=== PATIENT | male | born 1960 | race Caucasian/White ===

== ENCOUNTER 2017-11-24 15:28 | Emergency (ER) | payer SELFPAY ==
[2017-11-24 15:30] VITALS: BP 120/72; PULSE 87; RESP 15; TEMP 36.8; O2SAT 99; BMI 17.9
[2017-11-24 15:36] VITALS: BP 144/70; PULSE 81; RESP 20; O2SAT 98
--- NOTE | 2017-11-24 15:46 | EKG12_ITS ---
Test Reason : CP Blood Pressure : / mmHG Vent. Rate : 085 BPM Atrial Rate : 085 BPM P-R Int : 128 ms QRS Dur : 086 ms QT Int : 350 ms P-R-T Axes : 073 072 055 degrees QTc Int : 416 ms Normal sinus rhythm Normal ECG Confirmed by JOSEF HUGHES, TRUONG ([id number]), purchase request editor KARIME HUTCHINSON ([id number]) on 11/29/2017 8:35:33 AM Referred By: TRINI Confirmed By:TRUONG BAEHNA MD
--- NOTE | 2017-11-24 15:49 | CT_ITS ---
STUDY: CTA CHEST REASON FOR EXAM: Male, 57 years old. Right-sided chest pain and shortness of breath. RADIATION DOSAGE (If Supplied By Facility): CTDIvol = ( 5.70 ) mGy, DLP = ( 196.11 ) mGycm TECHNIQUE: The examination was performed with the intravenous administration of 75 ml of Isovue 370 contrast material. Post-processing of the angiographic images was performed, with multiplanar reformation and 3D reconstruction. Individualized dose optimization techniques were used for this CT. COMPARISON: None. FINDINGS: Normal enhancement of the main pulmonary artery and right and left pulmonary arteries. Normal enhancement of the bilateral peripheral pulmonary arteries. There is no demonstrated pulmonary embolism. Moderate elongation and mild calcified plaque of the thoracic aorta. There is no demonstrated aortic dissection. Normal heart and pericardium. Coronary calcifications. Normal mediastinum. Normal hilar regions. Diffuse emphysematous changes and generalized bronchial thickening. Multifocal small infiltrates of the left upper lobe. Apical pleural thickening bilaterally with nodular surface features. The most prominent nodule on the right side is 5.9 x 4.4 mm with a pleural type extension. Numerous pleural-based nodules of the left lung apex. Negative for pleural effusion. Normal chest wall structures. There are degenerative changes of thoracic spine with increased kyphosis and a mild scoliosis. Normal visualized upper abdomen. CT/CTA Chest W/WO Contrast IMPRESSION: Negative for pulmonary embolus. Atherosclerotic changes of the thoracic aorta without aneurysm or dissection. Substantial coronary calcifications. Small nonspecific multifocal infiltrate of the anterior left upper lobe. Generalized hyperexpansion, emphysematous changes and bronchial thickening compatible with a component of COPD. Bronchial thickening is more notable in the lower lung zones with some peripheral bronchial occlusion in the right lower lobe. Negative for pleural effusion. Bilateral nodular-type apical pleural thickening bilaterally. The largest and most prominent nodule, pleural-based is 5.9 x 4.4 mm. 6-12 month follow-up recommended. Electronically Signed: Daniela Silverman MD at 17:04 EDT , Service support ,
[2017-11-24 15:55] VITALS: O2SAT 99
--- NOTE | 2017-11-24 15:56 | ED.DCSUM_ITS ---
- ER Visit Summary Date of Service: 11/24/17 Chief Complaint: Chest pain History of Present Illness: The patient is a 57 M who states that when he woke this morning he had a sharp stabbing pain on the right lower chest in the anterior axillary line. He states is worse with bending over, coughing, and touch. Denies any nausea vomiting. He denies any fevers or rashes. He is a smoker and has a chronic cough but states there is been no change in his cough and no sputum production. He denies any significant medical history. He currently takes no medications has no allergies. No prior PE. No recent travel or surgery. No recent immobilization. He has no known active cancer. No familial history of early heart disease. He denies feeling short of breath. He denies any indigestion-like symptoms. No difficulty with greasy or fatty foods. No urinary symptoms (hematuria frequency dysuria). No food intolerance. Physical Examination: Afebrile vital signs stable Gen: Well-nourished well-developed Head: Normocephalic atraumatic Eyes: Perrl EOMI ENT: TMs clear no rhinorrhea moist mucous membranes Neck: Supple no lymphadenopathy no JVD nontender CVS: Regular rate rhythm no murmurs normal S1-S2 Respiratory: No distress clear to auscultation bilaterally the right lower anterior mid axillary line chest wall is tender to palpation. I do not see any rashes. There is no pain with palpation over the posterior ribs. Abdomen: Soft nontender nondistended normal bowel sounds no masses Back: Nontender Extremity: Nontender no edema Skin: Normal color no rash Neuro: alert orientated ?3 CN II-XII intact normal strength sensation reflexes gait cerebellar Psych: Normal affect normal mood Test Results: EKG done upon arrival shows a sinus rhythm at a rate of 85. GC and BMP with a sodium of 132. Troponin negative. CT [place] of the chest did not demonstrate pulmonary embolism. There is some chronic findings that will need follow-up please see radiologist details Emergency Department Course and Treatment: I believe his pain to be chest wall related. It is reproducible. I will place him on ibuprofen he also has evidence of COPD we will place him on albuterol short burst of prednisone. Given his lung disease but is not yet formally diagnosed him to have him follow- up with pulmonology. Impression: 1. Chest wall pain 2. COPD This note was generated with [employer] dictation software. It may contain incorrect words, spelling, and punctuation that were not noted in review of the chart prior to signing ED Disposition - Plan for ED Patient: Disposition: Home or Assisted Living Chief Complaint: Chest Pain Instructions: ED Chest Pain Pleurisy Prescriptions: RX: Albuterol Inhaler [Ventolin Hfa] 1 - 2 puff INHALATION Q4H PRN PRN #1 inhaler PRN Reason: Wheezing Ibuprofen [Motrin] 800 mg PO TID PRN PRN #20 tab PRN Reason: Pain RX: Prednisone [Deltasone] 40 mg PO DAILY #10 tab Referrals: Fran Carney DO [STAFF PHYSICIAN] - (call to arrange follow up regarding your copd/lung findings)
[2017-11-24] MEDS: Ketorolac 30 MG/ML Syringe IV (16:00)
[2017-11-24 16:09] LABS: Absolute Lymphocyte Count 2.13 X10^3/ul (0.83-4.51); Absolute Neutrophil Count 3.9 X10^3/uL (2.0-7.7); Basophil# 0.04 X10^3/uL; Basophil% 0.6 % (0-1); Eosinophil# 0.18 X10^3/uL; Eosinophils% 2.7 % (0-5); Hematocrit 38.6 % (40-54); Hemoglobin 13.2 g/dl (13.0-16.5); Lymphocyte # 2.13 X10^3/ul (4.0); Lymphocyte % 31.8 % (19-41); Mean Corp Hgb Conc 34.2 g/gl (32-36); Mean Corpuscular Hgb 32.3 pg (27.0-32.0); Mean Corpuscular Volume 94.4 fL (80-94); Mean Platelet Vol. 8.5 fl (6.2-12.0); Monocyte# 0.45 X10^3/uL; Monocyte% 6.7 % (0-10); Neutrophil # 3.87 X10^3/uL (2.7-7.7); Neutrophil % 57.9 % (47-70); POSITIVE COUNT NO; POSITIVE DIFFERENTIAL NO; POSITIVE MORPHOLOGY NO; Platelet Count 277 K/mm3 (150-450); RBC Distribution Width CV 12.9 % (11.6-14.6); RBC Distribution Width SD 44.5 fl (35.1-43.9); Red Blood Count 4.09 M/mm3 (4.6-6.2); White Blood Count 6.7 K/mm3 (4.4-11.0)
[2017-11-24 16:25] LABS: Anion Gap 8 (5-15); BUN 9 mg/dL (7-18); BUN/Creat Ratio 7.8 RATIO (10-20); Calcium,Total 9.5 mg/dL (8.5-10.1); Chloride 94 mmol/L (98-107); Creatinine, Serum 1.15 mg/dL (0.70-1.30); EST Glomerular Filtration Rate 70 mL/min (>60); Est Glom Filt Rate - Afr Amer 84 mL/min (>60); Estimated Creatinine Clearance 58.34 ml/min; Glucose 105 mg/dL (74-106); Potassium 4.2 mmol/L (3.5-5.1); Sodium Level 132 mmol/L (136-145)
[2017-11-24 16:59] VITALS: BP 140/59; PULSE 69; RESP 16; O2SAT 99
[2017-11-24 17:55] VITALS: BP 123/69; PULSE 70; RESP 16; O2SAT 98
[2017-11-24 18:02] VITALS: BP 115/79; PULSE 70; RESP 16; O2SAT 98
== END 2017-11-24 18:03 | disposition home or self-care (01) ==
PROVIDERS: Emergency Provider Emergency Medicine
DX: R07.89 Other chest pain (principal); J44.9 Chronic obstructive pulmonary disease, unspecified; Z72.0 Tobacco use
CPT/HCPCS: 71275; 80048; 84484; 85025; 93005; 96374; 99284; Q9967; A4216

== ENCOUNTER 2018-03-14 23:37 | Emergency (ER) | payer SELFPAY ==
[2018-03-14 23:38] VITALS: BP 180/90; PULSE 76; RESP 18; TEMP 36.3; O2SAT 100; BMI 18.6
[2018-03-15] MEDS: Penicillin Vk 250 MG Tablet 500 MG PO (00:29)
[2018-03-15] MEDS: Acetaminophen 500 MG Tablet 1000 MG PO (00:29)
[2018-03-15] MEDS: Bupivacaine 0.5%/Epi 1.8 ML Syringe INFILT (00:31)
--- NOTE | 2018-03-15 00:55 | ED.VISSUMM ---
- ER Visit Summary Date of Service: 03/15/18 Chief Complaint: Dental pain and facial swelling History of Present Illness: The patient is a 57 M with no dentist or primary care physician who presents for left mandibular dental pain and swelling since yesterday morning. It is gradually worsened, with jaw swelling. Patient used Orajel, a whole tube, without relief. Patient denies any fever, sore throat, cough, or any other complaints. He denies any medical history. He is a smoker. Physical Examination: Patient is afebrile and hemodynamically stable, well-nourished well-developed sitting in bed in no distress. Obvious left mandibular facial swelling on direct visualization. Neck is supple, no lymphadenopathy, no tenderness. No sublingual edema. No submandibular fullness. Patient has diffuse dental decay with multiple missing teeth. Left mandibular first molar is loose. Gingival swelling along the buccal surface of the left mandibular premolars and first molar corresponding to the jaw swelling. Discrete large fluctuant mass palpable. No gingival ulcerations. No other significant findings on exam. Test Results: [] Emergency Department Course and Treatment: Patient was given a [place] for pain. An inferior alveolar block was performed with 1 cc of Marcaine. A small amount was also locally infiltrated at the site corresponding to the maximum fluctuance. Moderate anesthesia was achieved. An 18-gauge needle was inserted into the fluctuant cavity on the buccal surface and purulent drainage was aspirated. Purulent fluid then drained from the puncture site and was made slightly bigger with a 0.5 cm stab incision using a 15 blade. Large amount of drainage was suctioned from patient's mouth. The jaw swelling resolved with minimal swelling remaining. Patient was started on penicillin for dental infection. Patient was given a list of dental clinics. He was given a take-home pack of [place] to help with pain. He was given a prescription for naproxen for mild to moderate pain. Return precautions given. Patient discharged home. Treatment Plan: [] Disposition: [] Impression: Dental abscess, inferior alveolar block, incision and drainage This note was generated with [employer] dictation software. It may contain incorrect words, spelling, and punctuation that were not noted in review of the chart prior to signing ED Disposition - Plan for ED Patient: Chief Complaint: Dental Prescriptions: Naproxen [Naprosyn] 500 mg PO BID PRN #20 tab Penicillin V Potassium 500 mg PO 4X/DAY #40 tab Referrals: Care Physician,No Primary [Primary Care Provider] -
--- NOTE | 2018-03-15 00:59 | ED.DCSUM_ITS ---
- ER Visit Summary Date of Service: 03/15/18 Chief Complaint: Dental pain and facial swelling History of Present Illness: The patient is a 57 M with no dentist or primary care physician who presents for left mandibular dental pain and swelling since yesterday morning. It is gradually worsened, with jaw swelling. Patient used Orajel, a whole tube, without relief. Patient denies any fever, sore throat, cough, or any other complaints. He denies any medical history. He is a smoker. Physical Examination: Patient is afebrile and hemodynamically stable, well-nourished well-developed sitting in bed in no distress. Obvious left mandibular facial swelling on direct visualization. Neck is supple, no lymphadenopathy, no tenderness. No sublingual edema. No submandibular fullness. Patient has diffuse dental decay with multiple missing teeth. Left mandibular first molar is loose. Gingival swelling along the buccal surface of the left mandibular premolars and first molar corresponding to the jaw swelling. Discrete large fluctuant mass palpable. No gingival ulcerations. No other significant findings on exam. Test Results: [] Emergency Department Course and Treatment: Patient was given a [place] for pain. An inferior alveolar block was performed with 1 cc of Marcaine. A small amount was also locally infiltrated at the site corresponding to the maximum fluctuance. Moderate anesthesia was achieved. An 18-gauge needle was inserted into the fluctuant cavity on the buccal surface and purulent drainage was aspirated. Purulent fluid then drained from the puncture site and was made slightly bigger with a 0.5 cm stab incision using a 15 blade. Large amount of drainage was suctioned from patient's mouth. The jaw swelling resolved with minimal swelling remaining. Patient was started on penicillin for dental infection. Patient was given a list of dental clinics. He was given a take- home pack of [place] to help with pain. He was given a prescription for naproxen for mild to moderate pain. Return precautions given. Patient discharged home. Treatment Plan: [] Disposition: [] Impression: Dental abscess, inferior alveolar block, incision and drainage This note was generated with [employer] dictation software. It may contain incorrect words, spelling, and punctuation that were not noted in review of the chart prior to signing ED Disposition - Plan for ED Patient: Chief Complaint: Dental Prescriptions: Naproxen [Naprosyn] 500 mg PO BID PRN #20 tab Penicillin V Potassium 500 mg PO 4X/DAY #40 tab Referrals: Care Physician,No Primary [Primary Care Provider] -
--- NOTE | 2018-03-15 01:01 | DCINST.ED_ITS ---
ED Disposition - Plan for ED Patient: Chief Complaint: Dental Instructions: ED Abscess Dental Prescriptions: Naproxen [Naprosyn] 500 mg PO BID PRN #20 tab Penicillin V Potassium 500 mg PO 4X/DAY #40 tab Referrals: Care Physician,No Primary [Primary Care Provider] - Cathryn Hardy MD [STAFF PHYSICIAN] - 3-5 Days if not improving Additional Instructions: Take the penicillin 4 times daily for the entire 10 days, even if you feel better before it is done. Use the [place] for severe pain and use naproxen for mild to moderate pain. Please follow-up as soon as possible with a dentist. You were provided a list of dental clinics. The site where the abscess was drained may continue to ooze blood. If at any point you think it is bleeding too much, if the painful cheek swelling returns, you develop a high fever, difficulty breathing, trouble swallowing, or of any other concerns, please return immediately to the emergency department for another evaluation. If you have any worsening of your condition or any new concerning symptoms, please return immediately to the emergency department for another evaluation.
[2018-03-15] MEDS: HYDROcodone Bitartrate/Apap 5/325 Tablet PO (01:11)
== END 2018-03-15 01:16 | disposition home or self-care (01) ==
LOC: ED 03-15 00:11
PROVIDERS: Emergency Provider Emergency Medicine
DX: K04.7 Periapical abscess without sinus (principal); F17.200 Nicotine dependence, unspecified, uncomplicated
CPT/HCPCS: 41800; 64402; 99284

== ENCOUNTER 2020-01-17 21:21 | Emergency (ER) | payer SELFPAY ==
[2020-01-17 21:23] VITALS: BP 122/81; PULSE 77; RESP 16; TEMP 37.1; O2SAT 100; BMI 19.6
--- NOTE | 2020-01-17 21:57 | EKG12_ITS ---
Test Reason : DYSRHYTHMIA Blood Pressure : / mmHG Vent. Rate : 074 BPM Atrial Rate : 074 BPM P-R Int : 166 ms QRS Dur : 080 ms QT Int : 410 ms P-R-T Axes : 068 065 050 degrees QTc Int : 455 ms Normal sinus rhythm Nonspecific ST and T wave abnormality Abnormal ECG Confirmed by JOSEF HUGHES, TRUONG ([id number]), business editor TYRON LEGER () on 01/21/2020 8:46:01 AM Referred By: STEFFI Confirmed By:TRUONG BAHENA MD
--- NOTE | 2020-01-17 21:58 | CT_ITS ---
STUDY: CT CERVICAL SPINE WITHOUT CONTRAST REASON FOR EXAM: Male, 59 years old. Fell down 5 steps. Head laceration. RADIATION DOSAGE (If Supplied By Facility): CTDIvol = ( 14.57 ) mGy, DLP = ( 306.50 ) mGycm TECHNIQUE: High resolution transaxial imaging was performed without contrast material. Sagittal and coronal images were reconstructed. Individualized dose optimization techniques were used for this CT. COMPARISON: None FINDINGS: Normal craniovertebral junction. There are degenerative changes of the anterior atlantoaxial articulation. Normal odontoid process. Normal cervical lordosis. Normal vertebral bodies and posterior osseous elements. C2-3: Normal endplates. Normal disc height and morphology. Normal central canal and intervertebral neuroforamina. C3-4: Normal endplates. Minimal loss of disc height. Mild facet and uncovertebral joint degenerative change.. Normal central canal and intervertebral neuroforamina. C4-5: Normal endplates. Normal disc height and morphology. Facet joint degenerative change Normal central canal and intervertebral neuroforamina. C5-6: Mild endplate spondylosis with loss of disc height. Facet joint degenerative change.. Normal central canal and intervertebral neuroforamina. C6-7: Normal endplate spondylosis with loss of disc height. Facet joint degenerative change.. Normal central canal and intervertebral neuroforamina. C7-T1: Normal endplates. Normal disc height and morphology. Normal central canal and intervertebral neuroforamina. Bilateral carotid calcifications. CT/Spine Cervical without Contras IMPRESSION: Mild degenerative changes of the cervical spine. There is no acute fracture or subluxation. Electronically Signed: Rashaad Monique DO at 23:20 EST Tel [phone], Service support ,
--- NOTE | 2020-01-17 21:58 | CT_ITS ---
STUDY: CT ABDOMEN AND PELVIS WITH CONTRAST REASON FOR EXAM: Male, 59 years old. Fall down multiple steps. Abdominal pain. Rib pain. RADIATION DOSAGE (If Supplied By Facility): CTDIvol = ( 12.125 ) mGy, DLP = ( 352.75 ) mGycm TECHNIQUE: Transaxial images were obtained from the dome of the diaphragm to the symphysis pubis without oral contrast. IV- 100 ML ISOVUE 370 was administered. Sagittal and coronal images were reconstructed. Individualized dose optimization techniques were used for this CT. COMPARISON: None. FINDINGS: The visualized lung bases are unremarkable. The visualized portions of the heart are within normal limits. Normal liver. Normal gallbladder and extrahepatic biliary system. Normal spleen. Normal pancreas. Normal bilateral adrenal glands. Normal right kidney. Normal left kidney. Normal visualized stomach. Normal small intestine. Normal colon. There is non-visualization of the appendix. There is diffuse atherosclerotic calcification of the abdominal aorta, without a demonstrated aneurysm. Normal inferior vena cava. Normal retroperitoneum. Normal urinary bladder. The prostate is mildly enlarged. There is no pelvic lymphadenopathy. No free air or free fluid is seen within the peritoneal cavity. Normal abdominal wall. There are degenerative changes of the lumbar spine. No fracture or dislocation is noted. CT/Abdomen/Pelvis WITH Contrast IMPRESSION: Normal enhanced CT of the abdomen and pelvis. Electronically Signed: Rashaad Monique DO at 23:22 EST Tel [phone], Service support ,
--- NOTE | 2020-01-17 21:58 | CT_ITS ---
STUDY: CT BRAIN WITHOUT CONTRAST REASON FOR EXAM: Male, 59 years old. Fell down 5 steps following drinking. Laceration to the head. No loss of consciousness. RADIATION DOSAGE (If Supplied By Facility): CTDIvol = ( 44.99 ) mGy, DLP = ( 812.98 ) mGycm TECHNIQUE: Transaxial CT imaging of the brain was performed without administration of intravenous contrast material. Individualized dose optimization techniques were used for this CT. COMPARISON: No relevant priors. FINDINGS: Normal soft tissue structures. Normal calvarium. Normal size ventricles and extra-axial spaces for the patient''s age. There are areas of decreased attenuation within the white matter tracts of the supratentorial brain, consistent with microvascular disease changes. Normal basal ganglia and thalami. There is a remote lacunar infarct in the right kathryn. Normal cerebellum. There is no intracranial hemorrhage. There are no findings of an acute ischemic infarction. Normal visualized paranasal sinuses. CT/Brain/Head without Contrast IMPRESSION: Chronic involutional changes without evidence of acute intracranial or calvarial abnormality. Electronically Signed: Rashaad Monique DO at 23:18 EST Tel [phone], Service support ,
--- NOTE | 2020-01-17 22:29 | ED.DCSUM_ITS ---
History of Present Illness Chief Complaint: Fall Informant: Patient, Significant Other Onset: Today Mechanism/Context: Fall Quality of Pain: Dull, Aching Location: Left flank, left upper quadrant Current Severity: Mild Maximum Severity: Moderate Worsened by: Movement and breathing Relieved by: Nothing Associated Symptoms: - - He is uncertain. Suspect he did have loss conscious since he was unaware that he was incontinent of urine.. Negative for: Parasthesias, Weakness, Loss of function, Inability to ambulate Length of loss of consciousness: Unknown Narrative: Patient is a 59-year-old male who admits to drinking 5 beers this evening. He drinks 4-5 times a week. He states he drinks 4-6 beers per setting. He apparently fell down 5 steps. He did hit his head. He was unaware that he had a laceration. He denies headache. Eyes visual, ocular auditory symptoms. Eyes ringing his ears. He denies neck pain. He denies change in voice. Nuys difficulty swallowing or breathing. He does report left-sided chest/flank pain. He has not urinated to his knowledge prior to this. He denies nausea or vomiting. He denies paresthesia, anesthesia or motor weakness presently or time of fall per his recall. Tetanus is unknown. History is limited Tetanus Immunization: Unknown Prior similar symptoms: No Recent Illness/Hospitalization: No - Past Medical History (1) No significant medical problems Status: Acute Past Medical History - Allergies and Home Meds Allergies/Adverse Reactions: Allergies No Known Allergies Allergy (Verified 01/17/20 21:22) Primary Care Physician: Care Physician,No Primary [Primary Care Provider] - Prior records reviewed: No Past Medical History: None Surgical History: no surgical history Lives: Spouse/ Significant Other Smoking Status: Current every day smoker Alcohol: Heavy Drugs: None Review of Systems General: Denies: Chills, Fever, Malaise Eyes: Denies: Visual changes - bilaterally, Blurred Vision - bilaterally, Diplopia ENT: Reports: - - Denies ringing in his ears. Denies drainage from his ears.. Denies: Bilateral ear pain, Rhinorrhea, Sore throat Cardiovascular: Reports: Chest pain. Denies: Palpitations, Heart racing Respiratory: Denies: Dyspnea, Cough, Sputum, Dyspnea on exertion Gastrointestinal: Reports: Abdominal pain. Denies: Nausea, Vomiting, Diarrhea, Melena, Hematochezia Genitourinary: Denies: Dysuria, Frequency Musculoskeletal: Denies: Myalgias, Arthralgias, Neck pain, Back pain, Swelling, Extremity Pain Skin: Reports: Wounds. Denies: Rash Neurological: Denies: Headache, Weakness, Parasthesia Hematologic: Denies: Easy bruising, Easy bleeding Allergy: Denies: Uticaria Physical Exam Vital Signs/Narrative: Vital Signs Temp Pulse Resp BP Pulse Ox 01/17/20 21:23 98.7 F 77 16 122/81 H 100 Inital Vital Signs reviewed: Yes General: Well nourished, Well developed Head: Trauma - There is a laceration near the lateral left brow., - - There is no clinical finding of basilar skull fracture. Eyes: Perrl, EOMI, - - There is no subconjunctival hemorrhage.. Negative for: Pale conjunctiva, Scleral icterus ENT: TM's clear, No hemotympanum or drainage, - - There is no dental fractures, subluxation or or avulsions noted. There is no TMJ tenderness noted.. Negative for: No trauma, Hemotympanum, Otorrhea, Nasal trauma, Nasal septal hematoma Neck: Nontender - Patient remained in collar since he is intoxicated and cannot be cleared per Nexus criteria. Cardiovascular: Regular rate, Regular rhythm, No murmurs, Normal S1, Normal S2 Respiratory: No distress, CTA bilaterally, Chest tenderness. Negative for: Chest nontender Abdomen: Nondistended, Normal bowel sounds, No masses, Tender, Guarding. Negative for: Soft, Nontender Rectal: Deferred Back: CVA Tenderness - Left, Negative SLR - Right, Negative SLR - Left. Negative for: Spinal Tenderness Extremeties: There is no deformity. There is no neurovascular findings. There is no evidence of obvious trauma. Skin: Normal color, Trauma - Laceration previously described Neurological: Cranial nerves II-XII grossly intact, Normal Strength, Normal Sensation, Normal DTR. Negative for: Alert Psychological: Normal affect Diagnostic/Tx/Re-eval Impressions Abdomen/Pelvis CT 01/17/20 21:58 IMPRESSION: Normal enhanced CT of the abdomen and pelvis. Electronically Signed: Rashaad Monique DO at 23:22 EST Tel [phone], Service support , Brain CT 01/17/20 21:58 IMPRESSION: Chronic involutional changes without evidence of acute intracranial or calvarial abnormality. Electronically Signed: Rashaad Monique DO at 23:18 EST Tel [phone], Service support , Cervical Spine CT 01/17/20 21:58 IMPRESSION: Mild degenerative changes of the cervical spine. There is no acute fracture or subluxation. Electronically Signed: Rashaad Monique DO at 23:20 EST Tel [phone], Service support , 01/17/20 21:58 Abdomen/Pelvis WITH Contrast [CT] Stat Brain/Head without Contrast [CT] Stat Spine Cervical without Contras [CT] Stat Laboratory Results 01/17/20 01/17/20 01/17/20 22:25 22:25 22:25 WBC 5.5 RBC 3.17 L Hgb 10.8 L Hct 32.5 L MCV 102.5 H MCH 34.1 H MCHC 33.2 RDW Std Deviation 45.9 H RDW Coeff of Triny 12.1 Plt Count 201 MPV 8.4 Immature Gran % (Auto) 0.400 Neut % (Auto) 63.2 Lymph % (Auto) 29.8 [place] % (Auto) 4.4 Eos % (Auto) 1.8 Baso % (Auto) 0.4 Absolute Neuts (auto) 3.5 Absolute Lymphs (auto) 1.64 Nucleated RBC % 0 PT INR Sodium 135 L Potassium 3.9 Chloride 102 Carbon Dioxide 27.0 Anion Gap 6 BUN 12 Creatinine 0.88 Estim Creat Clear Calc 79.52 Est GFR (MDRD) Af Amer 114 Est GFR (MDRD) Non-Af 94 BUN/Creatinine Ratio 13.7 Glucose 92 Calcium 8.5 Total Bilirubin 0.30 Direct Bilirubin 0.09 AST 17 ALT 18 Alkaline Phosphatase 53 Total Protein 7.2 Albumin 3.7 Globulin 3.5 Urine Color Urine Clarity Urine pH Ur Specific [place] Urine Protein Urine Glucose (UA) Urine Ketones Urine Occult Blood Urine Nitrite Urine Bilirubin Urine Urobilinogen Ur Leukocyte Esterase Urine RBC Urine WBC Ur Squamous Epith Cells Urine Bacteria Urine Mucus Ethyl Alcohol 184.0 01/17/20 01/18/20 22:25 00:12 WBC RBC Hgb Hct MCV MCH MCHC RDW Std Deviation RDW Coeff of Triny Plt Count MPV Immature Gran % (Auto) Neut % (Auto) Lymph % (Auto) [place] % (Auto) Eos % (Auto) Baso % (Auto) Absolute Neuts (auto) Absolute Lymphs (auto) Nucleated RBC % PT 12.9 INR 1.0 Sodium Potassium Chloride Carbon Dioxide Anion Gap BUN Creatinine Estim Creat Clear Calc Est GFR (MDRD) Af Amer Est GFR (MDRD) Non-Af BUN/Creatinine Ratio Glucose Calcium Total Bilirubin Direct Bilirubin AST ALT Alkaline Phosphatase Total Protein Albumin Globulin Urine Color Yellow Urine Clarity Clear Urine pH 6.5 Ur Specific [place] 1.010 Urine Protein Negative Urine Glucose (UA) Normal Urine Ketones Negative Urine Occult Blood 10 H Urine Nitrite Negative Urine Bilirubin Negative Urine Urobilinogen Normal Ur Leukocyte Esterase Negative Urine RBC 0 SEEN Urine WBC 0 SEEN Ur Squamous Epith Cells 0 SEEN Urine Bacteria 0 SEEN Urine Mucus 0 SEEN Ethyl Alcohol Striae of coagulopathy due to alcohol/liver disease. Urine is unremarkable. Alcohol is elevated and much higher than one would expect for consuming only [address] of the head, neck and abdomen pelvis with IV contrast was reviewed by me interpreted radiologist as negative for any acute pathology. - Medical Decision Making With history of alcohol consumption altered mental status CT of the head was obtained to rule out subdural, epidural, traumatic subarachnoid hemorrhage versus contusion. Also the consideration is concussion. C-spine was evaluated CAT scan since he cannot be cleared per Nexus criteria. Because he has left flank pain and left upper quadrant pain a CT of the abdomen pelvis with IV contrast was obtained to rule out renal as well as splenic injury. Tetanus was updated. Laceration will be repaired. Procedures - Lacerations No standard instances Length: 1.02 in Depth: Sub Q Shape: T shaped Prep: María Laceration Repair: Lidocaine, Local Irrigated (ml): 200 Number of Sutures/Reagan: 8 Suture Information: Ethilon, Simple, 6-0 ED Disposition - Plan for ED Patient: Disposition: Home or Assisted Living Diagnosis: Closed head injury with loss of consciousness of unknown duration, Alcohol intoxication with blood level 0.08-0.29, Facial laceration, Sprain of cervical neck, Blunt abdominal trauma, Contusion of rib on left side Instructions: ED Abd Injury Blunt Benign, ED INTOXICATION Alcohol, ED Head Injury Adult, ED Laceration Facial Sutr Tape, ED Sprain Strain Neck, ED CONTUSION Rib Prescriptions: Hydrocodone Bitart/Apap 5-325 [[place] 5MG-325MG] 1 tab PO Q6H PRN PRN 3 Days #10 tab PRN Reason: Pain Transmission Status: Sent to [facility] Referrals: Care Physician,No Primary [Primary Care Provider] - Jose Lazar MD [STAFF PHYSICIAN] - 5 Days for suture removal Additional Instructions: Since you do not have a physician referred to Dr. Jose Lazar
[2020-01-17 22:37] LABS: Absolute Lymphocyte Count 1.64 X10^3/uL (0.83-4.51); Absolute Neutrophil Count 3.5 X10^3/uL (2.0-7.7); Basophil# 0.02 X10^3/uL; Basophil% 0.4 % (0-1); Eosinophils% 1.8 % (0-5); Hematocrit 32.5 % (40-54); Hemoglobin 10.8 g/dL (13.0-16.5); Lymphocyte # 1.64 X10^3/ul (4.0); Lymphocyte % 29.8 % (19-41); Mean Corp Hgb Conc 33.2 g/dL (32-36); Mean Corpuscular Hgb 34.1 pg (27.0-32.0); Mean Corpuscular Volume 102.5 fL (80-94); Mean Platelet Vol. 8.4 fl (6.2-12.0); Monocyte# 0.24 X10^3/uL; Monocyte% 4.4 % (0-10); NRBC Flagged by Analyzer 0 % (0-5); Neutrophil # 3.48 X10^3/uL (2.7-7.7); Neutrophil % 63.2 % (47-70); Platelet Count 201 K/mm3 (150-450); RBC Distribution Width CV 12.1 % (11.6-14.6); RBC Distribution Width SD 45.9 fl (35.1-43.9); Red Blood Count 3.17 M/mm3 (4.6-6.2); White Blood Count 5.5 K/mm3 (4.4-11.0)
[2020-01-17 22:43] LABS: Prothrombin Time (Protime)PT. 12.9 SECONDS (11.7-14.9)
[2020-01-17 22:52] LABS: AST(SGOT) 17 U/L (15-37); Alanine Aminotransfer ALT/SGPT 18 U/L (16-61); Albumin, Serum 3.7 g/dL (3.2-5.0); Alkaline Phosphatase 53 U/L (45-117); Anion Gap 6 (5-15); BUN 12 mg/dL (7-18); BUN/Creat Ratio 13.7 RATIO (10-20); Bilirubin, Direct 0.09 mg/dL (0.00-0.30); Calcium,Total 8.5 mg/dL (8.5-10.1); Chloride 102 mmol/L (98-107); Creatinine, Serum 0.88 mg/dL (0.70-1.30); EST Glomerular Filtration Rate 94 mL/min (>60); Est Glom Filt Rate - Afr Amer 114 mL/min (>60); Estimated Creatinine Clearance 79.52 ml/min; Globulin 3.5 g/dL (2.2-4.2); Glucose 92 mg/dL (74-106); Potassium 3.9 mmol/L (3.5-5.1); Protein, Total 7.2 g/dL (6.4-8.2); Sodium Level 135 mmol/L (136-145)
[2020-01-17] MEDS: Diphth,Pertuss(Acell),Tet Vac 0.5 ML Vial IM (22:56)
[2020-01-17 22:59] VITALS: BP 141/82; PULSE 71; RESP 17; O2SAT 98
[2020-01-18 00:03] VITALS: BP 131/93; PULSE 75; RESP 16; O2SAT 95
[2020-01-18 00:16] LABS: Bacteria 0 SEEN /hpf (None Seen); Glucose, Dipstick Normal (Normal); Ketone-Dipstick Negative (Negative); Leukocyte Esterase-Dipstick Negative /ul (Negative); Mucous, Urine 0 SEEN /hpf (<or=2+); Nitrite-Dipstick Negative (Negative); Occult Blood-Urine 10 /ul (Negative); Protein-Dipstick Negative (Negative); Red Blood Cells-Urine 0 SEEN /hpf (0-5); Squamous Epithelial Cells - UA 0 SEEN /hpf (0-5); Urine Bilirubin Dipstick Negative (Negative); Urine Urobilinogen Normal (Normal); Urine pH 6.5 (5.0 - 8.0); White Blood Cells 0 SEEN /hpf (0-5)
[2020-01-18 00:20] LABS: Color, Urine Yellow (Yellow); Urine Clarity Clear (Clear)
[2020-01-18 00:53] VITALS: BP 136/77; PULSE 68; RESP 16; O2SAT 98
== END 2020-01-18 02:19 | disposition home or self-care (01) ==
PROVIDERS: Emergency Provider Emergency Medicine
DX: S01.81XA Laceration without foreign body of other part of head, initial encounter (principal); S13.4XXA Sprain of ligaments of cervical spine, initial encounter; S39.91XA Unspecified injury of abdomen, initial encounter; S20.212A Contusion of left front wall of thorax, initial encounter; W10.9XXA Fall (on) (from) unspecified stairs and steps, initial encounter; Y93.9 Activity, unspecified; Y92.9 Unspecified place or not applicable; Y99.9 Unspecified external cause status; F10.129 Alcohol abuse with intoxication, unspecified; Y90.0 Blood alcohol level of less than 20 mg/100 ml; F17.200 Nicotine dependence, unspecified, uncomplicated
CPT/HCPCS: 12011; 70450; 72125; 74177; 80048; 80076; 80320; 81001; 85025; 85610; 90471; 90715; 93005; 99285; Q9967; A4216; G0480

== ENCOUNTER 2020-10-26 10:28 | Inpatient (IN) | payer SELFPAY ==
[2020-10-26] VITALS (8 sets, daily range): BP systolic 104–186; BP diastolic 66–89; PULSE 58–77; RESP 14–18; TEMP 36.6–37.2; O2SAT 99–100; BMI 18.8; BMI 17.9; BMI 17.6
--- NOTE | 2020-10-26 11:45 | ED.RN ---
PER PT STARTED WITH LEFT SIDED FACIAL DROOP, LEFT ARM ALL CURLED UP AND GARBLED SPEECH ON 10/16/20. PT REFUSED TO COME TO ED. TODAY WENT TO WORK AND EMPLOYER INSISTED PT COME IN TO BE EVALUATED. PT CONTINUES WITH SLIGHT LEFT SIDED DROOP WHEN SMILING AND GARBLED SPEECH. ALL OTHER SYMPTOMS RESOLVED,
[2020-10-26 11:49] LABS: Bacteria 0 SEEN /hpf (None Seen); Mucous, Urine 0 SEEN /hpf (<or=2+); Red Blood Cells-Urine 0 SEEN /hpf (0-5); Squamous Epithelial Cells - UA 0 SEEN /hpf (0-5); White Blood Cells 0 SEEN /hpf (0-5)
[2020-10-26 11:54] LABS: Absolute Lymphocyte Count 1.63 X10^3/uL (0.83-4.51); Absolute Neutrophil Count 1.4 X10^3/uL (2.0-7.7); Basophil# 0.01 X10^3/uL; Basophil% 0.3 % (0-1); Eosinophil# 0.04 X10^3/uL; Eosinophils% 1.2 % (0-5); Hematocrit 32.5 % (40-54); Hemoglobin 11.1 g/dL (13.0-16.5); Lymphocyte # 1.63 X10^3/ul (0.83-4.51); Lymphocyte % 49.5 % (19-41); Mean Corp Hgb Conc 34.2 g/dL (32-36); Mean Corpuscular Volume 102.5 fL (80-94); Mean Platelet Vol. 9.4 fl (6.2-12.0); Monocyte# 0.18 X10^3/uL; Monocyte% 5.5 % (0-10); NRBC Flagged by Analyzer 0 % (0-5); Neutrophil # 1.42 X10^3/uL (2.7-7.7); Neutrophil % 43.2 % (47-70); Platelet Count 148 K/mm3 (150-450); RBC Distribution Width CV 12.6 % (11.6-14.6); RBC Distribution Width SD 47.8 fl (35.1-43.9); Red Blood Count 3.17 M/mm3 (4.6-6.2); White Blood Count 3.3 K/mm3 (4.4-11.0)
[2020-10-26 11:57] LABS: Color, Urine Yellow (Yellow); Glucose, Dipstick Normal (Normal); Ketone-Dipstick Negative (Negative); Leukocyte Esterase-Dipstick Negative /ul (Negative); Nitrite-Dipstick Negative (Negative); Occult Blood-Urine Negative /ul (Negative); Protein-Dipstick Negative (Negative); Specific Gravity, Urine 1.015 (1.002-1.030); Urine Bilirubin Dipstick Negative (Negative); Urine Clarity Clear (Clear); Urine Urobilinogen Normal (Normal)
[2020-10-26 12:06] LABS: Anion Gap 3 (5-15); BUN 13 mg/dL (7-18); BUN/Creat Ratio 15.6 RATIO (10-20); Calcium,Total 9.1 mg/dL (8.5-10.1); Chloride 106 mmol/L (98-107); Creatinine, Serum 0.83 mg/dL (0.70-1.30); EST Glomerular Filtration Rate 100 mL/min (>60); Est Glom Filt Rate - Afr Amer 121 mL/min (>60); Estimated Creatinine Clearance 78.18 ml/min; Glucose 93 mg/dL (74-106); Sodium Level 137 mmol/L (136-145)
--- NOTE | 2020-10-26 12:19 | CT_ITS ---
STUDY: CT HEAD STROKE PROTOCOL W/O CONTRAST INJECTION REASON FOR EXAM: Male, 60 years old. Neuro deficit, acute, stroke suspected RADIATION DOSAGE (If Supplied By Facility): CTDIvol = ( 44.99 ) mGy, DLP = ( a 12.98 ) mGycm TECHNIQUE: Transaxial CT imaging of the brain was performed without administration of intravenous contrast material. Individualized dose optimization techniques were used for this CT. COMPARISON: Comparison is made with prior study dated 01/17/2020. FINDINGS: Normal soft tissue structures. Normal calvarium. There is mild cerebral atrophy with widening of the extra-axial spaces and ventricular dilatation. There are areas of decreased attenuation within the white matter tracts of the supratentorial brain, consistent with microvascular disease changes. Normal basal ganglia and thalami. Remote lacunar infarct in the right side of the kathryn. Tiny old lacunar infarct in the right basal ganglia. Normal cerebellum. There is no intracranial hemorrhage. There are no findings of an acute ischemic infarction. Atherosclerotic calcific plaques of the vertebral arteries and cavernous portions of the internal carotid arteries bilaterally. Normal visualized paranasal sinuses. CT/STROKE Brain/Head without Cont IMPRESSION: Chronic involutional changes of the brain. N.B. : The above Results were Read Back by Cain Zimmerman MD to dameon sawant and understanding confirmed on 10/26/2020 13:20:08 (ET). Electronically Signed: Cain Zimmerman MD at 13:21 EDT , Service support ,
--- NOTE | 2020-10-26 12:19 | EKG12_ITS ---
Test Reason : NEURO S/SX Blood Pressure : / mmHG Vent. Rate : 058 BPM Atrial Rate : 058 BPM P-R Int : 146 ms QRS Dur : 082 ms QT Int : 454 ms P-R-T Axes : 066 056 040 degrees QTc Int : 445 ms Sinus bradycardia Otherwise normal ECG Confirmed by JOSEF HUGHES, TRUONG ([id number]), primer expeditor and drier TYRON LEGER ([id number]) on 10/29/2020 10:24:43 AM Referred By: SHERIF/WALLY Confirmed By:TRUONG BAHENA MD
--- NOTE | 2020-10-26 12:22 | EDS_ITS ---
HPI History of Present Illness Chief Complaint: Neuro S/Sx Narrative Narrative: Patient presents with 10-day history of slurred speech, left arm and left leg weakness. His left arm and left leg weakness improved thus he wanted to go to work, they required him to come to the emergency department. His left arm and left weakness apparently are now resolved. He does not know if he has medical problems since he does not go to a physician, he smokes, he does not take any medications. PFSH PFS Medical History Alcohol abuse Home Medications NK 10/26/20 [History Last Taken Unknown] Allergy/AdvReac Type Severity Reaction Status Date / Time No Known Allergies Allergy Verified 10/26/20 10:29 Social History Smoking Status: Current every day smoker tobacco type: cigarettes ROS ROS ED ROS Narrative Past medical history: Reviewed, unknown if any Medications: None Social history: Smoker, lives with his Review of systems: All systems negative except as indicated General: No fever Eyes: No visual changes ENT: No upper airway congestion, normal voice Neck: No neck pain Cardiovascular: No chest pain Respiratory: No shortness of breath or cough Gastrointestinal: No abdominal pain, nausea vomiting or diarrhea Genitourinary: No dysuria Musculoskeletal: Denies myalgias no difficulty with ambulation Skin: No rash Neurological: Weakness which has resolved, slurred speech which has not resolved Psych: No recent behavioral changes Hematologic: No easy bleeding or easy bruising EXAM Physical Exam Narrative Exam Narrative: Physical exam General: Well nourished, Well developed, No Acute Distress Head: Normocephalic, Atraumatic Eyes: Conjunctiva not pale ENT: Moist mucous membranes Neck: Supple, Nontender, No lymphadenopathy Cardiovascular: Regular rate, Regular rhythm Respiratory: No distress, CTA bilaterally Abdomen: Soft, Nontender, Nondistended Back: Nontender, Normal Inspection. Negative for: CVA tenderness Extremities: Nontender, No edema Skin: Normal color, No rash Neurological: Alert, Normal Strength, Normal Sensation. He has slight dysarthria. Psychological: Normal affect Const Vital Signs: 10/26/20 10:29 10/26/20 12:31 Temperature 99.0 F Temperature Source Oral Pulse Rate 77 Respiratory Rate 16 Blood Pressure 104/89 H Blood Pressure Mean 94 Pulse Ox 100 Oxygen Delivery Method Room Air Room Air Neuro Sensorium / Orientation: other MDM MDM MDM Narrative Medical decision making narrative: Patient has chronic changes on his CT however he does not see a primary care physician he does not take any medications he likely will need a statin and antiplatelet therapy, his ABCD 2 score is 5 thus I will admit him to the hospital Lab Data Labs: Laboratory Results - last 24 hr 10/26/20 10/26/20 10/26/20 11:37 11:37 11:37 WBC 3.3 L RBC 3.17 L Hgb 11.1 L Hct 32.5 L MCV 102.5 H MCH 35.0 H MCHC 34.2 RDW Std Deviation 47.8 H RDW Coeff of Triny 12.6 Plt Count 148 L MPV 9.4 Immature Gran % (Auto) 0.300 Neut % (Auto) 43.2 L Lymph % (Auto) 49.5 H [place] % (Auto) 5.5 Eos % (Auto) 1.2 Baso % (Auto) 0.3 Absolute Neuts (auto) 1.4 L Absolute Lymphs (auto) 1.63 Nucleated RBC % 0 PT INR APTT Sodium 137 Potassium 4.0 Chloride 106 Carbon Dioxide 28.0 Anion Gap 3 L BUN 13 Creatinine 0.83 Estim Creat Clear Calc 78.18 Est GFR (MDRD) Af Amer 121 Est GFR (MDRD) Non-Af 100 BUN/Creatinine Ratio 15.6 Glucose 93 Calcium 9.1 Troponin I High Sens Urine Color Yellow Urine Clarity Clear Urine pH 6.0 Ur Specific [place] 1.015 Urine Protein Negative Urine Glucose (UA) Normal Urine Ketones Negative Urine Occult Blood Negative Urine Nitrite Negative Urine Bilirubin Negative Urine Urobilinogen Normal Ur Leukocyte Esterase Negative Urine RBC 0 SEEN Urine WBC 0 SEEN Ur Squamous Epith Cells 0 SEEN Urine Bacteria 0 SEEN Urine Mucus 0 SEEN 10/26/20 10/26/20 11:37 13:10 WBC RBC Hgb Hct MCV MCH MCHC RDW Std Deviation RDW Coeff of Triny Plt Count MPV Immature Gran % (Auto) Neut % (Auto) Lymph % (Auto) [place] % (Auto) Eos % (Auto) Baso % (Auto) Absolute Neuts (auto) Absolute Lymphs (auto) Nucleated RBC % PT 13.0 INR 1.0 APTT 28.7 Sodium Potassium Chloride Carbon Dioxide Anion Gap BUN Creatinine Estim Creat Clear Calc Est GFR (MDRD) Af Amer Est GFR (MDRD) Non-Af BUN/Creatinine Ratio Glucose Calcium Troponin I High Sens 10 Urine Color Urine Clarity Urine pH Ur Specific [place] Urine Protein Urine Glucose (UA) Urine Ketones Urine Occult Blood Urine Nitrite Urine Bilirubin Urine Urobilinogen Ur Leukocyte Esterase Urine RBC Urine WBC Ur Squamous Epith Cells Urine Bacteria Urine Mucus Radiography Diagnostic Testing: Radiology Impression Brain CT 10/26/20 12:19 IMPRESSION: Chronic involutional changes of the brain. N.B. : The above Results were Read Back by Cain Zimmerman MD to dameon sawant and understanding confirmed on 10/26/2020 13:20:08 (ET). Electronically Signed: Cain Zimmerman MD at 13:21 EDT , Service support , ADDENDUM: 10/26/20 1328 IMPRESSION: Chronic involutional changes of the brain. N.B. : The above Results were Read Back by Cain Zimmerman MD to dameon swaant and understanding confirmed on 10/26/2020 13:20:08 (ET). Electronically Signed: Cain Zimmerman MD at 13:21 EDT , Service support , Chest X-Ray 10/26/20 12:45 IMPRESSION: No acute abnormality is seen. Electronically Signed: Cain Zimmerman MD at 13:22 EDT , Service support , Discharge Plan Dx/Rx/DC Orders Clinical Impression: Dysarthria Disposition Disposition: Acute Care Hospital [facility]
--- NOTE | 2020-10-26 12:45 | RAD_ITS ---
STUDY: X-RAY CHEST REASON FOR EXAM: Male, 60 years old. Neuro deficit, acute, stroke suspected TECHNIQUE: Single AP portable view of the chest. COMPARISON: None. FINDINGS: EKG electrodes are seen. The lungs are clear and expanded. There is no demonstrated pleural abnormality. Normal size heart. Normal mediastinum and jonathan. Normal visualized pulmonary arteries. Normal visualized aortic arch and descending thoracic aorta. There are diffuse degenerative changes of the visualized thoracic spine. There is degenerative osteoarthritis of the bilateral shoulders. There is no demonstrated abnormality of the visualized soft tissue structures of the upper abdomen. RAD/Chest 1 View IMPRESSION: No acute abnormality is seen. Electronically Signed: Cain Zimmerman MD at 13:22 EDT , Service support ,
[2020-10-26 13:35] LABS: Partial Thromboplast Time 28.7 Seconds (24.1-36.2)
[2020-10-26 13:42] LABS: Troponin-I HS 10 pg/mL (3.0-78.0)
[2020-10-26] MEDS: Aspirin 325 MG Tablet PO (14:06)
--- NOTE | 2020-10-26 14:13 | HP.PCM.HOS_ITS ---
Documented by User: Alexi MORAN 10/26/20 14:45 HPI - General General Date of Admission: 10/26/20 Date of Service: 10/26/20 Chief Complaint: Dysarthria HPI Narrative JUNI MATHIAS is a 60-year-old male who presents to the ED at [facility] on 10/26/2020 with a chief complaint of slurred speech. Patient reports that 10 days ago he was on vacation with his family when he started to notice that his speech was slurred. Patient did not seek emergency department evaluation at that time and thought his slurred speech will get better. Patient reported to work this morning and his slurred speech was noted by his coworkers, at which point patient was advised to seek emergency department evaluation. Patient presents today with ongoing dysarthria, but complains of no focal neurological deficits, headache or vision changes. Patient has no known medical history, although does endorse smoking 1 pack of cigarettes per day for 35 years. Vital signs are stable and patient is afebrile. CBC and BMP are unremarkable. UA obtained and was unremarkable. EKG in the demonstrated sinus bradycardia with no acute ST or T wave abnormalities. Chest x-ray demonstrates no acute cardiopulmonary process, although does show some emphysematous changes with hyperinflated lungs. Brain CT was obtained and only showed chronic involutional changes of the brain, remote lacunar infarcts in the right side of the kathryn, there is a tiny old lacunar infarct in the right basal ganglia. Patient was given aspirin and labetalol for blood pressure in the ED. [facility] Medical History (Updated 10/26/20 @ 14:33 by Alexi MORAN) Alcohol abuse Tobacco abuse Home Medications NK 10/26/20 [History Last Taken Unknown] Allergy/AdvReac Type Severity Reaction Status Date / Time No Known Allergies Allergy Verified 10/26/20 10:29 Family History Father Heart disease Mother Heart disease no surgical history Social History (Updated 10/26/20 @ 14:27 by Alexi MORAN) Smoking Status: Current every day smoker tobacco type: cigarettes Smoking packs per day: 1 Smoking cigarettes per day: 20.0 Years smoked: 35 Smoking pack-years: 35.00 Tobacco: How many years used: 35 ROS Constitutional Constitutional: Denies anorexia, change in weight, chills, fatigue, fever(s), malaise, night sweats, weakness or other Eyes Eyes: Denies blurry vision, change in eye color, change in vision, discharge from eye(s), double vision, erythema, eye pain, loss of vision or other ENT HEENT: Denies abnormal hearing, dysphagia, ear pain, epistaxis, headache(s), hearing loss, nasal congestion, nasal discharge, post nasal drip, sinus pressure, sore throat or other Cardiovascular Cardiovascular: Denies chest pain, claudication, dyspnea on exertion, edema, lightheadedness, orthopnea, palpitations, paroxysmal nocturnal dyspnea, rapid heart rate, syncope or other Respiratory/Chest Respiratory/Chest: Denies cough, dyspnea, excessive phlegm production, hemoptysis, productive cough, shortness of breath at rest, shortness of breath with exertion, wheezing or other Gastrointestinal Gastrointestinal: Denies abdominal pain, coffee ground emesis, constipation, diarrhea, dyspepsia, hematemesis, hematochezia, loose stools, melena, nausea, vomiting or other Genitourinary Genitourinary: Denies burning urination, difficulty urinating, dysuria, hematuria, nocturia, urinary frequency, urinary hesitancy, urinary incontinence, urinary urgency or other Musculoskeletal Musculoskeletal: Denies arthralgias, back pain, joint pain, joint stiffness, joint swelling, myalgias, neck pain or other Neurologic Neurologic: Reports abnormal speech; Denies abnormal gait, confusion, disequilibrium, dizziness, focal weakness, headache(s), numbness, paresthesias, seizure-like activity, seizures, syncope, tingling, tremor(s) or other Psychiatric Psychiatric: Denies anxiety, depression, homicidal ideation, suicidal ideation or other Endocrine Endocrinology: Denies change in body appearance, cold intolerance, excessive sweating, heat intolerance, polydipsia, polyuria or other Hematologic/Lymphatic Hematologic/Lymphatic: Denies anemia, easy bleeding, easy bruising, lymphadenopathy or other Allergic/Immunologic Allergic/Immunologic: Denies rhinitis, hives, eczemia, asthma or other Vital Signs Vital Signs Vital Signs: 10/26/20 10:29 10/26/20 12:31 10/26/20 13:56 Temperature 99.0 F 97.8 F Temperature Source Oral Temporal Pulse Rate 77 69 Respiratory Rate 16 14 Blood Pressure 104/89 H 157/74 H Blood Pressure Mean 94 101 Pulse Ox 100 99 Oxygen Delivery Method Room Air Room Air Room Air Weight Weight: 128 lb 11.999 oz Body Mass Index (BMI) 17.9 Physical Exam Const alert and oriented x3 General Appearance: cooperative HEENT normocephalic, head/scalp atraumatic and hearing grossly normal bilaterally Eyes PERRL, EOMs intact bilaterally and conjunctivae normal Neck no lymphadenopathy, supple and no JVD Resp normal respiratory effort, no retractions, no use of accessory muscles and clear to auscultation bilaterally Cardio regular rate, regular rhythm, no murmurs and no JVD GI normal to inspection, nondistended, normoactive bowel sounds, soft to palpation and non-tender Extremity normal to inspection, full ROM and no clubbing, cyanosis or edema Skin no rashes or lesions noted, no wounds, skin turgor normal and no jaundice Neuro CN's II-XII intact bilaterally Psych affect normal Mood & Affect: depressed and anxious Results Lab / Micro Data Result Diagrams: 10/26/20 11:37 10/26/20 11:37 Labs: Laboratory Results - last 24 hr 10/26/20 11:37: WBC 3.3 L, RBC 3.17 L, Hgb 11.1 L, Hct 32.5 L, MCV 102.5 H, MCH 35.0 H, MCHC 34.2, RDW Std Deviation 47.8 H, RDW Coeff of Triny 12.6, Plt Count 148 L, MPV 9.4, Immature Gran % (Auto) 0.300, Neut % (Auto) 43.2 L, Lymph % (Auto) 49.5 H, [place] % (Auto) 5.5, Eos % (Auto) 1.2, Baso % (Auto) 0.3, Absolute Neuts (auto) 1.4 L, Absolute Lymphs (auto) 1.63, Nucleated RBC % 0 10/26/20 11:37: Sodium 137, Potassium 4.0, Chloride 106, Carbon Dioxide 28.0, Anion Gap 3 L, BUN 13, Creatinine 0.83, Estim Creat Clear Calc 78.18, Est GFR (MDRD) Af Amer 121, Est GFR (MDRD) Non-Af 100, BUN/Creatinine Ratio 15.6, Glucose 93, Calcium 9.1 10/26/20 11:37: Urine Color Yellow, Urine Clarity Clear, Urine pH 6.0, Ur Specific [place] 1.015, Urine Protein Negative, Urine Glucose (UA) Normal, Urine Ketones Negative, Urine Occult Blood Negative, Urine Nitrite Negative, Urine Bilirubin Negative, Urine Urobilinogen Normal, Ur Leukocyte Esterase Negative, Urine RBC 0 SEEN, Urine WBC 0 SEEN, Ur Squamous Epith Cells 0 SEEN, Urine Bacteria 0 SEEN, Urine Mucus 0 SEEN 10/26/20 11:37: Troponin I High Sens 10 10/26/20 13:10: PT 13.0, INR 1.0, APTT 28.[address] 10/26/20 12:19 IMPRESSION: Chronic involutional changes of the brain. N.B. : The above Results were Read Back by Cain Zimmerman MD to dameon saawnt and understanding confirmed on 10/26/2020 13:20:08 (ET). Electronically Signed: Cain Zimmerman MD at 13:21 EDT , Service support , ADDENDUM: 10/26/20 1328 IMPRESSION: Chronic involutional changes of the brain. N.B. : The above Results were Read Back by Cain Zimmerman MD to dameon swaant and understanding confirmed on 10/26/2020 13:20:08 (ET). Electronically Signed: Cain Zimmerman MD at 13:21 EDT , Service support , Chest X-Ray 10/26/20 12:45 IMPRESSION: No acute abnormality is seen. Electronically Signed: Cain Zimmerman MD at 13:22 EDT , Service support , Assessment & Plan Assessment/Plan (1) Dysarthria: PLAN: Patient is a 60-year-old male presents to the ED at [facility] on 10/26/2020 with a chief complaint of dysarthria x10 days. Patient will placed on PCU for observation and stroke rule out. 1) dysarthria Patient reports that about 10 days ago he developed dysarthria, however did not seek emergency department evaluation at that time. Seeks evaluation today after urging from his coworkers. Patient demonstrates dysarthria on evaluation, however does not demonstrate any focal neurological deficits and is alert and orient x3. Brain CT does not demonstrate any evidence of acute intracranial abnormality, however does show chronic involutional changes, remote lacunar infarcts in the right side of the kathryn and a tiny old lacunar infarct in the right basal ganglia. Plan; place on PCU for observation, obtain MRI of the br ain, obtain head and neck CT-A, hold echocardiogram until results of MRI, permissive hypertension to less than 220/110, labetalol as needed, Zofran as needed, Tylenol as needed. 2) tobacco abuse Patient endorses a [id number]-csea history of smoking. Cessation encouraged, nicotine patch ordered. CODE STATUS: DNRCC-A, no intubation DVT prophylaxis - low risk, not indicated Patient seen by Alexi Díaz PA-C, under the supervision of Dr. Dunaway. Documented by User: Dr. Owen Dunaway, 10/26/20 16:15 HPI - General General Date of Admission: 10/26/20 [facility] Medical History (Updated 10/26/20 @ 14:33 by Alexi MORAN) Alcohol abuse Tobacco abuse Home Medications NK 10/26/20 [History Last Taken Unknown] Allergy/AdvReac Type Severity Reaction Status Date / Time No Known Allergies Allergy Verified 10/26/20 10:29 Family History Father Heart disease Mother Heart disease Social History (Updated 10/26/20 @ 14:27 by Alexi MORAN) Smoking Status: Current every day smoker tobacco type: cigarettes Smoking packs per day: 1 Smoking cigarettes per day: 20.0 Years smoked: 35 Smoking pack-years: 35.00 Tobacco: How many years used: 35 Results Lab / Micro Data Result Diagrams: 10/26/20 11:37 10/26/20 11:37 Charges/Coding Addendum Addendum: Patient was seen and examined independently of Alexi Díaz, he came to the ER for evaluation of a change in his speech that has been going on since last Monday (approximately 5 days), patient denied any focal weakness in his arms or legs, he did not seek medical attention according to the ER physician due to the fact he was on vacation when the symptoms occurred. Patient does not have a PCP and takes no medications. He was sent to the emergency room for evaluation from work today due to his slurred speech. Work-up in the emergency room included a CT of the brain which showed evidence of old lacunar infarcts, no acute intracranial process was noted. Patient's labs were remarkable for a white blood cell count of 3.3, hemoglobin was 11.1 and platelet count was 148,000. Patient's CHEM profile was unremarkable. On examination he appeared in good health and spirits, he had slurred speech. Vital signs as documented. Skin warm and dry and without overt rashes. Neck without JVD, neck was supple, trachea midline, thyroid was normal. Lungs clear bilaterally, normal air movement was noted. Heart exam notable for regular rhythm, normal sounds and absence of murmurs, rubs or gallops. Abdomen unremarkable and without evidence of organomegaly, masses, or abdominal aortic enlargement. Bowel sounds are present, abdomen is not distended. Extremities nonedematous, no cyanosis was noted, no clubbing was noted. Neuro: Cranial nerves II through XII are grossly intact-patient has slurred speech, no focal motor deficits were noted, sensation to light touch and pinprick intact, motor exam 5/5 throughout. Psych: Patient is alert and oriented x3, he does not appear anxious or depressed, he does not appear agitated. Patient will be placed into observation status on PCU due to his dysarthria, he will undergo CT of the head neck today and an MRI of the brain tomorrow. Patient will be seen by PT, OT, and speech therapy. Patient was placed on an 81 mg aspirin daily and 80 mg of Lipitor at bedtime. Lipid profile was ordered on the patient tomorrow morning. I will not order an echocardiogram at this point until we have results of his brain MRI. I have reviewed Alexi Díaz's history and physical including his medical assessment and plan of care and endorse it. Visit Charges OBSV E&M: 35685 Initial observation care L3
--- NOTE | 2020-10-26 14:29 | MRI_ITS ---
We are attempting to reach an attending provider to discuss findings. An addendum with communication details will be sent when the communication is complete. STUDY: MRI BRAIN WITHOUT CONTRAST REASON FOR EXAM: Male, 60 years old. dysarthria, SLURRED SPEECH X 10 DAYS TECHNIQUE: Standardized multiplanar fat and water weighted pulse sequences were obtained. COMPARISON: CT of the brain 10/26/2020 FINDINGS: Mild atrophy and advanced periventricular white matter ischemic changes.. There is restricted diffusion within the white matter tracts in the right frontal parietal region consistent with acute ischemic changes Normal bilateral basal ganglia. Normal thalami. There is no extra-axial fluid accumulation. Normal flow voids within the major intracranial circulation suggesting patency by spin echo criteria. Normal sella turcica, pituitary gland, infundibular stalk, optic chiasm and hypothalamus. Normal tectal plate and pineal gland. Normal midbrain, kathryn and medulla. Normal cerebellum. Normal basal cisterns. Normal bilateral temporal bones. Normal bilateral internal auditory canals. No demonstrated orbital abnormality, within the constraints of a routine brain study. Mild mucosal thickening of the ethmoid air cells. Normal calvarium and skull base. Normal visualized soft tissue structures. Normal visualized upper cervical spine. MRI/Brain without Contrast IMPRESSION: Advanced periventricular white matter ischemic changes.. Acute deep white matter infarct in the right frontal parietal region Electronically Signed: Axel Castro MD at 19:35 EDT , Service support ,
--- NOTE | 2020-10-26 14:29 | CT_ITS ---
STUDY: CTA HEAD AND NECK WITH CONTRAST REASON FOR EXAM: Male, 60 years old. dysarthria RADIATION DOSAGE (If Supplied By Facility): CTDIvol = ( 18.15 ) mGy, DLP = ( 616.49 ) mGycm TECHNIQUE: CT angiography was performed with a multi-detector CT scanner. Data acquisition was obtained from the skull base through the vertex following intravenous administration of . MIP images were reconstructed from the axial data set. Post-processing of the angiographic images was performed, with multiplanar reformation and 3D reconstruction. Individualized dose optimization techniques were used for this CT. COMPARISON: No relevant priors. FINDINGS: Normal bilateral petrous carotid arteries. Calcific plaquing of the right cavernous carotid artery with a normal supraclinoid bifurcation. Calcific plaquing of the left cavernous carotid artery with a normal supraclinoid bifurcation. Normal right A1 segments of the anterior cerebral artery. Normal left A1 segments of the anterior cerebral artery. Normal intact anterior communicating artery (ACOM). Normal bilateral A2 segments of the anterior cerebral arteries. Normal right M1 and M2 segments of the middle cerebral arteries, with a normal M1 bifurcation. Normal left M1 and M2 segments of the middle cerebral arteries, with a normal M1 bifurcation. Normal right posterior communicating artery (PCOM). Normal left posterior communicating artery (PCOM). Normal bilateral vertebral arteries. Normal basilar artery with a normal basilar bifurcation. The visualized bilateral superior cerebellar (SCA) arteries are normal. Normal bilateral P1, P2 and visualized P3 segments of the posterior cerebral arteries. There is no demonstrated aneurysm of the [place]. There is no demonstrated abnormality of the visualized brain. AORTIC ARCH: Normal visualized aortic arch. Normal origins of the brachiocephalic, left common carotid, and left subclavian arteries. RIGHT CAROTID ARTERIES: Normal right common carotid artery (CCA). Normal right common carotid bulb. Mild calcific plaquing of the origin of the right internal carotid (ICA) artery without a hemodynamically significant stenosis. Normal visualized cervical portion of the right internal carotid artery. Normal origin of the right external carotid artery (ECA). LEFT CAROTID ARTERIES: Normal left common carotid artery (CCA). Moderate calcific plaquing of the left common carotid bulb. Moderate calcific plaquing of the origin of the left internal carotid (ICA) artery without a hemodynamically significant stenosis. Normal visualized cervical portion of the left internal carotid artery. Normal origin of the left external carotid artery (ECA). VERTEBRAL ARTERIES: Normal bilateral vertebral arteries. CT/CTA Head AND Neck W/ Contrast IMPRESSION: Mild atherosclerotic changes of the brain. Bilateral atherosclerotic changes in the neck more severe on the left without evidence for hemodynamically significant stenosis utilizing NASCET criteria Electronically Signed: Axel Castro MD at 18:37 EDT , Service support ,
--- NOTE | 2020-10-26 15:14 | PCS.PANDOC ---
PANDEMIC DOCUMENTATION INITIATED: Date: 10/19/2020 Time: 190
[2020-10-26] MEDS: Aspirin 81 MG TAB.CHEW PO (15:38)
--- NOTE | 2020-10-26 20:01 | ECHOD_ITS ---
Reason For Study: TIA/CVA Procedure This was a 2D Doppler, Color Flow transthoracic echocardiogram. Bubble Study Performed. Exam performed portable in patient room. Left Ventricle Normal LV size. Left ventricular systolic function is normal. The estimated ejection fraction is 60 %. No evidence for diastolic dysfunction. No regional wall motion abnormalities noted. Right Ventricle Normal size and thickness. Normal systolic function. Atria Normal left atrium. Normal right atrium. No doppler evidence for ASD. Bubble contrast study negative for right to left interatrial shunt. Mitral Valve There is mild mitral annular calcification. Extension of the mitral annular calcification onto the base of the posterior mitral valve leaflet. Trivial mitral valve insufficiency. Tricuspid Valve Normal tricuspid valve. Trivial tricuspid valve insufficiency. Right ventricular systolic pressure estimated to be 26 mmHg. Aortic Valve Trisinus/trileaflet aortic valve. Normal aortic valve. Pulmonic Valve The pulmonic valve is not well visualized. Great Vessels The aortic root is not well visualized. Pericardium/Pleural No pericardial effusion. Medication Performed a rapid injection of agitated mix of 9 cc saline and 1cc air to assess for atrial septal defect. MMode/2D Measurements & Calculations LVIDd: 4.6 cm IVSd: 0.86 cm LA dimension: 3.0 cm LVIDs: 2.8 cm LVPWd: 0.82 cm FS: 38.7 % LAV(MOD-bp): 40.0 ml LA A4 area: 15.0 cm2 RA A4 area: 15.6 cm2 LAV(MOD-bp) Indexed: 23.1 ml/m2 LAV(MOD-sp2): 39.2 ml LAV(MOD-sp4): 38.3 ml Time Measurements MV dec time: 0.27 sec Doppler Measurements & Calculations MV E max eduar: 74.6 cm/sec Lat Peak E' Eduar: 9.3 cm/sec Med Peak E' Eduar: 8.4 cm/sec MV A max eduar: 70.5 cm/sec E/E' lat: 8.0 E/E' med: 8.9 MV E/A: 1.1 MV V2 max: 74.6 cm/sec MV P1/2t max eduar: 75.1 cm/sec Ao V2 max: 102.7 cm/sec MV max P.2 mmHg MV P1/2t: 107.2 msec Ao max P.2 mmHg MV V2 mean: 38.4 cm/sec MV dec slope: 205.1 cm/sec2 MV mean P.73 mmHg MV V2 VTI: 29.5 cm MVA(P1/2t): 2.1 cm2 LV V1 max: 84.4 cm/sec PA V2 max: 79.0 cm/sec TR max eduar: 239.4 cm/sec LV V1 max P.9 mmHg TR max P.9 mmHg ECHO/Echo Complete Interpretation Summary Left ventricular systolic function is normal. The estimated ejection fraction is 60 %. There is mild mitral annular calcification. Extension of the mitral annular calcification onto the base of the posterior mi tral valve leaflet. Trivial mitral valve insufficiency. Trivial tricuspid valve insufficiency. Right ventricular systolic pressure estimated to be 26 mmHg. No evidence for diastolic dysfunction. Bubble contrast study negative for right to left interatrial shunt. Ordering Physician: Owen Dunaway Referring Physician: No PCP Noted Performed By: Ashwin Teran RCS
[2020-10-26] MEDS: Atorvastatin Calcium 80 MG Tablet PO (22:05)
[2020-10-26] MEDS: Clopidogrel Bisulfate 75 MG Tablet PO (22:05)
[2020-10-27 02:00] VITALS: BP 130/70; PULSE 72; RESP 18; TEMP 36.9; O2SAT 100
[2020-10-27 03:00] VITALS: PULSE 61
[2020-10-27 05:57] VITALS: BP 148/71; PULSE 72; RESP 18; TEMP 36.5; O2SAT 100
[2020-10-27 07:00] VITALS: PULSE 62
[2020-10-27 07:01] LABS: Absolute Lymphocyte Count 1.85 X10^3/uL (0.83-4.51); Basophil# 0.02 X10^3/uL; Basophil% 0.6 % (0-1); Eosinophil# 0.09 X10^3/uL; Eosinophils% 2.9 % (0-5); Hematocrit 31.3 % (40-54); Hemoglobin 10.8 g/dL (13.0-16.5); Lymphocyte # 1.85 X10^3/ul (0.83-4.51); Lymphocyte % 59.9 % (19-41); Mean Corp Hgb Conc 34.5 g/dL (32-36); Mean Corpuscular Hgb 34.8 pg (27.0-32.0); Mean Platelet Vol. 9.4 fl (6.2-12.0); Monocyte# 0.15 X10^3/uL; Monocyte% 4.9 % (0-10); NRBC Flagged by Analyzer 0 % (0-5); Neutrophil # 0.98 X10^3/uL (2.7-7.7); Neutrophil % 31.7 % (47-70); POSITIVE DIFFERENTIAL YES; POSITIVE MORPHOLOGY YES; Platelet Count 149 K/mm3 (150-450); RBC Distribution Width CV 12.7 % (11.6-14.6); RBC Distribution Width SD 46.9 fl (35.1-43.9); White Blood Count 3.1 K/mm3 (4.4-11.0)
[2020-10-27 07:18] LABS: Differential Indicated SCAN CRITERIA MET
[2020-10-27 07:40] LABS: Cholesterol 171 mg/dL (200); High Density Lipoprotein 73 mg/dL; Triglycerides 41 mg/dL; Very Low Density Lipoprotein 8 mg/dL (5-40)
--- NOTE | 2020-10-27 08:21 | TELEMED_ITS ---
[facility] Telemed has confirmed receipt of a request for visit. This document confirms receipt of the order initiating the consult. To find the results of the consultation, please view the patient's reports for the scanned Telemed Consult.
[2020-10-27 08:27] VITALS: BP 146/68; PULSE 65; RESP 18; TEMP 36.9; O2SAT 100
[2020-10-27] MEDS: Clopidogrel Bisulfate 75 MG Tablet PO (08:29)
[2020-10-27] MEDS: Aspirin 81 MG TAB.CHEW PO (08:32)
--- NOTE | 2020-10-27 10:22 | PCM.DC ---
Discharge Instructions Diet Discharge Diet: No restrictions Activity Discharge Activity: Return to Normal Activity Weight Bearing Status: Weight bearing as tolerated Dressing / Incision Call your doctor if you observe: Fever of 101 or Higher, Numbness or Tingling, Shortness of breath, Dizziness, Chest pain, Increased palpitations (irregular heartbeat) and Calf discomfort Follow Up Care Please Follow Up With: Primary care provider When: Within the next two weeks. Test Results: Test results from this visit will be discussed in further detail at your follow-up appointment, if applicable. Discharge Plan Admission Admit Date/Time: 10/26/20 19:53 Primary Reason for Your Visit: Slurred speech Attending Provider: Azalia Julian Primary Care Provider: Care Physician,No Primary Discharge Orders/Prescriptions Prescriptions: New aspirin 81 mg tablet,delayed release (DR/EC) 81 mg PO DAILY Qty: 30 RF: 0 clopidogrel [Plavix] 75 mg tablet 75 mg PO DAILY Qty: 21 RF: 0 atorvastatin 40 mg tablet 40 mg PO DAILY Qty: 30 RF: 0 nicotine [Nicoderm CQ] 21 mg/24 hr patch 24 hour 1 patch transdermal DAILY Qty: 7 RF: 0 nicotine [Nicoderm CQ] 14 mg/24 hr patch 24 hour 1 patch transdermal DAILY Qty: 7 RF: 0 nicotine [Nicoderm CQ] 7 mg/24 hr patch 24 hour 1 patch transdermal Q24H Qty: 7 RF: 0 lisinopril 10 mg tablet 10 mg PO DAILY Qty: 30 RF: 0 Referrals / Follow Up: Elva Packer MD [STAFF PHYSICIAN] - Within 2 Weeks (Establish care with a primary care physician ) Disposition Disposition (needs filled in before D/C Order can be placed): Home, Self Care
--- NOTE | 2020-10-27 10:28 | CASEMGMT ---
SW completed a PHQ 9 with patient as he had a Stroke. He scored a 1 which indicates minimal depression. He declined resources for counseling. He did accept information on [facility] Stroke Support group. Sofía BURGOS
--- NOTE | 2020-10-27 10:30 | CASEMGMT ---
DAVID HUNT assessment: Face to Face with patient for initial transition planning/care coordination assessment. DAVID HUNT introduced self and role at [facility], pt voices understanding and consents to assessment. Pt is sitting up in chair on room air in no distress. Pt is A/Ox4 and answers all questions appropriately but does have dysarthria with conversational speech. Care providers, pharmacy, and demographics verified. Presentation: L facial droop and slurred speech for days Admitting dx: Stroke PCP: Pt does not have PCP but list of local PCP's provided to pt. Specialists: None Preferred Pharmacy: [facility]-Rx assist to be used as pt is self pay. Insurance: None Prescription Benefit: None-resources provided Living Will/HPOA: Pt states does not have LW/HPOA and declines AD info. LNOK: Bambi Chambers, ; eNmo Villela, daughter Living Arrangements: Pt states lives with in 2 story home and states no concerns at home. Pt states is independent with ADL's. Transportation: Pt states drives self and states no transportation concerns. DME/HHC: Pt states no current DME or need for any further DME. Pt states no hx of HHC or SNF. Pt states no concerns with going home at time of discharge. Pt works [employer] worker. Pt states smokes a pack cigarettes daily and occasionally drinks ETOH. Pt states no further concerns/needs. CM to follow for therapy evals and any further discharge planning/needs. Advised pt to ask for CM if any further questions/concerns/needs arise, voices understanding. Pt Goal: Home Plan: Home, pending therapy evals. [place] DAVID HUNT
--- NOTE | 2020-10-27 10:52 | CASEMGMT ---
SW spoke with patient regarding his self pay status. SW gave him resources for medication assistance in the future. He wanted to know if he could just get billed later for his medications. SW told him that we cannot do that. SW did offer [facility] prescription assistance and he was appreciative of this. VIOLET told him that we can only help him once a year. Sofía Jones MSW AUBREY
[2020-10-27 10:55] VITALS: BMI 17.6
[2020-10-27 12:15] VITALS: BP 143/73; PULSE 61; RESP 18; TEMP 36.5; O2SAT 100
--- NOTE | 2020-10-27 12:55 | DS.PCM_ITS ---
Documented by User: Alexi MORAN 10/27/20 13:11 Providers Date of Admission: 10/26/20 Primary Care Physician: No Primary Care Phys Reason For Visit: STROKE Diagnosis Discharge Diagnosis (1) Dysarthria: Status: Acute Code(s): R47.1 - Dysarthria and anarthria Medications at Discharge Home Medications aspirin 81 mg PO DAILY #30 tab 10/27/20 atorvastatin 40 mg PO DAILY #30 tab 10/27/20 clopidogrel [Plavix] 75 mg PO DAILY #21 tab 10/27/20 lisinopril 10 mg PO DAILY #30 tab 10/27/20 nicotine [Nicoderm CQ] 1 patch TRANSDERMAL DAILY #7 ea 10/27/20 nicotine [Nicoderm CQ] 1 patch TRANSDERMAL DAILY #7 ea 10/27/20 nicotine [Nicoderm CQ] 1 patch TRANSDERMAL Q24H #7 ea 10/27/20 Hospital Course Procedures Transthoracic echo Summary of Care Provided Minutes Spent on Discharge: 35 Hospital Course: Disposition: Patient to discharge home, no home health care needs or additional therapies identified. 1) Acute CVA Brain MRI demonstrates acute deep white matter infarct in the frontoparietal region. Head/neck CTA demonstrated bilateral atherosclerotic changes that are more severe on the left, although without evidence of hemodynamic compromise or stenosis. SOC telemetry neurology consult obtained recommendations as follows: Initiate aspirin, atorvastatin, Plavix x21 days and lisinopril for blood pressure control. Echocardiogram obtained and demonstrated normal LV systolic function, an estimated EF of 60%, and RVSP of 26 mmHg and no evidence of diastolic dysfunction or right to left intra-arterial shunt. Plan; discharge home, referral for establishment of primary care put in for Dr. Packer, medication initiations as above. 2) tobacco abuse Cessation encouraged, tapered nicotine patch initiated on discharge. 3) HTN Blood pressure elevated throughout admission. Initiate lisinopril 10 mg p.o. daily on discharge. Patient seen by Alexi Díaz PA-C, under the supervision of Dr. Julian. Physical Exam Narrative Patient is a 60-year-old who is comfortably resting in a chair, alert and orient x3. Patient still reports ongoing dysarthria although he feel that this has improved, denies any other focal neurological deficits or weakness. Denies chest pain, shortness of breath, palpitations, hemoptysis, sputum production, fever, chills, N/V/D. Const alert, oriented x3 and no apparent distress HEENT normocephalic, head/scalp atraumatic and hearing grossly normal bilaterally Eyes EOMs intact bilaterally and conjunctivae normal Neck no lymphadenopathy, supple and no JVD Resp normal respiratory effort, no retractions, no use of accessory muscles and clear to auscultation bilaterally Cardio regular rate, regular rhythm, no murmurs and no JVD GI normal to inspection, nondistended, normoactive bowel sounds, soft to palpation and non-tender Extremity normal to inspection, full ROM and no clubbing, cyanosis or edema Skin no rashes or lesions noted, no wounds and skin turgor normal Neuro CN's II-XII intact bilaterally Neuro Narrative: Patient still displays ongoing dysarthria although appears improved. Does not display any other focal neurological deficits or weakness. Psych affect normal Weight / BMI Weight Weight: 126 lb 12.8 oz Body Mass Index (BMI) 17.6 ABG / Lab / Microbiology Data Result Diagrams: 10/27/20 06:14 10/26/20 11:37 Laboratory: Laboratory Results - last 24 hr 10/26/20 11:37: Troponin I High Sens 10 10/26/20 13:10: PT 13.0, INR 1.0, APTT 28.7 10/27/20 06:14: WBC 3.1 L, RBC 3.10 L, Hgb 10.8 L, Hct 31.3 L, MCV 101.0 H, MCH 34.8 H, MCHC 34.5, RDW Std Deviation 46.9 H, RDW Coeff of Triny 12.7, Plt Count 149 L, MPV 9.4, Immature Gran % (Auto) 0.000, Neut % (Auto) 31.7 L, Lymph % (Auto) 59.9 H, [place] % (Auto) 4.9, Eos % (Auto) 2.9, Baso % (Auto) 0.6, Absolute Neuts (auto) 1.0 L, Absolute Lymphs (auto) 1.85, Nucleated RBC % 0 10/27/20 06:14: Triglycerides 41, Cholesterol 171, LDL Cholesterol 90, VLDL Cholesterol 8, HDL Cholesterol 73 Radiography Diagnostic Testing: Radiology Impression Brain CT 10/26/20 12:19 IMPRESSION: Chronic involutional changes of the brain. N.B. : The above Results were Read Back by Cain Zimmerman MD to keith sawant and understanding confirmed on 10/26/2020 13:20:08 (ET). Electronically Signed: Cain Zimmerman MD at 13:21 EDT , Service support , ADDENDUM: 10/26/20 1328 IMPRESSION: Chronic involutional changes of the brain. N.B. : The above Results were Read Back by Cain Zimmerman MD to keith sawant and understanding confirmed on 10/26/2020 13:20:08 (ET). Electronically Signed: Cain Zimmerman MD at 13:21 EDT , Service support , Chest X-Ray 10/26/20 12:45 IMPRESSION: No acute abnormality is seen. Electronically Signed: Cain Zimmerman MD at 13:22 EDT , Service support , Brain MRI 10/26/20 14:29 IMPRESSION: Advanced periventricular white matter ischemic changes.. Acute deep white matter infarct in the right frontal parietal region Electronically Signed: Axel Castro MD at 19:35 EDT , Service support , ADDENDUM: 10/26/201999 IMPRESSION: Advanced periventricular white matter ischemic changes.. Acute deep white matter infarct in the right frontal parietal region N.B. : The above Results were Read Back by Axel Casrto MD to Anna Johnston RN, RN, and understanding confirmed on 10/26/2020 19:53:44 (ET). Electronically Signed: Axel Castro MD at 19:35 EDT , Service support , Head/Neck CTA 10/26/20 14:29 IMPRESSION: Mild atherosclerotic changes of the brain. Bilateral atherosclerotic changes in the neck more severe on the left without evidence for hemodynamically significant stenosis utilizing NASCET criteria Electronically Signed: Axel Castro MD at 18:37 EDT , Service support , Echocardiogram 10/26/20 20:01 Interpretation Summary Left ventricular systolic function is normal. The estimated ejection fraction is 60 %. There is mild mitral annular calcification. Extension of the mitral annular calcification onto the base of the posterior mitral valve leaflet. Trivial mitral valve insufficiency. Trivial tricuspid valve insufficiency. Right ventricular systolic pressure estimated to be 26 mmHg. No evidence for diastolic dysfunction. Bubble contrast study negative for right to left interatrial shunt. Ordering Physician: Owen Dunaway Referring Physician: No PCP Noted Performed By: Ashwin Teran RCS D/C Instructions Discharge Diet: No restrictions Weight Bearing Status: Weight bearing as tolerated Call your doctor if you observe: Fever of 101 or Higher, Numbness or Tingling, Shortness of breath, Dizziness, Chest pain, Increased palpitations (irregular heartbeat) and Calf discomfort Please Follow Up With: Primary care provider When: Within the next two weeks. Meaningful Use Info Meaningful Use Diagnoses (Choose all that apply): Ischemic CVA CVA Therapy Assessed for PT,OT and/or ST?: Yes Ischemic Stroke Antithrombotic order at d/c?: Yes Dx of Atrial fib/flutter?: No Statins at discharge?: Yes Primary Dx Acute Ischemic CVA?: Yes IV tPA ordered during stay?: No Reason IV t-PA not ordered: Treatment not Indicated Discharge Plan Admission Admit Date/Time: 10/26/20 19:53 Primary Reason for Your Visit: Slurred speech Attending Provider: Azalia Julian Primary Care Provider: Care Physician,Farnaz Primary Discharge Orders/Prescriptions Prescriptions: New aspirin 81 mg tablet,delayed release (DR/EC) 81 mg PO DAILY Qty: 30 RF: 0 clopidogrel [Plavix] 75 mg tablet 75 mg PO DAILY Qty: 21 RF: 0 atorvastatin 40 mg tablet 40 mg PO DAILY Qty: 30 RF: 0 nicotine [Nicoderm CQ] 21 mg/24 hr patch 24 hour 1 patch transdermal DAILY Qty: 7 RF: 0 nicotine [Nicoderm CQ] 14 mg/24 hr patch 24 hour 1 patch transdermal DAILY Qty: 7 RF: 0 nicotine [Nicoderm CQ] 7 mg/24 hr patch 24 hour 1 patch transdermal Q24H Qty: 7 RF: 0 lisinopril 10 mg tablet 10 mg PO DAILY Qty: 30 RF: 0 Referrals / Follow Up: Elva Packer MD [STAFF PHYSICIAN] - Within 2 Weeks (Establish care with a primary care physician ) Disposition Disposition (needs filled in before D/C Order can be placed): Home, Self Care Documented by User: Dr. Azalia Julian DO 10/27/20 15:15 Providers Date of Admission: 10/26/20 Reason For Visit: STROKE Medications at Discharge Home Medications aspirin 81 mg PO DAILY #30 tab 10/27/20 atorvastatin 40 mg PO DAILY #30 tab 10/27/20 clopidogrel [Plavix] 75 mg PO DAILY #21 tab 10/27/20 lisinopril 10 mg PO DAILY #30 tab 10/27/20 nicotine [Nicoderm CQ] 1 patch TRANSDERMAL DAILY #7 ea 10/27/20 nicotine [Nicoderm CQ] 1 patch TRANSDERMAL DAILY #7 ea 10/27/20 nicotine [Nicoderm CQ] 1 patch TRANSDERMAL Q24H #7 ea 10/27/20 Hospital Course Procedures 2-D Echocardiogram and - (MRI brain) Summary of Care Provided Minutes Spent on Discharge: 39 Hospital Course: Mr. Chambers is a 60-year-old white male who presented to the emergency department at [facility] on 10/26/2020 with a chief complaint of slurred speech. Upon presentation the patient reported that 10 days prior to admission, while he was on vacation with his family, he started to notice that his speech was somewhat slurred. He did not seek emergency evaluation at that time and felt that his speech would get better. Upon reporting to work on the morning of admission his coworkers noted his speech was slurred and advised him to seek emergency department evaluation. He had ongoing dysarthria on presentation but had no other neurological deficits. He does not follow with a primary care physician and had no other known medical issues other than tobacco abuse. A CT of the brain obtained in the emergency department showed chronic involutional changes, remote lacunar infarcts in the right side of the kathryn and a tiny old lacunar infarct in the right basal ganglia. He was given aspirin and labetalol for his blood pressure admitted to PCU for further work-up for his stroke. CTA of his head and neck showed no hemodynamic significant carotid or vertebrobasilar disease but stenosis was present. An MRI was obtained and showed advanced periventricular white matter ischemic changes and a deep white matter infarct on the right frontal parietal region. He was evaluated by neurology and they recommended continued aspirin and Plavix for 21 days then the discontinuation of Plavix, continue atorvastatin, and smoking cessation with improved risk factor control. His blood pressure was noted to be elevated during his stay and therefore 10 mg of lisinopril was added for the treatment of this. An echocardiogram was obtained and showed an EF of 60%, a right ventricular systolic pressure of 26 mmHg, no diastolic dysfunction and a negative bubble study. He was discharged on Plavix, aspirin, lisinopril, statin, and nicotine patches. 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 He is to follow-up with Dr. Packer in 2 weeks for hospital follow-up and establishing with a primary care physician. Discharge diagnoses: Right frontoparietal stroke Bilateral carotid artery stenosis Dysarthria Leukopenia Anemia Thrombocytopenia Hypertension Tobacco abuse Physical Exam Const alert, oriented x3 and no apparent distress Constitutional Narrative: Thin upper middle-aged white male walking around the room, appears much older than stated age, nontoxic appearing, somewhat anxious General Appearance: cooperative, comfortable, well developed and appears older than stated age Orientation / Consciousness: awake HEENT normocephalic, head/scalp atraumatic, hearing grossly normal bilaterally and moist oral mucous membranes HEENT Narrative: Poor dentition, Mallampati 2 Eyes PERRL, EOMs intact bilaterally and conjunctivae normal Neck no lymphadenopathy, supple and no JVD Resp normal respiratory effort, no retractions, no use of accessory muscles and clear to auscultation bilaterally Resp Narrative: Diffusely diminished but clear Auscultation: Negative for crackles, rales, rhonchi or wheezes Cardio regular rate, regular rhythm, S1 normal heart sound, S2 normal heart sound, no murmurs, no rub, no gallops, no clicks and no JVD GI normal to inspection, nondistended, normoactive bowel sounds, soft to palpation, non-tender and non-distended Extremity normal to inspection, full ROM and no clubbing, cyanosis or edema Skin no rashes or lesions noted, no wounds, skin turgor normal and no jaundice Neuro oriented x3, moves all extremities, no focal motor deficits and no sensory deficits noted Neuro Narrative: Slightly garbled speech but cranial nerves otherwise intact Sensorium / Orientation: awake and alert Motor Exam: strength 5/5 throughout Psych Psych Narrative: Affect is somewhat flat patient appears mildly anxious as he is pacing through the room in the hallways ABG / Lab / Microbiology Data Result Diagrams: 10/27/20 06:14 10/26/20 11:37 Discharge Plan Admission Admit Date/Time: 10/26/20 19:53 Primary Reason for Your Visit: Slurred speech Attending Provider: Azalia Julian Primary Care Provider: Care Physician,No Primary Discharge Orders/Prescriptions Prescriptions: New aspirin 81 mg tablet,delayed release (DR/EC) 81 mg PO DAILY Qty: 30 RF: 0 clopidogrel [Plavix] 75 mg tablet 75 mg PO DAILY Qty: 21 RF: 0 atorvastatin 40 mg tablet 40 mg PO DAILY Qty: 30 RF: 0 nicotine [Nicoderm CQ] 21 mg/24 hr patch 24 hour 1 patch transdermal DAILY Qty: 7 RF: 0 nicotine [Nicoderm CQ] 14 mg/24 hr patch 24 hour 1 patch transdermal DAILY Qty: 7 RF: 0 nicotine [Nicoderm CQ] 7 mg/24 hr patch 24 hour 1 patch transdermal Q24H Qty: 7 RF: 0 lisinopril 10 mg tablet 10 mg PO DAILY Qty: 30 RF: 0 Referrals / Follow Up: Elva Packer MD [STAFF PHYSICIAN] - Within 2 Weeks (Establish care with a primary care physician ) Disposition Disposition (needs filled in before D/C Order can be placed): Home, Self Care Charges/Coding Visit Charges Inpatient E&M: 39232 Disch Hosp
--- NOTE | 2020-10-27 13:04 | CASEMGMT ---
Per speech, pt would benefit from OP speech therapy. Pt provided a script for OP speech therapy at this time. Ryan HERNANDEZ CM
--- NOTE | 2020-10-27 14:18 | PHA.DC.MC ---
Pharmacy Service has performed discharge medication reconciliation and counseling for this patient. 1. ASPIRIN 81MG PO DAILY 2. ATORVASTATIN 40MG PO DAILY 3. CLOPIDOGREL 75MG PO DAILY X 21 DAYS 4. LISINOPRIL 10MG PO DAILY 5. NICOTINE PATCH TAPER The patient's discharge medication list was reviewed for discrepancies and discrepancies were resolved. Home Medications aspirin 81 mg PO DAILY #30 tab 10/27/20 atorvastatin 40 mg PO DAILY #30 tab 10/27/20 clopidogrel [Plavix] 75 mg PO DAILY #21 tab 10/27/20 lisinopril 10 mg PO DAILY #30 tab 10/27/20 nicotine [Nicoderm CQ] 1 patch TRANSDERMAL DAILY #7 ea 10/27/20 nicotine [Nicoderm CQ] 1 patch TRANSDERMAL DAILY #7 ea 10/27/20 nicotine [Nicoderm CQ] 1 patch TRANSDERMAL Q24H #7 ea 10/27/20 The patient was counseled on the following discharge medications and changes in medications for homegoing were reviewed. The Reason for Use, instructions for use, and potential side effects were reviewed for all new medications. The patient's questions regarding all of their medications were answered. The patient was able to verbally demonstrate an understanding of their discharge medications.
[2020-10-27 14:22] VITALS: BMI 17.6
== END 2020-10-27 14:31 | disposition home or self-care (01) | DRG 65 ==
LOC: ED 13:58 → PCU 15:57
PROVIDERS: Admitting Provider Internal Medicine; Emergency Provider Emergency Medicine; Visit Provider Internal Medicine
DX: I63.89 Other cerebral infarction (principal); D61.818 Other pancytopenia; R29.702 NIHSS score 2; R47.1 Dysarthria and anarthria; R47.81 Slurred speech; I65.23 Occlusion and stenosis of bilateral carotid arteries; I10 Essential (primary) hypertension; F17.210 Nicotine dependence, cigarettes, uncomplicated; Z66 Do not resuscitate; Z79.82 Long term (current) use of aspirin; Z86.73 Personal history of transient ischemic attack (TIA), and cerebral infarction without residual deficits
CPT/HCPCS: 36415; 70450; 70496; 70498; 70551; 71045; 80048; 80061; 81001; 84484; 85025; 85610; 85730; 92522; 92610; 93005; 93306; 97802; 99285; 99406; Q9957; Q9967; A4216; J3490

== ENCOUNTER → 2020-12-04 11:20 | Outpatient (CLI) | payer SELFPAY ==
[2020-12-04 12:25] LABS: Absolute Lymphocyte Count 1.57 X10^3/uL (0.83-4.51); Absolute Neutrophil Count 1.2 X10^3/uL (2.0-7.7); Basophil# 0.02 X10^3/uL; Basophil% 0.7 % (0-1); Eosinophil# 0.06 X10^3/uL; Hematocrit 31.5 % (40-54); Hemoglobin 10.9 g/dL (13.0-16.5); Lymphocyte # 1.57 X10^3/ul (0.83-4.51); Lymphocyte % 52.9 % (19-41); Mean Corp Hgb Conc 34.6 g/dL (32-36); Mean Corpuscular Hgb 35.4 pg (27.0-32.0); Mean Corpuscular Volume 102.3 fL (80-94); Mean Platelet Vol. 9.5 fl (6.2-12.0); Monocyte# 0.14 X10^3/uL; Monocyte% 4.7 % (0-10); NRBC Flagged by Analyzer 0 % (0-5); Neutrophil # 1.17 X10^3/uL (2.7-7.7); Neutrophil % 39.4 % (47-70); Platelet Count 137 K/mm3 (150-450); RBC Distribution Width CV 12.7 % (11.6-14.6); RBC Distribution Width SD 47.4 fl (35.1-43.9); Red Blood Count 3.08 M/mm3 (4.6-6.2)
[2020-12-04 13:00] LABS: AST(SGOT) 14 U/L (15-37); Alanine Aminotransfer ALT/SGPT 22 U/L (16-61); Albumin, Serum 3.7 g/dL (3.2-5.0); Alkaline Phosphatase 59 U/L (45-117); Anion Gap 4 (5-15); BUN 14 mg/dL (7-18); BUN/Creat Ratio 14.7 RATIO (10-20); Calcium,Total 9.1 mg/dL (8.5-10.1); Chloride 103 mmol/L (98-107); Creatinine, Serum 0.95 mg/dL (0.70-1.30); EST Glomerular Filtration Rate 86 mL/min (>60); Est Glom Filt Rate - Afr Amer 104 mL/min (>60); Globulin 3.7 g/dL (2.2-4.2); Glucose 100 mg/dL (74-106); Potassium 4.1 mmol/L (3.5-5.1); Protein, Total 7.4 g/dL (6.4-8.2); Sodium Level 135 mmol/L (136-145)
== END ==
LOC: BIMLAB 11:20
PROVIDERS: PCP Internal Medicine; Referring Provider Internal Medicine; Visit Provider Internal Medicine
DX: I10 Essential (primary) hypertension (principal); Z86.73 Personal history of transient ischemic attack (TIA), and cerebral infarction without residual deficits
CPT/HCPCS: 36415; 80053; 85025

== ENCOUNTER 2021-05-12 12:25 | Outpatient (CLI) | payer MEDICAID, SELFPAY | END 2021-05-12 23:59 | disposition home or self-care (01) | LOC: CVS 12:25 | PROVIDERS: PCP Internal Medicine; Visit Provider Psychiatry & Neurology Neurology | DX: Z00.00 Encounter for general adult medical examination without abnormal findings (principal) ==

== ENCOUNTER 2021-05-12 12:32 | Outpatient (CLI) | payer MEDICAID, SELFPAY ==
--- NOTE | 2021-05-12 12:32 | MRI_ITS ---
EXAM: MR HEAD WITHOUT AND WITH INTRAVENOUS CONTRAST CLINICAL INDICATION: CVA, MCI recheck stroke, still has speech change TECHNIQUE: Multiplanar and multisequence MR images of the brain were obtained without and with intravenous contrast. This report was created using [employer] report generation technology. CONTRAST: IV dotarem 11ml COMPARISON: Oct 26 2020 6:17pm FINDINGS: BRAIN AND EXTRA-AXIAL SPACES: Chronic involutional changes of the brain. Old deep white matter infarct in the right frontal parietal region. No intra- or extra-axial hemorrhage. No intracranial mass or mass effect. Posterior fossa structures are unremarkable. Ventricles are appropriate for age. No hydrocephalus. Basal cisterns are patent. SELLA: Unremarkable. Normal sella turcica, pituitary gland, infundibular stalk, optic chiasm and hypothalamus. AUDITORY SYSTEM: Unremarkable. The internal auditory canals are patent. BONES/JOINTS: Unremarkable. No discrete lytic or blastic abnormalities. SINUSES: Unremarkable as visualized. Clear. MASTOID AIR CELLS: Unremarkable as visualized. Clear. ORBITS: Unremarkable as visualized. Both globes, extraocular muscles, optic nerves and retrobulbar fat appear unremarkable. VASCULATURE: Unremarkable as visualized. Normal flow voids in the major intracranial circulation. MRI/Brain W/WO Contrast IMPRESSION: Chronic involutional changes of the brain. Electronically Signed: Timothy Quiñones MD at 14:44 EST Reading Location ID and State: [facility] / [place] , Service support ,
[2021-05-12 12:46] LABS: CREATININE FINGERSTICK 0.6 mg/dL (0.70-1.30); EGFR FINGERSTICK > 60.0000 mL/min (>60)
== END 2021-05-12 23:59 | disposition home or self-care (01) ==
LOC: MRI 12:34 → CVS 13:08
PROVIDERS: PCP Internal Medicine; Referring Provider Psychiatry & Neurology Neurology; Visit Provider Psychiatry & Neurology Neurology
DX: I69.319 Unspecified symptoms and signs involving cognitive functions following cerebral infarction (principal)
CPT/HCPCS: 70553

== ENCOUNTER 2021-06-01 08:34 | Outpatient (CLI) | payer MEDICAID, SELFPAY ==
[2021-06-01 10:08] LABS: Hematocrit 25.8 % (40-54); Hemoglobin 8.8 g/dL (13.0-16.5); Mean Corp Hgb Conc 34.1 g/dL (32-36); Mean Corpuscular Hgb 37.1 pg (27.0-32.0); Mean Corpuscular Volume 108.9 fL (80-94); Mean Platelet Vol. 10.1 fl (6.2-12.0); POSITIVE COUNT YES; Platelet Count 85 K/mm3 (150-450); RBC Distribution Width CV 15.2 % (11.6-14.6); RBC Distribution Width SD 58.8 fl (35.1-43.9); Red Blood Count 2.37 M/mm3 (4.6-6.2); White Blood Count 2.6 K/mm3 (4.4-11.0)
[2021-06-01 10:13] LABS: Scan Indicated on CBC? Y/N YES- FLAGS NOTED
[2021-06-01 10:18] LABS: Vitamin B12 295 pg/mL (211-911)
[2021-06-01 10:43] LABS: ALB/GLOB Ratio 0.9 RATIO (0.9-2.4); AST(SGOT) 11 U/L (15-37); Alanine Aminotransfer ALT/SGPT 18 U/L (16-61); Albumin, Serum 3.4 g/dL (3.2-5.0); Alkaline Phosphatase 56 U/L (45-117); Anion Gap 4 (5-15); BUN 15 mg/dL (7-18); Calcium,Total 8.3 mg/dL (8.5-10.1); Chloride 114 mmol/L (98-107); Creatinine, Serum 0.79 mg/dL (0.70-1.30); EST Glomerular Filtration Rate 106 mL/min (>60); Est Glom Filt Rate - Afr Amer 128 mL/min (>60); Ferritin 183 ng/mL (26-388); Globulin 3.8 g/dL (2.2-4.2); Glucose 93 mg/dL (74-106); Iron 145 ug/dL (65-175); Potassium 3.7 mmol/L (3.5-5.1); Protein, Total 7.2 g/dL (6.4-8.2); Sodium Level 144 mmol/L (136-145); Thyroid Stim Hormone (TSH) 2.63 uIU/mL (0.358-3.74)
[2021-06-15 15:34] LABS: Vitamin B1, Thiamine 48.5 nmol/L (66.5-200.0)
== END 2021-06-01 23:59 | disposition home or self-care (01) ==
LOC: MTLAB 08:35
PROVIDERS: PCP Internal Medicine; Referring Provider Psychiatry & Neurology Neurology; Visit Provider Psychiatry & Neurology Neurology
DX: I63.9 Cerebral infarction, unspecified (principal); I10 Essential (primary) hypertension; G31.84 Mild cognitive impairment of uncertain or unknown etiology; Z86.2 Personal history of diseases of the blood and blood-forming organs and certain disorders involving the immune mechanism
CPT/HCPCS: 36415; 80053; 82607; 82728; 82746; 83540; 84425; 84443; 85027

== ENCOUNTER → 2021-07-20 | Outpatient (CLI) | payer MEDICAID, SELFPAY ==
--- NOTE | 2021-07-20 12:56 | CDU_ITS ---
Reason For Study: CVA Rt. Velocities/BP Lt. Velocities/BP Prox CCA 91.7/22.6 cm/sec. Prox CCA 94.8/27.8 cm/sec. Mid CCA 83.8/22.6 cm/sec. Mid CCA 94.8/25.6 cm/sec. Dist CCA 78.6/21.3 cm/sec. Dist CCA 81.6/21.2 cm/sec. Prox ICA 78.6/17.3 cm/sec. Prox ICA 141.2/55.3 cm/sec. Mid ICA 96.9/31.7 cm/sec. Mid ICA 166.8/62.6 cm/sec. Dist ICA 124.3/38.2 cm/sec. Dist ICA 139.4/37.1 cm/sec. Rt. ICA/CCA = 1.5. Lt. ICA/CCA = 1.8. Prox ECA 107.3/14.7 cm/sec. Prox ECA 166.8/13.3 cm/sec. Rt. Vert. 50.9/16.8 cm/sec. Lt. Vert. 71.6/20.0 cm/sec. Right Extracranial There is intimal thickening but no significant atherosclerotic plaque noted in the right common carotid artery. There is heterogeneous, irregular atherosclerotic plaque noted in the right internal carotid artery. There is heterogeneous, irregular atherosclerotic plaque noted in the right external carotid artery. Antegrade flow is noted in the right vertebral artery. Left Extracranial There is homogeneous, smooth atherosclerotic plaque noted in the left common carotid artery. There is heterogeneous, irregular atherosclerotic plaque noted in the left internal carotid artery. The atherosclerotic plaque causes acoustic shadowing. There is heterogeneous, irregular atherosclerotic plaque noted in the left external carotid artery. Antegrade flow is noted in the left vertebral artery. Procedure Carotid Duplex 32660. This is a Carotid Duplex examination using B-mode, color flow and specral Doppler. The exam was diagnostic. Exam performed in department. VL/Carotid Duplex Ultrasound Interpretation Summary Minimal irregular plaque at the proximal right internal carotid with less than 50% stenosis Less than 50% stenosis right external carotid Irregular calcific plaque with shadowing at the proximal left internal carotid with 50 to 69% stenosis Less than 50% stenosis left external carotid Patent and antegrade vertebral arteries bilaterally Ordering Physician: Shahzad Roldan Performed By: Uriel Kendall RVT
== END | disposition home or self-care (01) ==
LOC: CVS 12:52
PROVIDERS: PCP Internal Medicine; Referring Provider Psychiatry & Neurology Neurology; Visit Provider Psychiatry & Neurology Neurology
DX: I63.9 Cerebral infarction, unspecified (principal)
CPT/HCPCS: 93880

== ENCOUNTER → 2021-09-24 | Outpatient (CLI) | payer MEDICAID, SELFPAY ==
[2021-09-24 14:32] LABS: Absolute Lymphocyte Count 2.26 X10^3/uL (0.83-4.51); Basophil# 0.01 X10^3/uL; Basophil% 0.3 % (0-1); Eosinophil# 0.09 X10^3/uL; Eosinophils% 2.6 % (0-5); Hematocrit 27.8 % (40-54); Hemoglobin 9.4 g/dL (13.0-16.5); Lymphocyte # 2.26 X10^3/ul (0.83-4.51); Lymphocyte % 65.5 % (19-41); Mean Corp Hgb Conc 33.8 g/dL (32-36); Mean Corpuscular Hgb 36.4 pg (27.0-32.0); Mean Corpuscular Volume 107.8 fL (80-94); Mean Platelet Vol. 9.9 fl (6.2-12.0); Monocyte# 0.12 X10^3/uL; Monocyte% 3.5 % (0-10); NRBC Flagged by Analyzer 0 % (0-5); Neutrophil # 0.96 X10^3/uL (2.7-7.7); Neutrophil % 27.8 % (47-70); POSITIVE COUNT YES; POSITIVE DIFFERENTIAL YES; Platelet Count 95 K/mm3 (150-450); RBC Distribution Width CV 12.4 % (11.6-14.6); RBC Distribution Width SD 48.9 fl (35.1-43.9); Red Blood Count 2.58 M/mm3 (4.6-6.2); White Blood Count 3.5 K/mm3 (4.4-11.0)
[2021-09-24 14:35] LABS: Differential Indicated SCAN CRITERIA MET
[2021-09-24 15:02] LABS: Anisocytosis 1+; Platelet Estimate MOD DEC (ADEQ); Red Cell Morphology N CHROM NORMAL (NORM C&C)
== END | disposition home or self-care (01) ==
LOC: LAB 13:56
PROVIDERS: PCP Internal Medicine; Visit Provider Psychiatry & Neurology Neurology
DX: D53.9 Nutritional anemia, unspecified (principal)
CPT/HCPCS: 36415; 85025

== ENCOUNTER → 2021-12-28 | Outpatient (CLI) | payer MEDICAID, SELFPAY ==
[2021-12-28 15:25] LABS: Absolute Lymphocyte Count 1.95 X10^3/uL (0.83-4.51); Absolute Neutrophil Count 0.7 X10^3/uL (2.0-7.7); Basophil# 0.01 X10^3/uL; Basophil% 0.4 % (0-1); Eosinophil# 0.07 X10^3/uL; Eosinophils% 2.5 % (0-5); Hematocrit 27.4 % (40-54); Hemoglobin 9.2 g/dL (13.0-16.5); Lymphocyte # 1.95 X10^3/ul (0.83-4.51); Lymphocyte % 69.6 % (19-41); Mean Corp Hgb Conc 33.6 g/dL (32-36); Mean Corpuscular Hgb 35.9 pg (27.0-32.0); Mean Platelet Vol. 9.8 fl (6.2-12.0); Monocyte# 0.06 X10^3/uL; Monocyte% 2.1 % (0-10); NRBC Flagged by Analyzer 0 % (0-5); POSITIVE COUNT YES; POSITIVE DIFFERENTIAL YES; POSITIVE MORPHOLOGY YES; Platelet Count 85 K/mm3 (150-450); RBC Distribution Width CV 13.4 % (11.6-14.6); RBC Distribution Width SD 53.4 fl (35.1-43.9); Red Blood Count 2.56 M/mm3 (4.6-6.2); White Blood Count 2.8 K/mm3 (4.4-11.0)
[2021-12-28 15:26] LABS: Differential Indicated SCAN CRITERIA MET
[2021-12-28 15:43] LABS: AST(SGOT) 17 U/L (15-37); Alanine Aminotransfer ALT/SGPT 24 U/L (16-61); Albumin, Serum 3.6 g/dL (3.2-5.0); Alkaline Phosphatase 73 U/L (45-117); Anion Gap 6 (5-15); BUN 17 mg/dL (7-18); BUN/Creat Ratio 18.2 RATIO (10-20); Calcium,Total 9.1 mg/dL (8.5-10.1); Chloride 104 mmol/L (98-107); Cholesterol 122 mg/dL (200); Creatinine, Serum 0.93 mg/dL (0.70-1.30); EST Glomerular Filtration Rate 87 mL/min (>60); Est Glom Filt Rate - Afr Amer 106 mL/min (>60); Globulin 3.6 g/dL (2.2-4.2); Glucose 99 mg/dL (74-106); High Density Lipoprotein 66 mg/dL; Potassium 4.4 mmol/L (3.5-5.1); Protein, Total 7.2 g/dL (6.4-8.2); Sodium Level 135 mmol/L (136-145); Triglycerides 36 mg/dL; Very Low Density Lipoprotein 7 mg/dL (5-40)
[2021-12-28 16:03] LABS: Differential Comment SCANNED
== END | disposition home or self-care (01) ==
LOC: BIMLAB 13:31
PROVIDERS: PCP Nurse Practitioner Family; Visit Provider Internal Medicine
DX: I10 Essential (primary) hypertension (principal)
CPT/HCPCS: 36415; 80053; 80061; 85025

== ENCOUNTER → 2022-01-13 | Outpatient (CLI) | payer MEDICAID, SELFPAY ==
[2022-01-13] VITALS (10 sets, daily range): BP systolic 112–135; BP diastolic 52–69; PULSE 66–74; RESP 14–169; TEMP 36.8; O2SAT 16–100; BMI 16.7
--- NOTE | 2022-01-13 | IMM_PTH ---
PATIENT: JUNI MATHIAS LOC: CT U#:[id number] AGE/SX: 61/M ROOM: RE01/13/[address]: GERSON Zaidi : 1960 BED: DIS: 01/13/2022 SPEC #: [id number] RECD: 01/17/22 07:33 STATUS: KACY REQ #: [id number] [place]: 01/13/22 00:[address]: Kathy Wood NP DEPT: IMMUNOHISTOCHEMISTRY RECD BY: Rossy Harmon ENTERED: 01/17/22 07:34 SP TYPE: IMMUNO OTHR DR: GERSON Gunderson Tissues: Bone marrow of iliac crest Procedures: CD56 (add) CD34 (initial) PHYSICIAN & INSTITUTION [place] [id number] SPECIMEN INFORMATION: Tissue Source: Bone marrow biopsy Clinical Info: Pancytopenia Specimen Number: [id number] A, B CPT code: 65761 x2, 34936 x2 METHODOLOGY: Deparaffinized sections of prefer/formalin-fixed tissue or PAP/DQ stained slides are incubated with monoclonal/polyclonal antibodies/oligonucleotide probes. Localization is made via biotin free immunoperoxidase method. Appropriate controls are performed and reacted as expected. Results on target cell population are indicated in the following table: RESULTS: ANTIBODY / CLONE RESULT Block A CD34 (QBEnd-10) positive CD56 (123C3.D5) negative Block B CD34 (QBEnd-10) positive CD56 (123C3.D5) negative These tests were developed and their performance characteristics determined by [facility]. They may not have been cleared or approved by the U.S. Food and Drug Administration. The FDA has determined that such clearance or approval is not necessary. The above immunohistochemical/dualISH markers are ordered and reviewed by the Pathologist. INTERPRETATION: A. Bone marrow core biopsy: Increased number of blasts noted. B. Bone marrow clot: Increased number of blasts noted. /SJ 01/17/22
--- NOTE | 2022-01-13 | BMB_PTH ---
PATIENT: JUNI MATHIAS LOC: CT U#:[id number] AGE/SX: 61/M ROOM: RE01/13/[address]: GERSON Zaidi : 1960 BED: DIS: 01/13/2022 SPEC #: [id number] RECD: 01/13/22 10:30 STATUS: KACY REChepe #: [id number] [place]: 01/13/22 00:[address]: Kathy Wood NP DEPT: BONE MARROW RECD BY: Ozzy Hooper ENTERED: 01/13/22 10:32 SP TYPE: BMB OTHR DR: MD Owen Bain NP-C Tissues: A - Bone marrow, NOS B - Bone marrow, NOS C - Bone marrow, NOS Procedures: Decalcification bone/plaque Bone Marrow Aspiration Bone Marrow Core Biopsy Iron Stain Bone Marrow HEADER OPERATION: Bone marrow biopsy and aspiration PRE-OP DIAGNOSIS: Pancytopenia TISSUE SUBMITTED: A - Core, B - Clot, C - Smears, and send outs (flow, cytogenetics and MDS) BONE MARROW DIAGNOSIS Bone marrow core, clot and aspirate smears: Markedly hypocellular marrow with increased number of blasts. Marked myeloid and megakaryocytic hypoplasia. See comment. 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 Cytogenetic and FISH studies are pending at this time. Correlation with clinical findings and appropriate follow up are necessary. This case is discussed with Ms. Wood on 01/15/[address] James on 01/17/22, BONE MARROW STUDY Slides are reviewed. CBC DATE: 01/13/2022 WBC 2.8; RBC 2.59; HGB 9.3; HCT 28.0; MCV 108.1; RDW 13.2; PLTS 80,000 SEGS 25.1%; LYMPHS 68.8%; MONOS 3.2%; EOS 2.5%; BASOS 0.4% PERIPHERAL SMEAR: Submitted. RBC: Macrocytic anemia. WBC: Leukopenia and neutropenia. The WBC count is compatible to as reported above. PLTS: Decreased. BONE MARROW ASPIRATE DIFFERENTIAL: Not performed ASPIRATE FINDINGS: Site: Not specified Aspicular, Almost Acellular Comment: All submitted smears are examined. The smears predominantly consist of peripheral blood. Rare myeloid and erythroid cells are noted. Megakaryocytes are not seen. CORE BIOPSY FINDINGS: Site: Not specified Adequacy: Adequate Cellularity: 5-10% M/E ratio: Myeloid hypoplasia is noted. Megakaryocytes: Present and marked decreased in number. Bony trabeculae: Unremarkable. Granulomas: Absent. Lymphoid aggregate: Absent. Atypical infiltrate: Present. Immature cells consistent with blasts are noted. Comment: Immunohistochemistry ([id number]) shows increased number of blasts, approximately 10%. ASPIRATE CLOT FINDINGS: Site: Not specified Marrow particles: A few Cellularity: 5-10% M/E ratio: Myeloid hypoplasia is noted. Megakaryocytes: Present and marked decreased in number. Granulomas: Absent. Lymphoid aggregates: Absent. Atypical infiltrates: Present. Immature cells consistent with blasts are noted. Comment: Immunohistochemistry ([id number]) shows increased number of blasts, approximately 10%. SPECIAL STAINS WITH MATCHED CONTROLS: Iron: Present, atypical or ring sideroblasts are not seen (core biopsy only). Reticulin: Significant increase of reticulin fibers are not seen. PAS: Highlights myeloid cells and megakaryocytes. BONE MARROW GROSS A - Received is a container labeled with the patient's name and designated bone marrow biopsy. The specimen consists of a piece of burch bone measuring 1.1 cm in length and 0.1 cm in diameter. The specimen is totally submitted in one cassette after decalcification. B - Received labeled with the patient's name and designated bone marrow is a specimen that consists of approximately 8 ml of bloody fluid that on filtration yields multiple minute fragments of blood clots measuring in aggregate 3 x 2.5 x 0.3 cm. The specimen is totally submitted in one cassette. C - Also received are 13 unstained and 1 peripheral stained slides. The unstained slides are submitted for appropriate staining. Also received are one green top tube which is sent to our reference lab for flow, cytogenetics and MDS. / SJ:melquiades 01/13/2022 TC:5 CPT: 86090, 80509, 15137 x2, 06718 x3, 38001 ADDENDUM ADDENDUM ADDENDUM ADDENDUM ADDENDUM ADDENDUM ADDENDUM ADDENDUM ADDENDUM ADDENDUM ADDENDUM ADDENDUM ADDENDUM ADDENDUM ADDENDUM ADDENDUM ADDENDUM ADDENDUM ADDENDUM ADDENDUM ADDENDUM ADDENDUM ADDENDUM ADDENDUM ADDENDUM ADDENDUM ADDENDUM ADDENDUM ADDENDUM 01/21/2022 10:47 ADDENDUM 01/31/2022 08:56 ADDENDUM 01/21/2022 10:47 ADDENDUM 01/21/2022 10:47 ADDENDUM 01/21/2022 10:47 ADDENDUM 01/21/2022 10:47 [facility] NGS REPORT FROM [facility] RESULT SUMMARY: Abnormal DETECTED GENOMIC ALERATIONS: Tier1: Variants of strong clinical significance DDX41 [id number] DDX41 [id number] TUMOR TYPE: Acute Myeloid Leukemia CLINICAL INFORMATION: Provided ICD-10 code: D61.818 (other pancytopenia). 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 Mutational hotspots and surrounding exonic regions were interrogated for DNA level point mutations and indels (fusions not assayed). ABL1, ANKRD26, ASXL1, ATRX, BCOR, BCORL1, BRAF, CALR, CBL, CCND2, CDKN2A, CEBPA, CSF3R, CUX1, DNMT3A, ETNK1, ETV6, EZH2, FBXW7, FLT3, GATA2, HRAS, IDH1, IDH2, JAK2, KDM6A, KIT, KMT2A, KRAS, MAP2K1, MPL, MYD88, NF1, NPM1, NRAS, PDGFRA, PHG6, PTEN, PTPN11, RUNX1, SETBP1, SF3B1, SRSF2, STAG2, TET2, TP53, U2AF1, WT1, ZRSR2 Please see complete report in e-chart or EMR CYTOGENETICS REPORT FROM [facility] INTERPRETATION: A normal male chromosome complement was observed in twenty metaphases analyzed. Karyotype: 46,XY[20] FLUORESCENCE IN-SITU HYBRIDIZATION (FISH) FROM [facility] MDS-RELATED DISEASE AND OTHER INTERPRETATION: 1. No evidence of deletion of 5q or monosomy 5. 2. No evidence of monosomy 7 or deletion of 7q. 3. No evidence of trisomy 8 (+8). 4. No evidence of deletion of 20q12. 5. No evidence of BCR/ABL rearrangement. 6. No evidence of PML/WINNIE gene rearrangement. 7. No evidence of RUNX1/RTAI5R1 [t(8;21)]. 8. No evidence of CBFB [inversion(16) or translocation t(16;16)] gene rearrangement. 9. No evidence of MLL gene locus 11q23 translocation. CEBPA MUTATIONAL ANALYSIS FROM [facility] CEBPA MUTATIONAL ANALYSIS: Not detected Please see complete report in e-chart or EMR
--- NOTE | 2022-01-13 08:20 | CT_ITS ---
PROCEDURE: CT GUIDED BONE marrow biopsy and aspirate of the right iliac bone. DATE: 01/13/2022 INDICATION: Male, 61 years old. JUAREZ cytopenia. PHYSICIAN: Cain Zimmerman M.D. RADIATION DOSAGE (If Supplied By Facility): CTDIvol = ( 14.5 ) mGy, DLP = ( 198.63 ) mGycm. Individualized dose optimization techniques were utilized. PROCEDURE: The risks, benefits, and alternatives to the procedure were explained to the patient. The specific risk of hemorrhage requiring further treatment or intervention was detailed and accepted. Follow-up instructions were discussed with the patient as well. Written informed consent was obtained. The patient was brought into the CT suite and placed in the prone position. . An appropriate entry site was identified. The overlying skin was prepped and draped in the usual sterile fashion. 1% lidocaine was administered subcutaneously for local anesthesia. Conscious sedation was performed. The patient received 1 mg of VERSED and 25 mcg of FENTANYL intravenously. The patient was independently monitored by the department nurse. Conscious sedation was started at 9:18 AM and terminated at 9:[address] guidance, a bone marrow biopsy and aspirate of the posterior aspect of the right iliac bone were performed utilizing an 11-gauge bone marrow biopsy kit. The specimens were then placed in the appropriate fluid and transported to the laboratory for analysis. Hemostasis was obtained. The patient tolerated the procedure well without immediate complications. CT/Biopsy/Inj or Needle Placement IMPRESSION: Successful CT guided bone marrow biopsy and bone marrow aspirate of the right iliac bone, as described above. Conscious sedation protocol was followed. Electronically Signed: Cain Zimmerman MD at 10:03 [facility] ,
[2022-01-13 08:28] LABS: Absolute Lymphocyte Count 1.94 X10^3/uL (0.83-4.51); Absolute Neutrophil Count 0.7 X10^3/uL (2.0-7.7); Basophil# 0.01 X10^3/uL; Basophil% 0.4 % (0-1); Eosinophil# 0.07 X10^3/uL; Eosinophils% 2.5 % (0-5); Hemoglobin 9.3 g/dL (13.0-16.5); Lymphocyte # 1.94 X10^3/ul (0.83-4.51); Lymphocyte % 68.8 % (19-41); Mean Corp Hgb Conc 33.2 g/dL (32-36); Mean Corpuscular Hgb 35.9 pg (27.0-32.0); Mean Corpuscular Volume 108.1 fL (80-94); Mean Platelet Vol. 9.5 fl (6.2-12.0); Monocyte# 0.09 X10^3/uL; Monocyte% 3.2 % (0-10); NRBC Flagged by Analyzer 1.1 % (0-5); Neutrophil # 0.71 X10^3/uL (2.7-7.7); Neutrophil % 25.1 % (47-70); POSITIVE COUNT YES; POSITIVE DIFFERENTIAL YES; POSITIVE MORPHOLOGY YES; Platelet Count 80 K/mm3 (150-450); RBC Distribution Width CV 13.2 % (11.6-14.6); RBC Distribution Width SD 52.4 fl (35.1-43.9); Red Blood Count 2.59 M/mm3 (4.6-6.2); White Blood Count 2.8 K/mm3 (4.4-11.0)
[2022-01-13 08:33] LABS: International Normalized Ratio 1.1; Prothrombin Time (Protime)PT. 13.5 SECONDS (11.7-14.9)
[2022-01-13 08:34] LABS: Partial Thromboplast Time 31.6 Seconds (24.1-36.2)
[2022-01-13 08:38] LABS: Differential Indicated SCAN CRITERIA MET
[2022-01-13] MEDS: Midazolam 2 MG/2 ML Syringe IV (09:18)
[2022-01-13] MEDS: Lidocaine 2% (20 ml mdv) 20 ML Vial (09:20)
[2022-01-13] MEDS: fentaNYL 100 MCG/2 ML Ampul IV (09:20)
[2022-01-13 15:44] LABS: Pathologist Review Reviewed
== END | disposition home or self-care (01) ==
LOC: CT 08:09
PROVIDERS: Internal Medicine Hematology & Oncology; PCP Nurse Practitioner Family; Referring Provider Nurse Practitioner Family; Visit Provider Nurse Practitioner Family
DX: D61.818 Other pancytopenia (principal); I10 Essential (primary) hypertension; Z79.82 Long term (current) use of aspirin; Z79.899 Other long term (current) drug therapy; F17.210 Nicotine dependence, cigarettes, uncomplicated; Z86.73 Personal history of transient ischemic attack (TIA), and cerebral infarction without residual deficits
CPT/HCPCS: 38222; 36415; 77012; 85025; 85610; 85730; 88305; 88311; 88313; 88341; 88342; 99156; J7050; A4216

== ENCOUNTER 2024-08-26 08:43 | Inpatient (IN) | payer MEDICARE, SELFPAY ==
[2024-08-26] VITALS (23 sets, daily range): BP systolic 97–144; BP diastolic 39–94; PULSE 66–132; RESP 12–35; TEMP 36.4–37; O2SAT 78–100; BMI 18.2; BMI 17.5
--- NOTE | 2024-08-26 09:03 | EKG12_ITS ---
Test Reason : CHEST PAIN Blood Pressure : */* mmHG Vent. Rate : 76 BPM Atrial Rate : 76 BPM P-R Int : 146 ms QRS Dur : 96 ms QT Int : 390 ms P-R-T Axes : -22 85 -62 degrees QTcB Int : 438 ms Normal sinus rhythm ST & T wave abnormality, consider inferior ischemia Abnormal ECG Confirmed by JOSEF HUGHES, TRUONG ([id number]), manuscript editor LEONILA FAJARDO ([id number]) on 08/27/2024 11:09:06 AM Referred By: Confirmed By: TRUONG BAHENA MD
--- NOTE | 2024-08-26 09:03 | RAD_ITS ---
PROCEDURE: CHEST PA AND LATERAL 08/26/2024 REASON FOR EXAM: CHEST PAIN TECHNIQUE: CHEST PA AND LATERAL COMPARISON: Chest x-ray of 10/26/2020. RAD/Chest PA and Lateral IMPRESSION: Lungs are moderately hyperinflated with increased interstitial markings, consis tent with significant chronic lung disease. No acute pneumonic process is seen. No pleural effusion or pneumothorax is evident. The cardiomediastinal silhouette is within the normal range for age. Moderate degenerative changes of the thoracic spine are noted. Progressive deg enerative changes of the left shoulder, with loss of acromiohumeral distance on the left noted this is indicative marked chronic rotator cuff disease. No acute osseous change is seen. Reading Location: [place] [id number]
[2024-08-26 09:24] LABS: Absolute Lymphocyte Count 3.03 X10^3/uL (0.83-4.51); Absolute Neutrophil Count 1.2 X10^3/uL (2.0-7.7); Eosinophil# 0.05 X10^3/uL; Eosinophils% 1.1 % (0-5); Hematocrit 17.2 % (40-54); Lymphocyte # 3.03 X10^3/ul (0.83-4.51); Lymphocyte % 68.7 % (19-41); Mean Corp Hgb Conc 30.8 g/dL (32-36); Mean Corpuscular Hgb 35.3 pg (27.0-32.0); Mean Corpuscular Volume 114.7 fL (80-94); Mean Platelet Vol. 11.6 fl (6.2-12.0); Monocyte# 0.13 X10^3/uL; Monocyte% 2.9 % (0-10); NRBC Flagged by Analyzer 0 % (0-5); Neutrophil # 1.18 X10^3/uL (2.7-7.7); Neutrophil % 26.8 % (47-70); POSITIVE COUNT YES; POSITIVE MORPHOLOGY YES; Platelet Count 87 K/mm3 (150-450); RBC Distribution Width CV 15.7 % (11.6-14.6); RBC Distribution Width SD 64.9 fl (35.1-43.9); White Blood Count 4.4 K/mm3 (4.4-11.0)
[2024-08-26 09:28] LABS: Differential Indicated SCAN CRITERIA MET; Hemoglobin 5.3 g/dL (13.0-16.5)
[2024-08-26 09:46] LABS: Anisocytosis 1+; Atypical Lymphocyte 1+ %; Differential Comment SCANNED; Platelet Estimate MKD DEC (ADEQ)
--- NOTE | 2024-08-26 09:55 | CT_ITS ---
PROCEDURE: ABDOMEN/PELVIS W IV CONT ONLY 08/26/2024 REASON FOR EXAM: ANEMIA, WEIGHT LOSS Sternal chest pain. Bilateral lower extremity swelling. TECHNIQUE: ABDOMEN/PELVIS W IV CONT ONLY. Coronal and Sagittal reconstruction series were provided. CONTRAST: Isovue 370 VOLUME: 100 mL One or more dose reduction techniques were used (e.g., Automated exposure control, adjustment of the mA and/or kV according to patient size, use of iterative reconstruction technique. RADIATION DOSE SUMMARY: CTDlvol: 9 mGy DLP: 647.17 mGycm COMPARISON: Prior study dated January 17, 2020. FINDINGS: Lung bases: Stable mild degree of bibasilar scarring. Coronary artery calcification. Liver: There is evidence of mild edema of the portal triads. This may represent either liver congestion or possible inflammatory change. Clinical correlation recommended. Gallbladder: Unremarkable Spleen: Normal size. Pancreas: Normal size without evidence of mass surrounding inflammation or ductal dilation. Adrenals: Unremarkable Kidneys: Normal renal sizes. No hydronephrosis. Bladder: Distended urinary bladder. Prostatic enlargement with indentation of the bladder base. The prostate measures 3.6 cm by 5.5 cm. There is evidence of small bilateral inguinal hernias containing fat. Bowel: Colonic diverticulosis without diverticulitis. Appendix: Unremarkable Lymph nodes: Unremarkable. Vasculature: Mild diffuse atherosclerotic calcifications are noted. Peritoneum / Retroperitoneum: Unremarkable Bones: Degenerative changes of the spine. CT/Abdomen/Pelvis W IV Cont ONLY IMPRESSION: Findings suggestive of scarring at the lung bases. Coronary artery calcificati on. Mild edematous changes of the portal triads suggestive of possible inflammatory process versus liver congestion. Sigmoid diverticulosis. Distended urinary bladder and prosthetic enlargement. Small bilateral inguinal hernias containing fat. Reading Location: [id number]
--- NOTE | 2024-08-26 09:55 | CT_ITS ---
PROCEDURE: CTA CHEST W/WO CONTRAST 08/26/2024 REASON FOR EXAM: SOB, WEIGHT LOSS, ANEMIA TECHNIQUE: CTA CHEST W/WO CONTRAST Multiplanar Sagittal and Coronal images were obtained. One or more dose reduction techniques were used (e.g., Automated exposure control, adjustment of the mA and/or kV according to patient size, use of iterative reconstruction technique). CONTRAST: Isovue 3 7 VOLUME: 100 mL RADIATION DOSE SUMMARY: CTDlvol: 8.75 mGy DLP: 647.17 mGycm COMPARISON: Prior study dated November 24, 2017. FINDINGS: Hardware: None Lymph nodes: Small benign-appearing mediastinal lymph nodes. No evidence of hilar lymph nodes. Heart: Coronary artery calcification. Thoracic Aorta: No thoracic aortic aneurysm or dissection. Atherosclerotic calcification of the aortic arch and descending thoracic aorta. Pulmonary Vessels: No evidence of pulmonary embolism. Mild degree of increased markings at the lung bases suggestive of mild scarring. Lungs and Airways: Pleura: No pleural effusion. Upper Abdomen: Fatty infiltration of the liver. Bones: Degenerative changes of the thoracic spine. CT/CTA Chest W/WO Contrast IMPRESSION: No evidence of pulmonary embolism. No acute abnormality is seen. Reading Location: [id number]
[2024-08-26 10:13] LABS: Anion Gap 14 (5-15); BUN 19 mg/dL (4-19); BUN/Creat Ratio 20.4 RATIO (10-20); Calcium,Total 8.9 mg/dL (7.6-11.0); Chloride 101 mmol/L (98-108); Creatinine, Serum 0.93 mg/dL (0.70-1.20); EST Glomerular Filtration Rate 93 (>60); Estimated Creatinine Clearance 68.19 ml/min (50-250); Glucose 125 mg/dL (70-99); Potassium 4.2 mmol/L (3.3-5.1); Sodium Level 134 mmol/L (133-145)
[2024-08-26 10:14] LABS: Pro- Brain NATRIURETIC PEPTIDE 3101 pg/mL (<=900); Troponin T High Sensitivity 17 ng/L (<=22)
[2024-08-26] MEDS: Acetaminophen 500 MG Tablet 1000 MG PO (10:53)
[2024-08-26] MEDS: Metoclopramide 10 MG/2 ML Vial IV (10:54)
--- NOTE | 2024-08-26 11:05 | EX.ED.DYSGE1 ---
HPI History of Present Illness Chief Complaint: Chest Pain Narrative Narrative: Patient is a 63-year-old male with past medical history of alcohol abuse, CVA, hypertension, anemia who presented to the emergency department the chief complaint of bilateral lower extremity swelling, chest pain and not feeling well. Patient states that currently has no chest pain here in the emergency department he states that earlier today he was in bed when his symptoms started. Patient also notes that he has had significant lower extremity swelling for quite some time as well. Patient also notes that he does not follow with a doctor on regular basis and he notes that he does smoke but denies any drug use. PFSH PFS Medical History Pancytopenia Flu vaccine need Anemia Colon cancer screening Macrocytic anemia Hypertension CVA (cerebral vascular accident) Tobacco abuse Dysarthria Alcohol abuse Home Medications ?Medication ?Instructions ?Recorded ?Last Taken ?Type aspirin 81 mg tablet,delayed 81 mg PO DAILY 09/27/21 08/25/24 History release (Adult Aspirin Regimen) multivitamin-ferrous 1 tab PO Q24H 08/26/24 08/25/24 History fumarate-folic acid 18 mg-400 mcg tablet (Centrum Complete) Allergy/AdvReac Type Severity Reaction Status Date / Time No Known Allergies Allergy Verified 03/30/22 14:55 Family History Father Heart disease Mother Heart disease Other CVA (cerebral vascular accident) Social History Smoking Status: Current every day smoker tobacco type: cigarettes Tobacco: How many years used: 45 Electronic Cigarette Use: not used alcohol intake: current alcohol intake frequency: 0-2 drinks per day Alcohol type: beer substance use type: does not use ROS ROS ED ROS Narrative Constitutional: Complains of headache denies fevers, chills, lightheadedness or dizziness Eyes: Denies change in vision double vision blurry vision Cardiovascular: Complain of chest pain as noted above but since resolved denies palpitation Respiratory: Complains of shortness of breath denies coughing wheezing Abdomen: Denies abdominal pain nausea vomit diarrhea does complain of weight loss unintentional, denies dark tarry stools or blood in his stool : Denies urinary symptoms Neurological: Denies numbness, weakness, tingling Musculoskeletal: Denies back pain Skin: Denies rashes or lesions EXAM Physical Exam Narrative Exam Narrative: General: Patient lying in bed resting comfortably did not appear to be in acute distress Head: Atraumatic, normocephalic Eyes: PERRL bilaterally, EOMI bilaterally, no conjunctival injection noted Neck: Soft, supple, trachea midline Cardiovascular: Regular rate and rhythm Respiratory: Clear to auscultation bilaterally Abdomen: Soft, nondistended, no tenderness palpation Extremities: Patient has 2+ pitting edema in the bilateral lower extremities, radial pulses +2/4 in the bilateral extremities Neurological: Patient following commands knew that he was at [facility] year is 2024 Skin: Warm, dry, tact no rashes or lesions noted Const Vital Signs: 08/26/24 08:47 08/26/24 08:47 08/26/24 09:03 Temperature 98.2 F Temperature Source Oral Pulse Rate 78 Respiratory Rate 16 Respiratory Effort Normal Non-Labored Blood Pressure 116/65 Blood Pressure Mean 82 Pulse Ox 100 Oxygen Delivery Method Room Air Room Air 08/26/24 09:44 08/26/24 11:00 08/26/24 12:00 Temperature Temperature Source Pulse Rate 77 80 86 Respiratory Rate 20 H 16 17 Respiratory Effort Blood Pressure 114/67 106/56 L Blood Pressure Mean 82 72 Pulse Ox 100 100 100 Oxygen Delivery Method Room Air Room Air Room Air MDM MDM MDM Narrative Medical decision making narrative: Patient is a 63-year-old male who presented to the emergency department the chief complaint of chest pain, bilateral lower extremity swelling and shortness of breath and not feeling well overall. On the differential diagnose includes but noted to lung cancer, pancreatic cancer, anemia, ACS, pneumothorax, pneumonia, GI bleed. Once workup is obtained reviewed he will be reevaluated. Patient's CBC reviewed showed no evidence leukocytosis white blood count normal at 4.4 however the patient was anemic with a hemoglobin of 5.3, plate count was noted to be 87 he has chronic thrombocytopenia, patient has a macrocytic anemia with a MCV of 114.7. Patient sodium was 134, potassium normal at 4.2, creatinine was 0.93. Patient's BUN was normal at 19. Patient's troponin was 17 delta troponin pending. Patient's EKG reviewed showed sinus rhythm with a rate of [address] depressions in the inferior and the lateral leads this was compared to previous EKG from October 26, 2020 and there is worsening ST changes noted however patient states that his chest pain has resolved and this is likely secondary to his anemia with likely underlying coronary artery disease causing stress on his heart. Patient proBNP was elevated at 3000 101. Patient's chest x-ray reviewed by myself by radiology which showed lungs moderately hyperinflated with increased interstitial markings consistent with significant chronic lung disease no acute cardiopulmonary processes seen. Moderate degenerative changes of thoracic spine were noted. Patient's CTA of the chest was reviewed showed no evidence of PE no other acute abnormalities identified. Patient CT ab pelvis with IV contrast reviewed showed findings suggestive scarring at the lung bases coronary artery calcifications noted. Mild edematous changes of the portal triad suggestive of possible inflammatory process versus liver congestion sigmoid diverticulosis. Distended urinary bladder and prostatic enlargement. Small bilateral inguinal hernias containing fat. Patient was typed and screened for 4 units of blood. At this point time will discuss case with hospitalist for admission for his acute anemia, chest pain likely secondary to his anemia with underlying coronary artery disease. Repeat hemoglobin pending. Patient was occult positive on rectal exam therefore will be given 40 mg of IV Protonix. Discussed case with hospitalist Dr. Montoya who accept patient for admission. Patient is notified is agreeable to plan all course concerns answered at bedside. Lab Data Labs: Laboratory Results - last 24 hr 08/26/24 08/26/24 08/26/24 08:18 10:50 11:15 WBC 4.4 RBC 1.50 L Hgb 5.3 L* Hct 17.2 L MCV 114.7 H MCH 35.3 H MCHC 30.8 L RDW Std Deviation 64.9 H RDW Coeff of Triny 15.7 H Plt Count 87 L MPV 11.6 Immature Gran % (Auto) 0.500 Neut % (Auto) 26.8 L Lymph % (Auto) 68.7 H [place] % (Auto) 2.9 Eos % (Auto) 1.1 Baso % (Auto) 0.0 Absolute Neuts (auto) 1.2 L Absolute Lymphs (auto) 3.03 Nucleated RBC % 0 Differential Comment SCANNED Atypical Lymphocytes 1+ Platelet Estimate MKD DEC Anisocytosis 1+ Sodium 134 Potassium 4.2 Chloride 101 Carbon Dioxide 19.0 L Anion Gap 14 BUN 19 Creatinine 0.93 Estim Creat Clear Calc 68.19 Est GFR (MDRD) Non-Af 93 BUN/Creatinine Ratio 20.4 H Glucose 125 H Calcium 8.9 Troponin T High Sens 17 Troponin T Hi Sens 2 Hr 17 NT pro BNP II 3101 H Blood Type A POSITIVE Antibody Screen NEGATIVE Crossmatch See Detail 08/26/24 12:00 WBC RBC Hgb 4.5 L* Hct 14.0 L MCV MCH MCHC RDW Std Deviation RDW Coeff of Triny Plt Count MPV Immature Gran % (Auto) Neut % (Auto) Lymph % (Auto) [place] % (Auto) Eos % (Auto) Baso % (Auto) Absolute Neuts (auto) Absolute Lymphs (auto) Nucleated RBC % Differential Comment Atypical Lymphocytes Platelet Estimate Anisocytosis Sodium Potassium Chloride Carbon Dioxide Anion Gap BUN Creatinine Estim Creat Clear Calc Est GFR (MDRD) Non-Af BUN/Creatinine Ratio Glucose Calcium Troponin T High Sens Troponin T Hi Sens 2 Hr NT pro BNP II Blood Type Antibody Screen Crossmatch Radiography Diagnostic Testing: Clinical Impression(s) from Imaging Studies Chest X-Ray 08/26/24 09:03 IMPRESSION: Lungs are moderately hyperinflated with increased interstitial markings, consistent with significant chronic lung disease. No acute pneumonic process is seen. No pleural effusion or pneumothorax is evident. The cardiomediastinal silhouette is within the normal range for age. Moderate degenerative changes of the thoracic spine are noted. Progressive degenerative changes of the left shoulder, with loss of acromiohumeral distance on the left noted this is indicative marked chronic rotator cuff disease. No acute osseous change is seen. Reading Location: [id number] Abdomen/Pelvis CT 08/26/24 09:55 IMPRESSION: Findings suggestive of scarring at the lung bases. Coronary artery calcification. Mild edematous changes of the portal triads suggestive of possible inflammatory process versus liver congestion. Sigmoid diverticulosis. Distended urinary bladder and prosthetic enlargement. Small bilateral inguinal hernias containing fat. Reading Location: [id number] Chest CTA 08/26/24 09:55 IMPRESSION: No evidence of pulmonary embolism. No acute abnormality is seen. Reading Location: [id number] Discharge Plan Triage Chief Complaint: Chest Pain ED Provider: Willy Anaya Dx/Rx/DC Orders Clinical Impression: Anemia, Anemia, macrocytic, GI bleed, Bilateral leg edema Prescriptions: No Action aspirin [Adult Aspirin Regimen] 81 mg tablet,delayed release (DR/EC) 81 mg PO DAILY Centrum Complete 18-400 mg-mcg tablet 1 tab PO Q24H Primary Care Provider: Care Physician,No Primary Referrals: Care Physician,No Primary [Primary Care Provider] - Print Language: [place] Disposition Disposition: Acute Care Hospital [facility]
[2024-08-26 11:54] LABS: Troponin T High Sens 2 HR 17 ng/L (<=22)
[2024-08-26 12:08] LABS: POSITIVE COUNT YES
[2024-08-26 12:13] LABS: Hemoglobin 4.5 g/dL (13.0-16.5)
--- NOTE | 2024-08-26 12:44 | PCM.HP.STD ---
HPI - General General Date of Admission: 08/26/24 Date of Service: 08/26/24 Chief Complaint: Chest pain HPI Narrative JUNI MATHIAS, is a 63 M who presents with chest pain over the past few days. Chest pain is with exertion. Left-sided and may occasionally go down his left arm. No shortness of breath. No diaphoresis. Patient seen and examined independently. Data and vitals reviewed. I agree with the above note by the nurse practitioner. Was diagnosed with acute myeloid leukemia back in 2022 and was recommended going to [facility] for treatment. Patient declined and decision was made for him to go with hospice which she was but he was given a life expectancy of 9 months. Since that time, he is no longer on hospice, he is no longer seeing oncology nor any other primary care provider. He presents to the emergency room because of this chest pain and was noted to have a hemoglobin of 4.5. Patient was typed and crossed and ordered transfusions in the serum. He was heme positive in the emergency room. Patient denies any hematochezia nor hematemesis. The hospital service was contacted for further valuation of the chest pain as well as anemia. PFSH Medical History Pancytopenia Flu vaccine need Anemia Colon cancer screening Macrocytic anemia Hypertension CVA (cerebral vascular accident) Tobacco abuse Dysarthria Alcohol abuse Home Medications ?Medication ?Instructions ?Recorded ?Last Taken ?Type aspirin 81 mg tablet,delayed 81 mg PO DAILY 09/27/21 08/25/24 History release (Adult Aspirin Regimen) multivitamin-ferrous 1 tab PO Q24H 08/26/24 08/25/24 History fumarate-folic acid 18 mg-400 mcg tablet (Centrum Complete) Allergy/AdvReac Type Severity Reaction Status Date / Time No Known Allergies Allergy Verified 03/30/22 14:55 Family History Father Heart disease Mother Heart disease Other CVA (cerebral vascular accident) Social History Smoking Status: Current every day smoker tobacco type: cigarettes Tobacco: How many years used: 45 Electronic Cigarette Use: not used alcohol intake: current alcohol intake frequency: 0-2 drinks per day Alcohol type: beer substance use type: does not use ROS ROS Narrative Patient has chronic dysarthria due to prior stroke. Lower extremity swelling. All review of systems were negative except as mentioned above in the history of present illness and the other review of systems. Vital Signs Vital Signs Vital Signs: 08/26/24 08:47 08/26/24 08:47 08/26/24 09:03 Temperature 36.8 C Temperature Source Oral Pulse Rate 78 Respiratory Rate 16 Respiratory Effort Normal Non-Labored Blood Pressure 116/65 Blood Pressure Mean 82 Blood Pressure Source Pulse Ox 100 Oxygen Delivery Method Room Air Room Air 08/26/24 09:44 08/26/24 11:00 08/26/24 12:00 Temperature Temperature Source Pulse Rate 77 80 86 Respiratory Rate 20 H 16 17 Respiratory Effort Blood Pressure 114/67 106/56 L Blood Pressure Mean 82 72 Blood Pressure Source Pulse Ox 100 100 100 Oxygen Delivery Method Room Air Room Air Room Air 08/26/24 12:40 Temperature 36.5 C L Temperature Source Oral Pulse Rate 74 Respiratory Rate 18 Respiratory Effort Blood Pressure 111/70 Blood Pressure Mean 83 Blood Pressure Source Monitor Pulse Ox 100 Oxygen Delivery Method Room Air Weight Weight: 59.3 kg Body Mass Index (BMI) 18.2 Physical Exam Const alert and no apparent distress General Appearance: cooperative HEENT normocephalic and head/scalp atraumatic Resp normal respiratory effort, no retractions, no use of accessory muscles and clear to auscultation bilaterally Cardio regular rate, regular rhythm, S1 normal heart sound and S2 normal heart sound GI normal to inspection, nondistended, normoactive bowel sounds, soft to palpation, non-tender and non-distended Extremity Extremity Narrative: 2+ lower extremity edema Skin Skin Narrative: No rashes or lesions. Neuro moves all extremities Neuro Narrative: Dysarthria. Alert. Cooperative. Follow commands. Psych affect normal Results Lab / Micro Data Attestation: I reviewed the patient's lab results. 08/26/24 12:00 08/26/24 08:18 Labs: Laboratory Results - last 24 hr 08/26/24 08:18: WBC 4.4, RBC 1.50 L, Hgb 5.3 L*, Hct 17.2 L, MCV 114.7 H, MCH 35.3 H, MCHC 30.8 L, RDW Std Deviation 64.9 H, RDW Coeff of Triny 15.7 H, Plt Count 87 L, MPV 11.6, Immature Gran % (Auto) 0.500, Neut % (Auto) 26.8 L, Lymph % (Auto) 68.7 H, [place] % (Auto) 2.9, Eos % (Auto) 1.1, Baso % (Auto) 0.0, Absolute Neuts (auto) 1.2 L, Absolute Lymphs (auto) 3.03, Nucleated RBC % 0, Differential Comment SCANNED, Atypical Lymphocytes 1+, Platelet Estimate MKD DEC, Anisocytosis 1+, Sodium 134, Potassium 4.2, Chloride 101, Carbon Dioxide 19.0 L, Anion Gap 14, BUN 19, Creatinine 0.93, Estim Creat Clear Calc 68.19, Est GFR (MDRD) Non-Af 93, BUN/Creatinine Ratio 20.4 H, Glucose 125 H, Calcium 8.9, Troponin T High Sens 17, NT pro BNP II 3101 H 08/26/24 10:50: Blood Type A POSITIVE, Antibody Screen NEGATIVE, Crossmatch See Detail 08/26/24 11:15: Troponin T Hi Sens 2 Hr 17 08/26/24 12:00: Hgb 4.5 L*, Hct 14.0 L Micro: Microbiology 08/26/24 11:43 Stool Stool Occult Blood (JOVANNY) - Final Occult Blood Positive EKG Initial EKG: Attestation: I personally reviewed and interpreted this EKG as follows: EKG Rhythm Intrepretation: Sinus Rhythm Imaging Radiology Impression Chest X-Ray 08/26/24 09:03 IMPRESSION: Lungs are moderately hyperinflated with increased interstitial markings, consistent with significant chronic lung disease. No acute pneumonic process is seen. No pleural effusion or pneumothorax is evident. The cardiomediastinal silhouette is within the normal range for age. Moderate degenerative changes of the thoracic spine are noted. Progressive degenerative changes of the left shoulder, with loss of acromiohumeral distance on the left noted this is indicative marked chronic rotator cuff disease. No acute osseous change is seen. Reading Location: [facility] Abdomen/Pelvis CT 08/26/24 09:55 IMPRESSION: Findings suggestive of scarring at the lung bases. Coronary artery calcification. Mild edematous changes of the portal triads suggestive of possible inflammatory process versus liver congestion. Sigmoid diverticulosis. Distended urinary bladder and prosthetic enlargement. Small bilateral inguinal hernias containing fat. Reading Location: [id number] Chest CTA 08/26/24 09:55 IMPRESSION: No evidence of pulmonary embolism. No acute abnormality is seen. Reading Location: [facility] Assessment & Plan Assessment/Plan (1) Anemia: PLAN: Patient has not been to the physician in over 2 years. Patient has been pretty active walking his dog multiple times per day but is been just been having the symptoms. I suspect he has been chronically losing blood over this period of time due to his pancytopenia. Though he was heme positive I do not feel that the primary source is GI related. With his history of acute myeloid leukemia I asked him about goals of care and his plan is not to proceed with any further chemotherapy as was the case in 2022. Explained that if that is the case then I would not recommend additional workup such as colonoscopy at this time as it may ultimately not change his overall management. I did agree with transfusions as it would provide him palliation regards to symptom improvement and improved quality of life. And I also recommended that he follow-up with a primary care doctor so that he may have his counts checked periodically and if he would need transfusions that can be arranged as outpatient at the infusion center. He and his family were in agreement to that. Patient has been lost to follow-up in regards to primary care doctor so he will need to reestablish with a new primary care doctor. So plan is to transfuse him he has 3 units ordered. And monitor him overnight. Additionally, we will check B12, folate, TSH, Iron and iron binding capacity and ferritin. (2) Severe protein-calorie malnutrition: PLAN: Patient cachectic with a BMI of 18.2 kg/m?. Will start Ensure plus with meals Consult nutrition for further recommendations. Patient is lower extremity edema I feel is more due to low oncotic pressure due to his malnutrition rather than overt heart failure PLAN: Plan Acute myeloid leukemia/mild dysplastic syndrome: Previously patient had declined further therapy. Patient is not interested in any therapy at this time. CAD: History of CABG. Currently stable but will have to hold off on aspirin given the anemia. CVA: Patient has chronic dysarthria from that. Will hold off on aspirin. VTE prophylaxis with SCDs CODE STATUS: Addressed with the patient. Patient wishes to be DNR Comfort Care arrest no intubation. Did discuss with he and his family about reestablishing palliative care to help with symptom control at home. They would be interested in becoming reestablished. Will consult case management to assist. Disposition: Patient being brought in under observation status as the goal is to transfuse him and to discharge him on the . It is important that the patient be monitored overnight to make sure he does not have any effects from the transfusions and to monitor for volume overload. Charges/Coding Visit Charges Inpatient E&M: 24206 Init Hosp L3
[2024-08-26] MEDS: Pantoprazole Sodium 40 MG in 0.9% Normal Saline (100mL MB+) 100 ML 300 MG IV (13:00)
[2024-08-26 13:49] LABS: Troponin T High Sens 4 HR 17 ng/L (<=22)
[2024-08-26 14:55] LABS: Ferritin 239 ng/mL (37-417); Iron 42 ug/dL (65-175); Iron Binding Capacity,Total 241 ug/dL (250-450); Iron Binding Capacity,Unsat 199 ug/dL (228-428); Vitamin B12 304 pg/mL (180-914)
--- NOTE | 2024-08-26 15:40 | CASEMGMT ---
Care Management Face to Face with patient for initial transition planning/care coordination assessment in the ED.? This promotion writer introduced self and role at [facility]. Patient alert and oriented. Patient willing to participate in assessment and is able to answer all questions appropriately.? Care providers, pharmacy, and demographics verified. Admitting Diagnosis: Chest pain Other diagnosis history: ?pancytopenia, anemia, hypertension, CVA, PCP: ?None, [facility] provider list provided Specialists: None Preferred Pharmacy: [facility] [place] Insurance: ?Medicare Prescription Benefit: ?yes Living Will/HPOA: ?none LNOK: ? Living Arrangements: ?patient lives with in a 2 story home, patient reports to being independent with ADLs and IADLs. Transportation: ?daughter drives patient as needed DME: ?none HHC: none SNF/Rehab: none Community Resources: none Behavioral Health History: denies Patient goals: Patient wishes to discharge home, denies need for home health care at this time. Patient denies any further needs or concerns at this time. Disposition Plan: admission to acute; RN CM/SW to follow for discharge planning needs that may arise. Vicki Gaviria, AUTOMOTIVE SERVICE DIRECTOR, [employer]
[2024-08-26] MEDS: Ensure Plus High Protein 120 ML LIQUID PO (17:01)
[2024-08-26] MEDS: Acetaminophen 325 MG Tablet 650 MG PO (18:09)
[2024-08-26] MEDS: 0.9% Saline Lock 10 ML Syringe IV (20:26)
[2024-08-26] MEDS: Furosemide 40 MG/4 ML Vial IV (21:31)
--- NOTE | 2024-08-26 21:50 | RAD_ITS ---
PROCEDURE: CHEST 1 VIEW (PORTABLE) 08/26/2024 REASON FOR EXAM: SOB TECHNIQUE: Frontal view of the chest. COMPARISON: Chest radiographs and CT on 08/26/2024 FINDINGS: Interval increase in predominantly central airspace opacities and increased interstitial markings compared to earlier same-day radiographs. Cardiomediastinal silhouette is mildly enlarged. No definite pleural effusion. Osseous structures are unchanged. RAD/Chest 1 View (Portable) IMPRESSION: Increase in airspace and interstitial opacities compared to earlier same-day ra diographs, which may represent some combination of infection, edema, and/or lung injury. Reading Location: [facility]
[2024-08-26 21:57] LABS: Allen Test Positive; Base Excess -18 mmol/L (-2 to +2); Bicarbonate 11.6 mmol/L (22-26); Blood Gas Specimen Type ART; Mode Not entered; O2 Delivery Device BiPAP; PEEP 10; PIP 16; PO2 124 mmHG (75-100); RR 12; SITE R Radial; SO2 97 % (95-99); Total Carbon Dioxide 13 mmol/L; pCO2 38.1 mmHg (35-45); pH 7.09 (7.35-7.45)
[2024-08-26 21:58] LABS: Pro- Brain NATRIURETIC PEPTIDE 3008 pg/mL (<=900)
[2024-08-26] MEDS: Lorazepam 2 MG/ML WCH Syringe 0.5 MG IV (22:19)
--- OUTSIDE RECORDS SUMMARY | 2024-08-26 22:33 | XMS RPT_ITS | CCD ---
Author Organization [facility] Care Team Providers Care Meat Counter Clerk Name Role Phone Unavailable Primary Care Provider Dr. Elva Leblanc Primary Care Provider [phone] Dr. Elva Packer Referring Provider [phone] Dr. Shahzad Roldan Attending Provider Migdalia CANNON, DIRECTOR DATABASE-C Owen Attending Provider [phone] Dr. Min Amaral Attending Provider Dr. Elva Packer Primary Care Provider [phone] Dr. Elva Packer Referring Provider [phone] Dr. Shahzad Roldan Referring Provider Dr. Stone Hollis Attending Provider Dr. Shahzad Roldan Attending Provider Dr. Elva Packer Primary Care Provider [phone] Dr. Shahzad Roldan Referring Provider Dr. Elva Packer Attending Provider [phone] Dr. Elva Packer Referring Provider [phone] Dr. Elva Packer Primary Care Provider [phone]) Dr. Shahzad Roldan Attending Provider [phone] Dr. Shahzad Roldan Referring Provider Dr. Elva Packer Attending Provider [phone] Dr. Elva Packer Referring Provider [phone] [place]gr[place] DIRECTOR DATABASE, DIRECTOR DATABASE-C Owen Primary Care Provider Migdalia DIRECTOR DATABASE, DIRECTOR DATABASE-C Owen Referring Provider Dr. Abdirizak James Attending Provider [phone] Oleghe, Efewongbe Referring Unavailable Oleghe, Efewongbe Primary Care Unavailable Negron, Owen Attending Unavailable Negron, Owen Referring Unavailable Negron, Owen Primary Care Unavailable Abdirizak James Attending Unavailable Negron, Owen Referring Unavailable Negron, Owen Primary Care Unavailable Abdirizak James Attending Unavailable Oleghe, Efewongbe Primary Care Unavailable Bunny, [place] Attending Unavailable Baddour, Shahzad Referring Unavailable Oleghe, Efewongbe Primary Care Unavailable Oleghe, Efewongbe Referring Unavailable BaddourShahzad Attending Unavailable Oleghe, Efewongbe Primary Care Unavailable Shahzad Roldan Attending Unavailable Baddour, Shahzad Referring Unavailable Oleghe, Efewongbe Primary Care Unavailable Oleghe, Efewongbe Referring Unavailable Oleghe, Efewongbe Attending Unavailable Negron, Owen Primary Care Unavailable Negron, Owen Referring Unavailable Abdirizak James Attending Unavailable Oleghe, Efewongbe Primary Care Unavailable Min Amaral Attending Unavailable Carroldour, Shahzad Referring Unavailable Oleghe, Efewongbe Primary Care Unavailable Shahzad Roldan Attending Unavailable Carroldopj, Shahzad Attending Unavailable Carroldour, Shahzad Referring Unavailable Oleghe, Efewongbe Primary Care Unavailable Oleghe, Efewongbe Primary Care Unavailable Shahzad Roldan Attending Unavailable Negron, Owen Primary Care Unavailable Nina, Kathy Referring Unavailable Nina, Kathy Attending Unavailable Oleghe, Efewongbe Attending Unavailable Negron, Owen Primary Care Unavailable Oleghe, Efewongbe Primary Care Unavailable Carroldour, Shahzad Attending Unavailable Carroldour, Shahzad Referring Unavailable Baddour, Shahzad Referring Unavailable Oleghe, Efewongbe Primary Care Unavailable Baddour Shahzad Attending Unavailable Oleghe, Efewongbe Primary Care Unavailable Baddour, Shahzad Attending Unavailable Bunny, [place] Referring Unavailable Oleghe, Efewongbe Primary Care Unavailable Baddour, Shahzad Attending Unavailable Baddour, Shahzad Referring Unavailable TANO, NANCY L Attending Unavailable NANCY FREEDMAN Primary Care Unavailable NANCY FREEDMAN Admitting Unavailable Care Physician, No Primary Primary Care Provider Unavailable Dr. Willy Anaya DO Emergency Provider Lindsay MCFARLANE, Dr. Garcia Admit Provider Dr. Jose Montoya DO Attending Provider Dr. Jose Montoya DO Other Provider Medications Current Medications Medication Drug Class(es) Dates Sig (Normalized) Sig (Original) aspirin 81 mg delayed release oral tablet (10 sources) Platelet Aggregation Inhibitor, Nonsteroidal Anti-inflammatory Drug Start: 09-27-2021 take 1 tablet by mouth once daily Aspirin (Adult Aspirin Regimen) 81 mg tablet,delayed release (DR/EC) Active 81 mg PO DAILY September 27, 2021 12:00am Start: 10-27-2020 End: 01-07-2021 take 1 tablet by mouth once daily Aspirin 81 mg tablet,delayed release (DR/EC) Discontinued 81 mg PO DAILY October 27, 2020 12:00am January 07, 2021 11:33am Cvkjfsoenoiz-Dhxv-Kaedg Acid (Centrum Complete) 18-400 mg-mcg tablet (1 source) Start: 08-26-2024 Multivitamin-I last-Folic Acid (Centrum Complete) 18-400 mg-mcg tablet Active 1 {tbl} PO Q24H August 26, 2024 12:00am Completed/Discontinued Medications Medication Drug Class(es) Dates Sig (Normalized) Sig (Original) acetaminophen 325 mg / HYDROcodone bitartrate 5 mg oral tablet (6 sources) Opioid Agonist Start: 01-18-2020 End: 01-21-2020 Hydrocodone-Acetami nophen 1 TABLET tablet Discontinued 1 {tbl} PO EVERY 6 HOURS NEEDED as needed for Pain 12 06January 18, 2020 January 20, 2020 1:00am January 21, 2020 1:03am Start: 01-18-2020 End: 01-21-2020 take 1 tablet by mouth every six hours as needed Hydrocodone-Acetaminophen Discontinued 1 TABLET PO EVERY 6 HOURS NEEDED 12 06January 18, 2020 January 21, 2020 12:03am atorvastatin 40 mg oral tablet (20 sources) HMG-CoA Reductase Inhibitor Start: 12-28-2021 End: 08-26-2024 take 1 tablet by mouth once daily Atorvastatin 40 mg tablet Discontinued 40 mg PO DAILY March 08, 2022 9:41am August 26, 2024 9:55am Start: 10-27-2020 End: 09-27-2021 take 1 tablet by mouth once daily Atorvastatin 40 mg tablet Discontinued 40 mg PO DAILY May 27, 2021 4:22pm September 27, 2021 8:56pm clopidogrel 75 mg oral tablet (6 sources) P2Y12 Platelet Inhibitor Start: 10-27-2020 End: 01-07-2021 Clopidogrel (Plavix) 75 mg tablet Discontinued 75 mg PO DAILY October 27, 2020 12:00am January 07, 2021 11:33am Take for 21 days, then discontinue. ferrous sulfate 325 mg delayed release oral tablet (5 sources) Start: 07-20-2021 End: 08-26-2024 take 1 tablet by mouth once daily Ferrous Sulfate 325 mg (65 mg iron) tablet,delayed release (DR/EC) Discontinued 325 mg PO DAILY July 20, 2021 12:00am August 26, 2024 9:55am lisinopril 10 mg oral tablet (20 sources) Angiotensin Converting Enzyme Inhibitor Start: 12-28-2021 End: 08-26-2024 take 1 tablet by mouth once daily Lisinopril 10 mg tablet Discontinued 10 mg PO DAILY March 30, 2022 2:16pm August 26, 2024 9:55am Start: 10-27-2020 End: 09-27-2021 take 1 tablet by mouth once daily Lisinopril 10 mg tablet Discontinued 10 mg PO DAILY May 27, 2021 4:23pm September 27, 2021 8:56pm mecobalamin 1 mg chewable tablet (4 sources) Start: 09-29-2021 End: 09-30-2021 Mecobalamin (Vitamin B12) (B12 Active) 1,000 mcg tablet,chewable Discontinued 1000 ug PO DAILY September 29, 2021 12:00am September 30, 2021 2:12pm 24 hr nicotine 0.875 mg/hr transdermal system (18 sources) Cholinergic Nicotinic Agonist Start: 10-27-2020 End: 12-15-2020 apply 1 dose transdermal route every twenty-four hours Nicotine (Nicoderm Cq) 14 mg/24 hr patch 24 hour Discontinued 1 NMA TD DAILY October 27, 2020 12:00am December 15, 2020 4:09pm Start: 10-27-2020 End: 12-15-2020 apply 1 dose transdermal route every twenty-four hours Nicotine (Nicoderm Cq) 21 mg/24 hr patch 24 hour Discontinued 1 NMA TD DAILY October 27, 2020 12:00am December 15, 2020 4:09pm Start: 10-27-2020 End: 12-15-2020 apply 1 dose transdermal route every twenty-four hours Nicotine (Nicoderm Cq) 7 mg/24 hr patch 24 hour Discontinued 1 NMA TD Q24H October 27, 2020 12:00am December 15, 2020 4:09pm Start: 10-27-2020 End: 12-15-2020 apply 1 dose transdermal route once daily, then apply 1 dose transdermal route every twenty-four hours Nicotine (Nicoderm Cq) 14 mg/24 hr patch 24 hour Discontinued 1 PATCH TD DAILY October 26, 2020 11:00pm December 15, 2020 3:09pm Start: 10-27-2020 End: 12-15-2020 apply 1 dose transdermal route once daily, then apply 1 dose transdermal route every twenty-four hours Nicotine (Nicoderm Cq) 21 mg/24 hr patch 24 hour Discontinued 1 PATCH TD DAILY October 26, 2020 11:00pm December 15, 2020 3:09pm Start: 10-27-2020 End: 12-15-2020 Nicotine (Nicoderm Cq) 7 mg/ 24 hr patch 24 hour Discontinued 1 PATCH TD Q24H October 26, 2020 11:00pm December 15, 2020 3:09pm thiamine 100 mg oral tablet (8 sources) Start: 09-23-2021 End: 08-26-2024 take 1 tablet by mouth once daily Thiamine Hcl (Vitamin B1) 100 mg tablet Discontinued 100 mg PO DAILY September 29, 2021 3:43pm August 26, 2024 9:56am vitamin b12 1 mg oral tablet (3 sources) Vitamin B12 Start: 09-30-2021 End: 08-26-2024 take 1 tablet by mouth once daily Cyanocobalamin (Vitamin B-12) 1,000 mcg tablet Discontinued 1000 ug PO DAILY September 30, 2021 12:00am August 26, 2024 9:55am Problems Active Problems Problem Classification Problem Date Documented Da te Episodic/Chronic Acute cerebrovascular disease (12 sources) Cerebrovascular accident; Translations: [Cerebral infarction, unspecified] Onset: 2 Chronic Alcohol-related disorders (6 sources) Alcohol intoxication; Translations: [Alcohol use, unspecified with intoxication, unspecified] 01-19-2020 Episodic Deficiency and other anemia (3 sources) Pancytopenia; Translations: [Other pancytopenia] 01-11-2022 Chronic Deficiency and other anemia (3 sources) Other pancytopenia; Translations: [Other pancytopenia] Onset: 2 Chronic Deficiency and other anemia (8 sources) Macrocytic anemia; Translations: [Nutritional anemia, unspecified] 08-26-2024 Episodic Deficiency and other anemia (5 sources) Anemia; Translations: [Anemia, unspecified] 08-26-2024 Episodic Deficiency and other anemia (2 sources) Anemia, unspecified; Translations: [Anemia, unspecified] Episodic Essential hypertension (16 sources) Hypertensive disorder; Translations: [Essential (primary) hypertension] Onset: 2 Chronic Gastrointestinal hemorrhage (2 sources) Gastrointestinal hemorrhage; Translations: [Gastrointestinal hemorrhage, unspecified] 08-26-2024 Episodic Immunizations and screening for infectious disease (5 sources) Needs influenza immunization; Translations: [Encounter for immunization] Episodic Intracranial injury (6 sources) Closed injury of head; Translations: [Unspecified intracranial injury with loss of consciousness of unspecified duration, initial encounter] 01-19-2020 Episodic Late effects of cerebrovascular disease (1 source) Unspecified symptoms and signs involving cognitive functions following cerebral infarction; Translations: [I69.319 - Unspecified symptoms and signs involving cognitive functions following cerebral infarction] Onset: 2 Chronic Nutritional deficiencies (2 sources) Deficiency of macronutrients; Translations: [Unspecified severe protein-calorie malnutrition] 08-26-2024 Chronic Nutritional deficiencies (9 sources) Thiamine deficiency; Translations: [Thiamine deficiency, unspecified] Onset: 2 Episodic Occlusion or stenosis of precerebral arteries (9 sources) Carotid artery stenosis; Translations: [Occlusion and stenosis of unspecified carotid artery] Onset: 2 Chronic Open wounds of head; neck; and trunk (6 sources) Facial laceration ; Translations: [Laceration without foreign body of other part of head, initial encounter] 01-19-2020 Episodic Other circulatory disease (4 sources) History of cerebrovascular accident; Translations: [Personal history of transient ischemic attack (TIA), and cerebral infarction without residual deficits] 09-27-2021 Episodic Other hereditary and degenerative nervous system conditions (6 sources) Impaired cognition; Translations: [Mild cognitive impairment, so stated] 09-27-2021 Chronic Other hereditary and degenerative nervous system conditions (9 sources) Mild cognitive impairment, so stated; Translations: [Mild cognitive impairment, so stated] Onset: 2 Chronic Other injuries and conditions due to external causes (6 sources) Blunt injury of abdomen; Translations: [Unspecified injury of abdomen, initial encounter] 01-19-2020 Episodic Other non-traumatic joint disorders (5 sources) Shoulder pain; Translations: [Pain in left shoulder] Episodic Other non-traumatic joint disorders (1 source) Pain in left shoulder; Translations: [Left shoulder pain] 01-07-2021 Episodic Other screening for suspected conditions (not mental disorders or infectious disease) (6 sources) Patient encounter status; Translations: [Encounter for screening for malignant neoplasm of colon] Onset: 2 Episodic Residual codes; unclassified (6 sources) Tobacco user; Translations: [Tobacco use] 10-26-2020 Episodic Residual codes; unclassified (2 sources) Bilateral lower limb edema; Translations: [Localized edema] 08-26-2024 Episodic Sprains and strains (6 sources) Neck sprain; Translations: [Sprain of joints and ligaments of unspecified parts of neck, initial encounter] 01-19-2020 Episodic Superficial injury; contusion (6 sources) Contusion of rib; Translations: [Contusion of left front wall of thorax, initial encounter] 01-19-2020 Episodic Syncope (1 source) Syncope and collapse; Translations: [Syncope and collapse] Episodic Unclassified (4 sources) Patient condition finding; Translations: [No active medical problems] Past or Other Problems Problem Classification Problem Date Documented Da te Episodic/Chronic Deficiency and other anemia (4 sources) Nutritional anemia, unspecified; Translations: [Unspecified deficiency anemia] Onset: 09-30-2021 Episodic Other circulatory disease (7 sources) Personal history of transient ischemic attack (TIA), and cerebral infarction without residual deficits; Translations: [Personal history of transient ischemic attack (TIA), and cerebral infarction without residual deficits] Onset: 09-30-2021 Episodic Residual codes; unclassified (3 sources) Tobacco use; Translations: [Tobacco use disorder] Onset: 12-13-2021 Episodic Results Test Name Value Interpretation Reference Range Facility Absolute lymphocyte countOrd ered By: Willy Anaya on 08-26-2024 Lymphocytes Auto (Unsp spec) [#/Vol] 3.03 10*3/uL 0.83-4.51 [facility] Absolute neutrophil countOrd ered By: Willy Anaya on 08-26-2024 Neutrophils (Bld) [#/Vol] 1.2 10*3/uL Low 2.0-7.7 [facility] Anion gap in Serum or Plasma Ordered By: Willy Anaya on 08-26-2024 Anion gap [Moles/Vol] 14 mmol/L 5-15 [facility] Automated lymphocyte count a s percentage of total leukocytesOrdered By: Willy Anaya on 08-26-2024 Lymphocytes/100 WBC Auto (Unsp spec) 68.7 % High 19-41 [facility] BUN/creatinine ratioOrdered By: Willy Anaya on 08-26-2024 Urea nitrogen/Creatinine [Mass ratio] 20.4 mg/mg High 10-20 [facility] Basophil percentageOrdered B y: Willy Anaya on 08-26-2024 Basophils/100 WBC (Bld) 0.0 % 0-1 [facility] Blood manual differential co mment interpretation (narrative result)Ordered By: Willy Anaya on 08-26-2024 Manual differential comment Hari (Bld) [Interp] SCANNED [facility] Carbon dioxide, total [Moles /volume] in Central venous bloodOrdered By: Willy Anaya on 08-26-2024 CO2 [Moles/Vol] 19.0 mmol/L Low 21.0-32.0 [facility] Chloride assayOrdered By: Jose L Anaya on 08-26-2024 Chloride [Moles/Vol] 101 mmol/L 98-108 [facility] Eosinophil percentageOrdered By: Willy Anaya on 08-26-2024 Eosinophils/100 WBC (Bld) 1.1 % 0-5 [facility] Erythrocyte distribution wid th ratioOrdered By: Willy Anaya on 08-26-2024 Erythrocyte distribution width (RBC) [Ratio] 15.7 % High 11.6-14.6 [facility] Erythrocyte distribution wid th standard deviationOrdered By: Willy Anaya on 08-26-2024 Erythrocyte distribution width (RBC) [Ratio] 64.9 fl High 35.1-43.9 [facility] Glomerular filtration rate ( GFR) estimation/1.73 sq m using serum, plasma, or whole bOrdered By: Willy Anaya on 08-26-2024 GFR/1.73 sq M.predicted among non-blacks MDRD (S/P/Bld) [Vol rate/Area] 93 mL/min/{1.73_m2} >60 [facility] Comment on above: mL/min/1.73m2 CKD-EP I Creatinine Equation (2020) Hematocrit Auto (Bld) [Volum e fraction]Ordered By: Willy Anaya on 08-26-2024 Hematocrit (Bld) [Volume fraction] 14.0 % Low 40-54 [facility] Hemoglobin measurementOrdere d By: Willy Anaya on 08-26-2024 Hemoglobin (Bld) [Mass/Vol] 4.5 g/dL Low 13.0-16.5 [facility] Comment on above: CRITICAL VALUE MARTIN D TO CESAR HERNANDEZ (ER)08/26/24 1213 Mario Valera.RESULTS READ BACK BY SAME. Immature granulocytes/100 WB C Auto (Bld)Ordered By: Willy Anaya on 08-26-2024 Immature granulocytes/100 WBC (Bld) 0.500 % 0.0-0.9 [facility] Comment on above: IG% - Immature Granu locytes (promyelocytes, myelocytes and metamyelocytes) > 1% indicates that a LEFT SHIFT is Present. Laboratory - Hematology and Cell countsOrdered By: Willy Anaya on 08-26-2024 Anisocytosis Ql (Bld) 1+ [facility] MCV (mean corpuscular volume ) determinationOrdered By: Willy Anaya on 08-26-2024 MCV (RBC) [Entitic vol] 114.7 fL High 80-94 [facility] Mean corpuscular hemoglobin (MCH) determinationOrdered By: Willy Anaya on 08-26-2024 MCH (RBC) [Entitic mass] 35.3 pg High 27.0-32.0 [facility] Mean corpuscular hemoglobin concentration (MCHC) determinationOrdered By: Willy Anaya on 08-26-2024 MCHC (RBC) [Mass/Vol] 30.8 g/dL Low 32-36 [facility] Mean platelet volume determi nationOrdered By: Willy Anaya on 08-26-2024 Platelet mean volume (Bld) [Entitic vol] 11.6 fL 6.2-12.0 [facility] Monocyte percentageOrdered B y: Willy Anaya on 08-26-2024 Monocytes/100 WBC (Bld) 2.9 % 0-10 [facility] Natriuretic peptide.B prohor claudia N-Terminal [Mass/volume] in Serum or PlasmaOrdered By: Willy Anaya on 08-26-2024 Natriuretic peptide.B prohormone N-Terminal [Mass/Vol] 3101 pg/mL High <900 [facility] Comment on above: Heart Failure Unlike ly: < 300 pg/mLHeart Failure Likely< 50 Years: > 450 pg/mL50-75 Years: > 900 pg/mL>75 Years: > 1800 pg/mL Neutrophil percentageOrdered By: Willy Anaya on 08-26-2024 Neutrophils/100 WBC (Bld) 26.8 % Low 47-70 [facility] Nucleated red blood cell per centageOrdered By: Willy Anaya on 08-26-2024 Nucleated RBC/100 WBC (Bld) [Ratio] 0 % 0-5 [facility] Platelet countOrdered By: Jose L Anaya on 08-26-2024 Platelets (Bld) [#/Vol] 87 10*3/uL Low 150-450 [facility] Platelet estimateOrdered By: Willy Anaya on 08-26-2024 Platelets LM Ql (Bld) MKD DEC ADEQ [facility] Potassium measurement (mass/ volume)Ordered By: Willy Anaya on 08-26-2024 Potassium (Unsp spec) [Mass/Vol] 4.2 mmol/L 3.3-5.1 [facility] RBC Auto (Bld) [#/Vol]Ordere d By: Willy Anaya on 08-26-2024 RBC (Bld) [#/Vol] 1.50 10*6/uL Low 4.6-6.2 [facility] Serum creatinine measurement (mass/volume)Ordered By: Willy Anaya on 08-26-2024 Creatinine [Mass/Vol] 0.93 mg/dL 0.70-1.20 [facility] Serum glucose measurement (m ass/volume)Ordered By: Willy Anaya on 08-26-2024 Glucose [Mass/Vol] 125 mg/dL High 70-99 [facility] Serum or plasma calcium ronni urement (mass/volume)Ordered By: Willy Anaya on 08-26-2024 Calcium [Mass/Vol] 8.9 mg/dL 7.6-11.0 [facility] Serum or plasma urea nitroge n measurement (mass/volume)Ordered By: Willy Anaya on 08-26-2024 Urea nitrogen [Mass/Vol] 19 mg/dL 4-19 [facility] Sodium levelOrdered By: Ti Anaya on 08-26-2024 Sodium [Moles/Vol] 134 mmol/L 133-145 [facility] Stool gastrointestinal hemog lobin detection by immunologic methodOrdered By: Willy Anaya on 08-26-2024 Lower GI hemoglobin IA Ql (Stl) Positive Abnormal [facility] Troponin T.cardiac [Mass/vol ume] in Serum or Plasma by High sensitivity methodOrdered By: Willy Anaya on 08-26-2024 Troponin T.cardiac High sensitivity method [Mass/Vol] 17 ng/L <22 [facility] Troponin T.cardiac High sensitivity method [Mass/Vol] 17 ng/L <22 [facility] White blood cell (WBC) count Ordered By: Willy Anaya on 08-26-2024 WBC (Bld) [#/Vol] 4.4 10*3/uL 4.4-11.0 [facility] CBC + DIFFon 11-21-2022 ANISO 2+ Normal [facility] Comment on above: Performed By: #### 2 [id number] #### [facility],[address] [place] [address] ATY LYMP 0 % Normal [facility] Comment on above: Performed By: #### 2 [id number] #### [facility],[address] [place] [address] Baso # 0.00 x10EE3/UL Normal 0.00 - 0.10 [facility] Comment on above: Performed By: #### 2 [id number] #### [facility],[address] [place] [address] Basophils/100 WBC (Bld) 0.3 % Normal 0.0 - 2.0 [facility] Comment on above: Performed By: #### 2 [id number] #### [facility],[address] [place] [address] CBC + DIFF Normal [facility] Comment on above: Result Comment: CBC- COMPLETE BLOOD COUNT Performed By: #### 2 [id number] #### [facility],[address] [place] [address] CELL COUNT 100 Normal [facility] Comment on above: Performed By: #### 2 [id number] #### [facility],[address] [place] [address] EO 4.0 % Normal 0.0 - 4.0 [facility] Comment on above: Performed By: #### 2 [id number] #### [facility],[address] [place] [address] EO # 0.10 x10EE3/UL Normal 0.00 - 0.50 [facility] Comment on above: Performed By: #### 2 [id number] #### [facility],[address] [place], [place] [id number] Eosinophils/100 WBC (Bld) 4.1 % Normal 0.0 - 7.0 [facility] Comment on above: Performed By: #### 2 [id number] #### [facility],[address],[place] [address] Erythrocyte distribution width (RBC) [Ratio] 15.2 % Normal 12.0 - 15.6 [facility] Comment on above: Performed By: #### 2 [id number] #### [facility],[address] [place], [place] [id number] Hematocrit (Bld) [Volume fraction] 23.9 % Low 40.0 - 52.0 [facility] Comment on above: Performed By: #### 2 [id number] #### [facility],[address] [place] [address] Hemoglobin (Bld) [Mass/Vol] 8.0 g/dL Low 13.0 - 17.5 [facility] Comment on above: Performed By: #### 2 [id number] #### [facility],[address] [place], [place] [id number] Lymph # 1.80 x10EE3/UL Normal 0.80 - 2.80 [facility] Comment on above: Performed By: #### 2 [id number] #### [facility],[address] [place] [id number] Lymphocytes/100 WBC (Bld) 81.9 % High 20.0 - 45.0 [facility] Comment on above: Performed By: #### 2 [id number] #### [facility],[address] [place] [id number] Lymphocytes/100 WBC (Bld) 83 % High 20 - 40 [facility] Comment on above: Performed By: #### 2 [id number] #### [facility],[address] [place], [place] [id number] Macrocytes Ql (Bld) 2+ Normal [facility] Comment on above: Performed By: #### 2 [id number] #### [facility],[address] [place] [id number] MANUAL DIFF SEE BELOW Normal [facility] Comment on above: Performed By: #### 2 [id number] #### [facility],[address] [place], [place] [id number] MCH (RBC) [Entitic mass] 37 pg High 27 - 33 [facility] Comment on above: Performed By: #### 2 [id number] #### [place] [address] MCHC 33 X10 3 Normal 32 - 36 [facility] Comment on above: Performed By: #### 2 [id number] #### [facility],[address] [place] [address] MCV (RBC) [Entitic vol] 110 fL High 81 - 98 [facility] Comment on above: Performed By: #### 2 [id number] #### [facility],[address] [place] [address] [place] # 0.00 x10EE3/UL Low 0.20 - 1.00 [facility] Comment on above: Performed By: #### 2 [id number] #### [place] [address] MONOS % 1.3 % Normal 0.0 - 10.0 [facility] Comment on above: Performed By: #### 2 [id number] #### [place] [address] Morphology Hari (Bld) [Interp] SEE BELOW Normal [facility] Comment on above: Performed By: #### 2 [id number] #### [facility],[address] [place] [address] Neut # 0.30 x10EE3/UL Low 1.50 - 7.10 [facility] [facility] Comment on above: Performed By: #### 2 29947 #### [place] [address] Neutrophils/100 WBC (Bld) 12.4 % Low 46.0 - 76.0 [facility] Comment on above: Performed By: #### 2 34393 #### [place] [address] PLATELET 64 x10EE3/UL Low 150 - 450 [facility] Comment on above: Performed By: #### 2 93079 #### [facility],[address] [place] [address]239 Platelet mean volume (Bld) [Entitic vol] 8.8 fL Normal 6.4 - 10.5 [facility] Comment on above: Result Comment: AUTO MATED DIFFERENTIAL Performed By: #### 2 [id number] #### [facility],[address] [place] [address] 00551 PLT EST DECREASED Normal [facility] Comment on above: Performed By: #### 2 16433 #### [facility],[address] [place] [address] 31745 POIKILO 2+ Normal [facility] Comment on above: Performed By: #### 2 92740 #### [facility],[address] [place] [address] RBC 2.18 x 10EE6/UL Low 4.50 - 6.00 [facility] Comment on above: Performed By: #### 2 83661 #### [facility],[address] [place] [address]753 SEGS 12 % Low 50 - 70 [facility] Comment on above: Performed By: #### 2 03324 #### [facility],[address] [place] [address]1854 WBC 2.3 x 10EE3/UL Low 4.5 - 10.8 [facility] Comment on above: Performed By: #### 2 60902 #### [facility],[address] [place] [address] OTHER 1+ ELLIPTOCYTES Normal [facility] Comment on above: Result Comment: 1+ S PHEROCYTES & RBC FRAGMENTS {CD] Performed By: #### 2 75125 #### [facility],[address] [place] [address] Oncology Visit Reporton 03-07 Oncology Visit Report [facility] [address] [place] [address] OFFICE VISIT Date of Service: 03/30/22 1454 MR#: [id number] Acct: [id number] Name: JUNI MATHIAS Rep #: [id number] : 1960 From: Abdirizak James MD Age/Sex: 61/M [place] [facility] [place] Status: Signed HPI Subjective Date of Service 03/30/22 Chief Complaint Low blood counts, acute leukemia History of Present Illness 61-year-old male with over 59-jasv-znxb cigarette smoke and history of excessive alcohol consumption (in 2021 cutting down to 1-2 beers 4 times per week) referred to hematology for progressively worsening pancytopenia. Medical history notable for hypertension, history of minor cerebrovascular strokes. Patient is a poor historian. In his first visit patient reported that in 2020 he was told he had lung cancer but he never followed up. We found no records of such diagnosis and with further clarification of history with the patient's daughter it became apparent that he was told that he is a candidate for lung cancer screening but never followed up. Bone marrow aspirate and biopsy January 13, 2022: Bone marrow core, clot and aspirate smears: Markedly hypocellular marrow with increased number of blasts. Marked myeloid and megakaryocytic hypoplasia. See comment. 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 Patient was referred to [facility] acute leukemia clinic in January 2022, he called and canceled the appointment and elected for palliative care to be transitioned into hospice. Interval History Has been on palliative care, recently advised that he should be upgraded to home hospice. Patient and family requested this appointment to help them with decision making. [facility] Medical History Alcohol abuse Anemia Colon cancer screening CVA (cerebral vascular accident) Dysarthria Flu vaccine need Hypertension Macrocytic anemia Pancytopenia Tobacco abuse Family History Father Heart disease Mother Heart disease Other CVA (cerebral vascular accident) Social History Smoking Status: Current every day smoker tobacco type: cigarettes Tobacco: How many years used: 45 Electronic Cigarette Use: not used alcohol intake: current alcohol intake frequency: 0-2 drinks per day Alcohol type: beer substance use type: does not use ROS ROS Narrative Continues to drink on average 4-6 beers per day Constitutional Constitutional: Reports systems reviewed and no addt'l complaints, except as documented and fatigue; Denies fever(s), night sweats or weight loss Eyes Eyes: Reports systems reviewed and no addt'l complaints, except as documented; Denies change in vision ENT HEENT: Reports systems reviewed and no addt'l complaints, except as documented; Denies bleeding gums, epistaxis or mouth lesions Cardiovascular Cardiovascular: Reports systems reviewed and no addt'l complaints, except as documented; Denies chest pain or edema Respiratory/Chest Respiratory/Chest: Reports systems reviewed and no addt'l complaints, except as documented; Denies cough, dyspnea or hemoptysis Gastrointestinal Gastrointestinal: Reports systems reviewed and no addt'l complaints, except as documented; Denies change in bowel habits, hematochezia or melena Genitourinary Genitourinary: Reports systems reviewed and no addt'l complaints, except as documented; Denies hematuria Musculoskeletal Musculoskeletal: Reports systems reviewed and no addt'l complaints, except as documented; Denies back pain Integumentary Integumentary: Reports systems reviewed and no addt'l complaints, except as documented; Denies lesions or rash Neurologic Neurologic: Reports systems reviewed and no addt'l complaints, except as documented and other Details: Patient's reports full recovery from his previous strokes. His memory is not as sharp as it used to be. He no longer drives ; Denies focal weakness or paresthesias Psychiatric Psychiatric: Reports systems reviewed and no addt'l complaints, except as documented Endocrine Endocrinology: Reports systems reviewed and no addt'l complaints, except as documented Hematologic/Lymphatic Hematologic/Lymphatic: Reports systems reviewed and no addt'l complaints, except as documented; Denies easy bleeding, easy bruising or lymphadenopathy Allergic/Immunologic Allergic/Immunologic: Reports systems reviewed and no addt'l complaints, except as documented Intake Vital Signs 03/30/22 14:55 03/30/22 14:58 Height 5 ft 11 in 5 ft 11 in W (more content not included)... Normal [facility] Oncology Visit Reporton 01-04 Oncology Visit Report [facility] [address] [place] [address] OFFICE VISIT Date of Service: 01/17/22 1500 MR#: [id number] Acct: [id number] Name: JUNI MATHIAS Rep #: [id number] : 1960 From: Abdirizak James MD Age/Sex: 61/M [place] [facility] [place] Status: Signed HPI Subjective Date of Service 01/17/22 Chief Complaint Low blood counts History of Present Illness 61-year-old male with over 57-wgov-xaoj cigarette smoke and history of excessive alcohol consumption (in 2021 cutting down to 1-2 beers 4 times per week) referred to hematology for progressively worsening pancytopenia. Medical history notable for hypertension, history of minor cerebrovascular strokes. Patient is a poor historian. In his first visit patient reported that in 2020 he was told he had lung cancer but he never followed up. We found no records of such diagnosis and with further clarification of history with the patient's daughter it became apparent that he was told that he is a candidate for lung cancer screening but never followed up. Bone marrow aspirate and biopsy January 13, 2022: Bone marrow core, clot and aspirate smears: Markedly hypocellular marrow with increased number of blasts. Marked myeloid and megakaryocytic hypoplasia. See comment. 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 Cytogenetic and FISH studies are pending at this time. [facility] Medical History Alcohol abuse Anemia Colon cancer screening CVA (cerebral vascular accident) Dysarthria Flu vaccine need Hypertension Macrocytic anemia Pancytopenia Tobacco abuse Family History Father Heart disease Mother Heart disease Other CVA (cerebral vascular accident) Social History Smoking Status: Current every day smoker tobacco type: cigarettes Tobacco: How many years used: 45 Electronic Cigarette Use: not used alcohol intake: current alcohol intake frequency: 0-2 drinks per day Alcohol type: beer substance use type: does not use ROS ROS Narrative No change, see note of December 11, 2021 Intake Vital Signs 01/13/22 08:34 01/17/22 15:01 01/17/22 15:02 Height 5 ft 11 in 5 ft 11 in 5 ft 11 in Weight: 53.977 kg BMI 16.6 BP 125/70 H Blood Pressure Location Lt brachial Position Sitting Respiration 18 Pulse 80 Pulse Source Monitor Temp 97.6 F L Temperature Source Temporal Artery Pulse Oximetry (%) 96 Oxygen Delivery Method room air Intake Accompanied by: Daughter Is patient in pain?: No Allergies No Known Allergies Allergy (Verified 01/17/22 15:01) Medications ferrous sulfate 325 mg (65 mg iron) tablet,delayed release 325 mg PO DAILY #90 tabs 07/20/21 [Rx Confirmed 01/17/22] aspirin 81 mg tablet,delayed release (Adult Aspirin Regimen) 81 mg PO DAILY 09/27/21 [History Confirmed 01/17/22] thiamine HCl (vitamin B1) 100 mg tablet 100 mg PO DAILY #30 tabs 09/29/21 [Rx Confirmed 01/17/22] cyanocobalamin (vitamin B-12) 1,000 mcg tablet 1,000 mcg PO DAILY #30 tabs 09/30/21 [Rx Confirmed 01/17/22] atorvastatin 40 mg tablet 40 mg PO DAILY #30 tabs 01/06/22 [Rx Confirmed 01/17/22] lisinopril 10 mg tablet 10 mg PO DAILY #30 tabs 01/06/22 [Rx Confirmed 01/17/22] Central Venous Access Central Venous Access: No Laboratory Tests 11/24/17 01/17/20 12/04/20 15:40 22:25 11:20 WBC 6.7 5.5 3.0 L Hgb 13.2 10.8 L 10.9 L MCV 94.4 H 102.5 H 102.3 H Plt Count 277 201 137 L Absolute Neuts (auto) 3.9 3.5 1.2 L 12/28/21 01/13/22 13:31 08:11 WBC 2.8 L 2.8 L Hgb 9.2 L 9.3 L MCV 107.0 H 108.1 H Plt Count 85 L 80 L Absolute Neuts (auto) 0.7 L 0.7 L Exam Physical Exam Narrative No change see note of January 11, 2022 Coding Level of Care Code Off vis,est,level 4 Exam Problem Focused Diagnoses Pancytopenia D61.818 Assessment and Plan Assessment and Plan (1) Pancytopenia: Status: Chronic Plan 61-year-old male with a chronic (years) slowly progressive pancytopenia with macrocytic anemia. He is a smoker and has a history of excessive alcohol consumption cutting down in 2021. Deficiencies of iron, B12, folate, thyroid have been ruled out. His chemistry panel does not suggest chronic liver disease. 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 Chronic comorbid conditions: Hypertension, cerebrovascular disease, high risk for lung cancer chronic sm (more content not included)... Normal [facility] Absolute lymphocyte counton 01-13-2022 Lymphocytes Auto (Unsp spec) [#/Vol] 1.94 10*3/uL 0.83-4.51 [facility] Work Phone: Basophil percentageon 2021 Basophils/100 WBC (Bld) 0.4 % 0-1 [facility] Work Phone: Eosinophils/100 WBC (Bld) 2.5 % 0-5 [facility] Work Phone: Neutrophils (Bld) [#/Vol] 0.7 10*3/uL 2.0-7.7 [facility] Work Phone: Neutrophils/100 WBC (Bld) 25.1 % 47-70 [facility] Work Phone: WBC (Bld) [#/Vol] 2.8 10*3/uL 4.4-11.0 [facility] Work Phone: Biopsy/Inj or Needle Placeme nton 01-13-2022 Biopsy/Inj or Needle Placement [facility] Imaging Services [address] [place] [address] Biopsy/Inj or Needle Placement MR#: [id number] Acct: [id number] Name: JUNI MATHIAS Rep #: [id number] : 1960 M 61 From: Cain valentine MD PCP: GERSON Gunderson Status: REG CLI Study: Biopsy/Inj or Needle Placement Date of Exam: 03/15/21 Exam# [id number] Ordering Dr: Abdirizak James MD PROCEDURE: CT GUIDED BONE marrow biopsy and aspirate of the right iliac bone. DATE: 01/13/2022 INDICATION: Male, 61 years old. JUAREZ cytopenia. PHYSICIAN: Cain Zimmerman M.D. RADIATION DOSAGE (If Supplied By Facility): CTDIvol = ( 14.5 ) mGy, DLP = ( 198.63 ) mGycm. Individualized dose optimization techniques were utilized. PROCEDURE: The risks, benefits, and alternatives to the procedure were explained to the patient. The specific risk of hemorrhage requiring further treatment or intervention was detailed and accepted. Follow-up instructions were discussed with the patient as well. Written informed consent was obtained. The patient was brought into the CT suite and placed in the prone position. . An appropriate entry site was identified. The overlying skin was prepped and draped in the usual sterile fashion. 1% lidocaine was administered subcutaneously for local anesthesia. Conscious sedation was performed. The patient received 1 mg of VERSED and 25 mcg of FENTANYL intravenously. The patient was independently monitored by the department nurse. Conscious sedation was started at 9:18 AM and terminated at 9:[address] guidance, a bone marrow biopsy and aspirate of the posterior aspect of the right iliac bone were performed utilizing an 11-gauge bone marrow biopsy kit. The specimens were then placed in the appropriate fluid and transported to the laboratory for analysis. Hemostasis was obtained. The patient tolerated the procedure well without immediate complications. CT/Biopsy/Inj or Needle Placement IMPRESSION: Successful CT guided bone marrow biopsy and bone marrow aspirate of the right iliac bone, as described above. Conscious sedation protocol was followed. Electronically Signed: Cain Zimmerman MD at 10:03 EST , CC: GERSON Negron; Dr. Abdirizak James MD Emery Wheel Molder: Signed Normal [facility] Blood erythrocytes count (nu mber/volume)on 01-13-2022 RBC (Bld) [#/Vol] 2.59 10*6/uL 4.6-6.2 [facility] Work Phone: Blood hemoglobin measurement (mass/volume)on 01-13-2022 Hemoglobin (Bld) [Mass/Vol] 9.3 g/dL 13.0-16.5 [facility] Work Phone: Blood lymphocytes/100 leukoc yteson 01-13-2022 Lymphocytes/100 WBC (Bld) 68.8 % 19-41 [facility] Work Phone: Blood manual differential co mment interpretation (narrative result)on 01-13-2022 Manual differential comment Hari (Bld) [Interp] See comment [facility] Work Phone: Comment on above: PANCYTOPENIA Blood monocytes/100 leukocyt eson 01-13-2022 Monocytes/100 WBC (Bld) 3.2 % 0-10 [facility] Work Phone: Blood platelet mean volumeon 01-13-2022 Platelet mean volume (Bld) [Entitic vol] 9.5 fL 6.2-12.0 [facility] Work Phone: CBC W/Diff, Automatedon 01-04 PATH REV Reviewed Normal [facility] Comment on above: Result Comment: Panc ytopenia. Leukopenia and Neutropenia. Macrocytic anemia. Thrombocytopenia Clinical correlation necessary. Jalen Wheat M.D. 01/13/22 AMENDED REPORT 01/13/22 1543 PATH REV previously reported as: May Performed By: #### L 300.3900, L300.4310, L100.0100 #### [facility] [address] [place] [address], [address] CD34 (initial)on 01-13-2022 CD34 (initial) ------- Patient Age/Sex Location Account Attending Physician JUNI MATHIAS /M [place] [id number] GERSON Zaidi Specimen: [id number] Received: 01/17/22 Status: KACY Guillermo Num: [id number] Spec Type: IMMUNO Subm Dr: GERSON Zaidi PHYSICIAN INSTITUTION [place] [id number] SPECIMEN INFORMATION: Tissue Source: Bone marrow biopsy Clinical Info: Pancytopenia Specimen Number: [id number] A, B CPT code: 53575, 49970 x3 METHODOLOGY: Deparaffinized sections of prefer/formalin-fixed tissue or PAP/DQ stained slides are incubated with monoclonal/polyclonal antibodies/oligonucleotide probes. Localization is made via biotin free immunoperoxidase method. Appropriate controls are performed and reacted as expected. Results on target cell population are indicated in the following table: RESULTS: ANTIBODY / CLONE RESULT Block A CD34 (QBEnd-10) positive CD56 (123C3.D5) negative Block B CD34 (QBEnd-10) positive CD56 (123C3.D5) negative These tests were developed and their performance characteristics determined by [facility]. They may not have been cleared or approved by the U.S. Food and Drug Administration. The FDA has determined that such clearance or approval is not necessary. The above immunohistochemical/dualISH markers are ordered and reviewed by the Pathologist. INTERPRETATION: A. Bone marrow core biopsy: Increased number of blasts noted. B. Bone marrow clot: Increased number of blasts noted. /SJ 01/17/22 Signed (signature on file) Dr. Jalen Wheat MD 01/17/22 1252 Normal [facility] Comment on above: Performed By: #### P CD34 #### [facility] [address] [place], [place], [id number] Decalcification bone/plaqueo n 01-13-2022 Decalcification bone/plaque Patient Age/Sex Location Account Attending Physician JUNI MATHIAS 61/M MT [id number] GERSON Zaidi Specimen: [id number] Received: 01/13/22 Status: KACY Li Num: [id number] Spec Type: BMB Subm Dr: GERSON Zaidi HEADER OPERATION: Bone marrow biopsy and aspiration PRE-OP DIAGNOSIS: Pancytopenia TISSUE SUBMITTED: A - Core, B - Clot, C - Smears, and send outs (flow, cytogenetics and MDS) BONE MARROW DIAGNOSIS Bone marrow core, clot and aspirate smears: Markedly hypocellular marrow with increased number of blasts. Marked myeloid and megakaryocytic hypoplasia. See comment. 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 Cytogenetic and FISH studies are pending at this time. Correlation with clinical findings and appropriate follow up are necessary. This case is discussed with Ms. Wood on 01/15/[address] James on 01/17/22, BONE MARROW STUDY Slides are reviewed. CBC DATE: 01/13/2022 WBC 2.8; RBC 2.59; HGB 9.3; HCT 28.0; MCV 108.1; RDW 13.2; PLTS 80,000 SEGS 25.1%; LYMPHS 68.8%; MONOS 3.2%; EOS 2.5%; BASOS 0.4% PERIPHERAL SMEAR: Submitted. RBC: Macrocytic anemia. WBC: Leukopenia and neutropenia. The WBC count is compatible to as reported above. PLTS: Decreased. BONE MARROW ASPIRATE DIFFERENTIAL: Not performed ASPIRATE FINDINGS: Site: Not specified Aspicular, Almost Acellular Comment: All submitted smears are examined. The smears predominantly consist of peripheral blood. Rare myeloid and erythroid cells are noted. Megakaryocytes are not seen. Patient Age/Sex Location Account Attending Physician JUNI MATHIAS 61/M CT [id number] GERSON Zaidi CORE BIOPSY FINDINGS: Site: Not specified Adequacy: Adequate Cellularity: 5-10% M/E ratio: Myeloid hypoplasia is noted. Megakaryocytes: Present and marked decreased in number. Bony trabeculae: Unremarkable. Granulomas: Absent. Lymphoid aggregate: Absent. Atypical infiltrate: Present. Immature cells consistent with blasts are noted. Comment: Immunohistochemistry ([id number]) shows increased number of blasts, approximately 10%. ASPIRATE CLOT FINDINGS: Site: Not specified Marrow particles: A few Cellularity: 5-10% M/E ratio: Myeloid hypoplasia is noted. Megakaryocytes: Present and marked decreased in number. Granulomas: Absent. Lymphoid aggregates: Absent. Atypical infiltrates: Present. Immature cells consistent with blasts are noted. Comment: Immunohistochemistry ([id number]) shows increased number of blasts, approximately 10%. SPECIAL STAINS WITH MATCHED CONTROLS: Iron: Present, atypical or ring sideroblasts are not seen (core biopsy only). Reticulin: Significant increase of reticulin fibers are not seen. PAS: Highlights myeloid cells and megakaryocytes. BONE MARROW GROSS A - Received is a container labeled with the patient's name and designated bone marrow biopsy. The specimen consists of a piece of burch bone measuring 1.1 cm in length and 0.1 cm in diameter. The specimen is totally submitted in one cassette after decalcification. B - Received labeled with the patient's name and designated bone marrow is a specimen that consists of approximately 8 ml of bloody fluid that on filtration yields multiple minute fragments of blood clots measuring in aggregate 3 x 2.5 x 0.3 cm. The specimen is totally submitted in one cassette. C - Also received are 13 unstained and 1 peripheral stained slides. The unstained slides are submitted for appropriate staining. Also received are one green top tube which is sent to our reference lab for flow, cytogenetics and MDS. / SJ:rg 01/13/2022 TC:5 CPT: 17366, 42081, 22108 x2, 30862 x3, 89518 Patient Age/Sex Location Account Attending Physician JUNI MATHIAS 61/M CT [id number] GERSON Zaidi (more content not included)... Normal [facility] Comment on above: Performed By: #### P DEC ####[facility] [address] [place], [address] Determination of erythrocyte mean corpuscular volume (MCV)on 01-13-2022 MCV (RBC) [Entitic vol] 108.1 fL 80-94 [facility] Work Phone: Hematocrit Auto (Bld) [Volum e fraction]on 01-13-2022 Hematocrit (Bld) [Volume fraction] 28.0 % 40-54 [facility] Work Phone: INR in Blood by Coagulation assayon 01-13-2022 INR Coag (Bld) [Relative time] 1.1 {INR} [facility] Work Phone: Laboratory - Coagulationon 1 03-15-2021 aPTT Coag (Bld) [Time] 31.6 s 24.1-36.2 [facility] Work Phone: PT Coag (PPP) [Time] 13.5 s 11.7-14.9 [facility] Work Phone: Laboratory - Hematology and Cell countson 01-13-2022 Erythrocyte distribution width (RBC) [Entitic vol] 52.4 fL 35.1-43.9 [facility] Work Phone: Erythrocyte distribution width (RBC) [Ratio] 13.2 % 11.6-14.6 [facility] Work Phone: Immature granulocytes/100 WBC (Bld) 0.000 % 0.0-0.9 [facility] Work Phone: Comment on above: IG% - Immature Granu locytes (promyelocytes, myelocytes and metamyelocytes) > 1% indicates that a LEFT SHIFT is Present. MCH (RBC) [Entitic mass] 35.9 pg 27.0-32.0 [facility] Work Phone: Nucleated RBC/100 WBC (Bld) [Ratio] 1.1 % 0-5 [facility] Work Phone: MCHC Auto (RBC) [Mass/Vol]on 01-13-2022 MCHC (RBC) [Mass/Vol] 33.2 g/dL 32-36 [facility] Work Phone: Partial Thromboplast Timeon 01-13-2022 aPTT Coag (Bld) [Time] 31.6 s Normal 24.1-36.2 [facility] Comment on above: Performed By: #### L 300.3900, L300.4310, L100.0100 #### [facility] [address] [place], [address] Platelets bldon 01-13-2022 Platelets (Bld) [#/Vol] 80 10*3/uL 150-450 [facility] Work Phone: Prothrombin Time w/INRon INR Coag (PPP) [Relative time] 1.1 {INR} Normal [facility] Comment on above: Performed By: #### L 300.3900, L300.4310, L100.0100 #### [facility] [address] [place], [address] PT Coag (PPP) [Time] 13.5 s Normal 11.7-14.9 [facility] Comment on above: Performed By: #### L 300.3900, L300.4310, L100.0100 #### [facility] [address] [place], [address] Review by pathologiston 01-04 Pathologist review Hari (Unsp spec) [Interp] Reviewed [facility] Work Phone: Comment on above: Previous reported re sult: Brittany antonia Edited by: RGOOD on 01/13/22:1543Pancytopenia.Leukopenia and Neutropenia.Macrocytic anemia.ThrombocytopeniaClinical correlation necessary.Jalen Wheat M.D. 01/13/22 AMENDED REPORT 01/13/22 1543 PATH REV previously reported as: Brittany knight Oncology Visit Reporton Oncology Visit Report [facility] [address] [place] [address] OFFICE VISIT Date of Service: 01/11/22 1004 MR#: [id number] Acct: [id number] Name: STEWJUNI Rep #: [id number] : 1960 From: Abdirizak James MD Age/Sex: 61/M Location: [facility] Status: Signed HPI Subjective Date of Service 01/11/22 Chief Complaint Low blood counts History of Present Illness 61-year-old male with over [id number] cigarette smoke and excessive alcohol consumption (reports he is cutting down for the past 6 months to 1-2 beers 4 times per week) referred to hematology for progressively worsening pancytopenia. Patient is a poor historian. Medical history notable for hypertension, history of minor cerebrovascular strokes. Patient reports that in January 2021 he received a letter from a hospital/clinic in [facility] (which he has lost) stating that he has lung cancer but he never followed up. [facility] Medical History (Updated 01/11/22 @ 10:[address] Abdirizak James MD) Alcohol abuse Anemia Colon cancer screening CVA (cerebral vascular accident) Dysarthria Flu vaccine need Hypertension Macrocytic anemia Pancytopenia Tobacco abuse Family History Father Heart disease Mother Heart disease Other CVA (cerebral vascular accident) Social History Smoking Status: Current every day smoker tobacco type: cigarettes Tobacco: How many years used: 45 Electronic Cigarette Use: not used alcohol intake: current alcohol intake frequency: 0-2 drinks per day Alcohol type: beer substance use type: does not use ROS Constitutional Constitutional: Reports systems reviewed and no addt'l complaints, except as documented; Denies fatigue, fever(s), night sweats or weight loss Eyes Eyes: Reports systems reviewed and no addt'l complaints, except as documented; Denies change in vision ENT HEENT: Reports systems reviewed and no addt'l complaints, except as documented; Denies bleeding gums, epistaxis or mouth lesions Cardiovascular Cardiovascular: Reports systems reviewed and no addt'l complaints, except as documented; Denies chest pain or edema Respiratory/Chest Respiratory/Chest: Reports systems reviewed and no addt'l complaints, except as documented; Denies cough, dyspnea or hemoptysis Gastrointestinal Gastrointestinal: Reports systems reviewed and no addt'l complaints, except as documented; Denies change in bowel habits, hematochezia or melena Genitourinary Genitourinary: Reports systems reviewed and no addt'l complaints, except as documented; Denies hematuria Musculoskeletal Musculoskeletal: Reports systems reviewed and no addt'l complaints, except as documented; Denies back pain Integumentary Integumentary: Reports systems reviewed and no addt'l complaints, except as documented; Denies lesions or rash Neurologic Neurologic: Reports systems reviewed and no addt'l complaints, except as documented, memory loss and other Details: Patient's reports full recovery from his previous strokes. His memory is not as sharp as it used to be. He no longer drives ; Denies focal weakness or paresthesias Psychiatric Psychiatric: Reports systems reviewed and no addt'l complaints, except as documented Endocrine Endocrinology: Reports systems reviewed and no addt'l complaints, except as documented Hematologic/Lymphatic Hematologic/Lymphatic: Reports systems reviewed and no addt'l complaints, except as documented; Denies easy bleeding, easy bruising or lymphadenopathy Allergic/Immunologic Allergic/Immunologic: Reports systems reviewed and no addt'l complaints, except as documented Intake Vital Signs 01/11/22 10:09 01/11/22 10:10 Height 5 ft 8 in 5 ft 8 in Weight: 54.544 kg BMI 18.3 BP 117/63 Blood Pressure Location Lt brachial Position Sitting Respiration 16 Pulse 60 Pulse Source Monitor Temp 97.6 F L Temperature Source Temporal Artery Pulse Oximetry (%) 100 Oxygen Delivery Method room air Intake Accompanied by: Self Is patient in pain?: No Allergies No Known Allergies Allergy (Verified 01/11/22 10:06) Medications ferrous sulfate 325 mg (65 mg iron) tablet,delayed release 325 mg PO DAILY #90 tabs 07/20/21 [Rx Confirmed 01/11/22] aspirin 81 mg tablet,delayed release (Adult Aspirin Regimen) 81 mg PO DAILY 09/27/21 [History Confirmed 01/11/22] thiamine HCl (vitamin B1) 100 mg tablet 100 mg PO DAILY #30 tabs 09/29/21 [Rx Confirmed 01/11/22] cyanocobalamin (vitamin B-12) 1,000 mcg tablet 1,000 mcg PO DAILY #30 tabs 09/30/21 [Rx Confirmed 01/11/22] atorvastatin 40 mg tablet 40 mg PO DAILY #30 tabs 01/06/22 [Rx Confirmed 01/11/22] lisinopril 10 mg tablet 10 mg PO DAILY #30 tabs 01/06/22 [Rx Con (more content not included)... Normal [facility] Absolute lymphocyte counton 12-28-2021 Lymphocytes Auto (Unsp spec) [#/Vol] 1.95 10*3/uL 0.83-4.51 [facility] Work Phone: Basophil percentageon 2021 Basophils/100 WBC (Bld) 0.4 % 0-1 [facility] Work Phone: Bilirubin [Mass/Vol] 0.40 mg/dL 0.20-1.00 [facility] Work Phone: Comment on above: For patients on eltr ombopag therapy, use of Dimension [place] TBIL is not recommended. Chloride [Moles/Vol] 104 mmol/L 98-107 [facility] Work Phone: [phone] Cholesterol [Mass/Vol] 122 mg/dL <200 [facility] Work Phone: [phone] Comment on above: <200 mg/dL Desirable 200-240 mg/dL Borderline >240 mg/dL High Risk Eosinophils/100 WBC (Bld) 2.5 % 0-5 [facility] Work Phone: Glucose [Mass/Vol] 99 mg/dL 74-106 [facility] Work Phone: Neutrophils (Bld) [#/Vol] 0.7 10*3/uL 2.0-7.7 [facility] Work Phone: [phone] Neutrophils/100 WBC (Bld) 25.0 % 47-70 [facility] Work Phone: [phone] Potassium [Moles/Vol] 4.4 mmol/L 3.5-5.1 [facility] Work Phone: [phone] Protein [Mass/Vol] 7.2 g/dL 6.4-8.2 [facility] Work Phone: [phone] Sodium [Moles/Vol] 135 mmol/L 136-145 [facility] Work Phone: [phone] Triglyceride [Mass/Vol] 36 mg/dL <199 [facility] Work Phone: [phone] Comment on above: The drugs N-Acetylcy steine and Metamizole may falsely depress this assay.Serum Triglycerides Reference Interval Normal <150 mg/dL Borderline high 150 - 199 mg/dL High 200 - 499 mg/dL Very High > or = 500 mg/dL WBC (Bld) [#/Vol] 2.8 10*3/uL 4.4-11.0 [facility] Work Phone: [phone] Blood erythrocytes count (nu mber/volume)on 12-28-2021 RBC (Bld) [#/Vol] 2.56 10*6/uL 4.6-6.2 [facility] Work Phone: [phone] Blood hemoglobin measurement (mass/volume)on 12-28-2021 Hemoglobin (Bld) [Mass/Vol] 9.2 g/dL 13.0-16.5 [facility] Work Phone: [phone] Blood lymphocytes/100 leukoc yteson 12-28-2021 Lymphocytes/100 WBC (Bld) 69.6 % 19-41 [facility] Work Phone: Blood manual differential co mment interpretation (narrative result)on 12-28-2021 Manual differential comment Hari (Bld) [Interp] SCANNED [facility] Work Phone: Comment on above: NEUTROPENIA NOTEDTHR OMBOCYTOPENIA NOTED Blood monocytes/100 leukocyt eson 12-28-2021 Monocytes/100 WBC (Bld) 2.1 % 0-10 [facility] Work Phone: Blood platelet mean volumeon 12-28-2021 Platelet mean volume (Bld) [Entitic vol] 9.8 fL 6.2-12.0 [facility] Work Phone: CBC W/Diff, Automatedon 12-05 SMEAR COMMENT SCANNED Normal [facility] Comment on above: Result Comment: NEUT ROPENIA NOTED THROMBOCYTOPENIA NOTED Performed By: #### L 500.4100, L100.0100, L500.4050 ####[facility] [address] [place], [address] Comprehensive Metabolic Prof ilon 12-28-2021 Albumin [Mass/Vol] 3.6 g/dL Normal 3.2-5.0 [facility] Comment on above: Performed By: #### L 500.4100, L100.0100, L500.4050 ####[facility] [address] [place], [address] Albumin/Globulin [Mass ratio] 1.0 {ratio} Normal 0.9-2.4 [facility] Comment on above: Performed By: #### L 500.4100, L100.0100, L500.4050 ####[facility] [address] [place], [address] ALK P 73 U/L Normal 45-117 [facility] Comment on above: Performed By: #### L 500.4100, L100.0100, L500.4050 ####[facility] [address] [place], [address] ALT [Catalytic activity/Vol] 24 U/L Normal 16-61 [facility] Comment on above: Performed By: #### L 500.4100, L100.0100, L500.4050 ####[facility] [address] [place], [address] AST [Catalytic activity/Vol] 17 U/L Normal 15-37 [facility] Comment on above: Performed By: #### L 500.4100, L100.0100, L500.4050 ####[facility] [address] [place], [address] Bilirubin [Mass/Vol] 0.40 mg/dL Normal 0.20-1.00 [facility] Comment on above: Result Comment: For patients on eltrombopag therapy, use of Dimension [place] TBIL is not recommended. Performed By: #### L 500.4100, L100.0100, L500.4050 ####[facility] [address] [place], [address] BUN/CRE 18.2 RATIO Normal 10-20 [facility] Comment on above: Performed By: #### L 500.4100, L100.0100, L500.4050 ####[facility] [address] [place], [address] CA,Total 9.1 mg/dL Normal 8.5-10.1 [facility] Comment on above: Performed By: #### L 500.4100, L100.0100, L500.4050 ####[facility] [address] [place], [address] Chloride [Moles/Vol] 104 mmol/L Normal 98-107 [facility] Comment on above: Performed By: #### L 500.4100, L100.0100, L500.4050 ####[facility] [address] [place], [address] CO2 [Moles/Vol] 25.0 mmol/L Normal 21.0-32.0 [facility] Comment on above: Performed By: #### L 500.4100, L100.0100, L500.4050 ####[facility] [address] [place], [address] Creatinine [Mass/Vol] 0.93 mg/dL Normal 0.70-1.30 [facility] Comment on above: Result Comment: The validity of the calculated GFR GFRAA in patients over 70 years has not been determined. Clinical correlation is essential. Performed By: #### L 500.4100, L100.0100, L500.4050 ####[facility] [address] [place], [address] EST GFR - AA 106 mL/min Normal >60 [facility] Comment on above: Result Comment: Afri can Bahraini GFR Calc Performed By: #### L 500.4100, L100.0100, L500.4050 ####[facility] [address] [place], [address] GAP 6 Normal 5-15 [facility] Comment on above: Performed By: #### L 500.4100, L100.0100, L500.4050 ####[facility] [address] [place], [address] GFR/1.73 sq M.predicted among non-blacks MDRD (S/P/Bld) [Vol rate/Area] 87 mL/min/{1.73_m2} Normal >60 [facility] Comment on above: Result Comment: Non- GFR Calc Performed By: #### L 500.4100, L100.0100, L500.4050 ####[facility] [address] [place], [address] Globulin (S) [Mass/Vol] 3.6 g/dL Normal 2.2-4.2 [facility] Comment on above: Performed By: #### L 500.4100, L100.0100, L500.4050 ####[facility] [address] [place], [address] Glucose [Mass/Vol] 99 mg/dL Normal 74-106 [facility] Comment on above: Performed By: #### L 500.4100, L100.0100, L500.4050 ####[facility] [address] [place], [address] Potassium [Moles/Vol] 4.4 mmol/L Normal 3.5-5.1 [facility] Comment on above: Performed By: #### L 500.4100, L100.0100, L500.4050 ####[facility] [address] [place], [address] Sodium [Moles/Vol] 135 mmol/L Low 136-145 [facility] Comment on above: Performed By: #### L 500.4100, L100.0100, L500.4050 ####[facility] [address] [place], [address] T PROT 7.2 g/dL Normal 6.4-8.2 [facility] Comment on above: Performed By: #### L 500.4100, L100.0100, L500.4050 ####[facility] [address] [place], [address] Urea nitrogen [Mass/Vol] 17 mg/dL Normal 7-18 [facility] Comment on above: Performed By: #### L 500.4100, L100.0100, L500.4050 ####[facility] [address] [place], [address] Determination of erythrocyte mean corpuscular volume (MCV)on 12-28-2021 MCV (RBC) [Entitic vol] 107.0 fL 80-94 [facility] Work Phone: Hematocrit Auto (Bld) [Volum e fraction]on 12-28-2021 Hematocrit (Bld) [Volume fraction] 27.4 % 40-54 [facility] Work Phone: Internal Medicine Office Vis iton 12-28-2021 Internal Medicine Office Visit [facility] [address] [place], [place] [address] OFFICE VISIT Date of Service: 12/28/21 MR#: [id number] Acct: [id number] Name: JUNI MATHIAS Rep #: [id number] : 1960 Provider: Dr. Elva berry MD Age/Sex: 61/M Location: [facility] Status: Signed with Addenda ADDENDUM by Adina Correia on 12/28/21 at 1825 Office Procedure Documentation entered by Adina Correia 12/28/21 18:25: Immunizations Flucelvax Quad [id number] (PF) Performing Provider: Elva Packer MD Administered by: Adina Correia on 12/28/21 18:25 Dose Route Admin Location Lot Number Expiration Date NDC Manufactu rer 0.5 mL IM Left Deltoid [id number] 08/11/22 88455-227-21 [employer] VIS Given Date VIS Provided VIS Publication Date 12/28/21 Single Vaccine 20 Eligibility Eligibility Date Funding Source Not Applicable 12/28/21 1826 Date Adina Correia cc: * Signed Intake Vital Signs 06/15/21 16:05 12/28/21 13:02 Height 5 ft 8 in 5 ft 8 in Weight: 119 lb BMI 18.1 BP 102/60 Blood Pressure Location Lt brachial Position Sitting Respiration 14 Pulse 65 Pulse Source Monitor Temp 98.2 F Temp Source Temporal Pulse Oximetry (%) 98 Oxygen Delivery Method room air Intake Visit Reasons: 6 M FU Chief Complaint: 6 m f/u Is patient in pain?: No Allergies No Known Allergies Allergy (Verified 12/28/21 13:01) Medications ferrous sulfate 325 mg (65 mg iron) tablet,delayed release 325 mg PO DAILY #90 tabs 07/20/21 [Rx Confirmed 12/28/21] aspirin 81 mg tablet,delayed release (Adult Aspirin Regimen) 81 mg PO DAILY 09/27/21 [History Confirmed 12/28/21] thiamine HCl (vitamin B1) 100 mg tablet 100 mg PO DAILY #30 tabs 09/29/21 [Rx Confirmed 12/28/21] cyanocobalamin (vitamin B-12) 1,000 mcg tablet 1,000 mcg PO DAILY #30 tabs 09/30/21 [Rx Confirmed 12/28/21] atorvastatin 40 mg tablet 40 mg PO 12/28/21 [History Confirmed 12/28/21] lisinopril 10 mg tablet 10 mg PO 12/28/21 [History Confirmed 12/28/21] [facility] Medical History (Updated 12/28/21 @ 13:[address] Elva Packer MD) Alcohol abuse Anemia Colon cancer screening CVA (cerebral vascular accident) Dysarthria Flu vaccine need Hypertension Macrocytic anemia Tobacco abuse Family History Father Heart disease Mother Heart disease Other CVA (cerebral vascular accident) Social History Smoking Status: Current every day smoker tobacco type: cigarettes Tobacco: How many years used: 45 Electronic Cigarette Use: not used alcohol intake: current alcohol intake frequency: 0-2 drinks per day Alcohol type: beer substance use type: does not use HPI HPI Chief Complaint: 6 m f/u Details: JUNI MATHIAS, is a 61 M who presents to the office today for follow-up of his chronic medical conditions. No acute concerns at this time. History of hypertension, blood pressure today at 102/60 mmHg. He states that he stays active and reports compliance with his medications. No chest pain, palpitation or shortness of breath. History of CVA x3. Follows up with neurology. Currently on aspirin. Continues to smoke. He states that he drinks 2 beers every day. Also history of anemia. Low B12 at last check, normal iron and ferritin stores. ROS Const Constitutional: No body ache, chills, excessive sweating, fatigue, fever(s), frequent falls, headache(s), snoring, weakness, weight change, sleep problems or change in appetite Eyes Eyes: No blurry vision, change in vision, eye pain or Light sensitivity ENT ENT: No abnormal hearing, ear or mastoid pain, tinnitus, nasal congestion, headache(s), neck pain or sore throat Resp Respiratory: No cough, shortness of breath, snoring or wheezing Cardio Cardiology: No chest pain at rest, chest pain with exertion, excessive sweating, shortness of breath, dyspnea on exertion, lightheadedness, orthopnea or palpitations Gastro GI: No abdominal pain, change in bowel habits, constipation, cramping, diarrhea, nausea/dyspepsia or vomiting Genitourinary Male: No burning urination, painful urination, urinary incontinence, urinary frequency or testicle pain Musc Musculoskeletal: No abnormal gait, joint pain, back pain, limited range of motion, neck pain, numbness or tingling Skin Skin: No dry skin, redness, lesions, itchy eyes, rash or wounds Neuro Neurology: No abnormal gait, abnormal hearing, abnormal speech, dizziness, weakness, frequent falls, headache(s), memory loss, numbness or tingling Psych Psychiatric: No anxiety, No change in appetite, No depression, No memory loss and No Thoughts of harming yourself/Others Endo Endocrine: No cold intolera (more content not included)... Normal [facility] Laboratory - Chemistry and C hemistry - challengeon 12-28-2021 ALP [Catalytic activity/Vol] 73 U/L 45-117 [facility] Work Phone: ALT [Catalytic activity/Vol] 24 U/L 16-61 [facility] Work Phone: CO2 [Moles/Vol] 25.0 mmol/L 21.0-32.0 [facility] Work Phone: [phone] Globulin (S) [Mass/Vol] 3.6 g/dL 2.2-4.2 [facility] Work Phone: Urea nitrogen/Creatinine [Mass ratio] 18.2 mg/mg 10-20 [facility] Work Phone: Laboratory - Hematology and Cell countson 12-28-2021 Erythrocyte distribution width (RBC) [Entitic vol] 53.4 fL 35.1-43.9 [facility] Work Phone: Erythrocyte distribution width (RBC) [Ratio] 13.4 % 11.6-14.6 [facility] Work Phone: [phone] Immature granulocytes/100 WBC (Bld) 0.400 % 0.0-0.9 [facility] Work Phone: Comment on above: IG% - Immature Granu locytes (promyelocytes, myelocytes and metamyelocytes) > 1% indicates that a LEFT SHIFT is Present. MCH (RBC) [Entitic mass] 35.9 pg 27.0-32.0 [facility] Work Phone: Nucleated RBC/100 WBC (Bld) [Ratio] 0 % 0-5 [facility] Work Phone: Lipid Profileon 12-28-2021 Cholesterol [Mass/Vol] 122 mg/dL Normal 200 [facility] Comment on above: Result Comment: <200 mg/dL Desirable 200-240 mg/dL Borderline >240 mg/dL High Risk Performed By: #### L 500.4100, L100.0100, L500.4050 ####[facility] [address] [place], [address] Cholesterol in HDL [Mass/Vol] 66 mg/dL Normal [facility] Comment on above: Result Comment: The drugs N-Acetylcysteine and Metamizole may falsely depress this assay. Reference Range HDL <40 mg/dL Low HDL Cholesterol HDL >or= 60 mg/dL High HDL Cholesterol Performed By: #### L 500.4100, L100.0100, L500.4050 ####[facility] [address] [place], [address] Cholesterol in LDL [Mass/Vol] 49 mg/dL Normal 0-130 [facility] Comment on above: Performed By: #### L 500.4100, L100.0100, L500.4050 ####[facility] [address] [place], [address] Cholesterol in VLDL [Mass/Vol] 7 mg/dL Normal 5-40 [facility] Comment on above: Performed By: #### L 500.4100, L100.0100, L500.4050 ####[facility] [address] [place], [address] Triglyceride [Mass/Vol] 36 mg/dL Normal [facility] Comment on above: Result Comment: The drugs N-Acetylcysteine and Metamizole may falsely depress this assay. Serum Triglycerides Reference Interval Normal <150 mg/dL Borderline high 150 - 199 mg/dL High 200 - 499 mg/dL Very High > or = 500 mg/dL Performed By: #### L 500.4100, L100.0100, L500.4050 ####[facility] [address] [place], [address] MCHC Auto (RBC) [Mass/Vol]on 12-28-2021 MCHC (RBC) [Mass/Vol] 33.6 g/dL 32-36 [facility] Work Phone: No Panel Informationon 12-28 Estimated GFR (MDRD) Amer 106 mL/min >60 [facility] Work Phone: Comment on above: GFR Calc Estimated GFR (MDRD) Non-Af Amer 87 mL/min >60 [facility] Work Phone: Comment on above: Non- GFR Calc Platelets bldon 12-28-2021 Platelets (Bld) [#/Vol] 85 10*3/uL 150-450 [facility] Work Phone: Serum or plasma albumin ronni urement (mass/volume)on 12-28-2021 Albumin [Mass/Vol] 3.6 g/dL 3.2-5.0 [facility] Work Phone: Serum or plasma albumin/glob ulin mass ratioon 12-28-2021 Albumin/Globulin [Mass ratio] 1.0 {ratio} 0.9-2.4 [facility] Work Phone: Serum or plasma calcium ronni urement (mass/volume)on 12-28-2021 Calcium [Mass/Vol] 9.1 mg/dL 8.5-10.1 [facility] Work Phone: Serum or plasma cholesterol in HDL measurement (mass/volume)on 12-28-2021 Cholesterol in HDL [Mass/Vol] 66 mg/dL >40 [facility] Work Phone: Comment on above: The drugs N-Acetylcy steine and Metamizole may falsely depress this assay. Reference Range HDL <40 mg/dL Low HDL Cholesterol HDL >or= 60 mg/dL High HDL Cholesterol Serum or plasma cholesterol in VLDL measurement (mass/volume)on 12-28-2021 Cholesterol in VLDL [Mass/Vol] 7 mg/dL 5-40 [facility] Work Phone: Serum or plasma creatinine m easurement (mass/volume)on 12-28-2021 Creatinine [Mass/Vol] 0.93 mg/dL 0.70-1.30 [facility] Work Phone: Comment on above: The validity of the calculated GFR & GFRAA in patients over 70 years has not been determined. Clinical correlation is essential. Serum or plasma low density lipoprotein (LDL) cholesterol measurement (mass/volume)on 12-28-2021 Cholesterol in LDL [Mass/Vol] 49 mg/dL 0-130 [facility] Work Phone: Serum or plasma urea nitroge n measurement (mass/volume)on 12-28-2021 Urea nitrogen [Mass/Vol] 17 mg/dL 7-18 [facility] Work Phone: Thin prep Papanicolaou smear with manual screeningon 12-28-2021 Thin prep Papanicolaou smear with manual screening 17 U/L 15-37 [facility] Work Phone: Thin prep Papanicolaou smear with manual screening 6 5-15 [facility] Work Phone: Neurology Visit Reporton Neurology Visit Report [facility] [address] [place] [address] OFFICE VISIT Date of Service: 09/27/21 MR#: [id number] Acct: [id number] Name: JUNI MATHIAS Rep #: [id number] : 1960 Provider: Dr. Shahzad simons MD Age/Sex: 60/M Location: [facility] Status: Signed Intake Vital Signs 01/07/21 11:31 06/15/21 16:05 09/27/21 14:14 Height 5 ft 8 in 5 ft 8 in BP 112/64 Blood Pressure Location Lt brachial Position Sitting Respiration 12 Pulse 50 L Pulse Source Monitor Temp 98.6 F Temp Source Temporal Pulse Oximetry (%) 99 Oxygen Delivery Method room air Intake Visit Reasons: 4 M FU Chief Complaint: f/u Allergies No Known Allergies Allergy (Verified 09/27/21 14:13) Medications ferrous sulfate 325 mg (65 mg iron) tablet,delayed release 325 mg PO DAILY #90 tabs 07/20/21 [Rx Confirmed 09/27/21] thiamine HCl (vitamin B1) 100 mg tablet 100 mg PO DAILY #30 tabs 09/23/21 [Rx Confirmed 09/27/21] aspirin 81 mg tablet,delayed release (Adult Aspirin Regimen) 81 mg PO DAILY 09/27/21 [History Confirmed 09/27/21] [facility] Medical History (Updated 09/27/21 @ 21:[address] Shahzad Roldan MD) Alcohol abuse CVA (cerebral vascular accident) Dysarthria Hypertension Macrocytic anemia Tobacco abuse Family History Father Heart disease Mother Heart disease Other CVA (cerebral vascular accident) Social History Smoking Status: Current every day smoker tobacco type: cigarettes Tobacco: How many years used: 45 Electronic Cigarette Use: not used alcohol intake: current alcohol intake frequency: 0-2 drinks per day Alcohol type: beer substance use type: does not use HPI HPI Chief Complaint: f/u Details: Interim History: The patient returns for follow-up visit. He has a history of hypertension. In October 2020, he developed left upper extremity incoordination, left upper extremity numbness and left upper extremity and left lower extremity weakness and dysarthria. He presented to the hospital several days later and was found to have an acute right frontal parietal subcortical infarct. 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 His left-sided motor and sensory deficits improved over time and he now denies having any residual motor or sensory deficits. His dysarthria resolved over a period of time however since December 2020 he developed recurrence of his dysarthria and this worsened further in later April 2021 and early May 2021. He had a head MRI performed in May 2021 (he stated that his dysarthria worsened days prior to the study) which revealed chronic moderately advanced bilateral periventricular and subcortical white matter chronic small vessel ischemic disease as well as an old pontine infarct; no acute infarct was noted. Per prior report of the patient's daughter, the patient's cognitive function has appeared slow since his stroke in October 2020. He did not have memory difficulty prior to his stroke. He is living at home and remains independent most of his daily activities. He has not resumed driving since his stroke. 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 He has not returned to work since his stroke. He denied having any balance problems. During his hospitalization he was started on lisinopril for hypertension. He was also prescribed aspirin 81 mg daily, atorvastatin and 3-week course of clopidogrel. He drinks 1 to 2 cans of beer about 4 days/week. He smokes tobacco. He has longstanding weakness and pain in the left shoulder. He left school in the 10th grade and subsequently obtained a GED in the . He has had no new stroke symptoms since May 2021. His laboratory studies reveal macrocytic anemia, a B12 level near the low end of the normal range and thiamine deficiency. Mini-Mental status exam score was 26/30 in January 2021. Physical Exam: Neuro: The patient is awake; he is slightly bradyphrenic; his speech is dysarthric and mildly slow; EOMI; no nystagmus; gait is normal; no drift; no dysmetria Neck: No bruits Heart: Regular rate and rhythm Office Meds cyanocobalamin (vitamin B-12) Performing Provider: Shahzad Roldan MD Administered by: Rashida Howard on 09/27/21 15:02 Dose Route Admin Location Lot Number Expiration Date NDC Manufactu rer 1,000 mcg IM Left Deltoid [id number] 11/04/22 [id number] [employer] Supplemental Info Cervical spine CT (01/17/2020): FINDINGS: Normal craniovertebral junction. There are degenerative changes of the anterior atlantoaxial articulation. Normal odontoid process. Normal cervical lordosis. Normal vertebral bodies and posterior osseous elements. C2-3: Normal endplates. Normal disc height an (more content not included)... Normal [facility] Absolute lymphocyte counton 09-24-2021 Lymphocytes Auto (Unsp spec) [#/Vol] 2.26 10*3/uL 0.83-4.51 [facility] Work Phone: Basophil percentageon 2021 Basophils/100 WBC (Bld) 0.3 % 0-1 [facility] Work Phone: Eosinophils/100 WBC (Bld) 2.6 % 0-5 [facility] Work Phone: Neutrophils (Bld) [#/Vol] 1.0 10*3/uL 2.0-7.7 [facility] Work Phone: Neutrophils/100 WBC (Bld) 27.8 % 47-70 [facility] Work Phone: WBC (Bld) [#/Vol] 3.5 10*3/uL 4.4-11.0 [facility] Work Phone: Blood erythrocytes count (nu mber/volume)on 09-24-2021 RBC (Bld) [#/Vol] 2.58 10*6/uL 4.6-6.2 [facility] Work Phone: Blood hemoglobin measurement (mass/volume)on 09-24-2021 Hemoglobin (Bld) [Mass/Vol] 9.4 g/dL 13.0-16.5 [facility] Work Phone: Blood lymphocytes/100 leukoc yteson 09-24-2021 Lymphocytes/100 WBC (Bld) 65.5 % 19-41 [facility] Work Phone: Blood manual differential co mment interpretation (narrative result)on 09-24-2021 Manual differential comment Hari (Bld) [Interp] See comment [facility] Work Phone: Comment on above: NEUTROPENIA NOTED Blood monocytes/100 leukocyt eson 09-24-2021 Monocytes/100 WBC (Bld) 3.5 % 0-10 [facility] Work Phone: [phone] Blood platelet adequacy dete ction by light microscopyon 09-24-2021 Platelets LM Ql (Bld) MOD DEC ADEQ [facility] Work Phone: Blood platelet mean volumeon 09-24-2021 Platelet mean volume (Bld) [Entitic vol] 9.9 fL 6.2-12.0 [facility] Work Phone: CBC W/Diff, Automatedon 09-04 Anisocytosis Ql (Bld) 1+ Normal [facility] Comment on above: Performed By: #### L 100.0100 ####[facility] [address] [place], [address] PLT EST MOD DEC Normal [facility] Comment on above: Performed By: #### L 100.0100 ####[facility] [address] [place], [address] RED CELL MORPH N CHROM Normal NORM C C [facility] Comment on above: Performed By: #### L 100.0100 ####[facility] [address] [place], [address] SMEAR COMMENT Normal [facility] Comment on above: Result Comment: NEUT ROPENIA NOTED Performed By: #### L 100.0100 ####[facility] [address] [place], [address] Determination of erythrocyte mean corpuscular volume (MCV)on 09-24-2021 MCV (RBC) [Entitic vol] 107.8 fL 80-94 [facility] Work Phone: Hematocrit Auto (Bld) [Volum e fraction]on 09-24-2021 Hematocrit (Bld) [Volume fraction] 27.8 % 40-54 [facility] Work Phone: [phone] Laboratory - Hematology and Cell countson 09-24-2021 Anisocytosis Ql (Bld) 1+ [facility] Work Phone: [phone] Erythrocyte distribution width (RBC) [Entitic vol] 48.9 fL 35.1-43.9 [facility] Work Phone: [phone] Erythrocyte distribution width (RBC) [Ratio] 12.4 % 11.6-14.6 [facility] Work Phone: [phone] Immature granulocytes/100 WBC (Bld) 0.300 % 0.0-0.9 [facility] Work Phone: [phone] Comment on above: IG% - Immature Granu locytes (promyelocytes, myelocytes and metamyelocytes) > 1% indicates that a LEFT SHIFT is Present. MCH (RBC) [Entitic mass] 36.4 pg 27.0-32.0 [facility] Work Phone: [phone] Nucleated RBC/100 WBC (Bld) [Ratio] 0 % 0-5 [facility] Work Phone: [phone] MCHC Auto (RBC) [Mass/Vol]on 09-24-2021 MCHC (RBC) [Mass/Vol] 33.8 g/dL 32-36 [facility] Work Phone: Platelets bldon 09-24-2021 Platelets (Bld) [#/Vol] 95 10*3/uL 150-450 [facility] Work Phone: [phone] RBC morphologyon 09-24-2021 RBC morphology finding Nom (Bld) N CHROM NORMAL NORM C&C [facility] Work Phone: [phone] Carotid Duplex Ultrasoundon 07-20-2021 Carotid Duplex Ultrasound [facility] [address] [place] [address] Carotid Duplex Ultrasound 07/20/21 1303 MR#: [id number] Acct: [id number] Name: JUNI MATHIAS Rep #: [id number] : 1960 60 From: Min Amaral MD Attending Dr: Dr. Shahzad Roldan MD Status: R EG CLI Ordering Dr: Shahzad Roldan MD Date: 07/20/21 Location: [facility] Sex: M C Admitted: Reason For Study: CVA Rt. Velocities/BP Lt. Velocities/BP Prox CCA 91.7/22.6 cm/sec. Prox CCA 94.8/27.8 cm/sec. Mid CCA 83.8/22.6 cm/sec. Mid CCA 94.8/25.6 cm/sec. Dist CCA 78.6/21.3 cm/sec. Dist CCA 81.6/21.2 cm/sec. Prox ICA 78.6/17.3 cm/sec. Prox ICA 141.2/55.3 cm/sec. Mid ICA 96.9/31.7 cm/sec. Mid ICA 166.8/62.6 cm/sec. Dist ICA 124.3/38.2 cm/sec. Dist ICA 139.4/37.1 cm/sec. Rt. ICA/CCA = 1.5. Lt. ICA/CCA = 1.8. Prox ECA 107.3/14.7 cm/sec. Prox ECA 166.8/13.3 cm/sec. Rt. Vert. 50.9/16.8 cm/sec. Lt. Vert. 71.6/20.0 cm/sec. Right Extracranial There is intimal thickening but no significant atherosclerotic plaque noted in the right common carotid artery. There is heterogeneous, irregular atherosclerotic plaque noted in the right internal carotid artery. There is heterogeneous, irregular atherosclerotic plaque noted in the right external carotid artery. Antegrade flow is noted in the right vertebral artery. Left Extracranial There is homogeneous, smooth atherosclerotic plaque noted in the left common carotid artery. There is heterogeneous, irregular atherosclerotic plaque noted in the left internal carotid artery. The atherosclerotic plaque causes acoustic shadowing. There is heterogeneous, irregular atherosclerotic plaque noted in the left external carotid artery. Antegrade flow is noted in the left vertebral artery. Procedure Carotid Duplex 25670. This is a Carotid Duplex examination using B-mode, color flow and specral Doppler. The exam was diagnostic. Exam performed in department. VL/Carotid Duplex Ultrasound Interpretation Summary Minimal irregular plaque at the proximal right internal carotid with less than 50% stenosis Less than 50% stenosis right external carotid Irregular calcific plaque with shadowing at the proximal left internal carotid with 50 to 69% stenosis Less than 50% stenosis left external carotid Patent and antegrade vertebral arteries bilaterally _ Ordering Physician: Shahzad Roldan Performed By: Uriel Kendall RVT 07/20/21 1407 Date Min Amaral MD CC: Dr. Elva Packer MD; Dr. Shahzad Roldan MD Date Dictated: 07/20/21 1303 Date Transcribed: 07/20/211406 Emery Wheel Molder: Signed Normal [facility] Internal Medicine Office Vis itoraegan 06-15-2021 Internal Medicine Office Visit [facility] [address] [place] [address] [place] [address] OFFICE VISIT Date of Service: 06/15/21 MR#: [id number] Acct: [id number] Name: JUNI MATHIAS Rep #: [id number] : 1960 Provider: GERSON Negron Age/Sex: 60/M Location: [facility] Status: Signed Intake Vital Signs 06/15/21 16:05 Height 5 ft 8 in Weight: 122 lb 8 oz BMI 18.6 BP 130/78 H Blood Pressure Location Lt brachial Position Sitting Respiration 12 Pulse 76 Pulse Source Monitor Temp 99.9 F H Temp Source Temporal Pulse Oximetry (%) 98 Oxygen Delivery Method room air Intake Visit Reasons: 6 M FU Chief Complaint: f/u Allergies No Known Allergies Allergy (Verified 06/15/21 16:07) Medications atorvastatin 40 mg tablet 40 mg PO DAILY #30 tab 05/27/21 [Rx Confirmed 06/15/21] lisinopril 10 mg tablet 10 mg PO DAILY #30 tab 05/27/21 [Rx Confirmed 06/15/21] [facility] Medical History (Updated 06/15/21 @ 16:09 by Rashida Howard) Alcohol abuse CVA (cerebral vascular accident) Dysarthria Hypertension Macrocytic anemia Tobacco abuse Family History Father Heart disease Mother Heart disease Other CVA (cerebral vascular accident) Social History Smoking Status: Current every day smoker tobacco type: cigarettes Tobacco: How many years used: 45 Electronic Cigarette Use: not used alcohol intake: current alcohol intake frequency: 0-2 drinks per day Alcohol type: beer substance use type: does not use HPI HPI Chief Complaint: f/u Details: JUNI MATHIAS, is a 60 M who presents to the office today for follow-up of his chronic conditions. He has a past medical history as listed above. The patient previously had an acute frontotemporal infarct and was placed on aspirin and atorvastatin which patient reports continued compliance with. He states that he is doing well overall and the only issue from his CVA is continued slurred speech. He has followed up with neurology and is attempting to get social security disability as he can not drive or work. He now reports only smoking half pack of cigarettes daily. His recent blood work was reviewed and suggested of macrocytic anemia. He states that he only drinks 6 beers per week. He declines further work-up including colonoscopy, blood work, and also declines lung cancer screening due to lack of insurance coverage. He states that he will consider these at a later time after he gets insurance. He denies any acute concerns at this time. Past medical, family, and social history reviewed and not pertinent to the current visit and all other systems reviewed and negative with exception of those listed above. ROS Const Constitutional: No body ache, chills, excessive sweating, fatigue, fever(s), frequent falls, headache(s), snoring, weakness, weight change, sleep problems or change in appetite Eyes Eyes: No blurry vision, change in vision, eye pain or Light sensitivity ENT ENT: No abnormal hearing, ear or mastoid pain, tinnitus, nasal congestion, headache(s), neck pain or sore throat Resp Respiratory: No cough, shortness of breath, snoring or wheezing Cardio Cardiology: No chest pain at rest, chest pain with exertion, excessive sweating, shortness of breath, dyspnea on exertion, lightheadedness, orthopnea or palpitations Gastro GI: No abdominal pain, change in bowel habits, constipation, cramping, diarrhea, nausea/dyspepsia or vomiting Genitourinary Male: No burning urination, painful urination, urinary incontinence or urinary frequency Musc Musculoskeletal: No abnormal gait, joint pain, back pain, limited range of motion, neck pain, numbness or tingling Skin Skin: No dry skin, redness, lesions, itchy eyes, rash or wounds Neuro Neurology: No abnormal gait, abnormal hearing, abnormal speech, dizziness, weakness, frequent falls, headache(s), memory loss, numbness or tingling Psych Psychiatric: No anxiety, No change in appetite, No depression, No memory loss and No Thoughts of harming yourself/Others Endo Endocrine: No cold intolerance, excessive sweating, fatigue, flushing, heat intolerance, increased thirst/drinking, increased hunger or weight change Aller/Imm Allergy/Immunologic: No itchy eyes, seasonal allergy symptoms, hives or wheezing Iglesia/Lymp Hematologic/Lymphatic: No easy bleeding, easy bruising or enlarged lymph nodes Exam Const General: cooperative, comfortable and no acute distress Orientation: alert, awake and oriented x3 HENMT Head: normal to inspection, normocephalic and atraumatic Ears: hearing grossly normal bilaterally Neck Neck: normal visual inspection, full ROM and supple Resp Effort Inspection: normal respiratory effort and able to speak in complete sentence (more content not included)... Normal [facility] Vitamin B1, Thiamineon 06-15 VIT B1 THIAMINE 48.5 nmol/L Low 66.5-200.0 [facility] Comment on above: Order Comment: Test( s) 717738-Wce. B1, Whole Bloodwas developed and its performance characteristicsdetermined by [facility]. It has not been cleared or approvedby the Food and Drug Administration. Result Comment: Ve rified by repeat analysis Performed at: [address] [id number] Gear Repairer: Ac Kate MD, Phone: [phone] Performed By: #### L 100.4500, L503.0105, L100.0500, L506.0250, L501.9520, L3300.8000, L503.6150, L500.4050, L503.6550 ####[facility] [address] [place], [place], [address] Basophil percentageon 2021 Bilirubin [Mass/Vol] 0.40 mg/dL 0.20-1.00 [facility] Work Phone: Comment on above: For patients on eltr ombopag therapy, use of Dimension [place] TBIL is not recommended. Chloride [Moles/Vol] 114 mmol/L 98-107 [facility] Work Phone: Glucose [Mass/Vol] 93 mg/dL 74-106 [facility] Work Phone: [phone] Potassium [Moles/Vol] 3.7 mmol/L 3.5-5.1 [facility] Work Phone: [phone] Protein [Mass/Vol] 7.2 g/dL 6.4-8.2 [facility] Work Phone: Sodium [Moles/Vol] 144 mmol/L 136-145 [facility] Work Phone: [phone] WBC (Bld) [#/Vol] 2.6 10*3/uL 4.4-11.0 [facility] Work Phone: [phone] Blood erythrocytes count (nu mber/volume)on 06-01-2021 RBC (Bld) [#/Vol] 2.37 10*6/uL 4.6-6.2 [facility] Work Phone: Blood hemoglobin measurement (mass/volume)on 06-01-2021 Hemoglobin (Bld) [Mass/Vol] 8.8 g/dL 13.0-16.5 [facility] Work Phone: Blood manual differential co mment interpretation (narrative result)on 06-01-2021 Manual differential comment Hari (Bld) [Interp] See comment [facility] Work Phone: Comment on above: THROMBOCYTOPENIA Blood platelet mean volumeon 06-01-2021 Platelet mean volume (Bld) [Entitic vol] 10.1 fL 6.2-12.0 [facility] Work Phone: CBC-Complete Blood Cnt No Di ffon 06-01-2021 Erythrocyte distribution width (RBC) [Ratio] 15.2 % High 11.6-14.6 [facility] Comment on above: Performed By: #### L 100.4500, L503.0105, L100.0500, L506.0250, L501.9520, L3300.8000, L503.6150, L500.4050, L503.6550 ####[facility] [address] [place], [address] Hematocrit (Bld) [Volume fraction] 25.8 % Low 40-54 [facility] Comment on above: Performed By: #### L 100.4500, L503.0105, L100.0500, L506.0250, L501.9520, L3300.8000, L503.6150, L500.4050, L503.6550 ####[facility] [address] [place], [address] Hemoglobin (Bld) [Mass/Vol] 8.8 g/dL Low 13.0-16.5 [facility] Comment on above: Performed By: #### L 100.4500, L503.0105, L100.0500, L506.0250, L501.9520, L3300.8000, L503.6150, L500.4050, L503.6550 ####[facility] [address] [place], [address] MCH (RBC) [Entitic mass] 37.1 pg High 27.0-32.0 [facility] Comment on above: Performed By: #### L 100.4500, L503.0105, L100.0500, L506.0250, L501.9520, L3300.8000, L503.6150, L500.4050, L503.6550 ####[facility] [address] [place], [address] MCHC (RBC) [Mass/Vol] 34.1 g/dL Normal 32-36 [facility] Comment on above: Performed By: #### L 100.4500, L503.0105, L100.0500, L506.0250, L501.9520, L3300.8000, L503.6150, L500.4050, L503.6550 ####[facility] [address] [place], [address] MCV (RBC) [Entitic vol] 108.9 fL High 80-94 [facility] Comment on above: Performed By: #### L 100.4500, L503.0105, L100.0500, L506.0250, L501.9520, L3300.8000, L503.6150, L500.4050, L503.6550 ####[facility] [address] [place], [address] Platelet mean volume (Bld) [Entitic vol] 10.1 fL Normal 6.2-12.0 [facility] Comment on above: Performed By: #### L 100.4500, L503.0105, L100.0500, L506.0250, L501.9520, L3300.8000, L503.6150, L500.4050, L503.6550 ####[facility] [address] [place], [address] Platelets (Bld) [#/Vol] 85 10*3/uL Low 150-450 [facility] Comment on above: Performed By: #### L 100.4500, L503.0105, L100.0500, L506.0250, L501.9520, L3300.8000, L503.6150, L500.4050, L503.6550 ####[facility] [address] [place], [address] RBC (Bld) [#/Vol] 2.37 10*6/uL Low 4.6-6.2 [facility] Comment on above: Performed By: #### L 100.4500, L503.0105, L100.0500, L506.0250, L501.9520, L3300.8000, L503.6150, L500.4050, L503.6550 ####[facility] [address] [place], [place], [phone] RDW SD 58.8 fl High 35.1-43.9 [facility] Comment on above: Performed By: #### L 100.4500, L503.0105, L100.0500, L506.0250, L501.9520, L3300.8000, L503.6150, L500.4050, L503.6550 ####[facility] [address] [place], [address] WBC (Bld) [#/Vol] 2.6 10*3/uL Low 4.4-11.0 [facility] Comment on above: Performed By: #### L 100.4500, L503.0105, L100.0500, L506.0250, L501.9520, L3300.8000, L503.6150, L500.4050, L503.6550 ####[facility] [address] [place], [place], [phone] Comprehensive Metabolic Prof ilrena 06-01-2021 Albumin [Mass/Vol] 3.4 g/dL Normal 3.2-5.0 [facility] Comment on above: Order Comment: N Performed By: #### L 100.4500, L503.0105, L100.0500, L506.0250, L501.9520, L3300.8000, L503.6150, L500.4050, L503.6550 ####[facility] [address] [place], [address] Albumin/Globulin [Mass ratio] 0.9 {ratio} Normal 0.9-2.4 [facility] Comment on above: Order Comment: N Performed By: #### L 100.4500, L503.0105, L100.0500, L506.0250, L501.9520, L3300.8000, L503.6150, L500.4050, L503.6550 ####[facility] [address] [place], [address] ALK P 56 U/L Normal 45-117 [facility] Comment on above: Order Comment: N Performed By: #### L 100.4500, L503.0105, L100.0500, L506.0250, L501.9520, L3300.8000, L503.6150, L500.4050, L503.6550 ####[facility] [address] [place], [address] ALT [Catalytic activity/Vol] 18 U/L Normal 16-61 [facility] Comment on above: Order Comment: N Performed By: #### L 100.4500, L503.0105, L100.0500, L506.0250, L501.9520, L3300.8000, L503.6150, L500.4050, L503.6550 ####[facility] [address] [place], [address] AST [Catalytic activity/Vol] 11 U/L Low 15-37 [facility] Comment on above: Order Comment: N Performed By: #### L 100.4500, L503.0105, L100.0500, L506.0250, L501.9520, L3300.8000, L503.6150, L500.4050, L503.6550 ####[facility] [address] [place], [address] Bilirubin [Mass/Vol] 0.40 mg/dL Normal 0.20-1.00 [facility] Comment on above: Order Comment: N Result Comment: For patients on eltrombopag therapy, use of Dimension [place] TBIL is not recommended. Performed By: #### L 100.4500, L503.0105, L100.0500, L506.0250, L501.9520, L3300.8000, L503.6150, L500.4050, L503.6550 ####[facility] [address] [place], [address] BUN/CRE 19.0 RATIO Normal 10-20 [facility] Comment on above: Order Comment: N Performed By: #### L 100.4500, L503.0105, L100.0500, L506.0250, L501.9520, L3300.8000, L503.6150, L500.4050, L503.6550 ####[facility] [address] [place], [address] CA,Total 8.3 mg/dL Low 8.5-10.1 [facility] Comment on above: Order Comment: N Performed By: #### L 100.4500, L503.0105, L100.0500, L506.0250, L501.9520, L3300.8000, L503.6150, L500.4050, L503.6550 ####[facility] [address] [place], [address] Chloride [Moles/Vol] 114 mmol/L High 98-107 [facility] Comment on above: Order Comment: N Performed By: #### L 100.4500, L503.0105, L100.0500, L506.0250, L501.9520, L3300.8000, L503.6150, L500.4050, L503.6550 ####[facility] [address] [place], [address] CO2 [Moles/Vol] 26.0 mmol/L Normal 21.0-32.0 [facility] Comment on above: Order Comment: N Performed By: #### L 100.4500, L503.0105, L100.0500, L506.0250, L501.9520, L3300.8000, L503.6150, L500.4050, L503.6550 ####[facility] [address] [place], [place], [phone]) Creatinine [Mass/Vol] 0.79 mg/dL Normal 0.70-1.30 [facility] Comment on above: Order Comment: N Result Comment: The validity of the calculated GFR GFRAA in patients over 70 years has not been determined. Clinical correlation is essential. Performed By: #### L 100.4500, L503.0105, L100.0500, L506.0250, L501.9520, L3300.8000, L503.6150, L500.4050, L503.6550 ####[facility] [address] [place], [address] EST GFR - AA 128 mL/min Normal >60 [facility] Comment on above: Order Comment: N Result Comment: Afri can Bahraini GFR Calc Performed By: #### L 100.4500, L503.0105, L100.0500, L506.0250, L501.9520, L3300.8000, L503.6150, L500.4050, L503.6550 ####[facility] [address] [place], [address] GAP 4 Low 5-15 [facility] Comment on above: Order Comment: N Performed By: #### L 100.4500, L503.0105, L100.0500, L506.0250, L501.9520, L3300.8000, L503.6150, L500.4050, L503.6550 ####[facility] [address] [place], [address] GFR/1.73 sq M.predicted among non-blacks MDRD (S/P/Bld) [Vol rate/Area] 106 mL/min/{1.73_m2} Normal >60 [facility] Comment on above: Order Comment: N Result Comment: Non- GFR Calc Performed By: #### L 100.4500, L503.0105, L100.0500, L506.0250, L501.9520, L3300.8000, L503.6150, L500.4050, L503.6550 ####[facility] [address] [place], [place], [phone](808) Globulin (S) [Mass/Vol] 3.8 g/dL Normal 2.2-4.2 [facility] Comment on above: Order Comment: N Performed By: #### L 100.4500, L503.0105, L100.0500, L506.0250, L501.9520, L3300.8000, L503.6150, L500.4050, L503.6550 ####[facility] [address] [place], [address] Glucose [Mass/Vol] 93 mg/dL Normal 74-106 [facility] Comment on above: Order Comment: N Performed By: #### L 100.4500, L503.0105, L100.0500, L506.0250, L501.9520, L3300.8000, L503.6150, L500.4050, L503.6550 ####[facility] [address] [place], [place], [phone](831) Potassium [Moles/Vol] 3.7 mmol/L Normal 3.5-5.1 [facility] Comment on above: Order Comment: N Performed By: #### L 100.4500, L503.0105, L100.0500, L506.0250, L501.9520, L3300.8000, L503.6150, L500.4050, L503.6550 ####[facility] [address] [place], [place], [phone] Sodium [Moles/Vol] 144 mmol/L Normal 136-145 [facility] Comment on above: Order Comment: N Performed By: #### L 100.4500, L503.0105, L100.0500, L506.0250, L501.9520, L3300.8000, L503.6150, L500.4050, L503.6550 ####[facility] [address] [place], [place], [id number] T PROT 7.2 g/dL Normal 6.4-8.2 [facility] Comment on above: Order Comment: N Performed By: #### L 100.4500, L503.0105, L100.0500, L506.0250, L501.9520, L3300.8000, L503.6150, L500.4050, L503.6550 ####[facility] [address] [place], [place], [phone] Urea nitrogen [Mass/Vol] 15 mg/dL Normal 7-18 [facility] Comment on above: Order Comment: N Performed By: #### L 100.4500, L503.0105, L100.0500, L506.0250, L501.9520, L3300.8000, L503.6150, L500.4050, L503.6550 ####[facility] [address] [place], [place], [phone] Determination of erythrocyte mean corpuscular volume (MCV)on 06-01-2021 MCV (RBC) [Entitic vol] 108.9 fL 80-94 [facility] Work Phone: Differential Commenton 06-01 SMEAR COMMENT Normal [facility] Comment on above: Result Comment: THRO MBOCYTOPENIA Performed By: #### L 100.4500, L503.0105, L100.0500, L506.0250, L501.9520, L3300.8000, L503.6150, L500.4050, L503.6550 ####[facility] [address] [place], [place], [phone] Ferritinon 06-01-2021 Ferritin [Mass/Vol] 183 ng/mL Normal 26-388 [facility] Comment on above: Order Comment: N Performed By: #### L 100.4500, L503.0105, L100.0500, L506.0250, L501.9520, L3300.8000, L503.6150, L500.4050, L503.6550 ####[facility] [address] [place], [place], [phone] Folates, (Folic Acid)on 05-05 FOLATES 14.00 ng/mL Normal 3.1-55.4 [facility] Comment on above: Order Comment: N Performed By: #### L 100.4500, L503.0105, L100.0500, L506.0250, L501.9520, L3300.8000, L503.6150, L500.4050, L503.6550 ####[facility] [address] [place], [place], [phone] Hematocrit Auto (Bld) [Volum e fraction]on 06-01-2021 Hematocrit (Bld) [Volume fraction] 25.8 % 40-54 [facility] Work Phone: Ironon 06-01-2021 Iron [Mass/Vol] 145 ug/dL Normal 65-175 [facility] Comment on above: Order Comment: N Performed By: #### L 100.4500, L503.0105, L100.0500, L506.0250, L501.9520, L3300.8000, L503.6150, L500.4050, L503.6550 ####[facility] [address] [place], [address] Iron measurement (mass/mass) on 06-01-2021 Iron (Unsp spec) [Mass/Mass] 145 ug/dL 65-175 [facility] Work Phone: [phone] Laboratory - Chemistry and C hemistry - challengeon 06-01-2021 ALP [Catalytic activity/Vol] 56 U/L 45-117 [facility] Work Phone: ALT [Catalytic activity/Vol] 18 U/L 16-61 [facility] Work Phone: CO2 [Moles/Vol] 26.0 mmol/L 21.0-32.0 [facility] Work Phone: [phone] Cobalamin (Vitamin B12) [Mass/Vol] 295 pg/mL 211-911 [facility] Work Phone: Globulin (S) [Mass/Vol] 3.8 g/dL 2.2-4.2 [facility] Work Phone: [phone] Urea nitrogen/Creatinine [Mass ratio] 19.0 mg/mg 10-20 [facility] Work Phone: [phone] Laboratory - Hematology and Cell countson 06-01-2021 Erythrocyte distribution width (RBC) [Entitic vol] 58.8 fL 35.1-43.9 [facility] Work Phone: [phone] Erythrocyte distribution width (RBC) [Ratio] 15.2 % 11.6-14.6 [facility] Work Phone: MCH (RBC) [Entitic mass] 37.1 pg 27.0-32.0 [facility] Work Phone: [phone] MCHC Auto (RBC) [Mass/Vol]on 06-01-2021 MCHC (RBC) [Mass/Vol] 34.1 g/dL 32-36 [facility] Work Phone: No Panel Informationon 06-01 Estimated GFR (MDRD) Amer 128 mL/min >60 [facility] Work Phone: Comment on above: GFR Calc Estimated GFR (MDRD) Non-Af Amer 106 mL/min >60 [facility] Work Phone: Comment on above: Non- GFR Calc Thyroid Stimulating Hormone (TSH) 2.63 uIU/mL 0.358-3.74 [facility] Work Phone: Whole Blood Vitamin B1 Level 48.5 nmol/L 66.5-200.0 [facility] Work Phone: Comment on above: Verified by repeat analysisPerformed at: [facility] [address] [id number] Director: Ac Kate MD, Phone: [phone] Platelets bldon 06-01-2021 Platelets (Bld) [#/Vol] 85 10*3/uL 150-450 [facility] Work Phone: Serum or plasma albumin ronni urement (mass/volume)on 06-01-2021 Albumin [Mass/Vol] 3.4 g/dL 3.2-5.0 [facility] Work Phone: Serum or plasma albumin/glob ulin mass ratioon 06-01-2021 Albumin/Globulin [Mass ratio] 0.9 {ratio} 0.9-2.4 [facility] Work Phone: Serum or plasma calcium ronni urement (mass/volume)on 06-01-2021 Calcium [Mass/Vol] 8.3 mg/dL 8.5-10.1 [facility] Work Phone: Serum or plasma creatinine m easurement (mass/volume)on 06-01-2021 Creatinine [Mass/Vol] 0.79 mg/dL 0.70-1.30 [facility] Work Phone: Comment on above: The validity of the calculated GFR & GFRAA in patients over 70 years has not been determined. Clinical correlation is essential. Serum or plasma ferritin nagi surement (mass/volume)on 06-01-2021 Ferritin [Mass/Vol] 183 ng/mL 26-388 [facility] Work Phone: Serum or plasma folate measu rement (mass/volume)on 06-01-2021 Folate [Mass/Vol] 14.00 ng/mL 3.1-55.4 [facility] Work Phone: Serum or plasma urea nitroge n measurement (mass/volume)on 06-01-2021 Urea nitrogen [Mass/Vol] 15 mg/dL 7-18 [facility] Work Phone: Thin prep Papanicolaou smear with manual screeningon 06-01-2021 Thin prep Papanicolaou smear with manual screening 11 U/L 15-37 [facility] Work Phone: Thin prep Papanicolaou smear with manual screening 4 5-15 [facility] Work Phone: Thyroid Stim Hormone (TSH)on 06-01-2021 TSH 2.63 uIU/mL Normal 0.358-3.74 [facility] Comment on above: Order Comment: N Performed By: #### L 100.4500, L503.0105, L100.0500, L506.0250, L501.9520, L3300.8000, L503.6150, L500.4050, L503.6550 ####[facility] [address] [place], [place], [id number] Vitamin B12on 06-01-2021 Cobalamin (Vitamin B12) [Mass/Vol] 295 pg/mL Normal 211-911 [facility] Comment on above: Performed By: #### L 100.4500, L503.0105, L100.0500, L506.0250, L501.9520, L3300.8000, L503.6150, L500.4050, L503.6550 ####[facility] [address] [place], [address] Neurology Visit Reporton 03- 24-2022 Neurology Visit Report [facility] [address] [place] [address] OFFICE VISIT Date of Service: 05/27/21 MR#: [id number] Acct: [id number] Name: JUNI MATHIAS Rep #: [id number] : 1960 Provider: Dr. Shahzad simons MD Age/Sex: 60/M Location: [facility] Status: Signed with Addenda ADDENDUM by Dr. Shahzad Roldan MD on 09/23/21 at 1834 HPI Details: JUNI MATHIAS, is a 60 M who presents to the office today for Assessment and Plan Assessment and Plan (1) CVA (cerebral vascular accident): Status: Acute (2) Hypertension: Status: Chronic (3) Mild cognitive impairment: Status: Acute Plan Details Other Medications: Refilled atorvastatin 40 mg PO DAILY 30 tabs 4RF lisinopril 10 mg PO DAILY 30 tabs 4RF Addendum Addendum (09/23/2021): I attempted to reach the patient by phone today but received no answer. I spoke to the patient's daughter, Nemo, today by phone regarding the patient's macrocytic anemia and thiamine deficiency. A CBC with differential will be ordered to be done tomorrow. I will have him begin thiamine 100 mg p.o. daily. A recommendation to establish care with a primary care physician was given as well as recommendation that the patient curtail his alcohol consumption. CBC, CMP, thiamine, B12, folate, TSH (06/01/2021): WBC 2.6, hemoglobin 8.8, hematocrit 25.8, MCV 108.9, platelets 85, calcium 8.3, thiamine 48.5 (low), B12 295 (near low end of normal range) 09/23/21 1834 Date Shahzad Roldan MD cc: * Signed Intake Vital Signs 05/27/21 15:56 BP 150/70 H Blood Pressure Location Lt brachial Position Sitting Respiration 18 Pulse 72 Pulse Source Monitor Temp 98.4 F Temp Source Temporal Pulse Oximetry (%) 99 Oxygen Delivery Method room air Intake Visit Reasons: Brain MRI f/u Accompanied by: daughter Is patient in pain?: No Allergies No Known Allergies Allergy (Verified 05/27/21 15:54) Medications atorvastatin 40 mg tablet 40 mg PO DAILY #30 tab 05/27/21 [Rx Confirmed 05/27/21] lisinopril 10 mg tablet 10 mg PO DAILY #30 tab 05/27/21 [Rx Confirmed 05/27/21] PFS Medical History Alcohol abuse Dysarthria Hypertension Macrocytic anemia Tobacco abuse Family History (Updated 01/07/21 @ 11:33 by Meghan Kendall) Father Heart disease Mother Heart disease Other CVA (cerebral vascular accident) Social History (Updated 01/07/21 @ 11:34 by Meghan Kendall) Smoking Status: Current every day smoker tobacco type: cigarettes Tobacco: How many years used: 45 Electronic Cigarette Use: not used alcohol intake: current alcohol intake frequency: 0-2 drinks per day Alcohol type: beer substance use type: does not use HPI HPI Details: Interim History: The patient returns for follow-up visit. He has a history of hypertension. In October 2020, he developed left upper extremity incoordination, left upper extremity numbness and left upper extremity and left lower extremity weakness and dysarthria. He presented to the hospital several days later and was found to have an acute right frontal parietal subcortical infarct. 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 He denied having vision change or headaches. His left-sided motor and sensory deficits improved over time but have not returned fully to his baseline. His dysarthria resolved over a period of time however since December 2020 he has developed recurrence of his dysarthria and this worsened further 2 weeks ago. He had a head MRI performed earlier in May 2021 (he stated that his dysarthria worsened days prior to the study) which revealed chronic moderately advanced bilateral periventricular and subcortical white matter chronic small vessel ischemic disease as well as an old pontine infarct; no acute infarct was noted. He is accompanied by his daughter today and she reports that the patient's mental processing has appeared slower since his stroke in October 2020. He did not have memory difficulty prior to his stroke. He is living at home and remains independent most of his daily activities. He has not resumed driving since his stroke. 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 He has not returned to work since his stroke. He denies having any balance problems. During his hospitalization he was started on lisinopril for hypertension. He was also prescribed aspirin 81 mg daily, atorvastatin and 3-week course of clopidogrel. Within recent weeks he ran out of lisinopril and atorvastatin. He drinks 1 to 2 cans of beer about 4 days/week. He smokes tobacco. He has longstanding weakness and pain in the left shoulder. He left school in the 10th grade and subsequently obtaine (more content not included)... Normal [facility] Basophil percentageon 2021 Creatinine [Mass/Vol] 0.6 mg/dL 0.70-1.30 [facility] Work Phone: Brain W/WO Contraston 2021 Brain W/WO Contrast [facility] [address] [place] [address] Brain W/WO Contrast MR#: [id number] Acct: [id number] Name: JUNI MATHIAS Rep #: [id number] : 1960 M 60 From: Timothy Shore PCP: Dr. Elva Packer MD Status: REG CLI Study: Brain W/WO Contrast Date of Exam: 05/12/21 Exam# [id number] Ordering Dr: Shahzad Roldan MD EXAM: MR HEAD WITHOUT AND WITH INTRAVENOUS CONTRAST CLINICAL INDICATION: CVA, MCI recheck stroke, still has speech change TECHNIQUE: Multiplanar and multisequence MR images of the brain were obtained without and with intravenous contrast. This report was created using [employer] report generation technology. CONTRAST: IV dotarem 11ml COMPARISON: Oct 26 2020 6:17pm FINDINGS: BRAIN AND EXTRA-AXIAL SPACES: Chronic involutional changes of the brain. Old deep white matter infarct in the right frontal parietal region. No intra- or extra-axial hemorrhage. No intracranial mass or mass effect. Posterior fossa structures are unremarkable. Ventricles are appropriate for age. No hydrocephalus. Basal cisterns are patent. SELLA: Unremarkable. Normal sella turcica, pituitary gland, infundibular stalk, optic chiasm and hypothalamus. AUDITORY SYSTEM: Unremarkable. The internal auditory canals are patent. BONES/JOINTS: Unremarkable. No discrete lytic or blastic abnormalities. SINUSES: Unremarkable as visualized. Clear. MASTOID AIR CELLS: Unremarkable as visualized. Clear. ORBITS: Unremarkable as visualized. Both globes, extraocular muscles, optic nerves and retrobulbar fat appear unremarkable. VASCULATURE: Unremarkable as visualized. Normal flow voids in the major intracranial circulation. MRI/Brain W/WO Contrast IMPRESSION: Chronic involutional changes of the brain. Electronically Signed: Timothy Quiñones MD at 14:44 EST , CC: Dr. Elva Packer MD; Dr. 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 [place], [place], [id number] EGFR WB > 60.0000 Normal >60 [facility] Comment on above: Performed By: #### L 9100.0200 #### [facility] [address] [place], [address] No Panel Informationon 05-12 Bedside Estimated GFR (eGFR) > 60.0000 mL/min >60 [facility] Work Phone: Basic Metabolic Panelon 11-0 Anion gap [Moles/Vol] 6 mmol/L Normal 3-13 [facility] Comment on above: Performed By: #### B NP3, TROPN, BMP3, HEMOG #### [address] [id number] Calcium [Mass/Vol] 8.9 mg/dL Normal 8.4-10.4 [facility] Comment on above: Performed By: #### B NP3, TROPN, BMP3, HEMOG #### [facility] [address] [place], [place] CO2 [Moles/Vol] 23 mmol/L Normal 22-30 [facility] Comment on above: Performed By: #### B NP3, TROPN, BMP3, HEMOG #### [facility] [address] [place], [place] Glucose [Mass/Vol] 95 mg/dL Normal 70-100 [facility] Comment on above: Performed By: #### B NP3, TROPN, BMP3, HEMOG #### [facility] [address] [place], [place] Urea nitrogen [Mass/Vol] 20 mg/dL High 7-17 [facility] Comment on above: Performed By: #### B NP3, TROPN, BMP3, HEMOG #### [facility] [address] [place], [place] Creatinine [Mass/Vol] 0.76 mg/dL Normal 0.52-1.25 [facility] Comment on above: Performed By: #### B NP3, TROPN, BMP3, HEMOG #### [facility] [address], [place] eGFR OTHER > 90.0 Normal >60 [facility] Comment on above: Result Comment: KDIG O guidelines provide the following GFR categories: Stage GFR(ml/min/1.73 m2) Terms G1 >=90 Normal or high G2 60-89 Mildly decreased* G3a 45-59 Mildly to moderately decreased G3b 30-44 Moderately to severely decreased G4 15-29 Severely decreased G5 <15 Kidney failure *Relative to young adult level. In the absence of evidence of kidney damage, neither GFR category G1 nor G2 fulfill the criteria for CKD. The CKD-EPI equation is validated in individuals 18 years of age and older. Currently the best equation for estimating glomerular filtration rate (GFR) from serum creatinine in children is the Bedside [place] equation. It is less accurate in patients with extremes of muscle mass, restriction of dietary protein, ingestion of creatine, extra-renal metabolism of creatinine, or treatment with medications that affect renal tubular creatinine secretion. Performed By: #### B NP3, TROPN, BMP3, HEMOG #### [place] [address] [place], [place] GFR/1.73 sq M.predicted among blacks MDRD (S/P/Bld) [Vol rate/Area] mL/min/{1.73_m2} Normal >60 [facility] Comment on above: Performed By: #### B NP3, TROPN, BMP3, HEMOG #### [place] [address] [place], [place] Potassium [Moles/Vol] 4.1 mmol/L Normal 3.5-5.1 [facility] Comment on above: Performed By: #### B NP3, TROPN, BMP3, HEMOG #### [place] [address] [place], [place] Sodium [Moles/Vol] 137 mmol/L Normal 135-145 [facility] Comment on above: Performed By: #### B NP3, TROPN, BMP3, HEMOG #### [place] [address] [place], [place] Chloride [Moles/Vol] 107 mmol/L Normal 98-107 [facility] Comment on above: Performed By: #### B NP3, TROPN, BMP3, HEMOG #### [place] [address] [place], [place] Basic Metabolic PanelOrdered By: Sylvia Laughlin on 01-07-2021 Anion gap [Moles/Vol] 6 mmol/L 3 - 13 mmol/L [facility] Work Phone: Calcium [Mass/Vol] 8.9 mg/dL 8.4 - 10. 4 mg/dL [facility] Work Phone: Chloride [Moles/Vol] 107 mmol/L 98 - 10 7 mmol/L [facility] Work Phone: CO2 [Moles/Vol] 23 mmol/L 22 - 30 mmol/L [facility] Work Phone: Creatinine [Mass/Vol] 0.76 mg/dL 0.52 - 1.25 mg/dL [facility] Work Phone: EGFR IF NonAfrican Bahraini >90.0 >60 mL/min [facility] Work Phone: Comment on above: KDIGO guidelines pro vide the following GFR categories: Stage GFR(ml/min/1.73 m2) Terms G1 >=90 Normal or high G2 60-89 Mildly decreased* G3a 45-59 Mildly to moderately decreased G3b 30-44 Moderately to severely decreased G4 15-29 Severely decreased G5 <15 Kidney failure *Relative to young adult level. In the absence of evidence of kidney damage, neither GFR category G1 nor G2 fulfill the criteria for CKD. The CKD-EPI equation is validated in individuals 18 years of age and older. Currently the best equation for estimating glomerular filtration rate (GFR) from serum creatinine in children is the Bedside [place] equation. It is less accurate in patients with extremes of muscle mass, restriction of dietary protein, ingestion of creatine, extra-renal metabolism of creatinine, or treatment with medications that affect renal tubular creatinine secretion. GFR/1.73 sq M.predicted among blacks MDRD (S/P/Bld) [Vol rate/Area] mL/min/{1.73_m2} >60 mL/min [facility] Work Phone: Glucose [Mass/Vol] 95 mg/dL 70 - 100 mg/dL [facility] Work Phone: Interpretation and review of laboratory results Abnormal [facility] Work Phone: Potassium [Moles/Vol] 4.1 mmol/L 3.5 - 5.1 mmol/L [facility] Work Phone: Sodium [Moles/Vol] 137 mmol/L 135 - 145 mmol/L [facility] Work Phone: Urea nitrogen (BldV) [Mass/Vol] 20 mg/dL High 7 - 17 mg/dL [facility] Work Phone: Test Performed by [address] [address] [facility] Work Phone: [facility] Work Phone: Brain Natriuretic PeptideOrd ered By: Sylvia Laughlin on 01-07-2021 Interpretation and review of laboratory results Abnormal [facility] Work Phone: Natriuretic peptide B (Bld) [Mass/Vol] 132 pg/mL High 0 - 125 pg/mL [facility] Work Phone: CT Cervical Spine WO Contras tOrdered By: Sylvia Laughlin on 01-07-2021 [id number] Computed Tomography ACCESSION EXAM DATE/TIME PROCEDURE ORDERING PROVIDER [phone] 01/07/2021 20:[address] Spine Cervical w/o [id number] -SYLVIA LAUGHLIN CPT code 38383 Reason For Exam (CT Spine Cervical w/o Contrast) syncope Report Examination: CT cervical spine Clinical Indication: syncope Comparison: None Findings: Serial axial [address] images were obtained from the skull base through the cervical spine without intravenous contrast. Sagittal, axial, and coronal images were then reconstructed. Normal bone mineralization. No evidence of fracture. The cervical spine is in grossly normal anatomic alignment. There is gross preservation of vertebral heights. Prevertebral soft tissues are normal in appearance. There is ltll-ot-logvnmpe loss of disc height C3-C4, C5-C6 and C6-C7 with mang-qr-bbtpticy endplate degenerative sclerosis and small endplate osteophytes. There is mild uncovertebral hypertrophy. Mild facet degenerative sclerosis and hypertrophy. No spinal canal stenosis. There is bilateral neuroforaminal narrowing moderate in severity on the right C5-C6 and C6-C7. Other mild bilateral foraminal stenosis. Atherosclerotic calcification within the carotid arteries moderately extensive on the left. Screening examination of the lung apices demonstrates no apical pneumothorax. There is apical pleural thickening with panlobular cystic changes, emphysema. 3 mm pulmonary nodule series 3 image 170. Impression: 1. Flqy-sg-nvefzivk cervical spondylosis. Moderate neuroforaminal narrowing on the right C5-C6 and C6-C7. 2. No CT evidence of fracture or subluxation of the cervical spine. 3. At least moderate emphysematous changes in the lung apices. Small 3 mm pulmonary nodule left lung apex statistically likely to be benign. Lungs incompletely evaluated. Computed Tomography Report Report Dictated on --- Final --- Dictated: 01/07/2021 8:35 pm Dictating Physician: MD TAYLOR ANTHONY J Signed Date and Time: 01/07/2021 8:39 pm Signed by: MD TAYLOR ANTHONY J Transcribed Date and Time: 01/07/2021 8:35 [facility] Work Phone: [facility], [facility] Incoming Radiology Results From [facility] - 01/07/2021 8:40 PM EDT [id number]ography ACCESSION EXAM DATE/TIME PROCEDURE ORDERING PROVIDER [id number] 01/07/2021 20:[address] Spine Cervical w/o [id number] -SYLVIA LAUGHLIN Contrast CPT code 80461 Reason For Exam (CT Spine Cervical w/o Contrast) syncope Report Examination: CT cervical spine Clinical Indication: syncope Comparison: None Findings: Serial axial [address] images were obtained from the skull base through the cervical spine without intravenous contrast. Sagittal, axial, and coronal images were then reconstructed. Normal bone mineralization. No evidence of fracture. The cervical spine is in grossly normal anatomic alignment. There is gross preservation of vertebral heights. Prevertebral soft tissues are normal in appearance. There is htld-yx-duizpdgf loss of disc height C3-C4, C5-C6 and C6-C7 with uygk-qk-jblxmpfm endplate degenerative sclerosis and small endplate osteophytes. There is mild uncovertebral hypertrophy. Mild facet degenerative sclerosis and hypertrophy. No spinal canal stenosis. There is bilateral neuroforaminal narrowing moderate in severity on the right C5-C6 and C6-C7. Other mild bilateral foraminal stenosis. Atherosclerotic calcification within the carotid arteries moderately extensive on the left. Screening examination of the lung apices demonstrates no apical pneumothorax. There is apical pleural thickening with panlobular cystic changes, emphysema. 3 mm pulmonary nodule series 3 image 170. Impression: 1. Fkru-tm-hdvjkdla cervical spondylosis. Moderate neuroforaminal narrowing on the right C5-C6 and C6-C7. 2. No CT evidence of fracture or subluxation of the cervical spine. 3. At least moderate emphysematous changes in the lung apices. Small 3 mm pulmonary nodule left lung apex statistically likely to be benign. Lungs incompletely evaluated. Computed Tomography Report Report Dictated on Workstation: [id number] --- Final --- Dictated: 01/07/2021 8:35 pm Dictating Physician: MD TAYLOR ANTHONY J Signed Date and Time: 01/07/2021 8:39 pm Signed by: MD TAYLOR ANTHONY J Transcribed Date and Time: 01/07/2021 8:35 [facility] Work Phone: [facility] Work Phone: CT Head WO ContrastOrdered B y: Sylvia Truman on 01-07-2021 [id number] Computed Tomography ACCESSION EXAM DATE/TIME PROCEDURE ORDERING PROVIDER [id number] 01/07/2021 20:[address] Head or Brain w/o [id number] -TRUMAN, SYLVIA Contrast CPT code 22537 Reason For Exam (CT Head or Brain w/o Contrast) mechanical fall Report Examination: CT Head Clinical Information: mechanical fall Comparison: None Findings: Serial axial [address] images were obtained through the skull without intravenous contrast. Coronal, sagittal, and axial images were reconstructed. The ventricular system and cortical sulci are somewhat prominent in size consistent with mild diffuse cerebral volume loss. There is moderate subcortical and periventricular white matter hypodensity which is nonspecific and may represent chronic small vessel ischemic disease in a patient of this age. Remote appearing lacunar infarct right basal ganglia and garcía radiata measuring 1.5 x 0.5 cm. Burroughs white differentiation is well preserved. Atherosclerotic calcification carotid siphons and vertebral arteries. There is no evidence of gross mass, hemorrhage or edema. No areas of mass-effect or infarct are seen. Sinuses demonstrate mucoperiosteal thickening ethmoid and maxillary sinuses. Impression: 1. Mild diffuse cerebral volume loss and moderate nonspecific white matter changes likely representing chronic small vessel ischemic disease in a patient of this age. Remote appearing right periventricular and basal ganglia lacunar infarct. No evidence of acute intracranial hemorrhage or other acute intracranial process. 2. Mild ethmoid and maxillary mucoperiosteal thickening, sinusitis. Computed Tomography Report Report Dictated on Workstation: [id number] --- Final --- Dictated: 01/07/2021 8:32 pm Dictating Physician: MD TAYLOR ANTHONY J Signed Date and Time: 01/07/2021 8:35 pm Signed by: MD TAYLOR ANTHONY J Transcribed Date and Time: 01/07/2021 8:32 [facility] Work Phone: [facility], [facility] Incoming Radiology Results From [facility] - 01/07/2021 8:36 PM EDT Patient Name: [id number] Computed Tomography ACCESSION EXAM DATE/TIME PROCEDURE ORDERING PROVIDER [id number] 01/07/2021 20:[address] Head or Brain w/o [id number] -SYLVIA LAUGHLIN Contrast CPT code 20225 Reason For Exam (CT Head or Brain w/o Contrast) mechanical fall Report Examination: CT Head Clinical Information: mechanical fall Comparison: None Findings: Serial axial [address] images were obtained through the skull without intravenous contrast. Coronal, sagittal, and axial images were reconstructed. The ventricular system and cortical sulci are somewhat prominent in size consistent with mild diffuse cerebral volume loss. There is moderate subcortical and periventricular white matter hypodensity which is nonspecific and may represent chronic small vessel ischemic disease in a patient of this age. Remote appearing lacunar infarct right basal ganglia and garcía radiata measuring 1.5 x 0.5 cm. Burroughs white differentiation is well preserved. Atherosclerotic calcification carotid siphons and vertebral arteries. There is no evidence of gross mass, hemorrhage or edema. No areas of mass-effect or infarct are seen. Sinuses demonstrate mucoperiosteal thickening ethmoid and maxillary sinuses. Impression: 1. Mild diffuse cerebral volume loss and moderate nonspecific white matter changes likely representing chronic small vessel ischemic disease in a patient of this age. Remote appearing right periventricular and basal ganglia lacunar infarct. No evidence of acute intracranial hemorrhage or other acute intracranial process. 2. Mild ethmoid and maxillary mucoperiosteal thickening, sinusitis. Computed Tomography Report Report Dictated on --- Final --- Dictated: 01/07/2021 8:32 pm Dictating Physician: MD TAYLOR ANTHONY J Signed Date and Time: 01/07/2021 8:35 pm Signed by: MD TAYLOR ANTHONY J Transcribed Date and Time: 01/07/2021 8:32 [facility] Work Phone: [facility] Work Phone: CT Head or Brain w/o Contrsixto ton 01-07-2021 CT Head or Brain w/o Contrast Patient [facility]: [id number] Computed Tomography ACCESSION EXAM DATE/TIME PROCEDURE ORDERING PROVIDER [id number] 01/07/2021 20:[address] Head or Brain w/o [id number] -TRUMAN, SYLVIA Contrast CPT code 36225 Reason For Exam (CT Head or Brain w/o Contrast) mechanical fall Report Examination: CT Head Clinical Information: mechanical fall Comparison: None Findings: Serial axial [address] images were obtained through the skull without intravenous contrast. Coronal, sagittal, and axial images were reconstructed. The ventricular system and cortical sulci are somewhat prominent in size consistent with mild diffuse cerebral volume loss. There is moderate subcortical and periventricular white matter hypodensity which is nonspecific and may represent chronic small vessel ischemic disease in a patient of this age. Remote appearing lacunar infarct right basal ganglia and garcía radiata measuring 1.5 x 0.5 cm. Burroughs white differentiation is well preserved. Atherosclerotic calcification carotid siphons and vertebral arteries. There is no evidence of gross mass, hemorrhage or edema. No areas of mass-effect or infarct are seen. Sinuses demonstrate mucoperiosteal thickening ethmoid and maxillary sinuses. Impression: 1. Mild diffuse cerebral volume loss and moderate nonspecific white matter changes likely representing chronic small vessel ischemic disease in a patient of this age. Remote appearing right periventricular and basal ganglia lacunar infarct. No evidence of acute intracranial hemorrhage or other acute intracranial process. 2. Mild ethmoid and maxillary mucoperiosteal thickening, sinusitis. Computed Tomography Report Report Dictated on Final Dictated: 01/07/2021 8:32 pm Dictating Physician: MD TAYLOR ANTHONY J Signed Date and Time: 01/07/2021 8:35 pm Signed by: MD TAYLOR ANTHONY J Transcribed Date and Time: 01/07/2021 8:32 Normal [facility] CT Spine Cervical w/o Contra bebon 01-07-2021 CT Spine Cervical w/o Contrast Patient Name: JUNI MATHIAS [facility]#: [id number] Computed Tomography ACCESSION EXAM DATE/TIME PROCEDURE ORDERING PROVIDER [id number] 01/07/2021 20:[address] Spine Cervical w/o [id number] -TRUMAN, SYLVIA Contrast CPT code 63334 Reason For Exam (CT Spine Cervical w/o Contrast) syncope Report Examination: CT cervical spine Clinical Indication: syncope Comparison: None Findings: Serial axial [address] images were obtained from the skull base through the cervical spine without intravenous contrast. Sagittal, axial, and coronal images were then reconstructed. Normal bone mineralization. No evidence of fracture. The cervical spine is in grossly normal anatomic alignment. There is gross preservation of vertebral heights. Prevertebral soft tissues are normal in appearance. There is psqd-it-ittikuid loss of disc height C3-C4, C5-C6 and C6-C7 with jefs-ub-matalmmx endplate degenerative sclerosis and small endplate osteophytes. There is mild uncovertebral hypertrophy. Mild facet degenerative sclerosis and hypertrophy. No spinal canal stenosis. There is bilateral neuroforaminal narrowing moderate in severity on the right C5-C6 and C6-C7. Other mild bilateral foraminal stenosis. Atherosclerotic calcification within the carotid arteries moderately extensive on the left. Screening examination of the lung apices demonstrates no apical pneumothorax. There is apical pleural thickening with panlobular cystic changes, emphysema. 3 mm pulmonary nodule series 3 image 170. Impression: 1. Ypby-mg-bqnpgmuf cervical spondylosis. Moderate neuroforaminal narrowing on the right C5-C6 and C6-C7. 2. No CT evidence of fracture or subluxation of the cervical spine. 3. At least moderate emphysematous changes in the lung apices. Small 3 mm pulmonary nodule left lung apex statistically likely to be benign. Lungs incompletely evaluated. Computed Tomography Report Report Dictated on Final Dictated: 01/07/2021 8:35 pm Dictating Physician: MD TAYLOR ANTHONY J Signed Date and Time: 01/07/2021 8:39 pm Signed by: MD TAYLOR ANTHONY J Transcribed Date and Time: 01/07/2021 8:35 Normal [facility] ED [facility] Patient: Juni Mathias : 1960 Date of Evaluation: 01/07/2021 ED [facility] Provider: ABELARDO Skinner CNP EDcare was supervised by Dr. Laughlin who independently examined and evaluated the patient. Please see their attestation note for further details. Chief Complaint Chief Complaint Patient presents with ? Loss of Consciousness Pt presents to the ER from the 3rd floor. Pt was visiting his and LOC. Pt states he was standing and the next thing he knew he was in the ER. Pt states the back of his head hurts and his left arm. Pt is A&O3 YUROK I was wearing appropriate PPE during entire encounter. Juni Mathias is a 60 y.o. male whopresents to the emergency department from third floor of [facility]. Patient was visiting his and reportedly went down. He reports not recalling the entire incident. He reports waking up and being in emergency department. Patient complains of head pain, left arm pain at this time. Patient reports no chest pain, shortness of breath, nausea, vomiting, abdominal pain. Patient denies any previous cardiac history, endorses previous stroke in October. Patient reports no fever, chills or symptoms of illness and reports he was here in hospital visiting his . ROS: Review of Systems At least 10+ systems reviewed and otherwise acutely negative except as in the YUROK. Past History No past medical history on file. No past surgical history on file. Social History Socioeconomic History ? Marital status: Spouse name: Not on file ? Number of children: Not on file ? Years of education: Not on file ? Highest education level: Not on file Occupational History ? Not on file Tobacco Use ? Smoking status: Not on file Substance and Sexual Activity ? Alcohol use: Not on file ? Drug use: Not on file ? Sexual activity: Not on file Other Topics Concern ? Not on file Social History Narrative ? Not on file Social Determinants of Health Financial Resource Strain: ? Difficulty of Paying Living Expenses: Food Insecurity: ? Worried About Running Out of Food in the Last Year: ? Ran Out of Food in the Last Year: Transportation Needs: ? Lack of Transportation (Medical): ? Lack of Transportation (Non-Medical): Physical Activity: ? Days of Exercise per Week: ? Minutes of Exercise per Session: Stress: ? Feeling of Stress : Social Connections: ? Frequency of Communication with Friends and Family: ? Frequency of Social Gatherings with Friends and Family: ? Attends Holiness Services: ? Active Member of Clubs or Organizations: ? Attends Club or Organization Meetings: ? Marital Status: Intimate Partner Violence: ? Fear of Current or Ex-Partner: ? Emotionally Abused: ? Physically Abused: ? Sexually Abused: Medications/Allergies There are no discharge medications for this patient. No Known Allergies Physical Exam ED Triage Vitals BP Temp Temp Source Pulse Resp SpO2 Height Weight 01/07/21193001/07/21193001/07/21193001/07/21193201/07/21193001/07/21193001/07/21193201/07/211932 (!) 147/85 97.7 ?F (36.5 ?C) Oral 77 18 96 % 5' 11 (1.803 m) 120 lb (54.4 kg) Physical Exam Vitals and nursing note reviewed. Constitutional: General: He is not in acute distress. Comments: HENT: Mouth/Throat: Mouth: Mucous membranes are moist. Cardiovascular: Rate and Rhythm: Normal rate and regular rhythm. Pulses: Normal pulses. Radial pulses are 2+ on the right side and 2+ on the left side. Popliteal pulses are 2+ on the right side and 2+ on the left side. Heart sounds: Normal heart sounds. Pulmonary: Effort: Pulmonary effort is normal. Breath sounds: Normal breath sounds. Abdominal: General: Bowel sounds are normal. There is no distension. Palpations: Abdomen is soft. Tenderness: There is no abdominal tenderness. Musculoskeletal: General: Normal range of motion. Right lower leg: No edema. Left lower leg: No edema. Skin: General: Skin is warm and dry. Neurological: General: No focal deficit present. Mental Status: He is alert. Sensory: No sensory deficit. Motor: No weakness. Coordination: Coordination normal. Psychiatric: Mood and Affect: Mood normal. Behavior: Behavior normal. Behavior is cooperative. SCREENINGS D Labs: Results for orders placed or performed during the hospital encounter of 01/07/21 Basic Metabolic Panel Result Value Ref Range Sodium 137 135 - 145 mmol/L Potassium 4.1 3.5 - 5.1 mmol/L Chloride 107 98 - 107 mmol/L CO2 23 22 - 30 mmol/L Anion Gap 6 3 - 13 mmol/L Glucose 95 70 - 100 mg/dL BUN 20 (H) 7 - 17 mg/dL CREATININE 0.76 0.52 - 1.25 mg/dL eGFR >90.0 >60 mL/min EGFR IF NonAfrican Bahraini >90.0 >60 mL/min Calcium 8.9 8.4 - 10.4 mg/dL Brain Natriuretic Peptide Result Value Ref Range NT Pro-BNP 132 (H) 0 - 125 pg/mL Hemogram (CBC) Resul (more content not included)... Normal [facility] ED Provider Note Emergency Department Encounter [facility] EMERGENCY DEPT Patient: Juni Mathias : 1960 Date of Evaluation: 01/07/2021 ED Supervising Physician: Sylvia Laughlin MD I independently examined and evaluated Juni Mathias. In brief, Juni Mathias is a 60 y.o. male that presents to the emergency department drop syncope. No CP, SOB. Pt did hit head, now having neck pain. No MAGDALENO prior, abd pain, blood instool. No hisotyr of HI/CHF Focused exam: Patient's awake alert no signs of head trauma he is in a c-collar no focal neurologic deficits lungs clear to auscultation no increased work of breathing Brief ED course/MDM: Patient presented with drop syncope. No history of cardiac disease. EKG shows normal sinus rhythm no ST elevations or depressions. No signs of QT abnormality Brugada Ibvnz-Vleqojmqf-Bcimr ischemia or arrhythmia. Head and neck CT within normal limits. Does have a low white count could be from chronic alcoholism as he admits to drinking frequently. We recommend admission because he is 60 with drop syncope he declined he has capacity make this decision and understands risks and is will be discharged. All diagnostic, treatment, and disposition decisions were made by myself in conjunction with the ROSETTE. For all further details of the patient's emergency department visit, please see their documentation. (Please note that portions of this note may have been completed with a voice recognition program. Efforts were made to edit the dictations but occasionally words are mis-transcribed.) Sylvia Laughlin MD [employer] Sylvia Laughlin MD 01/07/21 2235 Normal [facility] Hemogramon 01-07-2021 Erythrocyte distribution width (RBC) [Ratio] 13.5 % Normal 11.5-14.5 [facility] Comment on above: Performed By: #### B NP3, TROPN, BMP3, HEMOG #### [place] [address] [place], [place] Hematocrit (Bld) [Volume fraction] 30.9 % Low 40.0-52.0 [facility] Comment on above: Performed By: #### B NP3, TROPN, BMP3, HEMOG #### [place] [address] [place], [place] Hemoglobin (Bld) [Mass/Vol] 10.6 g/dL Low 13.0-18.0 [facility] Comment on above: Performed By: #### B NP3, TROPN, BMP3, HEMOG #### [place] [address] [place], [place] MCH (RBC) [Entitic mass] 34.6 pg High 26.0-34.0 [facility] Comment on above: Performed By: #### B NP3, TROPN, BMP3, HEMOG #### [place] [address] [place], [place] MCHC 34.2 % Normal 32.0-36.0 [facility] Comment on above: Performed By: #### B NP3, TROPN, BMP3, HEMOG #### [place] [address] [place], [place] MCV (RBC) [Entitic vol] 101.0 fL High 80.0-98.0 [facility] Comment on above: Performed By: #### B NP3, TROPN, BMP3, HEMOG #### [place] [address] [place], [place] Platelet mean volume (Bld) [Entitic vol] 6.7 fL Low 7.4-10.4 [facility] Comment on above: Performed By: #### B NP3, TROPN, BMP3, HEMOG #### [facility] [address] [place], [place] Platelets (Bld) [#/Vol] 114 10*3/uL Low 140-440 [facility] Comment on above: Performed By: #### B NP3, TROPN, BMP3, HEMOG #### [facility] [address] [place], [place] RBC (Bld) [#/Vol] 3.06 10*6/uL Low 4.40-5.90 [facility] Comment on above: Performed By: #### B NP3, TROPN, BMP3, HEMOG #### [facility] [address] [place], [place] WBC (Bld) [#/Vol] 1.7 10*3/uL Critically low 3.6-10.7 [facility] Comment on above: Result Comment: REPE ATED Performed By: #### B NP3, TROPN, BMP3, HEMOG #### [facility] [address] [place], [place] Hemogram (CBC)Ordered By: Gosia Laughlin on 01-07-2021 Hematocrit (Bld) [Volume fraction] 30.9 % Low 40.0 - 52.0 % [facility] Work Phone: Hemoglobin.gastrointes tinal spec 1 Ql (Stl) 10.6 g/dL Low 13.0 - 18.0 g/dL [facility] Work Phone: Interpretation and review of laboratory results Abnormal [facility] Work Phone: MCH (RBC) [Entitic mass] 34.6 pg High 26.0 - 34.0 pg [employer] Work Phone: MCHC (RBC) [Mass/Vol] 34.2 % 32.0 - 36.0 % [employer] Work Phone: MCV (RBC) [Entitic vol] 101.0 fL High 80.0 - 98.0 fL [employer] Work Phone: Platelet distribution width (Bld) [Ratio] 13.5 % 11.5 - 14.5 % [facility] Work Phone: Platelet mean volume (Bld) [Entitic vol] 6.7 fL Low 7.4 - 10.4 fL [employer] Work Phone: Platelets (Bld) [#/Vol] 114 10*3/uL Low 140 - 440 10*3/uL [employer] Work Phone: RBC (Bld) [#/Vol] 3.06 10*6/uL Low 4.40 - 5.9 0 10*6/uL [employer] Work Phone: WBC (Bld) [#/Vol] 1.7 10*3/uL Critically low 3.6 - 10 .7 10*3/uL [employer] Work Phone: Comment on above: REPEATED Test Performed by [employer], [facility] [place] [address] [employer] Work Phone: [phone] [employer] Work Phone: NT pro BNPon 01-07-2021 Natriuretic peptide B (Bld) [Mass/Vol] 132 pg/mL High 0-125 [employer] Comment on above: Performed By: #### B NP3, TROPN, BMP3, HEMOG #### [employer] [address] [place] [address] No Panel InformationOrdered By: Sylvia Laughlin on 01-07-2021 Test Performed by [employer], [facility] [place] [address] [employer] Work Phone: [employer] Work Phone: Troponin IOrdered By: Lily Laughlin on 01-07-2021 Troponin I.cardiac [Mass/Vol] ng/mL Normal 0.000-0.034 [employer] Work Phone: Comment on above: . Result Comment: . Performed By: #### B NP3, TROPN, BMP3, HEMOG #### [employer] [address] [place] [address] Vital Signs Date Time Vital Sign Value Performing Clinician Emily wall 08-26-2024 13:06-0400 Body temperature 97.7 [degF] No Primary Care Physician [facility] 08-26-2024 13:06-0400 Diastolic blood pressure 57 mm[Hg] No Primary Care Physician [facility] 08-26-2024 13:06-0400 Heart rate 76 /min No Primary Care Physician [facility] 08-26-2024 13:06-0400 Respiratory rate 19 /min No Primary Care Physician [facility] 08-26-2024 13:06-0400 SaO2% (BldA) [Mass fraction] 100 % No Primary Care Physician [facility] 08-26-2024 13:06-0400 Systolic blood pressure 99 mm[Hg] No Primary Care Physician [facility] 08-26-2024 08:47-0400 Body height 180.34 cm No Primary Care Physician [facility] 08-26-2024 08:47-0400 Body mass index (BMI) [Ratio] 18.2 kg/m2 No Primary Care Physician [facility] 08-26-2024 08:47-0400 Body weight 59.3 kg No Primary Care Physician [facility] 01-17-2022 15:02-0500 Body height 180.[address] Elva Packer Work Phone: [facility] Work Phone: 01-17-2022 15:02-0500 Body mass index (BMI) [Ratio] 16.6 kg/m2 Dr. Elva Packer Work Phone: [facility] Work Phone: 01-17-2022 15:02-0500 Body temperature 97.6 [degF] Dr. Elva Packer Work Phone: [facility] Work Phone: 01-17-2022 15:02-0500 Body weight 53.[address] Elva Packer Work Phone: [facility] [facility] Work Phone: 01-17-2022 15:02-0500 Diastolic blood pressure 70 mm[Hg] Dr. Elva Packer Work Phone: [facility] Work Phone: 01-17-2022 15:02-0500 Heart rate 80 /min Dr. Elva Packer Work Phone: [facility] Work Phone: 01-17-2022 15:02-0500 Respiratory rate 18 /min Dr. Elva Packer Work Phone: [facility] Work Phone: 01-17-2022 15:02-0500 SaO2% (BldA) [Mass fraction] 96 % Dr. Elva Packer Work Phone: [facility] Work Phone: 01-17-2022 15:02-0500 Systolic blood pressure 125 mm[Hg] Dr. Elva Packer Work Phone: [facility] Work Phone: 01-13-2022 10:50-0500 Diastolic blood pressure 66 mm[Hg] Dr. Elva Packer Work Phone: [facility] Work Phone: 01-13-2022 10:50-0500 Heart rate 74 /min Dr. Elva Packer Work Phone: [facility] Work Phone: 01-13-2022 10:50-0500 Respiratory rate 18 /min Dr. Elav Packer Work Phone: [facility] Work Phone: 01-13-2022 10:50-0500 SaO2% (BldA) [Mass fraction] 100 % Dr. Elva Packer Work Phone: [facility] Work Phone: 01-13-2022 10:50-0500 Systolic blood pressure 128 mm[Hg] Dr. Elva Packer Work Phone: [facility] Work Phone: 01-13-2022 08:34-0500 Body mass index (BMI) [Ratio] 16.7 kg/m2 Dr. Elva Packer Work Phone: [facility] Work Phone: 01-13-2022 08:34-0500 Body temperature 98.2 [degF] Dr. Elva Packer Work Phone: [facility] Work Phone: 01-13-2022 08:34-0500 Body weight 54.[address] Elva Packer Work Phone: [facility] Work Phone: 01-11-2022 10:10-0500 Body mass index (BMI) [Ratio] 18.3 kg/m2 Dr. Elva Packer Work Phone: [facility] Work Phone: 01-11-2022 10:10-0500 Body temperature 97.6 [degF] Dr. Elva Packer Work Phone: [facility] Work Phone: 01-11-2022 10:10-0500 Body weight 54.[address] Elva Packer Work Phone: [facility] Work Phone: 01-11-2022 10:10-0500 Diastolic blood pressure 63 mm[Hg] Dr. Elva Packer Work Phone: [facility] Work Phone: 01-11-2022 10:10-0500 Heart rate 60 /min Dr. Elva Packer Work Phone: [facility] Work Phone: 01-11-2022 10:10-0500 Respiratory rate 16 /min Dr. Elva Packer Work Phone: [facility] Work Phone: 01-11-2022 10:10-0500 SaO2% (BldA) [Mass fraction] 100 % Dr. Elva Packer Work Phone: [facility] Work Phone: 01-11-2022 10:10-0500 Systolic blood pressure 117 mm[Hg] Dr. Elva Packer Work Phone: [facility] Work Phone: 12-28-2021 13:02-0400 Body height 172.[address] Elva Packer Work Phone: [facility] Work Phone: 12-28-2021 13:02-0400 Body mass index (BMI) [Ratio] 18.1 kg/m2 Dr. Elva Packer Work Phone: [facility] Work Phone: 12-28-2021 13:02-0400 Body temperature 98.2 [degF] Dr. Elva Packer Work Phone: [facility] Work Phone: 12-28-2021 13:02-0400 Body weight 53.[address] Elva Packer Work Phone: [facility] Work Phone: 12-28-2021 13:02-0400 Diastolic blood pressure 60 mm[Hg] Dr. Elva Packer Work Phone: [facility] Work Phone: 12-28-2021 13:02-0400 Heart rate 65 /min Dr. Elva Packer Work Phone: [facility] Work Phone: 12-28-2021 13:02-0400 Respiratory rate 14 /min Dr. Elva Packer Work Phone: [facility] Work Phone: 12-28-2021 13:02-0400 SaO2% (BldA) [Mass fraction] 98 % Dr. Elva Packer Work Phone: [facility] Work Phone: 12-28-2021 13:02-0400 Systolic blood pressure 102 mm[Hg] Dr. Elva Packer Work Phone: [facility] Work Phone: 09-27-2021 14:14-0400 Body temperature 98.6 [degF] Dr. Elva Packer Work Phone: [facility] Work Phone: 09-27-2021 14:14-0400 Diastolic blood pressure 64 mm[Hg] Dr. Elva Packer Work Phone: [facility] Work Phone: 09-27-2021 14:14-0400 Heart rate 50 /min Dr. Elva Packer Work Phone: [facility] Work Phone: 09-27-2021 14:14-0400 Respiratory rate 12 /min Dr. Elva Packer Work Phone: [facility] Work Phone: 09-27-2021 14:14-0400 SaO2% (BldA) [Mass fraction] 99 % Dr. Elva Packer Work Phone: [facility] Work Phone: 09-27-2021 14:14-0400 Systolic blood pressure 112 mm[Hg] Dr. Elva Packer Work Phone: [facility] Work Phone: 06-15-2021 16:05-0400 Body height 172.[address] Elva Packer Work Phone: [facility] Work Phone: 06-15-2021 16:05-0400 Body mass index (BMI) [Ratio] 18.6 kg/m2 Dr. Elva Packer Work Phone: [facility] Work Phone: 06-15-2021 16:05-0400 Body temperature 99.9 [degF] Dr. Elva Packer Work Phone: [facility] Work Phone: 06-15-2021 16:05-0400 Body weight 55.[address] Elva Packer Work Phone: [facility] Work Phone: 06-15-2021 16:05-0400 Diastolic blood pressure 78 mm[Hg] Dr. Elva Packer Work Phone: [facility] Work Phone: 06-15-2021 16:05-0400 Heart rate 76 /min Dr. Elva Packer Work Phone: [facility] Work Phone: 06-15-2021 16:05-0400 Respiratory rate 12 /min Dr. Elva Packer Work Phone: [facility] Work Phone: 06-15-2021 16:05-0400 SaO2% (BldA) [Mass fraction] 98 % Dr. Elva Packer Work Phone: [facility] Work Phone: 06-15-2021 16:05-0400 Systolic blood pressure 130 mm[Hg] Dr. Elva Packer Work Phone: [facility] Work Phone: 06-15-2021 16:05-0400 Body height 172.[address] Elva Packer Work Phone: [facility] Work Phone: 06-15-2021 16:05-0400 Body mass index (BMI) [Ratio] 18.6 kg/m2 Dr. Elva Packer Work Phone: [facility] Work Phone: 06-15-2021 16:05-0400 Body temperature 99.9 [degF] Dr. Elva Packer Work Phone: [facility] Work Phone: 06-15-2021 16:05-0400 Body weight 55.[address] Elva Packer Work Phone: [facility] Work Phone: 06-15-2021 16:05-0400 Diastolic blood pressure 78 mm[Hg] Dr. Elva Packer Work Phone: [facility] Work Phone: 06-15-2021 16:05-0400 Heart rate 76 /min Dr. Elva Packer Work Phone: [facility] Work Phone: 06-15-2021 16:05-0400 Respiratory rate 12 /min Dr. Elva Packer Work Phone: [facility] Work Phone: 06-15-2021 16:05-0400 SaO2% (BldA) [Mass fraction] 98 % Dr. Elva Packer Work Phone: [facility] Work Phone: 06-15-2021 16:05-0400 Systolic blood pressure 130 mm[Hg] Dr. Elva Packer Work Phone: [facility] Work Phone: 05-27-2021 15:56-0400 Body temperature 98.4 [degF] Dr. Elva Packer Work Phone: [facility] Work Phone: 05-27-2021 15:56-0400 Diastolic blood pressure 70 mm[Hg] Dr. Elva Packer Work Phone: [facility] Work Phone: 05-27-2021 15:56-0400 Heart rate 72 /min Dr. Elva Packer Work Phone: [facility] Work Phone: 05-27-2021 15:56-0400 Respiratory rate 18 /min Dr. Elva Packer Work Phone: [facility] Work Phone: 05-27-2021 15:56-0400 SaO2% (BldA) [Mass fraction] 99 % Dr. Elva Packer Work Phone: [facility] Work Phone: 05-27-2021 15:56-0400 Systolic blood pressure 150 mm[Hg] Dr. Elva Packer Work Phone: [facility] Work Phone: 01-07-2021 21:48-0400 Diastolic blood pressure 78 mm[Hg] Sylvia Laughlin MD Work Phone: [facility] Work Phone: 01-07-2021 21:48-0400 Heart rate 72 /min Sylvia Laughlin MD Work Phone: [facility] Work Phone: 01-07-2021 21:48-0400 Respiratory rate 20 /min Sylvia Laughlin MD Work Phone: [facility] Work Phone: 01-07-2021 21:48-0400 SaO2% (BldA) [Mass fraction] 100 % Sylvia Laughlin MD Work Phone: [facility] Work Phone: 01-07-2021 21:48-0400 Systolic blood pressure 134 mm[Hg] Sylvia Laughlin MD Work Phone: [facility] Work Phone: 01-07-2021 19:33-0400 Body height 180.3 cm Sylvia Laughlin MD Work Phone: [facility] Work Phone: 01-07-2021 19:33-0400 Body mass index (BMI) [Ratio] 16.74 kg/m2 Sylvia Laughlin MD Work Phone: [facility] Work Phone: 01-07-2021 19:33-0400 Body weight 54.43 kg Sylvia Laughlin MD Work Phone: [facility] Work Phone: 01-07-2021 19:31-0400 Body temperature 97.7 [degF] Sylvia Laughlin MD Work Phone: [facility] Work Phone: Encounters Encounter Date Encounter Type Care Provider Facility Start: 08-26-2024 Non-patient / Non-visit Dr. Jose art [facility] Work Phone: Start: 08-26-2024 Evaluation and management of inpatient Dr. Jose Montoya [facility] Work Phone: Start: 11-21-2022 End: 11-21-2022 ambulatory NANCY Jones formerly [facility] Start: 03-30-2022 End: 03-30-2022 ambulatory Owen Negron Facility:[facility] Start: 01-17-2022 End: 01-17-2022 ambulatory Owen Negron Facility:[facility] Start: 01-17-2022 End: 01-17-[address] Elva Packer Work Phone: [facility] Start: 01-13-2022 End: 01-13-[address] Elva Packer Work Phone: [facility] Work Phone: Start: 01-13-2022 End: 01-13-[address] Elva Packer Work Phone: [facility] Start: 01-11-2022 End: 01-11-2022 ambulatory Owen Negron Facility:[facility] Start: 01-11-2022 End: 01-11-[address] Elva Packer Work Phone: [facility] Start: 12-28-2021 End: 12-28-2021 ambulatory Elva Packer Facility:[facility] Start: 12-28-2021 End: 12-28-[address] Elva Packer Work Phone: [facility] Work Phone: Start: 12-28-2021 End: 12-28-[address] Elva Packer Work Phone: [facility] Start: 12-27-2021 ambulatory Shahzad Roldan Facilit y:[facility] Start: 09-27-2021 End: 09-27-2021 ambulatory Elva Packer Facility:[facility] Start: 09-27-2021 End: 09-27-[address] Elva Packer Work Phone: [facility] Start: 09-24-2021 End: 09-24-2021 ambulatory Elva Packer Facility:[facility] Start: 09-24-2021 End: 09-24-[address] Elva Packer Work Phone: [facility]-Laboratory Start: 07-21-2021 ambulatory Elva Packer Facili ty:[facility] Start: 07-21-[address] Virginia Packer Work Phone: [facility]-Cardiovascula r Services Start: 07-20-2021 End: 07-20-2021 ambulatory Elva Packer Facility:[facility] Start: 07-20-2021 Non-patient / Non-visit Dr. Malena Packer Work Phone: [facility] Start: 07-20-2021 End: 07-20-[address] Elva Packer Work Phone: [facility] Start: 06-15-2021 End: 06-15-[facility] Start: 06-15-2021 End: 06-15-[address] Elva Packer Work Phone: [facility] Start: 06-01-2021 End: 06-02-2021 [facility] Start: 06-01-2021 End: 06-01-[address] Elva Packer Work Phone: [facility] Start: 05-27-2021 End: 05-27-2021 ambulatory [facility] Facility:[facility] Start: 05-27-2021 End: 05-27-[address] Elva Packer Work Phone: [facility] Start: 05-18-2021 Encounter for genera l adult medical examination without abnormal findings [facility] Start: 05-12-2021 End: 05-13-2021 ambulatory [facility] Facility:[facility] Start: 05-12-2021 End: 05-12-[address] Elva Packer Work Phone: [facility] Start: 01-07-2021 End: 01-07-2021 Emergency department patient visit Sylvia Laughlin MD Work Phone: [facility] Emergency Dept Comment on above: Syncope and collapse (Primary Dx) Procedures Date Procedure Procedure Detail Performing Clinician Start: 08-26-2024 Measurement of occul t blood in stool specimen using immunoassay No Primary Care Physician Start: 08-26-2024 Computed tomography of abdomen and pelvis with intravenous contrast No Primary Care Physician Start: 08-26-2024 CT angiography of ch est with contrast No Primary Care Physician Start: 08-26-2024 X-ray of chest, PA a nd lateral views No Primary Care Physician Start: 08-26-2024 Estimated creatinine clearance No Primary Care Physician Start: 08-26-2024 Lymphocyte percent differential count No Primary Care Physician Start: 01-13-2022 Biopsy/Inj or Needle Placement Dr. Elva Packer Work Phone: Start: 05-12-2021 MRI of brain with contrast Dr. Elva Packer Work Phone: Start: 01-07-2021 Ct cervical spine w/ o contrast material Sylvia Laughlin MD Work Phone: Start: 01-07-2021 Ct head/brain w/o co ntrast material Sylvia Laughlin MD Work Phone: Start: 01-07-2021 Ecg routine ecg w/le ast 12 lds w/i&r Sylvia Laughlin MD Work Phone: Start: 01-07-2021 Basic metabolic pane l calcium total Sylvia Laughlin MD Work Phone: Plan of Treatment Date Care Activity Detail Author Start: 08-26-2024 Folic acid measurement, RBC [facility] Start: 08-26-2024 Thyroid stimulating hormone measurement [facility] Start: 08-26-2024 Admission procedure [facility] Start: 08-26-2024 Verification routine [facility] Start: 08-26-2024 Hospital admission, emergency, from emergency room, medical nature [facility] Start: 08-26-2024 Leukocyte reduced red blood cells [facility] Start: 08-26-2024 [facility] Start: 08-26-2024 Administration of blood product [facility] Start: 08-26-2024 [facility] Start: 01-13-2022 Diagnostic bone marrow biopsies & aspirations DX BONE MARROW BX & ASPIR [facility] Work Phone: Start: 01-13-2022 Catheterization of vein [facility] Work Phone: Start: 01-13-2022 Oxygen therapy [facility] Work Phone: Start: 01-13-2022 Patient discharge [facility] Work Phone: Start: 01-13-2022 Vital signs measurements [facility] Work Phone: Start: 01-13-2022 Following clinical pathway protocol [facility] Work Phone: Start: 12-28-2021 Patient referral [facility] Work Phone: Start: 11-04-2020 Influenza vaccination Flu vaccine (#1) [facility] Work Phone: Start: 1972 COVID-19 Vaccine (1) COVID-19 Vaccine (1) [facility] Work Phone: Bone marrow biopsy, needle or trocar [facility] Work Phone: Cobalamin (Vitamin B 12) [Mass/volume] in Serum or Plasma [facility] EKG 12 Lead - Chest Pain [facility] Work Phone: Ferritin [Mass/volum e] in Serum or Plasma [facility] Hematocrit [Volume Fraction] of Blood [facility] Iron [Mass/mass] in Unspecified specimen [facility] Iron saturation [Mas s Fraction] in Serum or Plasma [facility] Lipid 1996 panel - S sotero or Plasma [facility] Work Phone: Patient Education RAD RN Bone Ma rrow Aspiration and Biopsy RAD RN Procedural Sedation [facility] Work Phone: Patient referral [facility] Work Phone: Total iron binding c apacity measurement [facility] Troponin T.cardiac [Mass/volume] in Serum or Plasma by High sensitivity method [facility] US Carotid arteries [facility] Work Phone: [facility] Immunizations Immunization Date Immunization Notes Care Provider Fa cility 12-28-2021 influenza, injectabl e, quadrivalent, preservative free No Primary Care Physician [facility] 12-28-2021 influenza, seasonal, injectable Dr. Elva Packer Work Phone: [facility] Work Phone: 11-19-2021 Covid (Pfizer) Dr. Elva Packer Work Phone: [facility] 01-17-2020 tetanus toxoid, redu rudy diphtheria toxoid, and acellular pertussis vaccine, adsorbed Dr. Elva Packer Work Phone: [facility] Payers Date Payer Category Payer Self-pay [id number] 2020 Medicaid [id number] 1960 Unknown [id number] 2.16.8 [id number] Unknown [id number] 2.16.8 [id number] Unknown [id number] 2.16.8 [id number] Unknown [id number] 2.16.8 [id number] Unknown [id number] 2.16.8 [id number] Unknown [id number] 2.16.8 [id number] Unknown [id number] 2.16.8 [id number] Unknown [id number] 2.16.8 [id number] Unknown [id number] 2.16.8 [id number] Unknown [id number] 2.16.8 [id number] Unknown [id number] 2.16.8 [id number] Unknown [id number] 2.16.8 [id number] Unknown [id number] 2.16.8 [id number] Unknown [id number] 2.16.8 [id number] Unknown [id number] 2.16.8 [id number] Unknown [id number] 2.16.8 [id number] Unknown [id number] 2.16.8 [id number] Unknown [id number] 2.16.8 [id number] Unknown [id number] 2.16.8 [id number] Social History Date Type Detail Facility Tobacco smoking status NHIS Unknown if ever smoked [facility] Work Phone: Start: 1960 Sex Assigned At Not on file S [facility] Work Phone: Exposure to SARS-CoV-2 (event) Not sure [facility] Start: 05-27-2021 End: 01-13-2022 Tobacco smoking status NHIS Unknown if ever smoked [facility] Work Phone: Start: 01-17-2020 Heavy [facility] Start: 01-17-2020 None [facility] Start: 01-17-2020 Spouse/ Signif icant Other [facility] Start: 10-27-2020 Cigarettes [facility] Start: 1960 Sex Assigned At Male [facility] Start: 08-26-2024 Tobacco smoking status NHIS Smokes tobacco daily (finding) [facility] Mental Status Date Assessment Result Facility 08-26-2024 Cognitive function Voice/Name [facility] Work Phone: 01-13-2022 Cognitive function Voice/Name [facility] Work Phone: Clinical Notes 08-26-2024 Note Date & Type Note Facility 08-26-2024 History and physi ashish note [facility] 08-26-2024 Discharge summary [facility] 08-26-2024 Radiology Diagnostic study note [facility] Imaging Services [address] [place] [address] Abdomen/Pelvis W IV Cont ONLY MR#: [id number] Acct: [id number] Name: JUNI MATHIAS Rep #: [id number] : 1960 M 63 From: Crow Zimmerman MD PCP: Care Physician,No Primary Status: REG ER Study:Abdomen/Pelvis W IV Cont ONLY Date of E xam: 08/26/24 Exam# [id number] Ordering Dr: Ketty Anaya DO PROCEDURE: ABDOMEN/PELVIS W IV CONT ONLY 08/26/2024 REASON FOR EXAM: ANEMIA, WEIGHT LOSS Sternal chest pain. Bilateral lower extremity swelling. TECHNIQUE: ABDOMEN/PELVIS W IV CONT ONLY. Coronal and Sagittal reconstruction series were provided. CONTRAST: Isovue 370 VOLUME: 100 mL One or more dose reduction techniques were used (e.g., Automated exposure control, adjustment of the mA and/or kV according to patient size, use of iterative reconstruction technique. RADIATION DOSE SUMMARY: CTDlvol: 9 mGy DLP: 647.17 mGycm COMPARISON: Prior study dated January 17, 2020. FINDINGS: Lung bases: Stable mild degree of bibasilar scarring. Coronary artery calcification. Liver: There is evidence of mild edema of the portal triads. This may representeither liver congestion or possible inflammatory change. Clinical correlation recommended. Gallbladder: Unremarkable Spleen: Normal size. Pancreas: Normal size without evidence of mass surrounding inflammation or ductal dilation. Adrenals: Unremarkable Kidneys: Normal renal sizes. No hydronephrosis. Bladder: Distended urinary bladder. Prostatic enlargement with indentation of the bladder base. The prostate measures 3.6 cm by 5.5 cm. There is evidence of small bilateral inguinal hernias containing fat. Bowel: Colonic diverticulosis without diverticulitis. Appendix: Unremarkable Lymph nodes: Unremarkable. Vasculature: Mild diffuse atherosclerotic calcifications are noted. Peritoneum / Retroperitoneum: Unremarkable Bones: Degenerative changes of the spine. CT/Abdomen/Pelvis W IV Cont ONLY IMPRESSION: Findings suggestive of scarring at the lung bases. Coronary artery calcification. Mild edematous changes of the portal triads suggestive of possible inflammatory process versus liver congestion. Sigmoid diverticulosis. Distended urinary bladder and prosthetic enlargement. Small bilateral inguinal hernias containing fat. Reading Location: [id number] CC: Dr. Willy Anaya, ; No Primary Care Physician ~ Emery Wheel Molder: Signed [facility] 08-26-2024 Radiology Diagnostic study note [facility] Imaging Services [address] [place] [address] CTA Chest W/WO Contrast MR#: [id number] Acct: [id number] Name: JUNI MATHIAS Rep #: [id number] : 1960 M 63 From: Crow Zimmerman MD PCP: Care Physician,No Primary Status: REG ER Study:CTA Chest W/WO Contrast Date of Exam: 08/26/24 Exam# [id number] Ordering Dr: Ketty Anaya DO PROCEDURE: CTA CHEST W/WO CONTRAST 08/26/2024 REASON FOR EXAM: SOB, WEIGHT LOSS, ANEMIA TECHNIQUE: CTA CHEST W/WO CONTRAST Multiplanar Sagittal and Coronal images were obtained. One or more dose reduction techniques were used (e.g., Automated exposure control, adjustment of the mA and/or kV according to patient size, use of iterative reconstruction technique). CONTRAST: Isovue 3 7 VOLUME: 100 mL RADIATION DOSE SUMMARY: CTDlvol: 8.75 mGy DLP: 647.17 mGycm COMPARISON: Prior study dated November 24, 2017. FINDINGS: Hardware: None Lymph nodes: Small benign-appearing mediastinal lymph nodes. No evidence of hilar lymph nodes. Heart: Coronary artery calcification. Thoracic Aorta: No thoracic aortic aneurysm or dissection. Atherosclerotic calcification of the aortic arch and descending thoracic aorta. Pulmonary Vessels: No evidence of pulmonary embolism. Mild degree of increased markings at the lung bases suggestive of mild scarring. Lungs and Airways: Pleura: No pleural effusion. Upper Abdomen: Fatty infiltration of the liver. Bones: Degenerative changes of the thoracic spine. CT/CTA Chest W/WO Contrast IMPRESSION: No evidence of pulmonary embolism. No acute abnormality is seen. Reading Location: [id number] CC: Dr. Willy Anaya DO; No Primary Care Physician ~ Emery Wheel Molder: Signed [facility] 08-26-2024 Radiology Diagnostic study note [facility] Imaging Services [address], [place] [address] Chest PA and Lateral MR#: [id number] Acct: [id number] Name: JUNI MATHIAS Rep #: [id number] : 1960 M 63 From: Kel Almaguer MD PCP: Care Physician,No Primary Status: REG ER Study:Chest PA and Lateral Date of Exam: 08/26/24 Exam# [id number] Ordering Dr: Ketty Anaya DO PROCEDURE: CHEST PA AND LATERAL 08/26/2024 REASON FOR EXAM: CHEST PAIN TECHNIQUE: CHEST PA AND LATERAL COMPARISON: Chest x-ray of 10/26/2020. RAD/Chest PA and Lateral IMPRESSION: Lungs are moderately hyperinflated with increased interstitial markings, consistent with significant chronic lung disease. No acute pneumonic process is seen. No pleural effusion or pneumothorax is evident. The cardiomediastinal silhouette is within the normal range for age. Moderate degenerative changes of the thoracic spine are noted. Progressive degenerative changes of the left shoulder, with loss of acromiohumeral distance on the left noted this is indicative marked chronic rotator cuff disease. No acute osseous change is seen. Reading Location: [facility] CC: Dr. Willy Anaya DO; No Primary Care Physician ~ Emery Wheel Molder: Signed [facility] Discharge summary Note Date/Time August 26, 2024 12:28pm [facility] Medical Records Department [address] [place] [address] Emergency Department Summary 08/26/24 MR#: [id number] Acct: [id number] Name: JUNI MATHIAS Rep #:[id number] : 1960 63 From: Willy Anaya DO PCP: Care Physician,No Primary Status :REG ER Location: ED HPI History of Present Illness Chief Complaint: Chest Pain Narrative Narrative: Patient is a 63-year-old male with past medical history of alcohol abuse, CVA, hypertension, anemia who presented to the emergency department the chief complaint of bilateral lower extremity swelling, chest pain and not feeling well. Patient states that currently has no chest pain here in the emergency department he states that earlier today he was in bed when his symptoms started. Patient also notes that he has had significant lower extremity swelling for quite some time as well. Patient also notes that he does not follow with a doctor on regular basis and he notes that he does smoke but denies any drug use. PFSH PFSH Medical History Pancytopenia Flu vaccine need Anemia Colon cancer screening Macrocytic anemia Hypertension CVA (cerebral vascular accident) Tobacco abuse Dysarthria Alcohol abuse Home Medications ?Medication ?Instructions ?Recorded ?Last Taken ?Type aspirin 81 mg tablet,delayed 81 mg PO DAILY 09/27/21 0 08/25/24 History release (Adult Aspirin Regimen) multivitamin-ferrous 1 tab PO Q24H 08/26/2408/25 History fumarate-folic acid 18 mg-400 mcg tablet (Centrum Complete) Allergy/AdvReac Type Severity Reaction Status Date / Time No Known Allergies Allergy Verified 03/30/22 14:55 Family History Father Heart disease Mother Heart disease Other CVA (cerebral vascular accident) Social History Smoking Status: Current every day smoker tobacco type: cigarettes Tobacco: How many years used: 45 Electronic Cigarette Use: not used alcohol intake: current alcohol intake frequency: 0-2 drinks per day Alcohol type: beer substance use type: does not use ROS ROS ED ROS Narrative Constitutional: Complains of headache denies fevers, chills, lightheadedness or dizziness Eyes: Denies change in vision double vision blurry vision Cardiovascular: Complain of chest pain as noted above but since resolved denies palpitation Respiratory: Complains of shortness of breath denies coughing wheezing Abdomen: Denies abdominal pain nausea vomit diarrhea does complain of weight loss unintentional, denies dark tarry stools or blood in his stool : Denies urinary symptoms Neurological: Denies numbness, weakness, tingling Musculoskeletal: Denies back pain Skin: Denies rashes or lesions EXAM Physical Exam Narrative Exam Narrative: General: Patient lying in bed resting comfortably did not appear to be in acute distress Head: Atraumatic, normocephalic Eyes: PERRL bilaterally, EOMI bilaterally, no conjunctival injection noted Neck: Soft, supple, trachea midline Cardiovascular: Regular rate and rhythm Respiratory: Clear to auscultation bilaterally Abdomen: Soft, nondistended, no tenderness palpation Extremities: Patient has 2+ pitting edema in the bilateral lower extremities, radial pulses +2/4 in the bilateral extremities Neurological: Patient following commands knew that he was at [facility] year is 2024 Skin: Warm, dry, tact no rashes or lesions noted Const Vital Signs: 08/26/24 08:47 08/26/24 08:47 08/26/24 09:03 Temperature 98.2 F Temperature Source Oral Pulse Rate 78 Respiratory Rate 16 Respiratory Effort Normal Non-Labored Blood Pressure 116/65 Blood Pressure Mean 82 Pulse Ox 100 Oxygen Delivery Method Room Air Room Air 08/26/24 09:44 08/26/24 11:00 08/26/24 12:00 Temperature Temperature Source Pulse Rate 77 80 86 Respiratory Rate 20 H 16 17 Respiratory Effort Blood Pressure 114/67 106/56 L Blood Pressure Mean 82 72 Pulse Ox 100 100 100 Oxygen Delivery Method Room Air Room Air Room Air MDM MDM MDM Narrative Medical decision making narrative: Patient is a 63-year-old male who presented to the emergency department the chief complaint of chest pain, bilateral lower extremity swelling and shortness of breath and not feeling well overall. On the differential diagnose includes but noted to lung cancer, pancreatic cancer, anemia, ACS, pneumothorax, pneumonia, GI bleed. Once workup is obtained reviewed he will be reevaluated. Patient's CBC reviewed showed no evidence leukocytosis white blood count normal at 4.4 however the patient was anemic with a hemoglobin of 5.3, plate count was noted to be 87 he has chronic thrombocytopenia, patient has a macrocytic anemia with a MCV of 114.7. Patient sodium was 134, potassium normal at 4.2, creatinine was 0.93. Patient's BUN was normal at 19. Patient's troponin was 17delta troponin pending. Patient's EKG reviewed showed sinus rhythm with a rate of [address] depressions in the inferior and the lateral leads this was compared to previous EKG from October 26, 2020 and there is worsening ST changes noted however patient states that his chest pain has resolved and this is likelysecondary to his anemia with likely underlying coronary artery disease causing stress on his heart. Patient proBNP was elevated at 3000 101. Patient's chest x-ray reviewed by myself by radiology which showed lungs moderately hyperinflated with increased interstitial markings consistent with significant chronic lung disease no acute cardiopulmonary processes seen. Moderate degenerative changes of thoracic spine were noted. Patient's CTA of the chest was reviewed showed no evidence of PE no other acute abnormalities identified. Patient CT ab pelvis with IV contrast reviewed showed findings suggestive scarring at the lung bases coronary artery calcifications noted. Mild edematouschanges of the portal triad suggestive of possible inflammatory process versus liver congestion sigmoid diverticulosis. Distended urinary bladder and prostatic enlargement. Small bilateral inguinal hernias containing fat. Patient was typed and screened for 4 units of blood. At this point time will discuss case with hospitalist for admission for his acute anemia, chest pain likely secondary to his anemia with underlying coronaryartery disease. Repeat hemoglobin pending. Patient was occult positive on rectal exam thereforewill be given 40 mg of IV Protonix. Discussed case with hospitalist Dr. Montoya who accept patient for admission. Patient is notified is agreeable to plan all course concerns answered at bedside. Lab Data Labs: Laboratory Results - last 24 hr 08/26/24 08/26/24 08/26/24 08:18 10:50 11:15 WBC 4.4 RBC 1.50 L Hgb 5.3 L* Hct 17.2 L MCV 114.7 H MCH 35.3 H MCHC 30.8 L RDW Std Deviation 64.9 H RDW Coeff of Triny 15.7 H Plt Count 87 L MPV 11.6 Immature Gran % (Auto) 0.500 Neut % (Auto) 26.8 L Lymph % (Auto) 68.7 H [place] % (Auto) 2.9 Eos % (Auto) 1.1 Baso % (Auto) 0.0 Absolute Neuts (auto) 1.2 L Absolute Lymphs (auto) 3.03 Nucleated RBC % 0 Differential Comment SCANNED Atypical Lymphocytes 1+ Platelet Estimate MKD DEC Anisocytosis 1+ Sodium 134 Potassium 4.2 Chloride 101 Carbon Dioxide 19.0 L Anion Gap 14 BUN 19 Creatinine 0.93 Estim Creat Clear Calc 68.19 Est GFR (MDRD) Non-Af 93 BUN/Creatinine Ratio 20.4 H Glucose 125 H Calcium 8.9 Troponin T High Sens 17 Troponin T Hi Sens 2 Hr 17 NT pro BNP II 3101 H Blood Type A POSITIVE Antibody Screen NEGATIVE Crossmatch See Detail 08/26/24 12:00 WBC RBC Hgb 4.5 L* Hct 14.0 L MCV MCH MCHC RDW Std Deviation RDW Coeff of Triny Plt Count MPV Immature Gran % (Auto) Neut % (Auto) Lymph % (Auto) Po[place]ett % (Auto) Eos % (Auto) Baso % (Auto) Absolute Neuts (auto) Absolute Lymphs (auto) Nucleated RBC % Differential Comment Atypical Lymphocytes Platelet Estimate Anisocytosis Sodium Potassium Chloride Carbon Dioxide Anion Gap BUN Creatinine Estim Creat Clear Calc Est GFR (MDRD) Non-Af BUN/Creatinine Ratio Glucose Calcium Troponin T High Sens Troponin T Hi Sens 2 Hr NT pro BNP II Blood Type Antibody Screen Crossmatch Radiography Diagnostic Testing: Clinical Impression(s) from Imaging Studies Chest X-Ray 08/26/24 09:03 IMPRESSION: Lungs are moderately hyperinflated with increased interstitial markings, consistent with significant chronic lung disease. No acute pneumonic process is seen. No pleural effusion or pneumothorax is evident. The cardiomediastinal silhouette is within the normal range for age. Moderate degenerative changes of the thoracic spine are noted. Progressive degenerative changes of the left shoulder, with loss of acromiohumeral distance on the left noted this is indicative marked chronic rotator cuff disease. No acute osseous change is seen. Reading Location: [facility] Abdomen/Pelvis CT 08/26/24 09:55 IMPRESSION: Findings suggestive of scarring at the lung bases. Coronary artery calcification. Mild edematous changes of the portal triads suggestive of possible inflammatory process versus liver congestion. Sigmoid diverticulosis. Distended urinary bladder and prosthetic enlargement. Small bilateral inguinal hernias containing fat. Reading Location: [id number] Chest CTA 08/26/24 09:55 IMPRESSION: No evidence of pulmonary embolism. No acute abnormality is seen. Reading Location: [id number] Discharge Plan Triage Chief Complaint: Chest Pain ED Provider: Willy Anaya Dx/Rx/DC Orders Clinical Impression: Anemia, Anemia, macrocytic, GI bleed, Bilateral leg edema Prescriptions: No Action aspirin [Adult Aspirin Regimen] 81 mg tablet,delayed release (DR/EC) 81 mg PO DAILY Centrum Complete 18-400 mg-mcg tablet 1 tab PO Q24H Primary Care Provider: Care Physician,No Primary Referrals: Care Physician,No Primary [Primary Care Provider] - Print Language: [place] Islander Disposition Disposition: formerly [facility] What to do if you have Problems For any increased pain, shortness of breath, bleeding, nausea or vomiting, chestpain, or any unexpected problems, contact your Primary Care Provider. Call [facility] ([phone]) or report to the closest Emergency Room. Call 911 if necessary. 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 Work Phone: Evaluation note* Diagnosis Onset Date Resolution Status Tobacco abuse acute CVA (cerebral vascular accident) chronic Hypertension chronic Mild cognitive impairment [facility] Thiamine deficiency acute Carotid stenosis chronic History of CVA (cerebrovascular accident) chronic Hypertension chronic Macrocytic anemia chronic Mild cognitive impairment [facility] Work Phone: Evaluation note* Diagnosis Onset Date Resolution Status Thiamine deficiency acute Carotid stenosis chronic History of CVA (cerebrovascular accident) chronic Hypertension chronic Macrocytic anemia chronic Mild cognitive impairment ch ronic Colon cancer screening acute Flu vaccine need acute Anemia chronic History of CVA (cerebrovascular accident) chronic Hypertension [facility] Work Phone: Evaluation note* Diagnosis Onset Date Resolution Status Thiamine deficiency acute Carotid stenosis chronic History of CVA (cerebrovascular accident) chronic Hypertension chronic Macrocytic anemia chronic Mild cognitive impairment ch ronic Colon cancer screening acute Flu vaccine need acute Anemia chronic History of CVA (cerebrovascular accident) chronic Hypertension chronic Pancytopenia chronic Pancytopenia [facility] Work Phone: Evaluation note* Diagnosis Onset Date Resolution Status Admit Date Anemia acute August 26 12:41pm Anemia, macrocytic acute August 052024 12:41pm Bilateral leg edema acute August 26, 2024 12:41pm GI bleed acute August 26 12:41pm Severe protein-calorie malnutrition acute August 26, 2024 12:41pm [facility] Work Phone: History and physical note Author Jose Montoya [facility] Note Date/Time August 26, 2024 12:5 6pm [facility] Medical Records Department [address] [place] [id number] H&P Exam - Hospitalist 08/26/24 1244 MR#: [id number] Acct: [id number] Name: JUNI MATHIAS Rep #:[id number] : 1960 63 From: Jose Montoya DO PCP: Care Physician,No Primary Status :ADM IN Location: [facility]221- 1 HPI - General General Date of Admission: 08/26/24 Date of Service: 08/26/24 Chief Complaint: Chest pain HPI Narrative JUNI MATHIAS, is a 63 M who presents with chest pain over the past few days. Chest pain is with exertion. Left-sided and may occasionally go down his left arm. No shortness of breath. No diaphoresis. Patient seen and examined independently. Data and vitals reviewed. I agree with the above note by the nurse practitioner. Was diagnosed with acute myeloid leukemia back in 2022 [facility]. Patient declined and decision was made for him to go with hospice which she was but he was given a life expectancy of 9 months. Since that time, he is no longer on hospice, he is no longer seeing oncology norany other primary care provider. He presents to the emergency room because of this chest pain and was noted to have a hemoglobin of 4.5. Patient was typed and crossed and ordered transfusions in the serum. He was heme positive in the emergency room. Patient denies any hematochezia nor hematemesis. The hospital service was contacted for further valuation of the chest pain as well as anemia. PFSH Medical History Pancytopenia Flu vaccine need Anemia Colon cancer screening Macrocytic anemia Hypertension CVA (cerebral vascular accident) Tobacco abuse Dysarthria Alcohol abuse Home Medications ?Medication ?Instructions ?Recorded ?Last Taken ?Type aspirin 81 mg tablet,delayed 81 mg PO DAILY 09/27/21 0 08/25/24 History release (Adult Aspirin Regimen) multivitamin-ferrous 1 tab PO Q24H 08/26/2408/25 History fumarate-folic acid 18 mg-400 mcg tablet (Centrum Complete) Allergy/AdvReac Type Severity Reaction Status Date / Time No Known Allergies Allergy Verified 03/30/22 14:55 Family History Father Heart disease Mother Heart disease Other CVA (cerebral vascular accident) Social History Smoking Status: Current every day smoker tobacco type: cigarettes Tobacco: How many years used: 45 Electronic Cigarette Use: not used alcohol intake: current alcohol intake frequency: 0-2 drinks per day Alcohol type: beer substance use type: does not use ROS ROS Narrative Patient has chronic dysarthria due to prior stroke. Lower extremity swelling. All review of systems were negative except as mentioned above in the history of present illness and the other review of systems. Vital Signs Vital Signs Vital Signs: 08/26/24 08:47 08/26/24 08:47 08/26/24 09:03 Temperature 36.8 C Temperature Source Oral Pulse Rate 78 Respiratory Rate 16 Respiratory Effort Normal Non-Labored Blood Pressure 116/65 Blood Pressure Mean 82 Blood Pressure Source Pulse Ox 100 Oxygen Delivery Method Room Air Room Air 08/26/24 09:44 08/26/24 11:00 08/26/24 12:00 Temperature Temperature Source Pulse Rate 77 80 86 Respiratory Rate 20 H 16 17 Respiratory Effort Blood Pressure 114/67 106/56 L Blood Pressure Mean 82 72 Blood Pressure Source Pulse Ox 100 100 100 Oxygen Delivery Method Room Air Room Air Room Air 08/26/24 12:40 Temperature 36.5 C L Temperature Source Oral Pulse Rate 74 Respiratory Rate 18 Respiratory Effort Blood Pressure 111/70 Blood Pressure Mean 83 Blood Pressure Source Monitor Pulse Ox 100 Oxygen Delivery Method Room Air Weight Weight: 59.3 kg Body Mass Index (BMI) 18.2 Physical Exam Const alert and no apparent distress General Appearance: cooperative HEENT normocephalic and head/scalp atraumatic Resp normal respiratory effort, no retractions, no use of accessory muscles and clearto auscultation bilaterally Cardio regular rate, regular rhythm, S1 normal heart sound and S2 normal heart sound GI normal to inspection, nondistended, normoactive bowel sounds, soft to palpation,non-tender and non-distended Extremity Extremity Narrative: 2+ lower extremity edema Skin Skin Narrative: No rashes or lesions. Neuro moves all extremities Neuro Narrative: Dysarthria. Alert. Cooperative. Follow commands. Psych affect normal Results Lab / Micro Data Attestation: I reviewed the patient's lab results. 08/26/24 12:00 08/26/24 08:18 Labs: Laboratory Results - last 24 hr 08/26/24 08:18: WBC 4.4, RBC 1.50 L, Hgb 5.3 L*, Hct 17.2 L, MCV 114.7 H, MCH 35.3 H, MCHC 30.8 L, RDW Std Deviation 64.9 H, RDW Coeff of Triny 15.7 H, Plt Count 87 L, MPV 11.6, Immature Gran % (Auto) 0.500, Neut % (Auto) 26.8 L, Lymph % (Auto) 68.7 H, [place] % (Auto) 2.9, Eos % (Auto) 1.1, Baso % (Auto) 0.0, Absolute Neuts (auto) 1.2 L, Absolute Lymphs (auto) 3.03, Nucleated RBC % 0, Differential Comment SCANNED, Atypical Lymphocytes 1+, Platelet Estimate MKD DEC, Anisocytosis 1+, Sodium 134, Potassium 4.2, Chloride 101, Carbon Dioxide 19.0 L, Anion Gap 14, BUN 19, Creatinine 0.93, Estim Creat Clear Calc 68.19, EstGFR (MDRD) Non-Af 93, BUN/Creatinine Ratio 20.4 H, Glucose 125 H, Calcium 8.9, Troponin T High Sens 17, NT pro BNP II 3101 H 08/26/24 10:50: Blood Type A POSITIVE, Antibody Screen NEGATIVE, Crossmatch See Detail 08/26/24 11:15: Troponin T Hi Sens 2 Hr 17 08/26/24 12:00: Hgb 4.5 L*, Hct 14.0 L Micro: Microbiology 08/26/24 11:43 Stool Stool Occult Blood (JOVANNY) - Final Occult Blood Positive EKG Initial EKG: Attestation: I personally reviewed and interpreted this EKG as follows: EKG Rhythm Intrepretation: Sinus Rhythm Imaging Radiology Impression Chest X-Ray 08/26/24 09:03 IMPRESSION: Lungs are moderately hyperinflated with increased interstitial markings, consistent with significant chronic lung disease. No acute pneumonic process is seen. No pleural effusion or pneumothorax is evident. The cardiomediastinal silhouette is within the normal range for age. Moderate degenerative changes of the thoracic spine are noted. Progressive degenerative changes of the left shoulder, with loss of acromiohumeral distance on the left noted this is indicative marked chronic rotator cuff disease. No acute osseous change is seen. Reading Location: [facility] Abdomen/Pelvis CT 08/26/24 09:55 IMPRESSION: Findings suggestive of scarring at the lung bases. Coronary artery calcification. Mild edematous changes of the portal triads suggestive of possible inflammatory process versus liver congestion. Sigmoid diverticulosis. Distended urinary bladder and prosthetic enlargement. Small bilateral inguinal hernias containing fat. Reading Location: [facility] Chest CTA 08/26/24 09:55 IMPRESSION: No evidence of pulmonary embolism. No acute abnormality is seen. Reading Location: [id number] Assessment & Plan Assessment/Plan (1) Anemia: PLAN: Patient has not been to the physician in over 2 years. Patient has been pretty active walking his dog multiple times per day but is been just been having the symptoms. I suspect he has been chronically losing blood over this period of time due to his pancytopenia. Though he was heme positive I do not feel that the primary source is GI related. With his history of acute myeloid leukemia I asked him about goals of care and his plan is not to proceed with anyfurther chemotherapy as was the case in 2022. Explained that if that is the case then I would not recommend additional workup such as colonoscopy at this time as it may ultimately not change his overall management. I did agree with transfusions as it would provide him palliation regards to symptom improvement and improved quality of life. And I also recommended that he follow-up with a primary care doctor so that he may have his counts checked periodically and if he would need transfusions that can be arranged as outpatient at the infusion center. He and his family were in agreement to that. Patient has been lost to follow-up in regards to primary care doctor so he will need to reestablish with a new primary care doctor. So plan is to transfuse him he has 3 units ordered. And monitor him overnight. Additionally, we will check B12, folate, TSH, Iron and iron binding capacity and ferritin. (2) Severe protein-calorie malnutrition: PLAN: Patient cachectic with a BMI of 18.2 kg/m?. Will start Ensure plus with meals Consult nutrition for further recommendations. Patient is lower extremity edema I feel is more due to low oncotic pressure due to his malnutrition rather than overt heart failure PLAN: Plan Acute myeloid leukemia/mild dysplastic syndrome: Previously patient had declinedfurther therapy. Patient is not interested in any therapy at this time. CAD: History of CABG. Currently stable but will have to hold off on aspirin given the anemia. CVA: Patient has chronic dysarthria from that. Will hold off on aspirin. VTE prophylaxis with SCDs CODE STATUS: Addressed with the patient. Patient wishes to be DNR Comfort Care arrest no intubation. Did discuss with he and his family about reestablishing palliative care to help with symptom control at home. They would be interested in becoming reestablished. Will consult case management to assist. Disposition: Patient being brought in under observation status as the goal is totransfuse him and to discharge him on the . It is important that the patient be monitored overnight to make sure he does not have any effects from the transfusions and to monitor for volume overload. Charges/Coding Visit Charges Inpatient E&M: 86270 Init Hosp L3 08/26/24 1256 <Electronically signed by Jose Montoya DO> Cosigner Signature (if applicable): CC: Dr. Jose Montoya, DO; No Primary Care Physician~ Signed [facility] Work Phone: Hospital Discharge instructions* Attachments The following attachments cannot be sent through Care Everywhere. * Fainting ([place] Islander) [facility]: Reason for referral (narrative)No reason for referral information availableWBarney Children's [facility] Work Phone: Summary Purpose Family History Relationship Condition Age at Onset Recorded Date/T ally Not Specified Cerebrovascular accident (CVA) Unknown father Cardiac disease Unknown mother Cardiac disease Unknown Advance Directives Advance Directive Response Recorded Date/ Time Living Will No October 26 1 2:47pm Power of [employer] Machine Operator No October 26 021 2:47pm Advance Directive Response Recorded Date/ Time Living Will No October 26 1 1:47pm Power of [employer] Machine Operator No October 26 021 1:47pm Advance Directive Response Recorded Date/ Time Do you have a Healthcare Power of [employer] Machine Operator? No August 26, 2024 8:47am Chief Complaint and Reason for Visit Chief Complaint CVA CVA, MCI Brain MRI f/u EORDER Reason for Visit CVA (cerebral vascul ar accident) Mild cognitive impairment Hypertension Chief Complaint CVA CVA, MCI Brain MRI f/u EORDER 6 M FU Cerebral infarction, unspecified Reason for Visit CVA (cerebral vascul ar accident) Mild cognitive impairment Hypertension CVA (cerebral vascular accident) Mild cognitive impairment Tobacco abuse Hypertension Chief Complaint EORDER 6 M FU Cerebral infarction, unspecified MAY HOLTER CEREBRAL INFARCTION/ ESSENTIAL HTN E ORDER 4 M FU Reason for Visit Tobacco abuse CVA (cerebral vascular accident) Hypertension Mild cognitive impairment Thiamine deficiency Carotid stenosis History of CVA (cerebrovascular accident) Hypertension Macrocytic anemia Mild cognitive impairment Chief Complaint E ORDER 4 M FU 6 M FU Reason for Visit Thiamine deficiency Carotid stenosis History of CVA (cerebrovascular accident) Hypertension Macrocytic anemia Mild cognitive impairment Colon cancer screening Flu vaccine need Anemia History of CVA (cerebrovascular accident) Hypertension Chief Complaint 4 M FU 6 M FU NEW-PANCYTOPENIA PANCYTOPENIA, STAT LABS ON ARRIVAL REVIEW BM BX Reason for Visit Thiamine deficiency Carotid stenosis History of CVA (cerebrovascular accident) Hypertension Macrocytic anemia Mild cognitive impairment Colon cancer screening Flu vaccine need Anemia History of CVA (cerebrovascular accident) Hypertension Pancytopenia Pancytopenia Chief Complaint Admit Date CHEST PAIN, ANEMIA August 26, 2024 12:4 1pm CHEST PAIN, ANEMIA August 26, 2024 12:4 4pm Reason for Visit Admit Date Anemia August 26, 2024 12:4 1pm Anemia, macrocytic August 26, 2024 12:4 1pm Bilateral leg edema August 26, 2024 12:4 1pm GI bleed August 26, 2024 12:4 1pm Severe protein-calorie malnutrition August 26, 2024 12:41pm Additional Source Comments Reason for Visit (unrecogniz ed section and content) Reason Comments Loss of Consciousness Pt presents to the ER from the 3rd floor. Pt was visiting his and LOC. Pt states he was standing and the next thing he knew he was in the ER. Pt states the back of his head hurts and his left arm. Pt is A&O3 (unrecognized sect ion and content) No Status Records FoundNo Status Records FoundNo Status Records Found INFORMATION SOURCE (unrecogn ized section and content) DATE CREATED AUTHOR 02/12/2021 [facility] DATE CREATED AUTHOR AUTHOR'S ORGANIZ ATION 03/30/2022 [facility] DATE CREATED AUTHOR AUTHOR'S ORGANIZ ATION [facility]2022 [facility] Goals (unrecognized section and content) Goals may be documented in a n alternate sectionGoals may be documented in an alternate sectionGoals may be documented in an alternate sectionGoals may be documented in an alternate sectionGoals may be documented in an alternate sectionGoals may be documented in an alternate section Care Teams (unrecognized sec tion and content) Team Status: Active Member Role Status Dates No Primary Care Physician Primary Care Provider Active Team Status: Active Member Role Status Dates No Primary Care Physician Primary Care Provider Active Start: August 26, 2024 Dr. Willy Anaya , DO Emergency Provider Active Start: August 26, 2024 Dr. Jose Montoya , DO Admit Provider Active Star t: August 26, 2024 Dr. Jose Montoya , DO Attending Provider Active Start: August 26, 2024 Team Status: Active Member Role Status Dates No Primary Care Physician Primary Care Provider Active Start: August 26, 2024 Dr. Willy Anaya , DO Emergency Provider Active Start: August 26, 2024 Dr. Jose Montoya , DO Admit Provider Active Star t: August 26, 2024 Dr. Jose Montoya , DO Attending Provider Active Start: August 26, 2024 Dr. Jose Montoya , DO Other Provider Active Star t: August 26, 2024 FOR RECORDS PERTAINING TO PATIENTS WHO ARE OR HAVE BEEN ENROLLED IN A CHEMICAL DEPENDENCY/SUBSTANCEABUSE PROGRAM, SOME INFORMATION MAY BE OMITTED. This clinical summary was aggregated from multiple sources. Caution should be exercised in using it in the provision of clinical care. This summary normalizes information from multiple sources, and as a consequence, information in this document may materially change the coding, format and clinical context of patient data. In addition, data may be omitted in some cases. CLINICAL DECISIONS SHOULD BE BASED ON THE PRIMARY CLINICAL RECORDS. [employer] provides no warranty or guarantee of the accuracy or completeness of information in this document.
[2024-08-26 22:55] LABS: Troponin T High Sensitivity 26 ng/L (<=22)
[2024-08-26 22:58] LABS: ALB/GLOB Ratio 0.8 RATIO (0.9-2.4); AST(SGOT) 52 U/L (<=37); Alanine Aminotransfer ALT/SGPT 40 U/L (<=46); Albumin, Serum 3.4 g/dL (3.4-4.8); Alkaline Phosphatase 128 U/L (40-129); Anion Gap 19 (5-15); BUN 19 mg/dL (4-19); BUN/Creat Ratio 16.9 RATIO (10-20); Calcium,Total 8.9 mg/dL (7.6-11.0); Chloride 102 mmol/L (98-108); Creatinine, Serum 1.13 mg/dL (0.70-1.20); EST Glomerular Filtration Rate 73 (>60); Estimated Creatinine Clearance 54.09 ml/min (50-250); Globulin 4.4 g/dL (2.2-4.2); Glucose 212 mg/dL (70-99); Magnesium 2.7 mg/dL (1.5-2.2); Phosphorus 5.7 mg/dL (2.7-4.5); Potassium 4.3 mmol/L (3.3-5.1); Protein, Total 7.8 g/dL (5.9-8.4); Sodium Level 136 mmol/L (133-145); Total Bilirubin 1.53 mg/dL (0.00-1.30)
[2024-08-26 23:38] LABS: Pro- Brain NATRIURETIC PEPTIDE 4871 pg/mL (<=900)
[2024-08-27] VITALS (26 sets, daily range): BP systolic 94–112; BP diastolic 61–76; PULSE 74–121; RESP 12–30; TEMP 3.1–37.6; O2SAT 88–100
--- NOTE | 2024-08-27 00:06 | CPS ---
Critical ABG values, Dr. mchugh aware.
[2024-08-27] MEDS: Lorazepam 2 MG/ML WCH Syringe 0.5 MG IV (00:13)
[2024-08-27] MEDS: 0.9% Saline Lock 10 ML Syringe IV ×5 (00:17→17:38)
[2024-08-27 01:14] LABS: Troponin T High Sens 2 HR 138 ng/L (<=22)
[2024-08-27] MEDS: Ondansetron 4 MG/2 ML Vial IV (01:17)
--- OUTSIDE RECORDS SUMMARY | 2024-08-27 01:39 | XMS RPT_ITS | CCD ---
Author Organization [facility] Care Team Providers Care Cost Manager Name Role Phone Unavailable Primary Care Provider Dr. Elva Leblanc Primary Care Provider [phone] Dr. Elva Packer Referring Provider [phone] Dr. Shahzad Roldan Attending Provider Migdalia CANNON, VARIETY PERFORMER-C Owen Attending Provider [phone] Dr. Min Amaral [...] [phone] Dr. Shahzad Roldan Attending Provider Dr. Shahzad Roldan Referring Provider Dr. Elva Packer Attending Provider [phone] Dr. Elva Packer Referring Provider [phone] Negron VARIETY PERFORMER, VARIETY PERFORMER-C Owen Primary Care Provider Migdalia VARIETY PERFORMER, VARIETY PERFORMER-C Owen Referring Provider Dr. Abdirizak James Attending Provider [phone] Oleghe, Efewongbe Referring Unavailable Oleghe, Efewongbe Primary Care Unavailable Negron, Owen Attending Unavailable Negron, Owen Referring Unavailable Negron, Owen Primary Care Unavailable Abdirizak James Attending Unavailable Negron, Owen Referring Unavailable Negron, Owen Primary Care Unavailable Abdirizak James Attending Unavailable Oleghe, Efewongbe Primary Care Unavailable Bunny, Jefferson Attending Unavailable Baddour, Shahzad Referring Unavailable Oleghe, [...] Care Unavailable Baddour, Shahzad Attending Unavailable Bunny, Jefferson Referring Unavailable Oleghe, Efewongbe Primary Care Unavailable Baddour, Shahzad Attending Unavailable Baddour, Shahzad Referring Unavailable TANO, NANCY L Attending Unavailable NANCY FREEDMAN Primary Care Unavailable NANCY FREEDMAN Admitting Unavailable Care Physician, No Primary Primary Care Provider Unavailable Dr. Willy Anaya DO Emergency Provider [phone] Lindsay MCFARLANE, Dr. Garcia Admit Provider [phone] Jose Montoya DO Attending Provider Dr. [...] 27, 2020 12:00am January 07, 2021 11:33am Bdgimqlzxxqo-Mdxb-Rknkt Acid (Centrum Complete) 18-400 mg-mcg tablet (1 [...] Auto (Unsp spec) [#/Vol] 3.03 10*3/uL 0.83-4.51 [facility] Absolute neutrophil countOrd ered By: Willy Anaya on 08-26-2024 Neutrophils (Bld) [#/Vol] 1.2 10*3/uL Low 2.0-7.7 [facility] Anion gap in Serum or Plasma Ordered By: Willy Anaya on 08-26-2024 Anion gap [Moles/Vol] 14 mmol/L 5-15 [facility] Automated lymphocyte count a s percentage of total leukocytesOrdered By: Willy Anaya on 08-26-2024 Lymphocytes/100 WBC Auto (Unsp spec) 68.7 % High 19-41 [facility] BUN/creatinine ratioOrdered By: Willy Anaya on 08-26-2024 Urea nitrogen/Creatinine [Mass ratio] 20.4 mg/mg High 10-20 [facility] Basophil percentageOrdered B y: Willy Anaya on 08-26-2024 Basophils/100 WBC (Bld) 0.0 % 0-1 [facility] Blood manual differential co mment interpretation (narrative result)Ordered By: Willy Anaya on 08-26-2024 Manual differential comment Hari (Bld) [Interp] SCANNED [facility] Carbon dioxide, total [Moles /volume] in Central venous bloodOrdered By: Willy Anaya on 08-26-2024 CO2 [Moles/Vol] 19.0 mmol/L Low 21.0-32.0 [facility] Chloride assayOrdered By: Jose L Anaya on 08-26-2024 Chloride [Moles/Vol] 101 mmol/L 98-108 [facility] Eosinophil percentageOrdered By: Willy Anaya on 08-26-2024 Eosinophils/100 WBC (Bld) 1.1 % 0-5 [facility] Erythrocyte distribution wid th ratioOrdered By: Willy Anaya on 08-26-2024 Erythrocyte distribution width (RBC) [Ratio] 15.7 % High 11.6-14.6 [facility] Erythrocyte distribution wid th standard deviationOrdered By: Willy Anaya on 08-26-2024 Erythrocyte distribution width (RBC) [Ratio] 64.9 fl High 35.1-43.9 [facility] Glomerular filtration rate ( GFR) estimation/1.73 sq m using serum, plasma, or whole bOrdered By: Willy Anaya on 08-26-2024 GFR/1.73 sq M.predicted among non-blacks MDRD (S/P/Bld) [Vol rate/Area] 93 mL/min/{1.73_m2} >60 [facility] Comment on above: mL/min/1.73m2 CKD-EP I Creatinine Equation (2020) Hematocrit Auto (Bld) [Volum e fraction]Ordered By: Willy Anaya on 08-26-2024 Hematocrit (Bld) [Volume fraction] 14.0 % Low 40-54 [facility] Hemoglobin measurementOrdere d By: Willy Anaya on 08-26-2024 Hemoglobin (Bld) [Mass/Vol] 4.5 g/dL Low 13.0-16.5 [facility] Comment on above: CRITICAL VALUE MARTIN D TO CESAR HERNANDEZ (ER)08/26/24 1213 Mario Valera.RESULTS READ BACK BY SAME. Immature granulocytes/100 WB C Auto (Bld)Ordered By: Willy Anaya on 08-26-2024 Immature granulocytes/100 WBC (Bld) 0.500 % 0.0-0.9 [facility] Comment on above: IG% - Immature Granu locytes (promyelocytes, myelocytes and metamyelocytes) > 1% indicates that a LEFT SHIFT is Present. Laboratory - Hematology and Cell countsOrdered By: Willy Anaya on 08-26-2024 Anisocytosis Ql (Bld) 1+ [facility] MCV (mean corpuscular volume ) determinationOrdered By: Willy Anaya on 08-26-2024 MCV (RBC) [Entitic vol] 114.7 fL High 80-94 [facility] Mean corpuscular hemoglobin (MCH) determinationOrdered By: Willy Anaya on 08-26-2024 MCH (RBC) [Entitic mass] 35.3 pg High 27.0-32.0 [facility] Mean corpuscular hemoglobin concentration (MCHC) determinationOrdered By: Willy Anaya on 08-26-2024 MCHC (RBC) [Mass/Vol] 30.8 g/dL Low 32-36 [facility] Mean platelet volume determi nationOrdered By: Willy Anaya on 08-26-2024 Platelet mean volume (Bld) [Entitic vol] 11.6 fL 6.2-12.0 [facility] Monocyte percentageOrdered B y: Willy Anaya on 08-26-2024 Monocytes/100 WBC (Bld) 2.9 % 0-10 [facility] Natriuretic peptide.B prohor claudia N-Terminal [Mass/volume] in Serum or PlasmaOrdered By: Willy Anaya on 08-26-2024 Natriuretic peptide.B prohormone N-Terminal [Mass/Vol] 3101 pg/mL High <900 [facility] Comment on above: Heart Failure Unlike ly: < 300 pg/mLHeart Failure Likely< 50 Years: > 450 pg/mL50-75 Years: > 900 pg/mL>75 Years: > 1800 pg/mL Neutrophil percentageOrdered By: Willy Anaya on 08-26-2024 Neutrophils/100 WBC (Bld) 26.8 % Low 47-70 [facility] Nucleated red blood cell per centageOrdered By: Willy Anaya on 08-26-2024 Nucleated RBC/100 WBC (Bld) [Ratio] 0 % 0-5 [facility] Platelet countOrdered By: Jose L Anaya on 08-26-2024 Platelets (Bld) [#/Vol] 87 10*3/uL Low 150-450 [facility] Platelet estimateOrdered By: Willy Anaya on 08-26-2024 Platelets LM Ql (Bld) MKD DEC ADEQ [facility] Potassium measurement (mass/ volume)Ordered By: Willy Anaya on 08-26-2024 Potassium (Unsp spec) [Mass/Vol] 4.2 mmol/L 3.3-5.1 [facility] RBC Auto (Bld) [#/Vol]Ordere d By: Willy Anaya on 08-26-2024 RBC (Bld) [#/Vol] 1.50 10*6/uL Low 4.6-6.2 [facility] Serum creatinine measurement (mass/volume)Ordered By: Willy Anaya on 08-26-2024 Creatinine [Mass/Vol] 0.93 mg/dL 0.70-1.20 [facility] Serum glucose measurement (m ass/volume)Ordered By: Willy Anaya on 08-26-2024 Glucose [Mass/Vol] 125 mg/dL High 70-99 [facility] Serum or plasma calcium ronni urement (mass/volume)Ordered By: Willy Anaya on 08-26-2024 Calcium [Mass/Vol] 8.9 mg/dL 7.6-11.0 [facility] Serum or plasma urea nitroge n measurement (mass/volume)Ordered By: Willy Anaya on 08-26-2024 Urea nitrogen [Mass/Vol] 19 mg/dL 4-19 [facility] Sodium levelOrdered By: Ti Anaya on 08-26-2024 Sodium [Moles/Vol] 134 mmol/L 133-145 [facility] Stool gastrointestinal hemog lobin detection by immunologic methodOrdered By: Willy Anaya on 08-26-2024 Lower GI hemoglobin IA Ql (Stl) Positive Abnormal [facility] Troponin T.cardiac [Mass/vol ume] in Serum or Plasma by High sensitivity methodOrdered By: Willy Anaya on 08-26-2024 Troponin T.cardiac High sensitivity method [Mass/Vol] 17 ng/L <22 [facility] Troponin T.cardiac High sensitivity method [Mass/Vol] 17 ng/L <22 [facility] White blood cell (WBC) count Ordered By: Willy Anaya on 08-26-2024 WBC (Bld) [#/Vol] 4.4 10*3/uL 4.4-11.0 [facility] CBC + DIFFon 11-21-2022 ANISO 2+ Normal [facility] Comment on above: Performed By: #### 2 10348 #### [facility],[address] [place] [address] ATY LYMP 0 % Normal [facility] Comment on above: Performed By: #### 2 77071 #### [facility],[address] [place] [address] Baso # 0.00 x10EE3/UL Normal 0.00 - 0.10 [facility] Comment on above: Performed By: #### 2 98126 #### [facility],[address] [place] [address] Basophils/100 WBC (Bld) 0.3 % Normal 0.0 - 2.0 [facility] Comment on above: Performed By: #### 2 53710 #### [facility],[address] [place] [address] CBC + DIFF Normal [facility] Comment on above: Result Comment: CBC- COMPLETE BLOOD COUNT Performed By: #### 2 47169 #### [facility],[address] [place] [address] CELL COUNT 100 Normal [facility] Comment on above: Performed By: #### 2 17198 #### [facility],[address] [place] [address] EO 4.0 % Normal 0.0 - 4.0 [facility] Comment on above: Performed By: #### 2 10432 #### [facility],[address] [place] [address] EO # 0.10 x10EE3/UL Normal 0.00 - 0.50 [facility] Comment on above: Performed By: #### 2 52978 #### [facility],[address] [place], [place] [id number] Eosinophils/100 WBC (Bld) 4.1 % Normal 0.0 - 7.0 [facility] Comment on above: Performed By: #### 2 79195 #### [facility],[address],[place] [address] Erythrocyte distribution width (RBC) [Ratio] 15.2 % Normal 12.0 - 15.6 [facility] Comment on above: Performed By: #### 2 39842 #### [facility],[address] [place], [place] [id number] Hematocrit (Bld) [Volume fraction] 23.9 % Low 40.0 - 52.0 [facility] Comment on above: Performed By: #### 2 92825 #### [facility],[address] [place] [address] Hemoglobin (Bld) [Mass/Vol] 8.0 g/dL Low 13.0 - 17.5 [facility] Comment on above: Performed By: #### 2 38375 #### [facility],[address] [place], [place] [id number] Lymph # 1.80 x10EE3/UL Normal 0.80 - 2.80 [facility] Comment on above: Performed By: #### 2 36754 #### [facility],[address] [place] [address] Lymphocytes/100 WBC (Bld) 81.9 % High 20.0 - 45.0 [facility] Comment on above: Performed By: #### 2 25308 #### [facility],[address] [place] [address] Lymphocytes/100 WBC (Bld) 83 % High 20 - 40 [facility] Comment on above: Performed By: #### 2 94126 #### [facility],[address] [place], [place] [id number] Macrocytes Ql (Bld) 2+ Normal [facility] Comment on above: Performed By: #### 2 98648 #### [facility],[address] [place] [address] MANUAL DIFF SEE BELOW Normal [facility] Comment on above: Performed By: #### 2 73038 #### [facility],[address] [place], [place] [phone] MCH (RBC) [Entitic mass] 37 pg High 27 - 33 [facility] Comment on above: Performed By: #### 2 82884 #### [place] [address] MCHC 33 X10 3 Normal 32 - 36 [facility] Comment on above: Performed By: #### 2 72990 #### [facility],[address] [place] [address] MCV (RBC) [Entitic vol] 110 fL High 81 - 98 [facility] Comment on above: Performed By: #### 2 90512 #### [facility],[address] [place] [address] Lea # 0.00 x10EE3/UL Low 0.20 - 1.00 [facility] Comment on above: Performed By: #### 2 34091 #### [place] [address] MONOS % 1.3 % Normal 0.0 - 10.0 [facility] Comment on above: Performed By: #### 2 71312 #### [place] [address] Morphology Hari (Bld) [Interp] SEE BELOW Normal [facility] Comment on above: Performed By: #### 2 45709 #### [facility],[address] [place] [address] Neut # 0.30 x10EE3/UL Low 1.50 - 7.10 [facility] Comment on above: Performed By: #### 2 02360 #### [place] [address] Neutrophils/100 WBC (Bld) 12.4 % Low 46.0 - 76.0 [facility] Comment on above: Performed By: #### 2 61472 #### [place] [address] PLATELET 64 x10EE3/UL Low 150 - 450 [facility] Comment on above: Performed By: #### 2 10485 #### [facility],[address] [place] [address] Platelet mean volume (Bld) [Entitic vol] 8.8 fL Normal 6.4 - 10.5 [facility] Comment on above: Result Comment: AUTO MATED DIFFERENTIAL Performed By: #### 2 54940 #### [facility],[address] [place] [address] PLT EST DECREASED Normal [facility] Comment on above: Performed By: #### 2 30426 #### [facility],[address] [place] [address] POIKILO 2+ Normal [facility] Comment on above: Performed By: #### 2 04653 #### [facility],[address] [place] [address] RBC 2.18 x 10EE6/UL Low 4.50 - 6.00 [facility] Comment on above: Performed By: #### 2 52883 #### [facility],[address] [place] [address] SEGS 12 % Low 50 - 70 [facility] Comment on above: Performed By: #### 2 13639 #### [facility],[address] [place] [address] WBC 2.3 x 10EE3/UL Low 4.5 - 10.8 [facility] Comment on above: Performed By: #### 2 45673 #### [facility],[address] [place] [address] OTHER 1+ ELLIPTOCYTES Normal [facility] Comment on above: Result Comment: 1+ S PHEROCYTES & RBC FRAGMENTS {CD] Performed By: #### 2 11024 #### [facility],[address] [place] [address] Oncology Visit Reporton 03-07 Oncology Visit Report [facility] [address] [place] [address] OFFICE VISIT Date of Service: 03/30/22 1454 MR#: [id number] Acct: [id number] Name: JUNI MATHIAS Rep #: [id number] : 1960 From: Abdirizak James MD Age/Sex: 61/M [place] [facility] [place]: Signed HPI Subjective Date of Service 03/30/22 Chief Complaint Low blood counts, acute leukemia History of Present Illness 61-year-old male with over 66-pecz-wmgj cigarette smoke and history of excessive alcohol [...] myeloid leukemia (AML). Patient was referred to [facility] acute leukemia clinic in January 2022, he called and canceled the appointment and elected for palliative care to be transitioned into hospice. Interval History Has been on palliative care, recently advised that he should be upgraded to home hospice. Patient and family requested this appointment to help them with decision making. [facility] Medical History Alcohol abuse Anemia Colon cancer [...] in W (more content not included)... Normal [facility] Oncology Visit Reporton 01-[address] [facility] [address] [address] OFFICE VISIT Date of Service: 01/17/22 1500 MR#: [id number] Acct: [id number] Name: JUNI MATHIAS Rep #: [id number] : 1960 From: Abdirizak James MD Age/Sex: 61/M Location[place] [facility] [place] Status: Signed HPI Subjective Date of Service 01/17/22 Chief Complaint Low blood counts History of Present Illness 61-year-old male with over 02-axpr-zghj cigarette smoke and history of excessive alcohol [...] FISH studies are pending at this time. [facility] Medical History Alcohol abuse Anemia Colon cancer [...] chronic sm (more content not included)... Normal [facility] Absolute lymphocyte counton 01-13-2022 Lymphocytes Auto (Unsp spec) [#/Vol] 1.94 10*3/uL 0.83-4.51 [facility] Work Phone: Basophil percentageon 2021 Basophils/100 WBC (Bld) 0.4 % 0-1 [facility] Work Phone: Eosinophils/100 WBC (Bld) 2.5 % 0-5 [facility] Work Phone: Neutrophils (Bld) [#/Vol] 0.7 10*3/uL 2.0-7.7 [facility] Work Phone: Neutrophils/100 WBC (Bld) 25.1 % 47-70 [facility] Work Phone: WBC (Bld) [#/Vol] 2.8 10*3/uL 4.4-11.0 [facility] Work Phone: Biopsy/Inj or Needle Placeme nton 01-13-2022 Biopsy/Inj or Needle Placement [facility] [address] [place] [address] Biopsy/Inj or Needle Placement MR#: [id number] Acct: [id number] Name: JUNI MATHIAS Rep #: [id number] : 1960 M 61 From: Cain valentine MD PCP: GERSON Gunderson Status: REG CLI Study: Biopsy/Inj or Needle Placement Date of Exam: 03/15/21 Exam# [id number] Ordering Dr: Abdirizak James MD PROCEDURE: CT [...] CC: GERSON Negron; Dr. Abdirizak James MD Surgical Assist: Signed Normal [facility] Blood erythrocytes count (nu mber/volume)on 01-13-2022 RBC (Bld) [#/Vol] 2.59 10*6/uL 4.6-6.2 [facility] Work Phone: Blood hemoglobin measurement (mass/volume)on 01-13-2022 Hemoglobin (Bld) [Mass/Vol] 9.3 g/dL 13.0-16.5 [facility] Work Phone: Blood lymphocytes/100 leukoc yteson 01-13-2022 Lymphocytes/100 WBC (Bld) 68.8 % 19-41 [facility] Work Phone: Blood manual differential co mment interpretation (narrative result)on 01-13-2022 Manual differential comment Hari (Bld) [Interp] See comment [facility] Work Phone: Comment on above: PANCYTOPENIA Blood monocytes/100 leukocyt eson 01-13-2022 Monocytes/100 WBC (Bld) 3.2 % 0-10 [facility] Work Phone: Blood platelet mean volumeon 01-13-2022 Platelet mean volume (Bld) [Entitic vol] 9.5 fL 6.2-12.0 [facility] Work Phone: CBC W/Diff, Automatedon 01-04 PATH REV Reviewed Normal [facility] Comment on above: Result Comment: Panc ytopenia. Leukopenia and Neutropenia. Macrocytic anemia. Thrombocytopenia Clinical correlation necessary. Jalen Wheat M.D. 01/13/22 AMENDED REPORT 01/13/22 1543 PATH REV previously reported as: May Performed By: #### L 300.3900, L300.4310, L100.0100 #### [facility] [address] [place] [address], [address] CD34 (initial)on 01-13-2022 CD34 (initial) ------- Patient Age/Sex Location Account Attending Physician JUNI MATHIAS /M MS [id number] GERSON Zaidi Specimen: [id number] Received: 01/17/22 Status: KACY Guillermo Num: [id number] Spec Type: IMMUNO Subm Dr: GERSON Zaidi PHYSICIAN INSTITUTION [place] [id number] SPECIMEN INFORMATION: Tissue Source: Bone marrow biopsy Clinical Info: Pancytopenia Specimen Number: [id number] A, B CPT code: 72000, 85815 x3 METHODOLOGY: Deparaffinized sections of prefer/formalin-fixed tissue [...] developed and their performance characteristics determined by [facility]. They may not have been cleared [...] Dr. Jalen Wheat MD 01/17/22 1252 Normal [facility] Comment on above: Performed By: #### P CD34 #### [facility] [address] [place], [place], [id number] Decalcification bone/plaqueo n 01-13-2022 Decalcification bone/plaque Patient Age/Sex Location Account Attending Physician JUNI MATHIAS 61/M MS [id number] GERSON Zaidi Specimen: [id number] Received: 01/13/22 Status: KACY Li Num: [id number] Spec Type: BMB Subm Dr: GERSON Zaidi [...] SJ:rg 01/14/2022 COMMENT [facility]+ myeloblasts, 18-20%, consistent [...] Account Attending Physician JUNI MATHIAS 61/M CT [id number] GERSON Zaidi CORE BIOPSY FINDINGS: Site: Not specified Adequacy: Adequate Cellularity: 5-10% M/E ratio: Myeloid hypoplasia is noted. Megakaryocytes: Present and marked decreased in number. Bony trabeculae: Unremarkable. Granulomas: Absent. Lymphoid aggregate: Absent. Atypical infiltrate: Present. Immature cells consistent with blasts are noted. Comment: Immunohistochemistry ([id number]) shows increased number of blasts, approximately 10%. ASPIRATE CLOT FINDINGS: Site: Not specified Marrow particles: A few Cellularity: 5-10% M/E ratio: Myeloid hypoplasia is noted. Megakaryocytes: Present and marked decreased in number. Granulomas: Absent. Lymphoid aggregates: Absent. Atypical infiltrates: Present. Immature cells consistent with blasts are noted. Comment: Immunohistochemistry ([id number]) shows increased number of blasts, approximately 10%. [...] and MDS. / SJ:rg 01/13/2022 TC:5 CPT: 48955, 32885, 29515 x2, 96748 x3, 54989 Patient Age/Sex Location Account Attending Physician JUNI MATHIAS 61/M CT [id number] GERSON Zaidi (more content not included)... Normal [facility] Comment on above: Performed By: #### P DEC ####[facility] [address] [place], [address] Determination of erythrocyte mean corpuscular volume (MCV)on 01-13-2022 MCV (RBC) [Entitic vol] 108.1 fL 80-94 [facility] Work Phone: Hematocrit Auto (Bld) [Volum e fraction]on 01-13-2022 Hematocrit (Bld) [Volume fraction] 28.0 % 40-54 [facility] Work Phone: INR in Blood by Coagulation assayon 01-13-2022 INR Coag (Bld) [Relative time] 1.1 {INR} [facility] Work Phone: Laboratory - Coagulationon 1 03-15-2021 aPTT Coag (Bld) [Time] 31.6 s 24.1-36.2 [facility] Work Phone: PT Coag (PPP) [Time] 13.5 s 11.7-14.9 [facility] Work Phone: Laboratory - Hematology and Cell countson 01-13-2022 Erythrocyte distribution width (RBC) [Entitic vol] 52.4 fL 35.1-43.9 [facility] Work Phone: Erythrocyte distribution width (RBC) [Ratio] 13.2 % 11.6-14.6 [facility] Work Phone: Immature granulocytes/100 WBC (Bld) 0.000 % 0.0-0.9 [facility] Work Phone: Comment on above: IG% - Immature Granu locytes (promyelocytes, myelocytes and metamyelocytes) > 1% indicates that a LEFT SHIFT is Present. MCH (RBC) [Entitic mass] 35.9 pg 27.0-32.0 [facility] Work Phone: Nucleated RBC/100 WBC (Bld) [Ratio] 1.1 % 0-5 [facility] Work Phone: MCHC Auto (RBC) [Mass/Vol]on 01-13-2022 MCHC (RBC) [Mass/Vol] 33.2 g/dL 32-36 [facility] Work Phone: Partial Thromboplast Timeon 01-13-2022 aPTT Coag (Bld) [Time] 31.6 s Normal 24.1-36.2 [facility] Comment on above: Performed By: #### L 300.3900, L300.4310, L100.0100 #### [facility] [address] [place], [address] Platelets bldon 01-13-2022 Platelets (Bld) [#/Vol] 80 10*3/uL 150-450 [facility] Work Phone: Prothrombin Time w/INRon INR Coag (PPP) [Relative time] 1.1 {INR} Normal [facility] Comment on above: Performed By: #### L 300.3900, L300.4310, L100.0100 #### [facility] [address] [place], [address] PT Coag (PPP) [Time] 13.5 s Normal 11.7-14.9 [facility] Comment on above: Performed By: #### L 300.3900, L300.4310, L100.0100 #### [facility] [address] [place], [address] Review by pathologiston 01-04 Pathologist review Hari (Unsp spec) [Interp] Reviewed [facility] Work Phone: Comment on above: Previous reported re sult: Brittany antonia Edited by: RGOOD on 01/13/22:1543Pancytopenia.Leukopenia and Neutropenia.Macrocytic anemia.ThrombocytopeniaClinical correlation necessary.Jalen Wheat M.D. 01/13/22 AMENDED REPORT 01/13/22 1543 PATH REV previously reported as: Brittany knight Oncology Visit Reporton Oncology Visit Report [facility] [address] [place] [address] OFFICE VISIT Date of Service: 01/11/22 1004 MR#: [id number] Acct: [id number] Name: STEWJUNI Rep #: [id number] : 1960 From: Abdirizak James MD Age/Sex: 61/M Location[place] [facility] [place] Status: Signed HPI Subjective Date of Service 01/11/22 Chief Complaint Low blood counts History of Present Illness 61-year-old male with over 59-tnki-mnsb cigarette smoke and excessive alcohol consumption (reports he is cutting down for the past 6 months to 1-2 beers 4 times per week) referred to hematology for progressively worsening pancytopenia. Patient is a poor historian. Medical history notable for hypertension, history of minor cerebrovascular strokes. Patient reports that in January 2021 he received a letter from a hospital/clinic in [facility] (which he has lost) stating that he has lung cancer but he never followed up. [facility] Medical History (Updated 01/11/22 @ 10:53 by [...] [Rx Con (more content not included)... Normal [facility] Absolute lymphocyte counton 12-28-2021 Lymphocytes Auto (Unsp spec) [#/Vol] 1.95 10*3/uL 0.83-4.51 [facility] Work Phone: Basophil percentageon 2021 Basophils/100 WBC (Bld) 0.4 % 0-1 [facility] Work Phone: Bilirubin [Mass/Vol] 0.40 mg/dL 0.20-1.00 [facility] Work Phone: Comment on above: For patients on eltr ombopag therapy, use of Dimension Decker TBIL is not recommended. Chloride [Moles/Vol] 104 mmol/L 98-107 [facility] Work Phone: [phone] Cholesterol [Mass/Vol] 122 mg/dL <200 Wo [facility] Work Phone: [phone] Comment on above: <200 mg/dL Desirable 200-240 mg/dL Borderline >240 mg/dL High Risk Eosinophils/100 WBC (Bld) 2.5 % 0-5 [facility] Work Phone: Glucose [Mass/Vol] 99 mg/dL 74-106 [facility] Work Phone: Neutrophils (Bld) [#/Vol] 0.7 10*3/uL 2.0-7.7 [facility] Work Phone: [phone] Neutrophils/100 WBC (Bld) 25.0 % 47-70 [facility] Work Phone: [phone] Potassium [Moles/Vol] 4.4 mmol/L 3.5-5.1 [facility] Work Phone: [phone] Protein [Mass/Vol] 7.2 g/dL 6.4-8.2 [facility] Work Phone: [phone] Sodium [Moles/Vol] 135 mmol/L 136-145 [facility] Work Phone: [phone] Triglyceride [Mass/Vol] 36 mg/dL <199 [facility] Work Phone: [phone] Comment on above: The drugs N-Acetylcy steine and Metamizole may falsely depress this assay.Serum Triglycerides Reference Interval Normal <150 mg/dL Borderline high 150 - 199 mg/dL High 200 - 499 mg/dL Very High > or = 500 mg/dL WBC (Bld) [#/Vol] 2.8 10*3/uL 4.4-11.0 [facility] Work Phone: [phone] Blood erythrocytes count (nu mber/volume)on 12-28-2021 RBC (Bld) [#/Vol] 2.56 10*6/uL 4.6-6.2 [facility] Work Phone: [phone] Blood hemoglobin measurement (mass/volume)on 12-28-2021 Hemoglobin (Bld) [Mass/Vol] 9.2 g/dL 13.0-16.5 [facility] Work Phone: [phone] Blood lymphocytes/100 leukoc yteson 12-28-2021 Lymphocytes/100 WBC (Bld) 69.6 % 19-41 [facility] Work Phone: Blood manual differential co mment interpretation (narrative result)on 12-28-2021 Manual differential comment Hari (Bld) [Interp] SCANNED [facility] Work Phone: Comment on above: NEUTROPENIA NOTEDTHR OMBOCYTOPENIA NOTED Blood monocytes/100 leukocyt eson 12-28-2021 Monocytes/100 WBC (Bld) 2.1 % 0-10 [facility] Work Phone: Blood platelet mean volumeon 12-28-2021 Platelet mean volume (Bld) [Entitic vol] 9.8 fL 6.2-12.0 [facility] Work Phone: CBC W/Diff, Automatedon 12-05 SMEAR COMMENT SCANNED Normal [facility] Comment on above: Result Comment: NEUT ROPENIA NOTED THROMBOCYTOPENIA NOTED Performed By: #### L 500.4100, L100.0100, L500.4050 ####[facility] [address] [place], [address] Comprehensive Metabolic Prof ilon 12-28-2021 Albumin [Mass/Vol] 3.6 g/dL Normal 3.2-5.0 [facility] Comment on above: Performed By: #### L 500.4100, L100.0100, L500.4050 ####[facility] [address] [place], [address] Albumin/Globulin [Mass ratio] 1.0 {ratio} Normal 0.9-2.4 [facility] Comment on above: Performed By: #### L 500.4100, L100.0100, L500.4050 ####[facility] [address] [place], [address] ALK P 73 U/L Normal 45-117 [facility] Comment on above: Performed By: #### L 500.4100, L100.0100, L500.4050 ####[facility] [address] [place], [address] ALT [Catalytic activity/Vol] 24 U/L Normal 16-61 [facility] Comment on above: Performed By: #### L 500.4100, L100.0100, L500.4050 ####[facility] [address] [place], [address] AST [Catalytic activity/Vol] 17 U/L Normal 15-37 [facility] Comment on above: Performed By: #### L 500.4100, L100.0100, L500.4050 ####[facility] [address] [place], [address] Bilirubin [Mass/Vol] 0.40 mg/dL Normal 0.20-1.00 [facility] Comment on above: Result Comment: For patients on eltrombopag therapy, use of Dimension Decker TBIL is not recommended. Performed By: #### L 500.4100, L100.0100, L500.4050 ####[facility] [address] [place], [address] BUN/CRE 18.2 RATIO Normal 10-20 [facility] Comment on above: Performed By: #### L 500.4100, L100.0100, L500.4050 ####[facility] [address] [place], [address] CA,Total 9.1 mg/dL Normal 8.5-10.1 [facility] Comment on above: Performed By: #### L 500.4100, L100.0100, L500.4050 ####[facility] [address] [place], [address] Chloride [Moles/Vol] 104 mmol/L Normal 98-107 [facility] Comment on above: Performed By: #### L 500.4100, L100.0100, L500.4050 ####[facility] [address] [place], [address] CO2 [Moles/Vol] 25.0 mmol/L Normal 21.0-32.0 [facility] Comment on above: Performed By: #### L 500.4100, L100.0100, L500.4050 ####[facility] [address] [place], [address] Creatinine [Mass/Vol] 0.93 mg/dL Normal 0.70-1.30 [facility] Comment on above: Result Comment: The validity of the calculated GFR GFRAA in patients over 70 years has not been determined. Clinical correlation is essential. Performed By: #### L 500.4100, L100.0100, L500.4050 ####[facility] [address] [place], [address] EST GFR - AA 106 mL/min Normal >60 [facility] Comment on above: Result Comment: Afri can Micronesian GFR Calc Performed By: #### L 500.4100, L100.0100, L500.4050 ####[facility] [address] [place], [address] GAP 6 Normal 5-15 [facility] Comment on above: Performed By: #### L 500.4100, L100.0100, L500.4050 ####[facility] [address] [place], [address] GFR/1.73 sq M.predicted among non-blacks MDRD (S/P/Bld) [Vol rate/Area] 87 mL/min/{1.73_m2} Normal >60 [facility] Comment on above: Result Comment: Non- GFR Calc Performed By: #### L 500.4100, L100.0100, L500.4050 ####[facility] [address] [place], [address] Globulin (S) [Mass/Vol] 3.6 g/dL Normal 2.2-4.2 [facility] Comment on above: Performed By: #### L 500.4100, L100.0100, L500.4050 ####[facility] [address] [place], [address] Glucose [Mass/Vol] 99 mg/dL Normal 74-106 [facility] Comment on above: Performed By: #### L 500.4100, L100.0100, L500.4050 ####[facility] [address] [place], [address] Potassium [Moles/Vol] 4.4 mmol/L Normal 3.5-5.1 [facility] Comment on above: Performed By: #### L 500.4100, L100.0100, L500.4050 ####[facility] [address] [place], [address] Sodium [Moles/Vol] 135 mmol/L Low 136-145 [facility] Comment on above: Performed By: #### L 500.4100, L100.0100, L500.4050 ####[facility] [address] [place], [address] T PROT 7.2 g/dL Normal 6.4-8.2 [facility] Comment on above: Performed By: #### L 500.4100, L100.0100, L500.4050 ####[facility] [address] [place], [address] Urea nitrogen [Mass/Vol] 17 mg/dL Normal 7-18 [facility] Comment on above: Performed By: #### L 500.4100, L100.0100, L500.4050 ####[facility] [address] [place], [address] Determination of erythrocyte mean corpuscular volume (MCV)on 12-28-2021 MCV (RBC) [Entitic vol] 107.0 fL 80-94 [facility] Work Phone: Hematocrit Auto (Bld) [Volum e fraction]on 12-28-2021 Hematocrit (Bld) [Volume fraction] 27.4 % 40-54 [facility] Work Phone: Internal Medicine Office Vis iton 12-28-2021 Internal Medicine Office Visit [facility] [address] [place], [place] [address] OFFICE VISIT Date of Service: 12/28/21 MR#: [id number] Acct: [id number] Name: JUNI MATHIAS Rep #: [id number] : 1960 Provider: Dr. Elva berry MD Age/Sex: 61/M Location: [facility] Status: Signed with Addenda ADDENDUM by Adina Correia on 12/28/21 at 1825 Office Procedure Documentation entered by Adina Correia 12/28/21 18:25: Immunizations Flucelvax Quad [id number] (PF) Performing Provider: Elva Packer MD Administered by: Adina Correia on 12/28/21 18:25 Dose Route Admin Location Lot Number Expiration Date NDC Manufactu rer 0.5 mL IM Left Deltoid [id number] 08/11/22 56268-662-85 [employer] VIS Given Date VIS Provided [...] 10 mg PO 12/28/21 [History Confirmed 12/28/21] [facility] Medical History (Updated 12/28/21 @ 13:29 by [...] cold intolera (more content not included)... Normal [facility] Laboratory - Chemistry and C hemistry - challengeon 12-28-2021 ALP [Catalytic activity/Vol] 73 U/L 45-117 [facility] Work Phone: ALT [Catalytic activity/Vol] 24 U/L 16-61 [facility] Work Phone: CO2 [Moles/Vol] 25.0 mmol/L 21.0-32.0 [facility] Work Phone: [phone] Globulin (S) [Mass/Vol] 3.6 g/dL 2.2-4.2 [facility] Work Phone: Urea nitrogen/Creatinine [Mass ratio] 18.2 mg/mg 10-20 [facility] Work Phone: Laboratory - Hematology and Cell countson 12-28-2021 Erythrocyte distribution width (RBC) [Entitic vol] 53.4 fL 35.1-43.9 [facility] Work Phone: Erythrocyte distribution width (RBC) [Ratio] 13.4 % 11.6-14.6 [facility] Work Phone: [phone] Immature granulocytes/100 WBC (Bld) 0.400 % 0.0-0.9 [facility] Work Phone: Comment on above: IG% - Immature Granu locytes (promyelocytes, myelocytes and metamyelocytes) > 1% indicates that a LEFT SHIFT is Present. MCH (RBC) [Entitic mass] 35.9 pg 27.0-32.0 [facility] Work Phone: Nucleated RBC/100 WBC (Bld) [Ratio] 0 % 0-5 [facility] Work Phone: Lipid Profileon 12-28-2021 Cholesterol [Mass/Vol] 122 mg/dL Normal 200 [facility] Comment on above: Result Comment: <200 mg/dL Desirable 200-240 mg/dL Borderline >240 mg/dL High Risk Performed By: #### L 500.4100, L100.0100, L500.4050 ####[facility] [address] [place], [address] Cholesterol in HDL [Mass/Vol] 66 mg/dL Normal [facility] Comment on above: Result Comment: The drugs N-Acetylcysteine and Metamizole may falsely depress this assay. Reference Range HDL <40 mg/dL Low HDL Cholesterol HDL >or= 60 mg/dL High HDL Cholesterol Performed By: #### L 500.4100, L100.0100, L500.4050 ####[facility] [address] [place], [address] Cholesterol in LDL [Mass/Vol] 49 mg/dL Normal 0-130 [facility] Comment on above: Performed By: #### L 500.4100, L100.0100, L500.4050 ####[facility] [address] [place], [address] Cholesterol in VLDL [Mass/Vol] 7 mg/dL Normal 5-40 [facility] Comment on above: Performed By: #### L 500.4100, L100.0100, L500.4050 ####[facility] [address] [place], [address] Triglyceride [Mass/Vol] 36 mg/dL Normal [facility] Comment on above: Result Comment: The drugs N-Acetylcysteine and Metamizole may falsely depress this assay. Serum Triglycerides Reference Interval Normal <150 mg/dL Borderline high 150 - 199 mg/dL High 200 - 499 mg/dL Very High > or = 500 mg/dL Performed By: #### L 500.4100, L100.0100, L500.4050 ####[facility] [address] [place], [address] MCHC Auto (RBC) [Mass/Vol]on 12-28-2021 MCHC (RBC) [Mass/Vol] 33.6 g/dL 32-36 [facility] Work Phone: No Panel Informationon 12-28 Estimated GFR (MDRD) Amer 106 mL/min >60 [facility] Work Phone: Comment on above: GFR Calc Estimated GFR (MDRD) Non-Af Amer 87 mL/min >60 [facility] Work Phone: Comment on above: Non- GFR Calc Platelets bldon 12-28-2021 Platelets (Bld) [#/Vol] 85 10*3/uL 150-450 [facility] Work Phone: Serum or plasma albumin ronni urement (mass/volume)on 12-28-2021 Albumin [Mass/Vol] 3.6 g/dL 3.2-5.0 [facility] Work Phone: Serum or plasma albumin/glob ulin mass ratioon 12-28-2021 Albumin/Globulin [Mass ratio] 1.0 {ratio} 0.9-2.4 [facility] Work Phone: Serum or plasma calcium ronni urement (mass/volume)on 12-28-2021 Calcium [Mass/Vol] 9.1 mg/dL 8.5-10.1 [facility] Work Phone: Serum or plasma cholesterol in HDL measurement (mass/volume)on 12-28-2021 Cholesterol in HDL [Mass/Vol] 66 mg/dL >40 [facility] Work Phone: Comment on above: The drugs N-Acetylcy steine and Metamizole may falsely depress this assay. Reference Range HDL <40 mg/dL Low HDL Cholesterol HDL >or= 60 mg/dL High HDL Cholesterol Serum or plasma cholesterol in VLDL measurement (mass/volume)on 12-28-2021 Cholesterol in VLDL [Mass/Vol] 7 mg/dL 5-40 [facility] Work Phone: Serum or plasma creatinine m easurement (mass/volume)on 12-28-2021 Creatinine [Mass/Vol] 0.93 mg/dL 0.70-1.30 [facility] Work Phone: Comment on above: The validity of the calculated GFR & GFRAA in patients over 70 years has not been determined. Clinical correlation is essential. Serum or plasma low density lipoprotein (LDL) cholesterol measurement (mass/volume)on 12-28-2021 Cholesterol in LDL [Mass/Vol] 49 mg/dL 0-130 [facility] Work Phone: Serum or plasma urea nitroge n measurement (mass/volume)on 12-28-2021 Urea nitrogen [Mass/Vol] 17 mg/dL 7-18 [facility] Work Phone: Thin prep Papanicolaou smear with manual screeningon 12-28-2021 Thin prep Papanicolaou smear with manual screening 17 U/L 15-37 [facility] Work Phone: Thin prep Papanicolaou smear with manual screening 6 5-15 [facility] Work Phone: Neurology Visit Reporton Neurology Visit Report [facility] [address] [place] [address] OFFICE VISIT Date of Service: 09/27/21 MR#: [id number] Acct: [id number] Name: JUNI MATHIAS Rep #: [id number] : 1960 Provider: Dr. Shahzad simons MD Age/Sex: 60/M Location: [facility] Status: Signed Intake Vital Signs 01/07/21 11:31 [...] mg PO DAILY 09/27/21 [History Confirmed 09/27/21] [facility] Medical History (Updated 09/27/21 @ 21:07 by [...] his stroke. 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 He has not returned to work since [...] 1,000 mcg IM Left Deltoid 1368 11/04/22 [id number] [employer] Supplemental Info Cervical spine CT (01/17/2020): FINDINGS: Normal craniovertebral junction. There are degenerative changes of the anterior atlantoaxial articulation. Normal odontoid process. Normal cervical lordosis. Normal vertebral bodies and posterior osseous elements. C2-3: Normal endplates. Normal disc height an (more content not included)... Normal [facility] Absolute lymphocyte counton 09-24-2021 Lymphocytes Auto (Unsp spec) [#/Vol] 2.26 10*3/uL 0.83-4.51 [facility] Work Phone: Basophil percentageon 2021 Basophils/100 WBC (Bld) 0.3 % 0-1 [facility] Work Phone: Eosinophils/100 WBC (Bld) 2.6 % 0-5 [facility] Work Phone: Neutrophils (Bld) [#/Vol] 1.0 10*3/uL 2.0-7.7 [facility] Work Phone: Neutrophils/100 WBC (Bld) 27.8 % 47-70 [facility] Work Phone: WBC (Bld) [#/Vol] 3.5 10*3/uL 4.4-11.0 [facility] Work Phone: Blood erythrocytes count (nu mber/volume)on 09-24-2021 RBC (Bld) [#/Vol] 2.58 10*6/uL 4.6-6.2 [facility] Work Phone: Blood hemoglobin measurement (mass/volume)on 09-24-2021 Hemoglobin (Bld) [Mass/Vol] 9.4 g/dL 13.0-16.5 [facility] Work Phone: Blood lymphocytes/100 leukoc yteson 09-24-2021 Lymphocytes/100 WBC (Bld) 65.5 % 19-41 [facility] Work Phone: Blood manual differential co mment interpretation (narrative result)on 09-24-2021 Manual differential comment Hari (Bld) [Interp] See comment [facility] Work Phone: Comment on above: NEUTROPENIA NOTED Blood monocytes/100 leukocyt eson 09-24-2021 Monocytes/100 WBC (Bld) 3.5 % 0-10 [facility] Work Phone: [phone] Blood platelet adequacy dete ction by light microscopyon 09-24-2021 Platelets LM Ql (Bld) MOD DEC ADEQ [facility] Work Phone: Blood platelet mean volumeon 09-24-2021 Platelet mean volume (Bld) [Entitic vol] 9.9 fL 6.2-12.0 [facility] Work Phone: CBC W/Diff, Automatedon 09-04 Anisocytosis Ql (Bld) 1+ Normal [facility] Comment on above: Performed By: #### L 100.0100 ####[facility] [address] [place], [address] PLT EST MOD DEC Normal [facility] Comment on above: Performed By: #### L 100.0100 ####[facility] [address] [place], [address] RED CELL MORPH N CHROM Normal NORM C C [facility] Comment on above: Performed By: #### L 100.0100 ####[facility] [address] [place], [address] SMEAR COMMENT Normal [facility] Comment on above: Result Comment: NEUT ROPENIA NOTED Performed By: #### L 100.0100 ####[facility] [address] [place], [address] Determination of erythrocyte mean corpuscular volume (MCV)on 09-24-2021 MCV (RBC) [Entitic vol] 107.8 fL 80-94 [facility] Work Phone: Hematocrit Auto (Bld) [Volum e fraction]on 09-24-2021 Hematocrit (Bld) [Volume fraction] 27.8 % 40-54 [facility] Work Phone: [phone] Laboratory - Hematology and Cell countson 09-24-2021 Anisocytosis Ql (Bld) 1+ [facility] Work Phone: [phone] Erythrocyte distribution width (RBC) [Entitic vol] 48.9 fL 35.1-43.9 [facility] Work Phone: [phone] Erythrocyte distribution width (RBC) [Ratio] 12.4 % 11.6-14.6 [facility] Work Phone: [phone] Immature granulocytes/100 WBC (Bld) 0.300 % 0.0-0.9 [facility] Work Phone: [phone] Comment on above: IG% - Immature Granu locytes (promyelocytes, myelocytes and metamyelocytes) > 1% indicates that a LEFT SHIFT is Present. MCH (RBC) [Entitic mass] 36.4 pg 27.0-32.0 [facility] Work Phone: [phone] Nucleated RBC/100 WBC (Bld) [Ratio] 0 % 0-5 [facility] Work Phone: [phone] MCHC Auto (RBC) [Mass/Vol]on 09-24-2021 MCHC (RBC) [Mass/Vol] 33.8 g/dL 32-36 [facility] Work Phone: Platelets bldon 09-24-2021 Platelets (Bld) [#/Vol] 95 10*3/uL 150-450 [facility] Work Phone: [phone] RBC morphologyon 09-24-2021 RBC morphology finding Nom (Bld) N CHROM NORMAL NORM C&C [facility] Work Phone: [phone] Carotid Duplex Ultrasoundon 07-20-2021 Carotid Duplex Ultrasound [facility] [address] [place] [address] Carotid Duplex Ultrasound 07/20/21 1303 MR#: [id number] Acct: [id number] Name: JUNI MATHIAS Rep #: [id number] : 1960 60 From: Min Amaral MD [...] the left vertebral artery. Procedure Carotid Duplex 20277. This is a Carotid Duplex examination using [...] Date Dictated: 07/20/21 1303 Date Transcribed: 07/20/211406 Surgical Assist: Signed Normal [facility] Internal Medicine Office Vis itoraegan 06-15-2021 Internal Medicine Office Visit [facility] [address] [place] [address] [place] [address] OFFICE VISIT Date of Service: 06/15/21 MR#: [id number] Acct: [id number] Name: JUNI MATHIAS Rep #: [id number] : 1960 Provider: GERSON Negron Age/Sex: 60/M Location: [facility] Status: Signed Intake Vital Signs 06/15/21 16:05 [...] complete sentence (more content not included)... Normal [facility] Vitamin B1, Thiamineon 06-15 VIT B1 THIAMINE 48.5 nmol/L Low 66.5-200.0 [facility] Comment on above: Order Comment: Test( s) [id number]. B1, Whole Bloodwas developed and its performance characteristicsdetermined by [facility]. It has not been cleared or approvedby the Food and Drug Administration. Result Comment: Ve rified by repeat analysis Performed at: [address] [id number] [employer] Manager: Ac Kate MD, Phone: [phone] Performed By: #### L 100.4500, L503.0105, L100.0500, L506.0250, L501.9520, L3300.8000, L503.6150, L500.4050, L503.6550 ####[facility] [address] [place], [place], [address] Basophil percentageon 2021 Bilirubin [Mass/Vol] 0.40 mg/dL 0.20-1.00 [facility] Work Phone: Comment on above: For patients on eltr ombopag therapy, use of Dimension Decker TBIL is not recommended. Chloride [Moles/Vol] 114 mmol/L 98-107 [facility] Work Phone: Glucose [Mass/Vol] 93 mg/dL 74-106 [facility] Work Phone: [phone] Potassium [Moles/Vol] 3.7 mmol/L 3.5-5.1 [facility] Work Phone: [phone] Protein [Mass/Vol] 7.2 g/dL 6.4-8.2 [facility] Work Phone: Sodium [Moles/Vol] 144 mmol/L 136-145 [facility] Work Phone: [phone] WBC (Bld) [#/Vol] 2.6 10*3/uL 4.4-11.0 [facility] Work Phone: [phone] Blood erythrocytes count (nu mber/volume)on 06-01-2021 RBC (Bld) [#/Vol] 2.37 10*6/uL 4.6-6.2 [facility] Work Phone: Blood hemoglobin measurement (mass/volume)on 06-01-2021 Hemoglobin (Bld) [Mass/Vol] 8.8 g/dL 13.0-16.5 [facility] Work Phone: Blood manual differential co mment interpretation (narrative result)on 06-01-2021 Manual differential comment Hari (Bld) [Interp] See comment [facility] Work Phone: Comment on above: THROMBOCYTOPENIA Blood platelet mean volumeon 06-01-2021 Platelet mean volume (Bld) [Entitic vol] 10.1 fL 6.2-12.0 [facility] Work Phone: CBC-Complete Blood Cnt No Di ffon 06-01-2021 Erythrocyte distribution width (RBC) [Ratio] 15.2 % High 11.6-14.6 [facility] Comment on above: Performed By: #### L 100.4500, L503.0105, L100.0500, L506.0250, L501.9520, L3300.8000, L503.6150, L500.4050, L503.6550 ####[facility] [address] [place], [address] Hematocrit (Bld) [Volume fraction] 25.8 % Low 40-54 [facility] Comment on above: Performed By: #### L 100.4500, L503.0105, L100.0500, L506.0250, L501.9520, L3300.8000, L503.6150, L500.4050, L503.6550 ####[facility] [address] [place], [address] Hemoglobin (Bld) [Mass/Vol] 8.8 g/dL Low 13.0-16.5 [facility] Comment on above: Performed By: #### L 100.4500, L503.0105, L100.0500, L506.0250, L501.9520, L3300.8000, L503.6150, L500.4050, L503.6550 ####[facility] [address] [place], [address] MCH (RBC) [Entitic mass] 37.1 pg High 27.0-32.0 [facility] Comment on above: Performed By: #### L 100.4500, L503.0105, L100.0500, L506.0250, L501.9520, L3300.8000, L503.6150, L500.4050, L503.6550 ####[facility] [address] [place], [address] MCHC (RBC) [Mass/Vol] 34.1 g/dL Normal 32-36 [facility] Comment on above: Performed By: #### L 100.4500, L503.0105, L100.0500, L506.0250, L501.9520, L3300.8000, L503.6150, L500.4050, L503.6550 ####[facility] [address] [place], [address] MCV (RBC) [Entitic vol] 108.9 fL High 80-94 [facility] Comment on above: Performed By: #### L 100.4500, L503.0105, L100.0500, L506.0250, L501.9520, L3300.8000, L503.6150, L500.4050, L503.6550 ####[facility] [address] [place], [address] Platelet mean volume (Bld) [Entitic vol] 10.1 fL Normal 6.2-12.0 [facility] Comment on above: Performed By: #### L 100.4500, L503.0105, L100.0500, L506.0250, L501.9520, L3300.8000, L503.6150, L500.4050, L503.6550 ####[facility] [address] [place], [address] Platelets (Bld) [#/Vol] 85 10*3/uL Low 150-450 [facility] Comment on above: Performed By: #### L 100.4500, L503.0105, L100.0500, L506.0250, L501.9520, L3300.8000, L503.6150, L500.4050, L503.6550 ####[facility] [address] [place], [address] RBC (Bld) [#/Vol] 2.37 10*6/uL Low 4.6-6.2 [facility] Comment on above: Performed By: #### L 100.4500, L503.0105, L100.0500, L506.0250, L501.9520, L3300.8000, L503.6150, L500.4050, L503.6550 ####[facility] [address] [place], [place], [address]) RDW SD 58.8 fl High 35.1-43.9 [facility] Comment on above: Performed By: #### L 100.4500, L503.0105, L100.0500, L506.0250, L501.9520, L3300.8000, L503.6150, L500.4050, L503.6550 ####[facility] [address] [place], [address] WBC (Bld) [#/Vol] 2.6 10*3/uL Low 4.4-11.0 [facility] Comment on above: Performed By: #### L 100.4500, L503.0105, L100.0500, L506.0250, L501.9520, L3300.8000, L503.6150, L500.4050, L503.6550 ####[facility] [address] [place], [place], [phone]) Comprehensive Metabolic Prof ilrena 06-01-2021 Albumin [Mass/Vol] 3.4 g/dL Normal 3.2-5.0 [facility] Comment on above: Order Comment: N Performed By: #### L 100.4500, L503.0105, L100.0500, L506.0250, L501.9520, L3300.8000, L503.6150, L500.4050, L503.6550 ####[facility] [address] [place], [address] Albumin/Globulin [Mass ratio] 0.9 {ratio} Normal 0.9-2.4 [facility] Comment on above: Order Comment: N Performed By: #### L 100.4500, L503.0105, L100.0500, L506.0250, L501.9520, L3300.8000, L503.6150, L500.4050, L503.6550 ####[facility] [address] [place], [address] ALK P 56 U/L Normal 45-117 [facility] Comment on above: Order Comment: N Performed By: #### L 100.4500, L503.0105, L100.0500, L506.0250, L501.9520, L3300.8000, L503.6150, L500.4050, L503.6550 ####[facility] [address] [place], [address] ALT [Catalytic activity/Vol] 18 U/L Normal 16-61 [facility] Comment on above: Order Comment: N Performed By: #### L 100.4500, L503.0105, L100.0500, L506.0250, L501.9520, L3300.8000, L503.6150, L500.4050, L503.6550 ####[facility] [address] [place], [address] AST [Catalytic activity/Vol] 11 U/L Low 15-37 [facility] Comment on above: Order Comment: N Performed By: #### L 100.4500, L503.0105, L100.0500, L506.0250, L501.9520, L3300.8000, L503.6150, L500.4050, L503.6550 ####[facility] [address] [place], [address] Bilirubin [Mass/Vol] 0.40 mg/dL Normal 0.20-1.00 [facility] Comment on above: Order Comment: N Result Comment: For patients on eltrombopag therapy, use of Dimension Decker TBIL is not recommended. Performed By: #### L 100.4500, L503.0105, L100.0500, L506.0250, L501.9520, L3300.8000, L503.6150, L500.4050, L503.6550 ####[facility] [address] [place], [address] BUN/CRE 19.0 RATIO Normal 10-20 [facility] Comment on above: Order Comment: N Performed By: #### L 100.4500, L503.0105, L100.0500, L506.0250, L501.9520, L3300.8000, L503.6150, L500.4050, L503.6550 ####[facility] [address] [place], [address] CA,Total 8.3 mg/dL Low 8.5-10.1 [facility] Comment on above: Order Comment: N Performed By: #### L 100.4500, L503.0105, L100.0500, L506.0250, L501.9520, L3300.8000, L503.6150, L500.4050, L503.6550 ####[facility] [address] [place], [address] Chloride [Moles/Vol] 114 mmol/L High 98-107 [facility] Comment on above: Order Comment: N Performed By: #### L 100.4500, L503.0105, L100.0500, L506.0250, L501.9520, L3300.8000, L503.6150, L500.4050, L503.6550 ####[facility] [address] [place], [address] CO2 [Moles/Vol] 26.0 mmol/L Normal 21.0-32.0 [facility] Comment on above: Order Comment: N Performed By: #### L 100.4500, L503.0105, L100.0500, L506.0250, L501.9520, L3300.8000, L503.6150, L500.4050, L503.6550 ####[facility] [address] [place], [place], [phone] Creatinine [Mass/Vol] 0.79 mg/dL Normal 0.70-1.30 [facility] Comment on above: Order Comment: N Result Comment: The validity of the calculated GFR GFRAA in patients over 70 years has not been determined. Clinical correlation is essential. Performed By: #### L 100.4500, L503.0105, L100.0500, L506.0250, L501.9520, L3300.8000, L503.6150, L500.4050, L503.6550 ####[facility] [address] [place], [address] EST GFR - AA 128 mL/min Normal >60 [facility] Comment on above: Order Comment: N Result Comment: Afri can Micronesian GFR Calc Performed By: #### L 100.4500, L503.0105, L100.0500, L506.0250, L501.9520, L3300.8000, L503.6150, L500.4050, L503.6550 ####[facility] [address] [place], [address] GAP 4 Low 5-15 [facility] Comment on above: Order Comment: N Performed By: #### L 100.4500, L503.0105, L100.0500, L506.0250, L501.9520, L3300.8000, L503.6150, L500.4050, L503.6550 ####[facility] [address] [place], [address] GFR/1.73 sq M.predicted among non-blacks MDRD (S/P/Bld) [Vol rate/Area] 106 mL/min/{1.73_m2} Normal >60 [facility] Comment on above: Order Comment: N Result Comment: Non- GFR Calc Performed By: #### L 100.4500, L503.0105, L100.0500, L506.0250, L501.9520, L3300.8000, L503.6150, L500.4050, L503.6550 ####[facility] [address] [place], [place], [phone]([phone]) Globulin (S) [Mass/Vol] 3.8 g/dL Normal 2.2-4.2 [facility] Comment on above: Order Comment: N Performed By: #### L 100.4500, L503.0105, L100.0500, L506.0250, L501.9520, L3300.8000, L503.6150, L500.4050, L503.6550 ####[facility] [address] [place], [address] Glucose [Mass/Vol] 93 mg/dL Normal 74-106 [facility] Comment on above: Order Comment: N Performed By: #### L 100.4500, L503.0105, L100.0500, L506.0250, L501.9520, L3300.8000, L503.6150, L500.4050, L503.6550 ####[facility] [address] [place], [place], [phone]) Potassium [Moles/Vol] 3.7 mmol/L Normal 3.5-5.1 [facility] Comment on above: Order Comment: N Performed By: #### L 100.4500, L503.0105, L100.0500, L506.0250, L501.9520, L3300.8000, L503.6150, L500.4050, L503.6550 ####[facility] [address] [place], [place], [phone] Sodium [Moles/Vol] 144 mmol/L Normal 136-145 [facility] Comment on above: Order Comment: N Performed By: #### L 100.4500, L503.0105, L100.0500, L506.0250, L501.9520, L3300.8000, L503.6150, L500.4050, L503.6550 ####[facility] [address] [place], [place], [phone] T PROT 7.2 g/dL Normal 6.4-8.2 [facility] Comment on above: Order Comment: N Performed By: #### L 100.4500, L503.0105, L100.0500, L506.0250, L501.9520, L3300.8000, L503.6150, L500.4050, L503.6550 ####[facility] [address] [place], [place], [phone] Urea nitrogen [Mass/Vol] 15 mg/dL Normal 7-18 [facility] Comment on above: Order Comment: N Performed By: #### L 100.4500, L503.0105, L100.0500, L506.0250, L501.9520, L3300.8000, L503.6150, L500.4050, L503.6550 ####[facility] [address] [place], [place], [phone] Determination of erythrocyte mean corpuscular volume (MCV)on 06-01-2021 MCV (RBC) [Entitic vol] 108.9 fL 80-94 [facility] Work Phone: Differential Commenton 06-01 SMEAR COMMENT Normal [facility] Comment on above: Result Comment: THRO MBOCYTOPENIA Performed By: #### L 100.4500, L503.0105, L100.0500, L506.0250, L501.9520, L3300.8000, L503.6150, L500.4050, L503.6550 ####[facility] [address] [place], [place], [phone] Ferritinon 06-01-2021 Ferritin [Mass/Vol] 183 ng/mL Normal 26-388 [facility] Comment on above: Order Comment: N Performed By: #### L 100.4500, L503.0105, L100.0500, L506.0250, L501.9520, L3300.8000, L503.6150, L500.4050, L503.6550 ####[facility] [address] [place], [place], [phone] Folates, (Folic Acid)on 05-05 FOLATES 14.00 ng/mL Normal 3.1-55.4 [facility] Comment on above: Order Comment: N Performed By: #### L 100.4500, L503.0105, L100.0500, L506.0250, L501.9520, L3300.8000, L503.6150, L500.4050, L503.6550 ####[facility] [address] [place], [place], [phone] Hematocrit Auto (Bld) [Volum e fraction]on 06-01-2021 Hematocrit (Bld) [Volume fraction] 25.8 % 40-54 [facility] Work Phone: Ironon 06-01-2021 Iron [Mass/Vol] 145 ug/dL Normal 65-175 [facility] Comment on above: Order Comment: N Performed By: #### L 100.4500, L503.0105, L100.0500, L506.0250, L501.9520, L3300.8000, L503.6150, L500.4050, L503.6550 ####[facility] [address] [place], [address] Iron measurement (mass/mass) on 06-01-2021 Iron (Unsp spec) [Mass/Mass] 145 ug/dL 65-175 [facility] Work Phone: [phone] Laboratory - Chemistry and C hemistry - challengeon 06-01-2021 ALP [Catalytic activity/Vol] 56 U/L 45-117 [facility] Work Phone: ALT [Catalytic activity/Vol] 18 U/L 16-61 [facility] Work Phone: CO2 [Moles/Vol] 26.0 mmol/L 21.0-32.0 [facility] Work Phone: [phone] Cobalamin (Vitamin B12) [Mass/Vol] 295 pg/mL 211-911 [facility] Work Phone: Globulin (S) [Mass/Vol] 3.8 g/dL 2.2-4.2 [facility] Work Phone: [phone] Urea nitrogen/Creatinine [Mass ratio] 19.0 mg/mg 10-20 [facility] Work Phone: [phone] Laboratory - Hematology and Cell countson 06-01-2021 Erythrocyte distribution width (RBC) [Entitic vol] 58.8 fL 35.1-43.9 [facility] Work Phone: [phone] Erythrocyte distribution width (RBC) [Ratio] 15.2 % 11.6-14.6 [facility] Work Phone: MCH (RBC) [Entitic mass] 37.1 pg 27.0-32.0 [facility] Work Phone: [phone] MCHC Auto (RBC) [Mass/Vol]on 06-01-2021 MCHC (RBC) [Mass/Vol] 34.1 g/dL 32-36 [facility] Work Phone: No Panel Informationon 06-01 Estimated GFR (MDRD) Amer 128 mL/min >60 [facility] Work Phone: Comment on above: GFR Calc Estimated GFR (MDRD) Non-Af Amer 106 mL/min >60 [facility] Work Phone: Comment on above: Non- GFR Calc Thyroid Stimulating Hormone (TSH) 2.63 uIU/mL 0.358-3.74 [facility] Work Phone: Whole Blood Vitamin B1 Level 48.5 nmol/L 66.5-200.0 [facility] Work Phone: Comment on above: Verified by repeat analysisPerformed at: [facility] [address] [id number] Director: Ac Kate MD, Phone: [phone] Platelets bldon 06-01-2021 Platelets (Bld) [#/Vol] 85 10*3/uL 150-450 [facility] Work Phone: Serum or plasma albumin ronni urement (mass/volume)on 06-01-2021 Albumin [Mass/Vol] 3.4 g/dL 3.2-5.0 [facility] Work Phone: Serum or plasma albumin/glob ulin mass ratioon 06-01-2021 Albumin/Globulin [Mass ratio] 0.9 {ratio} 0.9-2.4 [facility] Work Phone: Serum or plasma calcium ronni urement (mass/volume)on 06-01-2021 Calcium [Mass/Vol] 8.3 mg/dL 8.5-10.1 [facility] Work Phone: Serum or plasma creatinine m easurement (mass/volume)on 06-01-2021 Creatinine [Mass/Vol] 0.79 mg/dL 0.70-1.30 [facility] Work Phone: Comment on above: The validity of the calculated GFR & GFRAA in patients over 70 years has not been determined. Clinical correlation is essential. Serum or plasma ferritin nagi surement (mass/volume)on 06-01-2021 Ferritin [Mass/Vol] 183 ng/mL 26-388 [facility] Work Phone: Serum or plasma folate measu rement (mass/volume)on 06-01-2021 Folate [Mass/Vol] 14.00 ng/mL 3.1-55.4 [facility] Work Phone: Serum or plasma urea nitroge n measurement (mass/volume)on 06-01-2021 Urea nitrogen [Mass/Vol] 15 mg/dL 7-18 [facility] Work Phone: Thin prep Papanicolaou smear with manual screeningon 06-01-2021 Thin prep Papanicolaou smear with manual screening 11 U/L 15-37 [facility] Work Phone: Thin prep Papanicolaou smear with manual screening 4 5-15 [facility] Work Phone: Thyroid Stim Hormone (TSH)on 06-01-2021 TSH 2.63 uIU/mL Normal 0.358-3.74 [facility] Comment on above: Order Comment: N Performed By: #### L 100.4500, L503.0105, L100.0500, L506.0250, L501.9520, L3300.8000, L503.6150, L500.4050, L503.6550 ####[facility] [address] [place], [place], [phone] Vitamin B12on 06-01-2021 Cobalamin (Vitamin B12) [Mass/Vol] 295 pg/mL Normal 211-911 [facility] Comment on above: Performed By: #### L 100.4500, L503.0105, L100.0500, L506.0250, L501.9520, L3300.8000, L503.6150, L500.4050, L503.6550 ####[facility] [address] [place], [address] Neurology Visit Reporton 03- 24-2022 Neurology Visit Report [facility] [address] [place] [address] OFFICE VISIT Date of Service: 05/27/21 MR#: [id number] Acct: [id number] Name: JUNI MATHIAS Rep #: [id number] : 1960 Provider: Dr. Shahzad simons MD Age/Sex: 60/M Location: [facility] Status: Signed with Addenda ADDENDUM by Dr. [...] his stroke. 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 He has not returned to work since [...] subsequently obtaine (more content not included)... Normal [facility] Basophil percentageon 2021 Creatinine [Mass/Vol] 0.6 mg/dL 0.70-1.30 [facility] Work Phone: Brain W/WO Contraston 2021 Brain W/WO Contrast [facility] [address] [place] [address] Brain W/WO Contrast MR#: [id number] Acct: [id number] Name: JUNI MATHIAS Rep #: [id number] : 1960 M 60 From: [facility] PCP: Dr. Elva Packer MD Status: REG CLI Study: Brain W/WO Contrast Date of Exam: 05/12/21 Exam# [id number] Ordering Dr: Shahzad Roldan MD EXAM: MR HEAD WITHOUT AND WITH INTRAVENOUS CONTRAST CLINICAL INDICATION: CVA, MCI recheck stroke, still has speech change TECHNIQUE: Multiplanar and multisequence MR images of the brain were obtained without and with intravenous contrast. This report was created using [employer] report generation technology. CONTRAST: IV dotarem 11ml [...] Elva Packer MD; Dr. Shahzad Roldan MD Surgical Assist: Signed Normal [facility] CREATININE FINGERSTICKon Creatinine [Mass/Vol] 0.6 mg/dL Low 0.70-1.30 [facility] Comment on above: Performed By: #### L 9100.0200 #### [facility] [address] [facility]. [place], [place], [id number] EGFR WB > 60.0000 Normal >60 [facility] Comment on above: Performed By: #### L 9100.0200 #### [facility] [address] [facility] [place], [address] No Panel Informationon 05-12 Bedside Estimated GFR (eGFR) > 60.0000 mL/min >60 [facility] Work Phone: Basic Metabolic Panelon 11-0 Anion gap [Moles/Vol] 6 mmol/L Normal 3-13 [facility] Comment on above: Performed By: #### B NP3, TROPN, BMP3, HEMOG #### [address] [address] Calcium [Mass/Vol] 8.9 mg/dL Normal 8.4-10.4 [facility] Comment on above: Performed By: #### B NP3, TROPN, BMP3, HEMOG #### [facility] [address], [place] CO2 [Moles/Vol] 23 mmol/L Normal 22-30 [facility] Comment on above: Performed By: #### B NP3, TROPN, BMP3, HEMOG #### [facility] [address], [place] Glucose [Mass/Vol] 95 mg/dL Normal 70-100 [facility] Comment on above: Performed By: #### B NP3, TROPN, BMP3, HEMOG #### [facility] [address], [place] Urea nitrogen [Mass/Vol] 20 mg/dL High 7-17 [facility] Comment on above: Performed By: #### B NP3, TROPN, BMP3, HEMOG #### [facility] [address], [place] Creatinine [Mass/Vol] 0.76 mg/dL Normal 0.52-1.25 [facility] Comment on above: Performed By: #### B NP3, TROPN, BMP3, HEMOG #### [facility] [address], [place] eGFR OTHER > 90.0 Normal >60 [facility] Comment on above: Result Comment: KDIG O [...] #### B NP3, TROPN, BMP3, HEMOG #### [place] [address] [address], [place] GFR/1.73 sq M.predicted among blacks MDRD (S/P/Bld) [Vol rate/Area] mL/min/{1.73_m2} Normal >60 [facility] Comment on above: Performed By: #### B NP3, TROPN, BMP3, HEMOG #### [place] [address], [place] Potassium [Moles/Vol] 4.1 mmol/L Normal 3.5-5.1 [facility] Comment on above: Performed By: #### B NP3, TROPN, BMP3, HEMOG #### [place] [address] [address], [place] Sodium [Moles/Vol] 137 mmol/L Normal 135-145 [facility] Comment on above: Performed By: #### B NP3, TROPN, BMP3, HEMOG #### [place] [address], [place] Chloride [Moles/Vol] 107 mmol/L Normal 98-107 [facility] Comment on above: Performed By: #### B NP3, TROPN, BMP3, HEMOG #### [place] [address] [address], [place] Basic Metabolic PanelOrdered By: Sylvia Laughlin on 01-07-2021 Anion gap [Moles/Vol] 6 mmol/L 3 - 13 mmol/L [facility] Work Phone: Calcium [Mass/Vol] 8.9 mg/dL 8.4 - 10. 4 mg/dL [facility] Work Phone: Chloride [Moles/Vol] 107 mmol/L 98 - 10 7 mmol/L [facility] Work Phone: CO2 [Moles/Vol] 23 mmol/L 22 - 30 mmol/L [facility] Work Phone: Creatinine [Mass/Vol] 0.76 mg/dL 0.52 - 1.25 mg/dL [facility] Work Phone: EGFR IF NonAfrican Micronesian >90.0 >60 mL/min [facility] Work Phone: Comment [...] MDRD (S/P/Bld) [Vol rate/Area] mL/min/{1.73_m2} >60 mL/min [facility] Work Phone: Glucose [Mass/Vol] 95 mg/dL 70 - 100 mg/dL [facility] Work Phone: Interpretation and review of laboratory results Abnormal [facility] Work Phone: Potassium [Moles/Vol] 4.1 mmol/L 3.5 - 5.1 mmol/L [facility] Work Phone: Sodium [Moles/Vol] 137 mmol/L 135 - 145 mmol/L [facility] Work Phone: Urea nitrogen (BldV) [Mass/Vol] 20 mg/dL High 7 - 17 mg/dL [facility] Work Phone: Test Performed by [address] [address] [employer] [facility] Work Phone: [employer] Work Phone: Brain Natriuretic PeptideOrd ered By: Sylvia Laughlin on 01-07-2021 Interpretation and review of laboratory results Abnormal [facility] Work Phone: Natriuretic peptide B (Bld) [Mass/Vol] 132 pg/mL High 0 - 125 pg/mL [facility] Work Phone: CT Cervical Spine WO Contras tOrdered By: Sylvia Laughlin on 01-07-2021 [id number] Tomography ACCESSION EXAM DATE/TIME PROCEDURE ORDERING PROVIDER [id number] 01/07/2021 20:[address] Spine Cervical w/o 132261 -SYLVIA LAUGHLIN CPT code 57611 Reason For Exam (CT Spine Cervical w/o [...] tissues are normal in appearance. There is yrum-ff-obdgzxzn loss of disc height C3-C4, C5-C6 and C6-C7 with whhs-uv-nksguhmh endplate degenerative sclerosis and small endplate osteophytes. [...] nodule series 3 image 170. Impression: 1. Hpcp-tz-vkotjori cervical spondylosis. Moderate neuroforaminal narrowing on the [...] 8:40 PM EDT [id number] Computed Tomography ACCESSION EXAM DATE/TIME PROCEDURE ORDERING PROVIDER [id number] 01/07/2021 20:[address] Spine Cervical w/o 061906 -SYLVIA LAUGHLIN Contrast CPT code 02365 Reason For Exam (CT Spine Cervical w/o [...] tissues are normal in appearance. There is wpxg-ts-virlmces loss of disc height C3-C4, C5-C6 and C6-C7 with kzvr-nh-bzfyudid endplate degenerative sclerosis and small endplate osteophytes. [...] nodule series 3 image 170. Impression: 1. Wvuk-ke-gnugjhmy cervical spondylosis. Moderate neuroforaminal narrowing on the right C5-C6 and C6-C7. 2. No CT evidence of fracture or subluxation of the cervical spine. 3. At least moderate emphysematous changes in the lung apices. Small 3 mm pulmonary nodule left lung apex statistically likely to be benign. Lungs incompletely evaluated. Computed Tomography Report Report Dictated on Workstation: [place] [id number] --- Final --- Dictated: 01/07/2021 8:35 pm Dictating Physician: MD TAYLOR ANTHONY J Signed Date and Time: 01/07/2021 8:39 pm Signed by: MD TAYLOR ANTHONY J Transcribed Date and Time: 01/07/2021 8:35 [facility] Work Phone: [facility] Work Phone: CT Head WO ContrastOrdered B y: Sylvia Truman on 01-07-2021 [id number] Computed Tomography ACCESSION EXAM DATE/TIME PROCEDURE ORDERING PROVIDER [id number] 01/07/2021 20:[address] Head or Brain w/o 986322 -TRUMAN, SYLVIA Contrast CPT code 21170 Reason For Exam (CT Head or Brain [...] Computed Tomography Report Report Dictated on Workstation: [facility]08 --- Final --- Dictated: 01/07/2021 8:32 pm Dictating Physician: MD TAYLOR ANTHONY J Signed Date and Time: 01/07/2021 8:35 pm Signed by: MD TAYLOR ANTHONY J Transcribed Date and Time: 01/07/2021 8:32 [facility] Work Phone: Tom, [facility] Incoming Rad[facility] Results From [facility] - 01/07/2021 8:36 PM EDT Patient [facility]: [id number] Computed Tomography ACCESSION EXAM DATE/TIME PROCEDURE ORDERING PROVIDER [id number] 01/07/2021 20:[address] Head or Brain w/o 401550 -SYLVIA LAUGHLIN Contrast CPT code 29864 Reason For Exam (CT Head or Brain [...] J Transcribed Date and Time: 01/07/2021 8:32 [facility] Work Phone: [facility] Work Phone: CT Head or Brain w/o Contrsixto ton 01-07-2021 CT Head or Brain w/o Contrast Patient [facility]: [id number] Computed Tomography ACCESSION EXAM DATE/TIME PROCEDURE ORDERING PROVIDER [id number] 01/07/2021 20:[address] Head or Brain w/o 948031 -TRUMAN, SYLVIA Contrast CPT code 13762 Reason For Exam (CT Head or Brain [...] Transcribed Date and Time: 01/07/2021 8:32 Normal [facility] CT Spine Cervical w/o Contra bebon 01-07-2021 CT Spine Cervical w/o Contrast Patient Name: JUNI MATHIAS [facility]#: [id number] Computed Tomography ACCESSION EXAM DATE/TIME PROCEDURE ORDERING PROVIDER [id number] 01/07/2021 20:[address] Spine Cervical w/o 519494 -TRUMAN, SYLVIA Contrast CPT code 95410 Reason For Exam (CT Spine Cervical w/o [...] tissues are normal in appearance. There is haqk-ep-vnsmwmkb loss of disc height C3-C4, C5-C6 and C6-C7 with tmid-ip-gpuhyvbf endplate degenerative sclerosis and small endplate osteophytes. [...] nodule series 3 image 170. Impression: 1. Cber-xg-papvxjbl cervical spondylosis. Moderate neuroforaminal narrowing on the [...] Transcribed Date and Time: 01/07/2021 8:35 Normal [facility] ED Provider Noteon [facility] Patient: Juni Mathias : [...] and his left arm. Pt is A&O3 QAWALANGIN I was wearing appropriate PPE during entire encounter. Juni Mathias is a 60 y.o. male whopresents to the emergency department from third [facility]. Patient was visiting his and reportedly went [...] otherwise acutely negative except as in the QAWALANGIN. Past History No past medical history on [...] Gatherings with Friends and Family: ? Attends Confucianist Services: ? Active Member of Clubs or [...] eGFR >90.0 >60 mL/min EGFR IF NonAfrican Micronesian >90.0 >60 mL/min Calcium 8.9 8.4 - 10.4 mg/dL Brain Natriuretic Peptide Result Value Ref Range NT Pro-BNP 132 (H) 0 - 125 pg/mL Hemogram (CBC) Resul (more content not included)... Normal [facility] ED Provider Note Emergency Department Encounter [facility] EMERGENCY DEPT Patient: Juni Mathias : 1960 Date of Evaluation: 01/07/2021 ED Supervising Physician: Sylvia Laughlin MD I independently examined and evaluated Juni Mathias. In brief, Juni Mathias is a 60 y.o. male that presents to the emergency department drop syncope. No CP, SOB. Pt did hit head, now having neck pain. No MAGDALENO prior, abd pain, blood instool. No hisotyr of TX/CHF Focused exam: Patient's awake alert no signs of head trauma he is in a c-collar no focal neurologic deficits lungs clear to auscultation no increased work of breathing Brief ED course/MDM: Patient presented with drop syncope. No history of cardiac disease. EKG shows normal sinus rhythm no ST elevations or depressions. No signs of QT abnormality Brugada Nofpp-Rukfaamco-Zlqei ischemia or arrhythmia. Head and neck CT [...] Solutions Sylvia Laughlin MD 01/07/21 2235 Normal [facility] Hemogramon 01-07-2021 Erythrocyte distribution width (RBC) [Ratio] 13.5 % Normal 11.5-14.5 [facility] Comment on above: Performed By: #### B NP3, TROPN, BMP3, HEMOG #### [place] [address], [place] Hematocrit (Bld) [Volume fraction] 30.9 % Low 40.0-52.0 [facility] Comment on above: Performed By: #### B NP3, TROPN, BMP3, HEMOG #### [place] [address] [address], [place] Hemoglobin (Bld) [Mass/Vol] 10.6 g/dL Low 13.0-18.0 [facility] Comment on above: Performed By: #### B NP3, TROPN, BMP3, HEMOG #### [place] [address] [address], [place] MCH (RBC) [Entitic mass] 34.6 pg High 26.0-34.0 [facility] Comment on above: Performed By: #### B NP3, TROPN, BMP3, HEMOG #### [place] [address] [address] [place], [place] MCHC 34.2 % Normal 32.0-36.0 [facility] Comment on above: Performed By: #### B NP3, TROPN, BMP3, HEMOG #### [place] [address] [address], [place] MCV (RBC) [Entitic vol] 101.0 fL High 80.0-98.0 [facility] Comment on above: Performed By: #### B NP3, TROPN, BMP3, HEMOG #### [place] [address] [address], [place] Platelet mean volume (Bld) [Entitic vol] 6.7 fL Low 7.4-10.4 [facility] Comment on above: Performed By: #### B NP3, TROPN, BMP3, HEMOG #### [facility] [address], [place] Platelets (Bld) [#/Vol] 114 10*3/uL Low 140-440 [facility] Comment on above: Performed By: #### B NP3, TROPN, BMP3, HEMOG #### [facility] [address], [place] RBC (Bld) [#/Vol] 3.06 10*6/uL Low 4.40-5.90 [facility] Comment on above: Performed By: #### B NP3, TROPN, BMP3, HEMOG #### [facility] [address], [place] WBC (Bld) [#/Vol] 1.7 10*3/uL Critically low 3.6-10.7 [facility] Comment on above: Result Comment: REPE ATED Performed By: #### B NP3, TROPN, BMP3, HEMOG #### [facility] [address], [place] Hemogram (CBC)Ordered By: Gosia Laughlin on 01-07-2021 Hematocrit (Bld) [Volume fraction] 30.9 % Low 40.0 - 52.0 % [facility] Work Phone: Hemoglobin.gastrointes tinal spec 1 Ql (Stl) 10.6 g/dL Low 13.0 - 18.0 g/dL [facility] Work Phone: Interpretation and review of laboratory results Abnormal [facility] Work Phone: MCH (RBC) [Entitic mass] 34.6 pg High 26.0 - 34.0 pg [employer] Work Phone: MCHC (RBC) [Mass/Vol] 34.2 % 32.0 - 36.0 % [employer] Work Phone: MCV (RBC) [Entitic vol] 101.0 fL High 80.0 - 98.0 fL [employer] Work Phone: Platelet distribution width (Bld) [Ratio] 13.5 % 11.5 - 14.5 % [facility] Work Phone: Platelet mean volume (Bld) [Entitic vol] 6.7 fL Low 7.4 - 10.4 fL [employer] Work Phone: Platelets (Bld) [#/Vol] 114 10*3/uL Low 140 - 440 10*3/uL [employer] Work Phone: RBC (Bld) [#/Vol] 3.06 10*6/uL Low 4.40 - 5.9 0 10*6/uL [employer] Work Phone: WBC (Bld) [#/Vol] 1.7 10*3/uL Critically low 3.6 - 10 .7 10*3/uL [employer] Work Phone: Comment on above: REPEATED Test Performed by [employer], [facility] [place] [address] [employer] Work Phone: [phone] [employer] Work Phone: NT pro BNPon 01-07-2021 Natriuretic peptide B (Bld) [Mass/Vol] 132 pg/mL High 0-125 [facility] Comment on above: Performed By: #### B NP3, TROPN, BMP3, HEMOG #### [facility] [address] [place] [address] No Panel InformationOrdered By: Sylvia Laughlin on 01-07-2021 Test Performed by [employer], [facility] [place] [address] [employer] Work Phone: [employer] Work Phone: Troponin IOrdered By: Lily Laughlin on 01-07-2021 Troponin I.cardiac [Mass/Vol] ng/mL Normal 0.000-0.034 [employer] Work Phone: Comment on above: . Result Comment: . Performed By: #### B NP3, TROPN, BMP3, HEMOG #### [facility] [address] [place] [address] Vital Signs Date Time Vital Sign Value Performing Clinician Emily wall 08-26-2024 13:06-0400 Body temperature 97.7 [degF] No Primary Care Physician [facility] 08-26-2024 13:06-0400 Diastolic blood pressure 57 mm[Hg] No Primary Care Physician [facility] 08-26-2024 13:06-0400 Heart rate 76 /min No Primary Care Physician [facility] 08-26-2024 13:06-0400 Respiratory rate 19 /min No Primary Care Physician [facility] 08-26-2024 13:06-0400 SaO2% (BldA) [Mass fraction] 100 % No Primary Care Physician [facility] 08-26-2024 13:06-0400 Systolic blood pressure 99 mm[Hg] No Primary Care Physician [facility] 08-26-2024 08:47-0400 Body height 180.34 cm No Primary Care Physician [facility] 08-26-2024 08:47-0400 Body mass index (BMI) [Ratio] 18.2 kg/m2 No Primary Care Physician [facility] 08-26-2024 08:47-0400 Body weight 59.3 kg No Primary Care Physician [facility] 01-17-2022 15:02-0500 Body height 180.[address] Elva Packer Work Phone: [facility] Work Phone: 01-17-2022 15:02-0500 Body mass index (BMI) [Ratio] 16.6 kg/m2 Dr. Elva Packer Work Phone: [facility] Work Phone: 01-17-2022 15:02-0500 Body temperature 97.6 [degF] Dr. Elva Packer Work Phone: [facility] Work Phone: 01-17-2022 15:02-0500 Body weight 53.[address] Elva Packer Work Phone: [facility] Work Phone: 01-17-2022 15:02-0500 Diastolic blood pressure 70 mm[Hg] Dr. Elva Packer Work Phone: [facility] Work Phone: 01-17-2022 15:02-0500 Heart rate 80 /min Dr. Elva Packer Work Phone: [facility] Work Phone: 01-17-2022 15:02-0500 Respiratory rate 18 /min Dr. Elva Packer Work Phone: [facility] Work Phone: 01-17-2022 15:02-0500 SaO2% (BldA) [Mass fraction] 96 % Dr. Elva Packer Work Phone: [facility] Work Phone: 01-17-2022 15:02-0500 Systolic blood pressure 125 mm[Hg] Dr. Elva Packer Work Phone: [facility] Work Phone: 01-13-2022 10:50-0500 Diastolic blood pressure 66 mm[Hg] Dr. Elva Packer Work Phone: [facility] Work Phone: 01-13-2022 10:50-0500 Heart rate 74 /min Dr. Elva Packer Work Phone: [facility] Work Phone: 01-13-2022 10:50-0500 Respiratory rate 18 /min Dr. Elva Packer Work Phone: [facility] Work Phone: 01-13-2022 10:50-0500 SaO2% (BldA) [Mass fraction] 100 % Dr. Elva Packer Work Phone: [facility] Work Phone: 01-13-2022 10:50-0500 Systolic blood pressure 128 mm[Hg] Dr. Elva Packer Work Phone: [facility] Work Phone: 01-13-2022 08:34-0500 Body mass index (BMI) [Ratio] 16.7 kg/m2 Dr. Elva Packer Work Phone: [facility] Work Phone: 01-13-2022 08:34-0500 Body temperature 98.2 [degF] Dr. Elva Packer Work Phone: [facility] Work Phone: 01-13-2022 08:34-0500 Body weight 54.[address] Elva Packer Work Phone: [facility] Work Phone: 01-11-2022 10:10-0500 Body mass index (BMI) [Ratio] 18.3 kg/m2 Dr. Elva Packer Work Phone: [facility] Work Phone: 01-11-2022 10:10-0500 Body temperature 97.6 [degF] Dr. Elva Packer Work Phone: [facility] Work Phone: 01-11-2022 10:10-0500 Body weight 54.[address] Elva Packer Work Phone: [facility] Work Phone: 01-11-2022 10:10-0500 Diastolic blood pressure 63 mm[Hg] Dr. Elva Packer Work Phone: [facility] Work Phone: 01-11-2022 10:10-0500 Heart rate 60 /min Dr. Elva Packer Work Phone: [facility] Work Phone: 01-11-2022 10:10-0500 Respiratory rate 16 /min Dr. Elva Packer Work Phone: [facility] Work Phone: 01-11-2022 10:10-0500 SaO2% (BldA) [Mass fraction] 100 % Dr. Elva Packer Work Phone: [facility] Work Phone: 01-11-2022 10:10-0500 Systolic blood pressure 117 mm[Hg] Dr. Elva Packer Work Phone: [facility] Work Phone: 12-28-2021 13:02-0400 Body height 172.[address] Elva Packer Work Phone: [facility] Work Phone: 12-28-2021 13:02-0400 Body mass index (BMI) [Ratio] 18.1 kg/m2 Dr. Elva Packer Work Phone: [facility] Work Phone: 12-28-2021 13:02-0400 Body temperature 98.2 [degF] Dr. Elva Packer Work Phone: [facility] Work Phone: 12-28-2021 13:02-0400 Body weight 53.[address] Elva Packer Work Phone: [facility] Work Phone: 12-28-2021 13:02-0400 Diastolic blood pressure 60 mm[Hg] Dr. Elva Packer Work Phone: [facility] Work Phone: 12-28-2021 13:02-0400 Heart rate 65 /min Dr. Elva Packer Work Phone: [facility] Work Phone: 12-28-2021 13:02-0400 Respiratory rate 14 /min Dr. Elva Packer Work Phone: [facility] Work Phone: 12-28-2021 13:02-0400 SaO2% (BldA) [Mass fraction] 98 % Dr. Elva Packer Work Phone: [facility] Work Phone: 12-28-2021 13:02-0400 Systolic blood pressure 102 mm[Hg] Dr. Elva Packer Work Phone: [facility] Work Phone: 09-27-2021 14:14-0400 Body temperature 98.6 [degF] Dr. Elva Packer Work Phone: [facility] Work Phone: 09-27-2021 14:14-0400 Diastolic blood pressure 64 mm[Hg] Dr. Elva Packer Work Phone: [facility] Work Phone: 09-27-2021 14:14-0400 Heart rate 50 /min Dr. Elva Packer Work Phone: [facility] Work Phone: 09-27-2021 14:14-0400 Respiratory rate 12 /min Dr. Elva Packer Work Phone: [facility] Work Phone: 09-27-2021 14:14-0400 SaO2% (BldA) [Mass fraction] 99 % Dr. Elva Packer Work Phone: [facility] Work Phone: 09-27-2021 14:14-0400 Systolic blood pressure 112 mm[Hg] Dr. Elva Packer Work Phone: [facility] Work Phone: 06-15-2021 16:05-0400 Body height 172.[address] Elva Packer Work Phone: [facility] Work Phone: 06-15-2021 16:05-0400 Body mass index (BMI) [Ratio] 18.6 kg/m2 Dr. Elva Packer Work Phone: [facility] Work Phone: 06-15-2021 16:05-0400 Body temperature 99.9 [degF] Dr. Elva Packer Work Phone: [facility] Work Phone: 06-15-2021 16:05-0400 Body weight 55.[address] Elva Packer Work Phone: [facility] Work Phone: 06-15-2021 16:05-0400 Diastolic blood pressure 78 mm[Hg] Dr. Elva Packer Work Phone: [facility] Work Phone: 06-15-2021 16:05-0400 Heart rate 76 /min Dr. Elva Packer Work Phone: [facility] Work Phone: 06-15-2021 16:05-0400 Respiratory rate 12 /min Dr. Elva Packer Work Phone: [facility] Work Phone: 06-15-2021 16:05-0400 SaO2% (BldA) [Mass fraction] 98 % Dr. Elva Packer Work Phone: [facility] Work Phone: 06-15-2021 16:05-0400 Systolic blood pressure 130 mm[Hg] Dr. Elva Packer Work Phone: [facility] Work Phone: 06-15-2021 16:05-0400 Body height 172.[address] Elva Packer Work Phone: [facility] Work Phone: 06-15-2021 16:05-0400 Body mass index (BMI) [Ratio] 18.6 kg/m2 Dr. Elva Packer Work Phone: [facility] Work Phone: 06-15-2021 16:05-0400 Body temperature 99.9 [degF] Dr. Elva Packer Work Phone: [facility] Work Phone: 06-15-2021 16:05-0400 Body weight 55.[address] Elva Packer Work Phone: [facility] Work Phone: 06-15-2021 16:05-0400 Diastolic blood pressure 78 mm[Hg] Dr. Elva Packer Work Phone: [facility] Work Phone: 06-15-2021 16:05-0400 Heart rate 76 /min Dr. Elva Packer Work Phone: [facility] Work Phone: 06-15-2021 16:05-0400 Respiratory rate 12 /min Dr. Elva Packer Work Phone: [facility] Work Phone: 06-15-2021 16:05-0400 SaO2% (BldA) [Mass fraction] 98 % Dr. Elva Packer Work Phone: [facility] Work Phone: 06-15-2021 16:05-0400 Systolic blood pressure 130 mm[Hg] Dr. Elva Packer Work Phone: [facility] Work Phone: 05-27-2021 15:56-0400 Body temperature 98.4 [degF] Dr. Elva Packer Work Phone: [facility] Work Phone: 05-27-2021 15:56-0400 Diastolic blood pressure 70 mm[Hg] Dr. Elva Packer Work Phone: [facility] Work Phone: 05-27-2021 15:56-0400 Heart rate 72 /min Dr. Elva Packer Work Phone: [facility] Work Phone: 05-27-2021 15:56-0400 Respiratory rate 18 /min Dr. Elva Packer Work Phone: [facility] Work Phone: 05-27-2021 15:56-0400 SaO2% (BldA) [Mass fraction] 99 % Dr. Elva Packer Work Phone: [facility] Work Phone: 05-27-2021 15:56-0400 Systolic blood pressure 150 mm[Hg] Dr. Elva Packer Work Phone: [facility] Work Phone: 01-07-2021 21:48-0400 Diastolic blood pressure 78 mm[Hg] Sylvia Laughlin MD Work Phone: [facility] Work Phone: 01-07-2021 21:48-0400 Heart rate 72 /min Sylvia Laughlin MD Work Phone: [facility] Work Phone: 01-07-2021 21:48-0400 Respiratory rate 20 /min Sylvia Laughlin MD Work Phone: [facility] Work Phone: 01-07-2021 21:48-0400 SaO2% (BldA) [Mass fraction] 100 % Sylvia Laughlin MD Work Phone: [facility] Work Phone: 01-07-2021 21:48-0400 Systolic blood pressure [...] 97.7 [degF] Sylvia Laughlin MD Work Phone: [facility] Work Phone: Encounters Encounter Date Encounter Type Care Provider Facility Start: 08-26-2024 Non-patient / Non-visit Dr. Jose art [facility] Work Phone: Start: 08-26-2024 Evaluation and management of inpatient Dr. Jose Montoya [facility] 3 Work Phone: Start: 11-21-2022 End: 11-21-2022 ambulatory NANCY Jones [facility] Start: 03-30-2022 End: 03-30-2022 ambulatory Owen Negron [place] Start: 01-17-2022 End: 01-17-2022 ambulatory Owen Negron Facility:[facility] Start: 01-17-2022 End: 01-17-[address] Elva Packer Work Phone: [facility] Start: 01-13-2022 End: 01-13-[address] Elva Packer Work Phone: [facility] Work Phone: Start: 01-13-2022 End: 01-13-[address] Elva Packer Work Phone: [facility] Start: 01-11-2022 End: 01-11-2022 ambulatory Owen Negron Facility:[facility] Start: 01-11-2022 End: 01-11-[address] Elva Packer Work Phone: [facility] Start: 12-28-2021 End: 12-28-2021 ambulatory Elva Packer Facility:[facility] Start: 12-28-2021 End: 12-28-[address] Elva Packer Work Phone: [facility] Work Phone: Start: 12-28-2021 End: 12-28-[address] Elva Packer Work Phone: [facility] Start: 12-27-2021 ambulatory Shahzad Roldan Facilit y:[facility] Start: 09-27-2021 End: 09-27-2021 ambulatory Elva Packer Facility:[facility] Start: 09-27-2021 End: 09-27-[address] Elva Packer Work Phone: [facility] Start: 09-24-2021 End: 09-24-2021 ambulatory Elva Packer Facility:[facility] Start: 09-24-2021 End: 09-24-[address] Elva Packer Work Phone: [facility] Start: 07-21-2021 ambulatory Elva Packer Facili ty:[facility] Start: 07-21-[address] Virginia Packer Work Phone: [facility] Start: 07-20-2021 End: 07-20-2021 ambulatory Elva Packer Facility:[facility] Start: 07-20-2021 Non-patient / Non-visit Dr. Malena Packer Work Phone: [facility] Start: 07-20-2021 End: 07-20-[address] Elva Packer Work Phone: [facility] Start: 06-15-2021 End: 06-15-20[facility] Start: 06-15-2021 End: 06-15-[address] Elva Packer Work Phone: [facility] Start: 06-01-2021 End: 06-02-2021 [facility] Start: 06-01-2021 End: 06-01-[address] Elva Packer Work Phone: [facility] Start: 05-27-2021 End: 05-27-2021 ambulatory [facility] Facility:[facility] Start: 05-27-2021 End: 05-27-[address] Elva Packer Work Phone: [facility] Start: 05-18-2021 Encounter for genera l adult medical examination without abnormal findings [place] Start: 05-12-2021 End: 05-13-2021 ambulatory [facility] Facility:[facility] Start: 05-12-2021 End: 05-12-[address] Elva Packer Work Phone: [facility] Start: 01-07-2021 End: 01-07-2021 Emergency department patient visit Sylvia Laughlin MD Work Phone: [facility] Emergency Dept Comment on above: Syncope and [...] Author Start: 08-26-2024 Folic acid measurement, RBC [facility] Start: 08-26-2024 Thyroid stimulating hormone measurement [facility] Start: 08-26-2024 Admission procedure [facility] Start: 08-26-2024 Verification routine [facility] Start: 08-26-2024 Hospital admission, emergency, from emergency room, medical nature [facility] Start: 08-26-2024 Leukocyte reduced red blood cells [facility] Start: 08-26-2024 [facility] Start: 08-26-2024 Administration of blood product [facility] Start: 08-26-2024 [facility] Start: 01-13-2022 Diagnostic bone marrow biopsies & aspirations DX BONE MARROW BX & ASPIR [facility] Work Phone: Start: 01-13-2022 Catheterization of vein [facility] Work Phone: Start: 01-13-2022 Oxygen therapy [facility] Work Phone: Start: 01-13-2022 Patient discharge [facility] Work Phone: Start: 01-13-2022 Vital signs measurements [facility] Work Phone: Start: 01-13-2022 Following clinical pathway protocol [facility] Work Phone: Start: 12-28-2021 Patient referral [facility] Work Phone: Start: 11-04-2020 Influenza vaccination Flu vaccine (#1) [facility] Work Phone: Start: 1972 COVID-19 Vaccine (1) COVID-19 Vaccine (1) [facility] Work Phone: Bone marrow biopsy, needle or trocar [facility] Work Phone: Cobalamin (Vitamin B 12) [Mass/volume] in Serum or Plasma [facility] EKG 12 Lead - Chest Pain [facility] Work Phone: Ferritin [Mass/volum e] in Serum or Plasma [facility] Hematocrit [Volume Fraction] of Blood [facility] Iron [Mass/mass] in Unspecified specimen [facility] Iron saturation [Mas s Fraction] in Serum or Plasma [facility] Lipid 1996 panel - S sotero or Plasma [facility] Work Phone: Patient Education RAD RN Bone Ma rrow Aspiration and Biopsy RAD RN Procedural Sedation [facility] Work Phone: Patient referral [facility] Work Phone: Total iron binding c apacity measurement [facility] Troponin T.cardiac [Mass/volume] in Serum or Plasma by High sensitivity method [facility] US Carotid arteries [facility] Work Phone: [facility] Immunizations Immunization Date Immunization Notes Care Provider Fa cility 12-28-2021 influenza, injectabl e, quadrivalent, preservative free No Primary Care Physician [facility] 12-28-2021 influenza, seasonal, injectable Dr. Elva Packer Work Phone: [facility] Work Phone: 11-19-2021 Covid (Pfizer) Dr. Elva Packer Work Phone: [facility] 01-17-2020 tetanus toxoid, redu rudy diphtheria toxoid, and acellular pertussis vaccine, adsorbed Dr. Elva Packer Work Phone: [facility] Payers Date Payer Category Payer Self-pay [id number] 2020 Medicaid [id number] 1960 Unknown [id number] 2.16.8 [id number] Unknown [id number] 2.16.8 [id number] Unknown [id number] 2.16.8 [id number] Unknown [id number] 2.16.8 [id number] Unknown [id number] 2.16.8 [id number] Unknown [id number] 2.16.8 [id number] Unknown [id number] 2.16.8 [id number] Unknown [id number] 2.16.8 40.1.181864.3.579.2.462 Unknown [id number] 2.16.8 [id number] Unknown [id number] 2.16.8 40.1.800253.3.579.2.462 Unknown [id number] 2.16.8 40.1.820334.3.579.2.462 Unknown [id number] 2.16.8 [id number] Unknown [id number] 2.16.8 [id number] Unknown [id number] 2.16.8 [id number] Unknown [id number] 2.16.8 [id number] Unknown [id number] 2.16.8 [id number] Unknown [id number] 2.16.8 [id number] Unknown [id number] 2.16.8 [id number] Unknown [id number] 2.16.8 [id number] Social History Date Type Detail Facility Tobacco smoking status NHIS Unknown if ever smoked [facility] Work Phone: Start: 1960 Sex Assigned At Not on file [facility] Work Phone: Exposure to SARS-CoV-2 (event) Not sure [facility] Start: 05-27-2021 End: 01-13-2022 Tobacco smoking status NHIS Unknown if ever smoked [facility] Work Phone: Start: 01-17-2020 Heavy [facility] Start: 01-17-2020 None [facility] Start: 01-17-2020 Spouse/ Signif icant Other [facility] Start: 10-27-2020 Cigarettes [facility] Start: 1960 Sex Assigned At Male [facility] Start: 08-26-2024 Tobacco smoking status NHIS Smokes tobacco daily (finding) [facility] Mental Status Date Assessment Result Facility 08-26-2024 Cognitive function Voice/Name [facility] Work Phone: 01-13-2022 Cognitive function Voice/Name [facility] Work Phone: Clinical Notes 08-26-2024 Note Date & Type Note Facility 08-26-2024 History and physi ashish note [facility] 08-26-2024 Discharge summary [facility] 08-26-2024 Radiology Diagnostic study note [facility] Imaging Services [address] [place] [address] Abdomen/Pelvis W IV Cont ONLY MR#: [id number] Acct: [id number] Name: JUNI MATHIAS Rep #: [id number] : 1960 M 63 From: Crow Zimmerman MD PCP: Care Physician,No Primary Status: REG ER Study:Abdomen/Pelvis W IV Cont ONLY Date of E xam: 08/26/24 Exam# [id number] Ordering Dr: Ketty Anaya DO PROCEDURE: ABDOMEN/PELVIS [...] bilateral inguinal hernias containing fat. Reading Location: [id number] CC: Dr. Willy Anaya, ; No Primary Care Physician ~ Surgical Assist: Signed [facility] 08-26-2024 Radiology Diagnostic study note [facility] Imaging Services [address] [place] [address] CTA Chest W/WO Contrast MR#: [id number] Acct: [id number] Name: JUNI MATHIAS Rep #: [id number] : 1960 M 63 From: Crow Zimmerman MD PCP: Care Physician,No Primary Status: REG ER Study:CTA Chest W/WO Contrast Date of Exam: 08/26/24 Exam# [id number] Ordering Dr: Ketty Anaya DO PROCEDURE: CTA [...] No acute abnormality is seen. Reading Location: [id number] CC: Dr. Willy Anaya DO; No Primary Care Physician ~ Surgical Assist: Signed [facility] 08-26-2024 Radiology Diagnostic study note [facility] Imaging Services [address] [place], [place] [address] Chest PA and Lateral MR#: [id number] Acct: [id number] Name: JUNI MATHIAS Rep #: [id number] : 1960 M 63 From: Kel Almaguer MD PCP: Care Physician,No Primary Status: REG ER Study:Chest PA and Lateral Date of Exam: 08/26/24 Exam# [id number] Ordering Dr: Ketty Anaya DO PROCEDURE: CHEST [...] acute osseous change is seen. Reading Location: [facility] CC: Dr. Willy Anaya DO; No Primary Care Physician ~ Surgical Assist: Signed [facility] Discharge summary Note Date/Time August 26, 2024 12:28pm [facility] Medical Records Department [address] [facility] [place] [address] Emergency Department Summary 08/26/24 MR#: [id number] Acct: [id number] Name: JUNI MATHIAS Rep #:[id number] : 1960 63 From: Willy Anaya DO [...] following commands knew that he was at [facility] year is 2024 Skin: Warm, dry, [...] 26.8 L Lymph % (Auto) 68.7 H Lea % (Auto) 2.9 Eos % (Auto) 1.1 [...] (Auto) Neut % (Auto) Lymph % (Auto) Lea % (Auto) Eos % (Auto) Baso % [...] acute osseous change is seen. Reading Location: [facility] Abdomen/Pelvis CT 08/26/24 09:55 IMPRESSION: Findings suggestive of scarring at the lung bases. Coronary artery calcification. Mild edematous changes of the portal triads suggestive of possible inflammatory process versus liver congestion. Sigmoid diverticulosis. Distended urinary bladder and prosthetic enlargement. Small bilateral inguinal hernias containing fat. Reading Location: [id number] Chest CTA 08/26/24 09:55 IMPRESSION: No evidence of pulmonary embolism. No acute abnormality is seen. Reading Location: [id number] Discharge Plan Triage Chief Complaint: Chest Pain [...] Primary [Primary Care Provider] - Print Language: Argentine Disposition Disposition: [facility] What to do if you have Problems For any increased pain, shortness of breath, bleeding, nausea or vomiting, chestpain, or any unexpected problems, contact your Primary Care Provider. Call [facility] ([phone]) or report to the closest Emergency Room. Call 911 if necessary. 08/26/24 1228 <Electronically signed by Willy Anaya DO> Cosigner Signature (if applicable): CC: No Primary Care Physician ~ Signed [facility] Work Phone: Evaluation note* Diagnosis Syncope and collapse- Primary documented in this encounter [facility] Work Phone: Evaluation note* Diagnosis Onset Date Resolution Status CVA (cerebral vascular accident) acute Mild cognitive impairment [facility] [place] Hypertension [facility] Work Phone: Evaluation note* Diagnosis Onset Date Resolution Status CVA (cerebral vascular accident) acute Mild cognitive impairment [facility] [place] Hypertension chronic CVA (cerebral vascular accident) acute Mild cognitive impairment [facility] [place] Tobacco abuse acute Hypertension [facility] Work Phone: Evaluation note* Diagnosis Onset Date Resolution Status Tobacco abuse acute CVA (cerebral vascular accident) chronic Hypertension chronic Mild cognitive impairment [facility] Thiamine deficiency acute Carotid stenosis chronic History of CVA (cerebrovascular accident) chronic Hypertension chronic Macrocytic anemia chronic Mild cognitive impairment [facility] Work Phone: Evaluation note* Diagnosis Onset Date Resolution Status Thiamine deficiency acute Carotid stenosis chronic History of CVA (cerebrovascular accident) chronic Hypertension chronic Macrocytic anemia chronic Mild cognitive impairment [place] Colon cancer screening acute Flu vaccine need acute Anemia chronic History of CVA (cerebrovascular accident) chronic Hypertension [facility] Work Phone: Evaluation note* Diagnosis Onset Date Resolution Status Thiamine deficiency acute Carotid stenosis chronic History of CVA (cerebrovascular accident) chronic Hypertension chronic Macrocytic anemia chronic Mild cognitive impairment [place] Colon cancer screening acute Flu vaccine need acute Anemia chronic History of CVA (cerebrovascular accident) chronic Hypertension chronic Pancytopenia chronic Pancytopenia [facility] Work Phone: Evaluation note* Diagnosis Onset Date Resolution Status Admit Date Anemia acute August 26 12:41pm Anemia, macrocytic acute August 052024 12:41pm Bilateral leg edema acute August 26, 2024 12:41pm GI bleed acute August 26 12:41pm Severe protein-calorie malnutrition acute August 26, 2024 12:41pm [facility] Work Phone: History and physical note Author Jose Montoya [facility] Note Date/Time August 26, 2024 12:5 6pm [facility] Medical Records Department [address] [place] [id number] H&P Exam - Hospitalist 08/26/24 1244 MR#: [id number] Acct: [id number] Name: JUNI MATHIAS Rep #[id number] : 1960 63 From: Jose Montoya DO PCP: Care Physician,No Primary Status :ADM IN Location: [facility] [id number]- 1 HPI - General General Date of [...] back in 2022 and was recommended goingto [facility] for treatment. Patient declined and decision [...] 26.8 L, Lymph % (Auto) 68.7 H, [place]a % (Auto) 2.9, Eos % (Auto) 1.1, [...] acute osseous change is seen. Reading Location: [facility]1 Abdomen/Pelvis CT 08/26/24 09:55 IMPRESSION: Findings suggestive [...] No acute abnormality is seen. Reading Location: [id number] Assessment & Plan Assessment/Plan (1) Anemia: PLAN: [...] volume overload. Charges/Coding Visit Charges Inpatient E&M: 42359 Init Hosp L3 08/26/24 1256 <Electronically signed by Jose Montoya DO> Cosigner Signature (if applicable): CC: Dr. Jose Montoya, DO; No Primary Care Physician~ Signed [facility] Work Phone: Hospital Discharge instructions* Attachments The following attachments cannot be sent through Care Everywhere. * Fainting ([place]) [facility] Work [facility]: Reason for referral (narrative)No reason for referral information [facility] Work Phone: Summary Purpose Family History Relationship Condition Age at Onset Recorded Date/T ally Not Specified Cerebrovascular accident (CVA) Unknown father Cardiac disease Unknown mother Cardiac disease Unknown Advance Directives Advance Directive Response Recorded Date/ Time Living Will No October 26 1 2:47pm Power of Ground Operations Superintendent No October 26 021 2:47pm Advance Directive Response Recorded Date/ Time Living Will No October 26 1 1:47pm Power of Ground Operations Superintendent No October 26 021 1:47pm Advance Directive Response Recorded Date/ Time Do you have a Healthcare Power of Ground Operations Superintendent? No August 26, 2024 8:47am Chief Complaint [...] section and content) DATE CREATED AUTHOR 02/12/[address] [facility] DATE CREATED AUTHOR AUTHOR'S ORGANIZ ATION 03/30/2022 [facility] DATE CREATED AUTHOR AUTHOR'S ORGANIZ ATION 11/22/2022 [facility] Goals (unrecognized section and content) Goals may [...] BE BASED ON THE PRIMARY CLINICAL RECORDS. [employer] provides no warranty or guarantee of the accuracy or completeness of information in this document.
[2024-08-27 03:26] LABS: Absolute Lymphocyte Count 0.68 X10^3/uL (0.83-4.51); Basophil# 0.01 X10^3/uL; Basophil% 0.4 % (0-1); Hematocrit 30.9 % (40-54); Hemoglobin 10.3 g/dL (13.0-16.5); Lymphocyte # 0.68 X10^3/ul (0.83-4.51); Lymphocyte % 24.9 % (19-41); Mean Corp Hgb Conc 33.3 g/dL (32-36); Mean Corpuscular Hgb 32.6 pg (27.0-32.0); Mean Corpuscular Volume 97.8 fL (80-94); Mean Platelet Vol. 10.8 fl (6.2-12.0); Monocyte# 0.07 X10^3/uL; Monocyte% 2.6 % (0-10); NRBC Flagged by Analyzer 0.7 % (0-5); Neutrophil # 1.95 X10^3/uL (2.7-7.7); Neutrophil % 71.4 % (47-70); POSITIVE COUNT YES; POSITIVE MORPHOLOGY YES; Platelet Count 78 K/mm3 (150-450); RBC Distribution Width CV 23.9 % (11.6-14.6); Red Blood Count 3.16 M/mm3 (4.6-6.2); White Blood Count 2.7 K/mm3 (4.4-11.0)
[2024-08-27 04:03] LABS: Differential Indicated SCAN CRITERIA MET
[2024-08-27 04:39] LABS: Differential Comment SCANNED
[2024-08-27 04:40] LABS: Anisocytosis 1+; Macrocytosis 1+
[2024-08-27 04:43] LABS: Anion Gap 17 (5-15); BUN 22 mg/dL (4-19); BUN/Creat Ratio 21.4 RATIO (10-20); Calcium,Total 8.6 mg/dL (7.6-11.0); Carbon Dioxide 15.7 mmol/L (21.0-32.0); Chloride 102 mmol/L (98-108); Creatinine, Serum 1.01 mg/dL (0.70-1.20); EST Glomerular Filtration Rate 84 (>60); Estimated Creatinine Clearance 60.52 ml/min (50-250); Glucose 117 mg/dL (70-99); Potassium 4.9 mmol/L (3.3-5.1); Sodium Level 135 mmol/L (133-145); Troponin T High Sens 4 HR 222 ng/L (<=22)
--- NOTE | 2024-08-27 08:47 | NURSING ---
attempted to take pt off bipap to eat breakfast. pt sats 76% on 10 high flow. pt dyspneic and exp wheezes. dr chan notified that pt unable to beti high flow. and pt placed back on bipap. pt called in fo update and explained that pt on bipap and needing oxygen this am. pt will be into see pt around 1000.
--- NOTE | 2024-08-27 09:02 | PCM.PN.HOSP ---
Reason for Visit Reason for Visit: Diagnoses Anemia, unspecified (08/26/24) Unspecified severe protein-calorie malnutrition (08/26/24) Subjective Subjective Respiratory failure overnight and patient was placed on a BiPAP. X-ray look like CHF and patient was started on furosemide. Patient's oxygen has since been able to be weaned down to 6 L and patient is feeling better. Objective Data Objective Data Vital Signs: Vital Signs Temp Pulse Resp BP Pulse Ox O2 Del Method FiO2 36.8 C 89 24 H 103/76 100 Bi-pap 80 08/27/24 08:43 08/27/24 08:43 08/27/24 08:43 08/27/24 08:43 08/27/24 08:43 08/27/24 08:43 08/27/24 08:43 Oxygen Delivery Method Bi-pap Weight: 57.153 kg Body Mass Index (BMI) 17.5 Intake & Output: Intake and Output for Last 24 Hours 08/25/24 08/26/24 08/27/24 23:59 23:59 23:59 Intake Total 1650 / 1650 Output Total 600 / 600 Balance 1650 / 1650 -600 / -600 Lab / Micro Data 08/27/24 03:14 08/27/24 03:14 Labs: Laboratory Results - last 24 hr 08/26/24 08:18: WBC 4.4, RBC 1.50 L, Hgb 5.3 L*, Hct 17.2 L, MCV 114.7 H, MCH 35.3 H, MCHC 30.8 L, RDW Std Deviation 64.9 H, RDW Coeff of Triny 15.7 H, Plt Count 87 L, MPV 11.6, Immature Gran % (Auto) 0.500, Neut % (Auto) 26.8 L, Lymph % (Auto) 68.7 H, [place] % (Auto) 2.9, Eos % (Auto) 1.1, Baso % (Auto) 0.0, Absolute Neuts (auto) 1.2 L, Absolute Lymphs (auto) 3.03, Nucleated RBC % 0, Differential Comment SCANNED, Atypical Lymphocytes 1+, Platelet Estimate MKD DEC, Anisocytosis 1+, Sodium 134, Potassium 4.2, Chloride 101, Carbon Dioxide 19.0 L, Anion Gap 14, BUN 19, Creatinine 0.93, Estim Creat Clear Calc 68.19, Est GFR (MDRD) Non-Af 93, BUN/Creatinine Ratio 20.4 H, Glucose 125 H, Calcium 8.9, Troponin T High Sens 17, NT pro BNP II 3101 H 08/26/24 10:50: Blood Type A POSITIVE, Antibody Screen NEGATIVE, Crossmatch See Detail 08/26/24 11:15: Troponin T Hi Sens 2 Hr 17 08/26/24 12:00: Hgb 4.5 L*, Hct 14.0 L 08/26/24 13:00: Iron 42 L, TIBC 241 L, Iron Saturation 17.0, Unsaturated IBC 199 L, Ferritin 239, Troponin T Hi Sens 4Hr 17, NT pro BNP II 3008 H, Vitamin B12 304, TSH 2.800 08/26/24 22:24: Sodium 136, Potassium 4.3, Chloride 102, Carbon Dioxide 15.0 L, Anion Gap 19 H, BUN 19, Creatinine 1.13, Estim Creat Clear Calc 54.09, Est GFR (MDRD) Non-Af 73, BUN/Creatinine Ratio 16.9, Glucose 212 H, Calcium 8.9, Phosphorus 5.7 H, Magnesium 2.7 H, Total Bilirubin 1.53 H, AST 52 H, ALT 40, Alkaline Phosphatase 128, Troponin T High Sens 26 H D, NT pro BNP II 4871 H, Total Protein 7.8, Albumin 3.4, Globulin 4.4 H, Albumin/Globulin Ratio 0.8 L 08/27/24 00:48: Troponin T Hi Sens 2 Hr 138 H* 08/27/24 03:14: WBC 2.7 L, RBC 3.16 L, Hgb 10.3 L, Hct 30.9 L, MCV 97.8 H D, MCH 32.6 H, MCHC 33.3 D, RDW Std Deviation 80.0 H, RDW Coeff of Triny 23.9 H, Plt Count 78 L, MPV 10.8, Immature Gran % (Auto) 0.700, Neut % (Auto) 71.4 H, Lymph % (Auto) 24.9, [place] % (Auto) 2.6, Eos % (Auto) 0.0, Baso % (Auto) 0.4, Absolute Neuts (auto) 2.0, Absolute Lymphs (auto) 0.68 L, Nucleated RBC % 0.7, Differential Comment SCANNED, Anisocytosis 1+, Macrocytosis 1+, Sodium 135, Potassium 4.9, Chloride 102, Carbon Dioxide 15.7 L, Anion Gap 17 H, BUN 22 H, Creatinine 1.01, Estim Creat Clear Calc 60.52, Est GFR (MDRD) Non-Af 84, BUN/Creatinine Ratio 21.4 H, Glucose 117 H, Calcium 8.6, Troponin T Hi Sens 4Hr 222 H* Micro: Microbiology 08/26/24 11:43 Stool Stool Occult Blood (JOVANNY) - Final Occult Blood Positive ABG Data ABG results: ABG 08/26/24 21:54 Specimen Type ART Sample Site R Radial pH 7.09 L* Bicarbonate Actual 11.6 L Total CO2 13 Base Excess -18 L O2 Saturation 97 O2 % 60.0 ABG pCO2 38.1 ABG pO2 124 H Guzman Test Positive Respiration Rate 12 O2 Delivery Device BiPAP Vent Mode Not entered POC PEEP 10 Peak Inspir Pressure 16 Crit Call To/Read Back Yes Radiography Diagnostic Testing: Radiology Impression Chest X-Ray 08/26/24 09:03 IMPRESSION: Lungs are moderately hyperinflated with increased interstitial markings, consistent with significant chronic lung disease. No acute pneumonic process is seen. No pleural effusion or pneumothorax is evident. The cardiomediastinal silhouette is within the normal range for age. Moderate degenerative changes of the thoracic spine are noted. Progressive degenerative changes of the left shoulder, with loss of acromiohumeral distance on the left noted this is indicative marked chronic rotator cuff disease. No acute osseous change is seen. Reading Location: [facility] Abdomen/Pelvis CT 08/26/24 09:55 IMPRESSION: Findings suggestive of scarring at the lung bases. Coronary artery calcification. Mild edematous changes of the portal triads suggestive of possible inflammatory process versus liver congestion. Sigmoid diverticulosis. Distended urinary bladder and prosthetic enlargement. Small bilateral inguinal hernias containing fat. Reading Location: [id number] Chest CTA 08/26/24 09:55 IMPRESSION: No evidence of pulmonary embolism. No acute abnormality is seen. Reading Location: [id number] Chest X-Ray 08/26/24 21:50 IMPRESSION: Increase in airspace and interstitial opacities compared to earlier same-day radiographs, which may represent some combination of infection, edema, and/or lung injury. Reading Location: [id number] Physical Exam Const alert and no apparent distress Constitutional Narrative: Initially when I saw him this morning he was on BiPAP but then when I went back to visit him he is on 6 L nasal cannula. Still with the dysarthria that he had chronically but was in no respiratory distress. Resp normal respiratory effort and no retractions Resp Narrative: Bilateral crackles. Cardio regular rate, regular rhythm, S1 normal heart sound and S2 normal heart sound GI normal to inspection, nondistended, normoactive bowel sounds Extremity Extremity Narrative: Nonpitting lower extremity edema Neuro Sensorium / Orientation: awake and alert Psych affect normal Assessment & Plan Assessment/Plan (1) Anemia: PLAN: Patient has not been to the physician in over 2 years. Patient has been pretty active walking his dog multiple times per day but is been just been having the symptoms. I suspect he has been chronically losing blood over this period of time due to his pancytopenia. Though he was heme positive I do not feel that the primary source is GI related. With his history of acute myeloid leukemia I asked him about goals of care and his plan is not to proceed with any further chemotherapy as was the case in 2022. Explained that if that is the case then I would not recommend additional workup such as colonoscopy at this time as it may ultimately not change his overall management. I did agree with transfusions as it would provide him palliation regards to symptom improvement and improved quality of life. And I also recommended that he follow-up with a primary care doctor so that he may have his counts checked periodically and if he would need transfusions that can be arranged as outpatient at the infusion center. He and his family were in agreement to that. Patient has been lost to follow-up in regards to primary care doctor so he will need to reestablish with a new primary care doctor. So plan is to transfuse him he has 3 units ordered. And monitor him overnight. Additionally, we will check B12, folate, TSH, Iron 42, Ferritin 239, TSH 2.8, B12 304, Folate pending. (2) Severe protein-calorie malnutrition: PLAN: Patient cachectic with a BMI of 18.2 kg/m?. Will start Ensure plus with meals Consult nutrition for further recommendations. Patient is lower extremity edema I feel is more due to low oncotic pressure due to his malnutrition rather than overt heart failure (3) Acute hypoxic respiratory failure: PLAN: suspect due to CHF exacerbation. Weaned down from BiPAP to nasal cannula. Improved with IV furosemide. Repeat ABG was ordered and showed improvement of his respiratory failure. Echo has been ordered. So unclear what type of heart failure he has at this time. (4) CHF exacerbation: PLAN: unclear type. Likely exacerbated by volume for CHF. check echo. PLAN: Plan Acute myeloid leukemia/mild dysplastic syndrome: Previously patient had declined further therapy. Patient is not interested in any therapy at this time. CAD: History of CABG. Currently stable but will have to hold off on aspirin given the anemia. CVA: Patient has chronic dysarthria from that. Will hold off on aspirin. VTE prophylaxis with SCDs CODE STATUS: Addressed with the patient. Patient wishes to be DNR Comfort Care arrest no intubation. Did discuss with he and his family about reestablishing palliative care to help with symptom control at home. They would be interested in becoming reestablished. Will consult case management to assist. Discussed with the patient's family including his and daughter. Explained that we are going to watch him again overnight given his respiratory failure to try to get him more optimized. I told him that we will be checking echocardiogram because invariably he may require a transfusion in the future because I suspect he has bone marrow impairment due to his leukemia or myelodysplastic syndrome. But if he does need to be transfused in the future that way they would know how his ejection fraction is. Would not pursue aggressive workup in regards to his echocardiogram if it is shown that he has a low EF given his prior history. Charges/Coding Visit Charges Inpatient E&M: 17740 Subs Hosp L3
--- NOTE | 2024-08-27 09:08 | ECHOCS_ITS ---
Reason For Study Reason For Study: CHF Procedure This was a 2D Doppler, Color Flow transthoracic echocardiogram. Exam performed portable in patient room. Left Ventricle Normal LV size. The left ventricular ejection fraction is 20 %. Stage 1 diastolic dysfunction. There is severe global hypokinesis of the left ventricle. Right Ventricle Normal RV size. Normal systolic function. Atria Normal left atrium. Normal right atrium. Mitral Valve There is mild mitral annular calcification. Tricuspid Valve Normal tricuspid valve. Mild tricuspid valve insufficiency. Pulmonary artery systolic pressure is 35 mmHg. Aortic Valve Trisinus/trileaflet aortic valve. Pulmonic Valve Normal pulmonic valve. Great Vessels Normal aortic root. Pericardium/Pleural No pericardial effusion. Medication Diluted definity 1.0ml given slow IV push to enhance endocardial definition. MMode/2D Measurements & Calculations LVIDd: 5.0 cm IVSd: 0.81 cm Ao root diam: 3.1 cm LVIDs: 3.8 cm LVPWd: 1.1 cm RVDd: 3.4 cm FS: 23.6 % LAV(MOD-bp): 25.0 ml LVAd ap4: 38.5 cm2 LVAd ap2: 33.3 cm2 LAV(MOD-bp) Indexed: 14.4 ml/m2 LVLd ap4: 8.2 cm LVLd ap2: 7.6 cm LAV(MOD-sp2): 22.0 ml EDV(MOD-sp4): 150.8 ml EDV(MOD-sp2): 122.1 ml LAV(MOD-sp4): 24.7 ml EDV(sp4-el): 153.4 ml EDV(sp2-el): 123.6 ml LVAs ap4: 33.8 cm2 LVAs ap2: 29.3 cm2 LVLs ap4: 8.0 cm LVLs ap2: 7.1 cm ESV(MOD-sp4): 120.0 ml ESV(MOD-sp2): 99.4 ml ESV(sp4-el): 121.2 ml ESV(sp2-el): 102.1 ml EF(MOD-sp4): 20.4 % EF(MOD-sp2): 18.6 % EF(sp4-el): 21.0 % SV(MOD-sp4): 30.8 ml SV(MOD-sp2): 22.7 ml SV(sp4-el): 32.2 ml SI(MOD-sp4): 17.8 ml/m2 SI(MOD-sp2): 13.1 ml/m2 LA A4 area: 10.5 cm2 LA dimension(2D): 3.7 cm RA A4 area: 12.5 cm2 TAPSE: 1.3 cm Time Measurements MV dec time: 0.09 sec Doppler Measurements & Calculations MV E max eduar: 51.9 cm/sec Lat Peak E' Eduar: 4.6 cm/sec Med Peak E' Eduar: 5.1 cm/sec MV A max eduar: 55.5 cm/sec E/E' lat: 11.4 E/E' med: 10.2 MV E/A: 0.94 MV dec slope: 567.5 cm/sec2 Ao V2 max: 80.1 cm/sec LV V1 max: 59.6 cm/sec Ao max P.6 mmHg LV V1 max P.4 mmHg Ao V2 mean: 53.2 cm/sec LV V1 mean P.74 mmHg Ao mean P.3 mmHg LV V1 mean: 40.0 cm/sec Ao V2 VTI: 12.8 cm LV V1 VTI: 9.1 cm AV (velocity ratio): 0.72 PA V2 max: 57.0 cm/sec TR max eduar: 278.2 cm/sec TR max P.0 mmHg ECHO/Echo Complete W/ Contrast Interpretation Summary The left ventricular ejection fraction is 20 %. Normal LV size. Stage 1 diastolic dysfunction. Compared to previous study, the left ventricular systolic function has worsened .. Ordering Physician: Jose Montoya Performed By: Deanne Park RDCS
[2024-08-27] MEDS: Furosemide 20 MG/2 ML VIAL 10 MG IV (09:16)
[2024-08-27 09:51] LABS: Allen Test Positive; Base Excess -2 mmol/L (-2 to +2); Bicarbonate 22.6 mmol/L (22-26); Blood Gas Specimen Type ART; Comment 16/10; Mode BiLevel; O2 Delivery Device BiPAP; PO2 115 mmHG (75-100); RR 12; SITE R Radial; SO2 99 % (95-99); Total Carbon Dioxide 24 mmol/L; pCO2 34.3 mmHg (35-45); pH 7.43 (7.35-7.45)
[2024-08-27] MEDS: Furosemide 40 MG/4 ML Vial IV ×2 (10:17→17:35)
[2024-08-27] MEDS: Acetaminophen 325 MG Tablet 650 MG PO (14:18)
--- NOTE | 2024-08-27 14:48 | CASEMGMT ---
Met with patient to complete [employer]G form. GREEN[employer]G form and its content were verbally explained and patient's questions were answered to the best of my ability.? Patient voiced understanding and signed GREEN[employer]G form.? Patient provided a copy of signed [employer]EN[employer]G form and original placed in patient's chart.? Patient had no further questions. Mouna Harden, Discharge Planning Asst
[2024-08-28 00:33] LABS: Magnesium 2.3 mg/dL (1.5-2.2); Potassium 5.1 mmol/L (3.3-5.1)
[2024-08-28 01:05] VITALS: BP 104/64; PULSE 89; RESP 18; TEMP 37.2; O2SAT 100
[2024-08-28 02:00] VITALS: PULSE 88; RESP 12; RESP 24; O2SAT 99
[2024-08-28 05:07] VITALS: O2SAT 97
[2024-08-28 06:31] VITALS: BP 95/61; PULSE 76; RESP 20; TEMP 37; O2SAT 98
--- NOTE | 2024-08-28 07:39 | PCM.PN.HOSP ---
Reason for Visit Reason for Visit: Diagnoses Anemia, unspecified (08/27/24) Unspecified severe protein-calorie malnutrition (08/27/24) Heart failure, unspecified (08/27/24) Acute respiratory failure with hypoxia (08/27/24) Subjective Subjective Feels well. Oxygen weaned off. Objective Data Objective Data Vital Signs: Vital Signs Temp Pulse Resp BP Pulse Ox O2 Del Method O2 Flow Rate 37.0 C 76 20 H 95/61 98 Nasal Cannula 2 08/28/24 06:31 08/28/24 06:31 08/28/24 06:31 08/28/24 06:31 08/28/24 06:31 08/28/24 06:31 08/28/24 06:31 FiO2 30 08/28/24 02:00 Oxygen Flow Rate (L/min) 2 Oxygen Delivery Method Nasal Cannula Weight: 57.153 kg Body Mass Index (BMI) 17.5 Intake & Output: Intake and Output for Last 24 Hours 08/26/24 08/27/24 08/28/24 23:59 23:59 23:59 Intake Total 1650 / 1650 100 / 100 100 / 100 Output Total 2950 / 2950 Balance 1650 / 1650 -2850 / -2850 100 / 100 Lab / Micro Data 08/28/24 09:50 08/28/24 09:50 Labs: Laboratory Results - last 24 hr 08/27/24 03:14: Potassium 5.1, Magnesium 2.3 H Micro: Microbiology 08/26/24 11:43 Stool Stool Occult Blood (JOVANNY) - Final Occult Blood Positive ABG Data ABG results: ABG 08/27/24 09:49 Specimen Type ART Sample Site R Radial pH 7.43 Bicarbonate Actual 22.6 Total CO2 24 Base Excess -2 O2 Saturation 99 O2 % 80.0 ABG pCO2 34.3 L ABG pO2 115 H Guzman Test Positive Respiration Rate 12 O2 Delivery Device BiPAP Vent Mode BiLevel Clinical Comments 19/12 Radiography Diagnostic Testing: Radiology Impression Echocardiogram 08/27/24 09:08 Interpretation Summary The left ventricular ejection fraction is 20 %. Normal LV size. Stage 1 diastolic dysfunction. Compared to previous study, the left ventricular systolic function has worsened.. Ordering Physician: Jose Montoya Performed By: Deanne Park RDCS Physical Exam Const alert and no apparent distress HEENT head/scalp atraumatic Resp normal respiratory effort, no retractions, no use of accessory muscles and clear to auscultation bilaterally Cardio regular rate, regular rhythm, S1 normal heart sound and S2 normal heart sound GI normal to inspection, nondistended, normoactive bowel sounds, soft to palpation, non-tender and non-distended Extremity Extremity Narrative: Edema Assessment & Plan Assessment/Plan (1) Anemia: PLAN: Patient has not been to the physician in over 2 years. Patient has been pretty active walking his dog multiple times per day but is been just been having the symptoms. I suspect he has been chronically losing blood over this period of time due to his pancytopenia. Though he was heme positive I do not feel that the primary source is GI related. With his history of acute myeloid leukemia I asked him about goals of care and his plan is not to proceed with any further chemotherapy as was the case in 2022. Explained that if that is the case then I would not recommend additional workup such as colonoscopy at this time as it may ultimately not change his overall management. I did agree with transfusions as it would provide him palliation regards to symptom improvement and improved quality of life. And I also recommended that he follow-up with a primary care doctor so that he may have his counts checked periodically and if he would need transfusions that can be arranged as outpatient at the infusion center. He and his family were in agreement to that. Patient has been lost to follow-up in regards to primary care doctor so he will need to reestablish with a new primary care doctor. So plan is to transfuse him he has 3 units ordered. And monitor him overnight. Additionally, we will check B12, folate, TSH, Iron 42, Ferritin 239, TSH 2.8, B12 304, Folate pending. (2) Severe protein-calorie malnutrition: PLAN: Patient cachectic with a BMI of 18.2 kg/m?. Will start Ensure plus with meals Consult nutrition for further recommendations. Patient is lower extremity edema I feel is more due to low oncotic pressure due to his malnutrition rather than overt heart failure (3) Acute hypoxic respiratory failure: PLAN: Improved with diuresis suspect due to CHF exacerbation. Weaned down from BiPAP to nasal cannula. Improved with IV furosemide. Repeat ABG was ordered and showed improvement of his respiratory failure. Echo has been ordered. So unclear what type of heart failure he has at this time. (4) CHF exacerbation: PLAN: Acute HFrEF. EF 20%. add low-dose ACEi and carvedilol. Will have Lasix available as needed for shortness of breath as well as leg edema. Explained the patient that since he has been palliative care, has AML that is not actively seeking treatment, that he may follow-up with cardiology as needed. PLAN: Plan Acute myeloid leukemia/mild dysplastic syndrome: Previously patient had declined further therapy. Patient is not interested in any therapy at this time. CAD: History of CABG. Currently stable but will have to hold off on aspirin given the anemia. CVA: Patient has chronic dysarthria from that. Will hold off on aspirin. VTE prophylaxis with SCDs CODE STATUS: Addressed with the patient. Patient wishes to be DNR Comfort Care arrest no intubation. Did discuss with he and his family about reestablishing palliative care to help with symptom control at home. They would be interested in becoming reestablished. Will consult case management to assist. Discharged to home with
[2024-08-28 10:13] LABS: Absolute Lymphocyte Count 0.74 X10^3/uL (0.83-4.51); Absolute Neutrophil Count 1.5 X10^3/uL (2.0-7.7); Basophil# 0.01 X10^3/uL; Basophil% 0.4 % (0-1); Eosinophil# 0.02 X10^3/uL; Eosinophils% 0.9 % (0-5); Hematocrit 27.4 % (40-54); Hemoglobin 9.3 g/dL (13.0-16.5); Lymphocyte # 0.74 X10^3/ul (0.83-4.51); Lymphocyte % 31.9 % (19-41); Mean Corp Hgb Conc 33.9 g/dL (32-36); Mean Corpuscular Hgb 32.5 pg (27.0-32.0); Mean Corpuscular Volume 95.8 fL (80-94); Monocyte# 0.05 X10^3/uL; Monocyte% 2.2 % (0-10); NRBC Flagged by Analyzer 0 % (0-5); Neutrophil # 1.49 X10^3/uL (2.7-7.7); Neutrophil % 64.2 % (47-70); POSITIVE COUNT YES; POSITIVE MORPHOLOGY YES; Platelet Count 71 K/mm3 (150-450); RBC Distribution Width CV 22.3 % (11.6-14.6); RBC Distribution Width SD 75.2 fl (35.1-43.9); Red Blood Count 2.86 M/mm3 (4.6-6.2); White Blood Count 2.3 K/mm3 (4.4-11.0)
[2024-08-28 10:16] LABS: Differential Indicated SCAN CRITERIA MET
[2024-08-28 11:16] LABS: Anion Gap 10 (5-15); BUN 25 mg/dL (4-19); BUN/Creat Ratio 25.7 RATIO (10-20); Calcium,Total 8.3 mg/dL (7.6-11.0); Carbon Dioxide 25.7 mmol/L (21.0-32.0); Chloride 100 mmol/L (98-108); Creatinine, Serum 0.98 mg/dL (0.70-1.20); EST Glomerular Filtration Rate 87 (>60); Estimated Creatinine Clearance 62.37 ml/min (50-250); Glucose 118 mg/dL (70-99); Potassium 3.4 mmol/L (3.3-5.1); Sodium Level 136 mmol/L (133-145)
[2024-08-28 11:17] LABS: Atypical Lymphocyte 1+ %; Platelet Estimate MOD DEC (ADEQ)
--- NOTE | 2024-08-28 12:00 | CASEMGMT ---
Addendum entered by Debbie Swanson 08/28/24 12:14: Pt does not qualify for home oxygen. Original Note: Received order for palliative from hospitalist. DAVID HUNT into pt room, pt sitting up in bed with oxygen on in no distress. Pt , son and dil present in room. Pt agreeable to discussion with family present. Pt ready for dc. Discussed palliative care with pt and pt states he has had this in the past. Confirmed if he had hospice or palliative, dtr in law states palliative. Pt agreeable to this again. Discussed that pt will be tested for oxygen upon going home. Provided pt with a list of local DME companies, pt chose [employer]. Pt dtr in law to obtain pox. Pt denies any further homegoing needs at this time. Pt states he has available a walker if he needs it at home. Pt denies any needs for HHC at this time. Referral sent to palliative via email at this time. DAVID HUNT to follow for oxygen.
[2024-08-28 12:08] LABS: Folates, RBC Test 2400 ng/mL (>498)
[2024-08-28] MEDS: Carvedilol 3.125 MG TABLET PO (12:21)
[2024-08-28] MEDS: Multivitamins,Ther W-Minerals Tablet 1 TABLET PO (12:21)
[2024-08-28] MEDS: Lisinopril 2.5 MG Tablet PO (12:21)
[2024-08-28 12:56] VITALS: O2SAT 94; O2SAT 96
--- NOTE | 2024-08-28 13:00 | PCM.DC.SUM ---
Providers Date of Admission: 08/27/24 Primary Care Physician: No Primary Care Phys Reason For Visit: CHEST PAIN, ANEMIA Diagnosis Discharge Diagnosis (1) Anemia: Status: Acute Code(s): D64.9 - Anemia, unspecified Plan: Patient has not been to the physician in over 2 years. Patient has been pretty active walking his dog multiple times per day but is been just been having the symptoms. I suspect he has been chronically losing blood over this period of time due to his pancytopenia. Though he was heme positive I do not feel that the primary source is GI related. With his history of acute myeloid leukemia I asked him about goals of care and his plan is not to proceed with any further chemotherapy as was the case in 2022. Explained that if that is the case then I would not recommend additional workup such as colonoscopy at this time as it may ultimately not change his overall management. I did agree with transfusions as it would provide him palliation regards to symptom improvement and improved quality of life. And I also recommended that he follow-up with a primary care doctor so that he may have his counts checked periodically and if he would need transfusions that can be arranged as outpatient at the infusion center. He and his family were in agreement to that. Patient has been lost to follow-up in regards to primary care doctor so he will need to reestablish with a new primary care doctor. So plan is to transfuse him he has 3 units ordered. And monitor him overnight. Additionally, we will check B12, folate, TSH, Iron 42, Ferritin 239, TSH 2.8, B12 304, Folate pending. (2) Severe protein-calorie malnutrition: Status: Acute Code(s): E43 - Unspecified severe protein-calorie malnutrition Plan: Patient cachectic with a BMI of 18.2 kg/m?. Will start Ensure plus with meals Consult nutrition for further recommendations. Patient is lower extremity edema I feel is more due to low oncotic pressure due to his malnutrition rather than overt heart failure (3) Acute hypoxic respiratory failure: Status: Acute Code(s): J96.01 - Acute respiratory failure with hypoxia Plan: Improved with diuresis suspect due to CHF exacerbation. Weaned down from BiPAP to nasal cannula. Improved with IV furosemide. Repeat ABG was ordered and showed improvement of his respiratory failure. Echo has been ordered. So unclear what type of heart failure he has at this time. (4) CHF exacerbation: Status: Chronic Code(s): I50.9 - Heart failure, unspecified Plan: Acute HFrEF. EF 20%. add low-dose ACEi and carvedilol. Will have Lasix available as needed for shortness of breath as well as leg edema. Explained the patient that since he has been palliative care, has AML that is not actively seeking treatment, that he may follow-up with cardiology as needed. Plan Acute myeloid leukemia/mild dysplastic syndrome: Previously patient had declined further therapy. Patient is not interested in any therapy at this time. CAD: History of CABG. Currently stable but will have to hold off on aspirin given the anemia. CVA: Patient has chronic dysarthria from that. Will hold off on aspirin. VTE prophylaxis with SCDs CODE STATUS: Addressed with the patient. Patient wishes to be DNR Comfort Care arrest no intubation. Did discuss with he and his family about reestablishing palliative care to help with symptom control at home. They would be interested in becoming reestablished. Will consult case management to assist. Discharged to home with Medications at Discharge Home Medications aspirin 81 mg tablet,delayed release (Adult Aspirin Regimen) 81 mg PO DAILY 09/27/21 multivitamin-ferrous fumarate-folic acid 18 mg-400 mcg tablet (Centrum Complete) 1 tab PO Q24H 08/26/24 carvedilol 3.125 mg tablet 3.125 mg PO BIDCM #60 tabs 08/28/24 furosemide 40 mg tablet (Lasix) 40 mg PO DAILY PRN edema #30 tabs 08/28/24 lisinopril 2.5 mg tablet 2.5 mg PO DAILY #30 tabs 08/28/24 Hospital Course Operations None Procedures 2-D Echocardiogram Summary of Care Provided Minutes Spent on Discharge: 32 Hospital Course: This is a 63-year-old male with a history of AML that presents with chest pain. Patient's hemoglobin was noted to be 4.7 and patient was transfused 3 units of packed red blood cells. The plan initially was to bring him in overnight and then discharged the following day, however, overnight he developed acute hypoxic respiratory failure requiring BiPAP. Patient improved with BiPAP but his x-ray was consistent with CHF. Patient was started on IV furosemide. His symptoms improved and his oxygenation improved to the point where he did not require any further oxygen with diuresis. He had a 2D echocardiogram that showed an EF of 20%. Since patient is not seeking aggressive care for his AML, discussed with the patient about medical management of his heart failure. Patient may follow-up with cardiology as he wishes regards to monitoring of his heart rates but patient previous had been in hospice but had exceeded the life expectancy previously allotted so is no longer involved with them. So at this point I am just more symptom control but I feel it would be necessary to help with his heart by treating them with low-dose carvedilol and BEENA inhibitor as well as as needed furosemide. I did tell the patient that he may have bone marrow dysfunction due to his leukemia and may not produce cells and that he may eventually require further transfusions but also knowing that he has this cardiomyopathy would be helpful in regards to closer monitoring. He required transfusions at [facility]. Weight / BMI Weight Weight: 57.153 kg Body Mass Index (BMI) 17.5 ABG / Lab / Microbiology Data 08/28/24 09:50 08/28/24 09:50 Laboratory: Laboratory Results - last 24 hr 08/26/24 12:00: RBC Folate Hemolysate 360.0, RBC Folate 2400, Hematocrit 15.0 L* 08/27/24 03:14: Potassium 5.1, Magnesium 2.3 H 08/28/24 09:50: WBC 2.3 L, RBC 2.86 L, Hgb 9.3 L, Hct 27.4 L, MCV 95.8 H, MCH 32.5 H, MCHC 33.9, RDW Std Deviation 75.2 H, RDW Coeff of Triny 22.3 H, Plt Count 71 L, MPV 12.0, Immature Gran % (Auto) 0.400, Neut % (Auto) 64.2, Lymph % (Auto) 31.9, [place] % (Auto) 2.2, Eos % (Auto) 0.9, Baso % (Auto) 0.4, Absolute Neuts (auto) 1.5 L, Absolute Lymphs (auto) 0.74 L, Nucleated RBC % 0, Atypical Lymphocytes 1+, Platelet Estimate MOD DEC, Sodium 136, Potassium 3.4, Chloride 100, Carbon Dioxide 25.7, Anion Gap 10, BUN 25 H, Creatinine 0.98, Estim Creat Clear Calc 62.37, Est GFR (MDRD) Non-Af 87, BUN/Creatinine Ratio 25.7 H, Glucose 118 H, Calcium 8.3 Microbiology: Microbiology 08/26/24 11:43 Stool Stool Occult Blood (JOVANNY) - Final Occult Blood Positive Radiography Diagnostic Testing: Radiology Impression Echocardiogram 08/27/24 09:08 Interpretation Summary The left ventricular ejection fraction is 20 %. Normal LV size. Stage 1 diastolic dysfunction. Compared to previous study, the left ventricular systolic function has worsened.. Ordering Physician: Jose Montoya Performed By: Deanne Park RDCS D/C Instructions Discharge Diet: No restrictions DC O2, CPAP, BIPAP Needs Home O2 Discharge instructions: No Meaningful Use Info Meaningful Use Meaningful Use Diagnoses (Choose all that apply): CHF CHF BEENA/ARB ordered at discharge?: Yes Documented LVEF (%): 20 Ischemic Stroke Statin Dosing Therapy Reference: STATIN DOSE THERAPY REFERENCE: * Patients > 75 years receive moderate or high dose statin therapy. * Patients 75 years or YOUNGER should receive HIGH intensity statin dose unless contraindicated. You will be required to document reason for non-treatment if statin daily dose does not meet guidelines. HIGH DOSE STATIN THERAPY DAILY Atorvastatin > than or = to 40 mg Rosuvastatin > than or = to 20 mg Amlodipine + Atorvastatin > than or = to 2.5/40 mg Ezetimibe + Simvastatin 10/80 mg Simvastatin 80mg Discharge Plan Admission Admit Date/Time: 08/27/24 13:53 Primary Reason for Your Visit: Anemia Attending Provider: Jose Montoya Primary Care Provider: Care Physician,No Primary Instructions Additional Instructions / Restrictions: You have severe anemia. I suspect this is likely due to your bone marrow not producing the blood cells. I would like for you to have your blood counts checked periodically to see if you are becoming more and more anemic. This possibly may require further transfusions in the future. You developed acute heart failure while you are here after the transfusions. You required a lot of oxygen with that but it improved as we have the get fluid off with Lasix. Ear heart is weak which made you more susceptible to that. Will having us medications to help with your heart function overall with Coreg and lisinopril and as needed Lasix for swelling in your legs or shortness of breath. You may follow-up with cardiology for further monitoring. Discharge Orders/Prescriptions Prescriptions: New carvedilol 3.125 mg Tablet 3.125 mg PO BIDCM Qty: 60 0RF lisinopril 2.5 mg Tablet 2.5 mg PO DAILY Qty: 30 0RF furosemide [Lasix] 40 mg tablet 40 mg PO DAILY PRN (Reason: edema) Qty: 30 0RF Continued aspirin [Adult Aspirin Regimen] 81 mg tablet,delayed release (DR/EC) 81 mg PO DAILY Centrum Complete 18-400 mg-mcg tablet 1 tab PO Q24H Referrals / Follow Up: [facility] [Provider Group] - Within 2 Weeks Care Physician,No Primary [Primary Care Provider] - Disposition Disposition (needs filled in before D/C Order can be placed): Home, Self Care Charges/Coding Visit Charges Inpatient E&M: 41547 Disch Hosp >30min
[2024-08-28 13:46] VITALS: BP 106/56; PULSE 104; RESP 18; TEMP 36.7; O2SAT 96
== END 2024-08-28 14:08 | disposition home or self-care (01) | DRG 811 ==
LOC: ED 12:34 → MS3 17:55
PROVIDERS: Internal Medicine; Emergency Provider Emergency Medicine
DX: D64.9 Anemia, unspecified (principal); J96.01 Acute respiratory failure with hypoxia; I50.21 Acute systolic (congestive) heart failure; E43 Unspecified severe protein-calorie malnutrition; C92.00 Acute myeloblastic leukemia, not having achieved remission; Z68.1 Body mass index [BMI] 19.9 or less, adult; I11.0 Hypertensive heart disease with heart failure; D69.6 Thrombocytopenia, unspecified; I69.322 Dysarthria following cerebral infarction; F17.210 Nicotine dependence, cigarettes, uncomplicated; Z66 Do not resuscitate; Z79.82 Long term (current) use of aspirin; Z95.1 Presence of aortocoronary bypass graft
CPT/HCPCS: 36415; 36600; 71045; 71046; 71275; 74177; 80048; 80053; 82274; 82607; 82728; 82747; 82803; 83540; 83550; 83735; 83880; 84100; 84132; 84443; 84484; 85014; 85018; 85025; 86850; 86900; 86901; 93005; 93306; 94002; 94003; 94762; 97802; 99285; P9016; Q9957; Q9967; A4216; C8929; J1938; J2405